=== PATIENT | male | born 1940 | race Hispanic/Latino ===

== ENCOUNTER 2018-10-12 07:22 | Inpatient (IN) | payer MEDICARE, BC ==
[2018-10-12 07:39] VITALS: BMI 22.6
[2018-10-12 07:53] LABS: BASO # 0.1 K/uL (0.0-0.2); BASO % 0.6 % (0.0-2.0); HEMOGLOBIN 7.6 g/dL (12.0-18.0); LYMPH # 0.6 K/uL (1.0-4.3); LYMPH % 3.1 % (20.0-40.0); MEAN CORPUSCULAR HEMOGLOBIN 25.1 pg (27.0-31.0); MEAN CORPUSCULAR HGB CONC 32.2 g/dL (33.0-37.0); MEAN PLATELET VOLUME 8.4 fL (7.2-11.7); MONO # 0.9 K/uL (0.0-0.8); MONO % 4.5 % (0.0-10.0); NEUT # 18.1 K/uL (1.8-7.0); NEUT % 91.8 % (50.0-75.0); PLATELET COUNT 568 K/uL (130-400); RBC 3.01 Mil/uL (4.40-5.90); RED CELL DISTRIBUTION WIDTH 17.2 % (11.5-14.5); WHITE BLOOD COUNT 19.7 K/uL (4.8-10.8)
[2018-10-12] MEDS ORDERED: Sodium Chloride 0.9% 1,000 ML IV ONE (07:56)
[2018-10-12 08:01] LABS: PROTHROMBIN TIME 11.3 SECONDS (9.7-12.2)
[2018-10-12] MEDS ORDERED: Sodium Chloride 0.9% 1,000 ML ONE (08:05)
[2018-10-12 08:17] LABS: VENOUS BLOOD GAS BASE EXCESS -0.7 mmol/L (0.0-2.0); VENOUS BLOOD GAS PCO2 40 mmHg (40-60); VENOUS BLOOD GAS PO2 33 mm/Hg (30-55); VENOUS BLOOD PH 7.39 (7.32-7.43)
--- NOTE | 2018-10-12 08:27 | C.PDOC ---
History Of Present Illness 78 year old male is brought to the ED by EMS for evaluation of altered mental status. As per EMS, patient was found altered while laying on quaker steps for an unknown amount of time. Additional information limited secondary to patient's clinical condition. Time Seen by Provider: 10/12/18 07:26 Chief Complaint (Nursing): Altered Mental Status History Per: EMS History/Exam Limitations: Clinical Condition Onset/Duration Of Symptoms: Unknown Onset Of Symptoms: Cannot Confirm Onset Current Symptoms Are (Timing): Still Present Usual Baseline: Non-verbal Exacerbating Factor(s): Unknown Additional History Per: Patient Past Medical History Reviewed: Historical Data, Nursing Documentation, Vital Signs Vital Signs: Last Vital Signs Temp 90.5 F L 10/12/18 07:28 Pulse 62 10/12/18 08:22 Resp 18 10/12/18 08:22 BP 124/43 L 10/12/18 08:22 Pulse Ox 100 10/12/18 08:22 - Medical History PMH: No Chronic Diseases Surgical History: No Surg Hx Family History: States: Unknown Family Hx - Social History Hx Alcohol Use: No (Unobtainable) Hx Substance Use: No (Unobtainable) - Immunization History Hx Tetanus Toxoid Vaccination: (Unobtainable) Hx Influenza Vaccination: (Unobtainable) Hx Pneumococcal Vaccination: (Unobtainable) Review Of Systems Review Of Systems: ROS cannot be obtained secondary to pt's inabilty to answer questions. Physical Exam - Physical Exam Appears: Toxic, No Acute Distress, Other (hypothermic, with rectal temperature of 90.5) Skin: Warm, Dry, Ecchymosis (to right periorbital region. appears old ) Head: Atraumatic, Normacephalic Eye(s): bilateral: PERRL, EOMI Oral Mucosa: Moist Neck: Supple Chest: Symmetrical, No Deformity, No Tenderness Cardiovascular: Rhythm Regular, No Murmur Respiratory: Normal Breath Sounds, No Rales, No Rhonchi, No Wheezing Gastrointestinal/Abdominal: Bowel Sounds (positive ), Soft, Guarding Extremity: Normal ROM Neurological/Psych: Other (non-verbal, withdraws to pain ) ED Course And Treatment - Laboratory Results Result Diagrams: 10/12/18 07:48 10/12/18 08:13 ECG: Interpreted By Me, Viewed By Me ECG Rhythm: Sinus Rhythm Interpretation Of ECG: Normal Sinus Rhythm at 61bpm. Normal intervals, normal axis. PVCs. Positive artifact. No gross ST or T wave abnormality. Rate From EC O2 Sat by Pulse Oximetry: 100 Critical Care Time - Critical Care Note Total Time (in mins): 45 Documented critical care: time excludes all time spent performing seperately billable procedures. Medical Decision Making Medical Decision Making: Assessment: altered mental status Plan: * bloodwork * urinalysis * CXR * CT A/P * CT Head * EKG * Maxipime IVPB * IV Fluids * reassess and disposition Progress: Bloodwork, urinalysis, CXR, CT A/P, CT Head, and EKG ordered and reviewed. Maxipime IVPB and IV Fluids. Patient will be admitted to tele under Dr. Mariano Perry's service for hypothermia and mental status change. Disposition Discussed With DrGabby: Karolina Esteban - Disposition Disposition: HOSPITALIZED Disposition Time: 11:18 Condition: FAIR Forms: [employer] ([place]ian) - Clinical Impression Clinical Impression: Change in mental status, Hypothermia - Scribe Statement The provider has reviewed the documentation as recorded by the Scribe (Charla Byrd) Provider Attestation: All medical record entries made by the Scribe were at my direction and personally dictated by me. I have reviewed the chart and agree that the record accurately reflects my personal performance of the history, physical exam, [facility] decision making, and the department course for this patient. I have also personally directed, reviewed, and agree with the discharge instructions and disposition.
[2018-10-12 08:36] LABS: ALB/GLOB RATIO 1.2 (1.0-2.1); ALBUMIN 3.1 g/dL (3.5-5.0); ALT/SGPT 23 U/L (21-72); AST/SGOT 51 U/L (17-59); BLOOD UREA NITROGEN 37 mg/dL (9-20); CALCIUM 8.1 mg/dl (8.6-10.4); GFR NON-AFRICAN AMERICAN > 60
[2018-10-12] MEDS ORDERED: Cefepime 1 GM in Sodium Chloride 0.9% 50 ML IVPB ONE (08:37)
[2018-10-12 08:46] LABS: B-TYPE NATRIURETIC PEPTIDE 1780 pg/mL (0-900)
[2018-10-12 09:15] LABS: LYMPHOCYTE 1 % (20-40); MONOCYTE 2 % (0-10); NEUTROPHIL 97 % (50-75); TOTAL CELLS COUNTED 100
[2018-10-12 09:16] LABS: SQUAMOUS EPITHIAL < 1 /hpf (0-5); URINE BILIRUBIN NEGATIVE (NEGATIVE); URINE BLOOD 2+ (NEGATIVE); URINE CLARITY Clear (Clear); URINE COLOR Yellow (YELLOW); URINE GLUCOSE (UA) NORMAL (Normal); URINE LEUKOCYTE ESTERASE NEG Leu/uL (Negative); URINE PROTEIN NEGATIVE (NEGATIVE); URINE UROBILINOGEN NORMAL mg/dL (0.2-1.0)
[2018-10-12 09:16] LABS: ANISOCYTOSIS SLIGHT; PLATELET ESTIMATE INCREASED (NORMAL)
[2018-10-12 09:17] LABS: HYPOCHROMIC SLIGHT; MICROCYTOSIS SLIGHT; OVALOCYTES SLIGHT; POLYCHROMIC SLIGHT
[2018-10-12 09:18] LABS: SCHISTOCYTES SLIGHT
--- NOTE | 2018-10-12 10:05 | RAD ---
Date of service: 10/12/2018 PROCEDURE: CHEST RADIOGRAPH, 1 VIEW HISTORY: SOB COMPARISON: None available. FINDINGS: LUNGS: Clear. PLEURA: No pneumothorax or pleural fluid seen. CARDIOVASCULAR: No aortic atherosclerotic calcification present. Normal. OSSEOUS STRUCTURES: No significant abnormalities. VISUALIZED UPPER ABDOMEN: Normal. OTHER FINDINGS: None. IMPRESSION: No active disease.
--- NOTE | 2018-10-12 10:37 | CT ---
Date of service: 10/12/2018 PROCEDURE: CT HEAD WITHOUT CONTRAST. HISTORY: ams COMPARISON: None available. TECHNIQUE: Axial computed tomography images were obtained through the head/brain without intravenous contrast. Radiation dose: Total exam DLP = 1375.14 mGy-cm. This CT exam was performed using one or more of the following dose reduction techniques: Automated exposure control, adjustment of the mA and/or kV according to patient size, and/or use of iterative reconstruction technique. FINDINGS: HEMORRHAGE: No intracranial hemorrhage. BRAIN: No mass effect or edema. Severe periventricular white matter hypodensity is statistically most likely secondary to chronic microvascular ischemic disease. Mild atrophy. VENTRICLES: Unremarkable. No hydrocephalus. CALVARIUM: Unremarkable. PARANASAL SINUSES: Severe bilateral sinus disease. MASTOID AIR CELLS: Unremarkable as visualized. No inflammatory changes. OTHER FINDINGS: None. IMPRESSION: Severe periventricular white matter hypodensity is statistically most likely secondary to chronic microvascular ischemic disease. Mild atrophy.
--- NOTE | 2018-10-12 10:56 | CT ---
Date of service: 10/12/2018 PROCEDURE: CT Abdomen and Pelvis with contrast HISTORY: ams COMPARISON: None. TECHNIQUE: Contrast dose: Radiation dose: Total exam DLP = 472.04 mGy-cm. This CT exam was performed using one or more of the following dose reduction techniques: Automated exposure control, adjustment of the mA and/or kV according to patient size, and/or use of iterative reconstruction technique. FINDINGS: LOWER THORAX: Mild bibasilar infiltrates, right greater than left LIVER: Right hepatic cyst measuring roughly 1.8 centimeters. GALLBLADDER AND BILE DUCTS: Unremarkable. PANCREAS: Unremarkable. No gross lesion or ductal dilatation. SPLEEN: Unremarkable. ADRENALS: Unremarkable. No mass. KIDNEYS AND URETERS: Unremarkable. No hydronephrosis. No solid mass. VASCULATURE: Unremarkable. No aortic aneurysm. No aortic atherosclerotic calcification or mural plaque present. BOWEL: Unremarkable. No obstruction. No gross mural thickening. APPENDIX: Normal appendix. PERITONEUM: Unremarkable. No free fluid. No free air. LYMPH NODES: Unremarkable. No enlarged lymph nodes. BLADDER: Unremarkable. REPRODUCTIVE: Prostate enlargement. BONES: No acute fracture. OTHER FINDINGS: None. IMPRESSION: Right hepatic cyst. Prostate enlargement. Mild bibasilar infiltrates.
[2018-10-12 12:46] LABS: VENOUS BLOOD GAS BASE EXCESS -2.5 mmol/L (0.0-2.0); VENOUS BLOOD GAS PCO2 39 mmHg (40-60); VENOUS BLOOD GAS PO2 19 mm/Hg (30-55); VENOUS BLOOD PH 7.37 (7.32-7.43)
--- NOTE | 2018-10-12 23:54 | CP.PCM.CON ---
Past Patient History - Past Medical History & Family History Past Medical History?: No - Past Social History Smoking Status: unobtained - MUSCULOSKELETAL/RHEUMATOLOGICAL Hx Falls: Yes - PSYCHIATRIC Hx Substance Use: (unobtainable) - ANESTHESIA Hx Anesthesia: (Unobtainable) Meds Allergies/Adverse Reactions: Allergies Allergy/AdvReac Type Severity Reaction Status Date / Time Unobtainable Allergy Verified 10/12/18 07:39 - Medications Medications: Current Medications Influenza Virus Vaccine (Fluzone Quad [id number]) 60 mcg IM .ONCE ONE Stop: 10/14/18 10:01 Pneumococcal Polyvalent Vaccine (Pneumovax 23 Vaccine) 0.5 ml IM .ONCE ONE Stop: 10/14/18 10:01 Results - Vital Signs Recent Vital Signs: Last Vital Signs Temp 98 F 10/12/18 17:26 Pulse 67 10/12/18 20:28 Resp 20 10/12/18 17:26 BP 128/60 10/12/18 17:26 Pulse Ox 94 L 10/12/18 17:26 - Labs Result Diagrams: 10/12/18 07:48 10/12/18 08:13 Labs: Laboratory Results - last 24 hr 10/12/18 10/12/18 10/12/18 07:29 07:48 07:48 WBC 19.7 H RBC 3.01 L Hgb 7.6 L Hct 23.5 L MCV 78.0 L MCH 25.1 L MCHC 32.2 L RDW 17.2 H Plt Count 568 H MPV 8.4 Neut % (Auto) 91.8 H Lymph % (Auto) 3.1 L Crawford % (Auto) 4.5 Eos % (Auto) 0.0 Baso % (Auto) 0.6 Neut # (Auto) 18.1 H Lymph # (Auto) 0.6 L Crawford # (Auto) 0.9 H Eos # (Auto) 0.0 Baso # (Auto) 0.1 Neutrophils % (Manual) 97 H Lymphocytes % (Manual) 1 L Monocytes % (Manual) 2 Platelet Estimate Increased H Polychromasia Slight Hypochromasia (manual) Slight Anisocytosis (manual) Slight Microcytosis (manual) Slight Ovalocytes Slight Schistocytes Slight PT 11.3 INR 1.0 APTT 26 pO2 VBG pH VBG pCO2 VBG HCO3 VBG Total CO2 VBG O2 Sat (Calc) VBG Base Excess VBG Potassium Glucose Lactate Sodium Potassium Chloride Carbon Dioxide Anion Gap BUN Creatinine Est GFR ( Amer) Est GFR (Non-Af Amer) POC Glucose (mg/dL) 86 Random Glucose Calcium Magnesium Total Bilirubin AST ALT Alkaline Phosphatase Ammonia Total Creatine Kinase Troponin I NT-Pro-B Natriuret Pep Total Protein Albumin Globulin Albumin/Globulin Ratio Venous Blood Potassium Urine Color Urine Clarity Urine pH Ur Specific [place] Urine Protein Urine Glucose (UA) Urine Ketones Urine Blood Urine Nitrate Urine Bilirubin Urine Urobilinogen Ur Leukocyte Esterase Urine WBC (Auto) Urine RBC (Auto) Ur Squamous Epith Cells 10/12/18 10/12/18 10/12/18 08:13 08:13 08:14 WBC RBC Hgb Hct MCV MCH MCHC RDW Plt Count MPV Neut % (Auto) Lymph % (Auto) Crawford % (Auto) Eos % (Auto) Baso % (Auto) Neut # (Auto) Lymph # (Auto) Crawford # (Auto) Eos # (Auto) Baso # (Auto) Neutrophils % (Manual) Lymphocytes % (Manual) Monocytes % (Manual) Platelet Estimate Polychromasia Hypochromasia (manual) Anisocytosis (manual) Microcytosis (manual) Ovalocytes Schistocytes PT INR APTT pO2 33 VBG pH 7.39 VBG pCO2 40 VBG HCO3 23.4 VBG Total CO2 25.4 VBG O2 Sat (Calc) 62.3 VBG Base Excess -0.7 L VBG Potassium 4.8 Glucose 89 Lactate 2.8 H Sodium 134 138.0 Potassium 4.4 Chloride 100 106.0 Carbon Dioxide 23 Anion Gap 16 BUN 37 H Creatinine 0.8 Est GFR ( Amer) > 60 Est GFR (Non-Af Amer) > 60 POC Glucose (mg/dL) Random Glucose 96 Calcium 8.1 L Magnesium 2.1 Total Bilirubin 0.5 AST 51 ALT 23 Alkaline Phosphatase 94 Ammonia 20 Total Creatine Kinase 1004 H Troponin I 0.0200 NT-Pro-B Natriuret Pep 1780 H Total Protein 5.7 L Albumin 3.1 L Globulin 2.5 Albumin/Globulin Ratio 1.2 Venous Blood Potassium 4.8 Urine Color Urine Clarity Urine pH Ur Specific [place] Urine Protein Urine Glucose (UA) Urine Ketones Urine Blood Urine Nitrate Urine Bilirubin Urine Urobilinogen Ur Leukocyte Esterase Urine WBC (Auto) Urine RBC (Auto) Ur Squamous Epith Cells 10/12/18 10/12/18 08:53 12:42 WBC RBC Hgb Hct MCV MCH MCHC RDW Plt Count MPV Neut % (Auto) Lymph % (Auto) Crawford % (Auto) Eos % (Auto) Baso % (Auto) Neut # (Auto) Lymph # (Auto) Crawford # (Auto) Eos # (Auto) Baso # (Auto) Neutrophils % (Manual) Lymphocytes % (Manual) Monocytes % (Manual) Platelet Estimate Polychromasia Hypochromasia (manual) Anisocytosis (manual) Microcytosis (manual) Ovalocytes Schistocytes PT INR APTT pO2 19 L VBG pH 7.37 VBG pCO2 39 L VBG HCO3 21.1 VBG Total CO2 23.7 VBG O2 Sat (Calc) 25.3 L VBG Base Excess -2.5 L VBG Potassium 3.7 Glucose 75 Lactate 1.2 Sodium 136.0 Potassium Chloride 106.0 Carbon Dioxide Anion Gap BUN Creatinine Est GFR ( Amer) Est GFR (Non-Af Amer) POC Glucose (mg/dL) Random Glucose Calcium Magnesium Total Bilirubin AST ALT Alkaline Phosphatase Ammonia Total Creatine Kinase Troponin I NT-Pro-B Natriuret Pep Total Protein Albumin Globulin Albumin/Globulin Ratio Venous Blood Potassium 3.7 Urine Color Yellow Urine Clarity Clear Urine pH 5.0 Ur Specific [place] 1.021 Urine Protein Negative Urine Glucose (UA) Normal Urine Ketones 1+ H Urine Blood 2+ H Urine Nitrate Negative Urine Bilirubin Negative Urine Urobilinogen Normal Ur Leukocyte Esterase Neg Urine WBC (Auto) 2 Urine RBC (Auto) 22 H Ur Squamous Epith Cells < 1
[2018-10-13] MEDS: Dextrose 5%/0.45% NS 1,000 ML IV SCH ×2 (08:01→18:05)
[2018-10-13] MEDS: Cefepime IV 1 gm in Dextrose 1 GM/50 ML BAG IVPB SCH ×2 (09:36→20:01)
[2018-10-13] MEDS: Thiamine 100 mg/ml Inj IM SCH (09:36)
[2018-10-13 11:41] LABS: BASO % 0.3 % (0.0-2.0); EOS % 0.1 % (0.0-4.0); HEMOGLOBIN 6.8 g/dL (12.0-18.0); LYMPH # 0.7 K/uL (1.0-4.3); LYMPH % 4.2 % (20.0-40.0); MEAN CELL VOLUME 78.4 fL (80.0-94.0); MEAN CORPUSCULAR HEMOGLOBIN 23.8 pg (27.0-31.0); MEAN CORPUSCULAR HGB CONC 30.4 g/dL (33.0-37.0); MEAN PLATELET VOLUME 8.2 fL (7.2-11.7); MONO # 0.9 K/uL (0.0-0.8); MONO % 5.5 % (0.0-10.0); NEUT # 14.7 K/uL (1.8-7.0); NEUT % 89.9 % (50.0-75.0); PLATELET COUNT 522 K/uL (130-400); RBC 2.85 Mil/uL (4.40-5.90); RED CELL DISTRIBUTION WIDTH 17.3 % (11.5-14.5); WHITE BLOOD COUNT 16.3 K/uL (4.8-10.8)
[2018-10-13 12:01] LABS: ANISOCYTOSIS MODERATE; LYMPHOCYTE 3 % (20-40); MONOCYTE 6 % (0-10); NEUTROPHIL 91 % (50-75); PLATELET ESTIMATE INCREASED (NORMAL); TOTAL CELLS COUNTED 100
[2018-10-13 12:02] LABS: HYPOCHROMIC MODERATE; LARGE PLATELETS PRESENT; MICROCYTOSIS SLIGHT; POLYCHROMIC SLIGHT
[2018-10-13 12:03] LABS: OVALOCYTES SLIGHT; POIKILOCYTOSIS SLIGHT
[2018-10-13 12:12] LABS: ALB/GLOB RATIO 1.1 (1.0-2.1); ALBUMIN 2.7 g/dL (3.5-5.0); CALCIUM 7.5 mg/dl (8.6-10.4)
[2018-10-14] MEDS: Dextrose 5%/0.45% NS 1,000 ML IV SCH ×4 (01:39→22:46)
--- NOTE | 2018-10-14 07:07 | CP.PCM.PN ---
Subjective - Date & Time of Evaluation Date of Evaluation: 10/14/18 Time of Evaluation: 07:07 - Subjective Subjective: Medicine Progress Note - Dr Esteban's Service Objective - Vital Signs/Intake and Output Vital Signs (last 24 hours): Temp Pulse Resp BP Pulse Ox 98 F 60 20 142/66 96 10/14/18 01:00 10/14/18 01:00 10/14/18 01:00 10/14/18 01:00 10/13/18 23:30 Intake and Output: 10/14/18 10/14/18 06:59 18:59 Intake Total 1775 Output Total 700 Balance 1075 - Medications Medications: Current Medications Dextrose/Sodium Chloride (Dextrose 5%/0.45% Ns 1000 Ml) 1,000 mls @ 100 mls/hr IV .Q10H [facility] Last Admin: 10/14/18 06:28 Dose: Not Given Cefepime HCl (Maxipime Iv 1 Gm Premix) 1 gm in 50 mls @ 100 mls/hr IVPB Q12H [facility]; Protocol Last Admin: 10/13/18 20:01 Dose: 100 mls/hr Influenza Virus Vaccine (Fluzone Quad [id number]) 60 mcg IM .ONCE ONE Stop: 10/14/18 10:01 Lorazepam (Ativan) 0.5 mg IVP Q4 PRN PRN Reason: Anxiety Last Admin: 10/13/18 08:01 Dose: 0.5 mg Pantoprazole Sodium (Protonix Inj) 40 mg IVP DAILY [facility] Last Admin: 10/13/18 14:34 Dose: 40 mg Pneumococcal Polyvalent Vaccine (Pneumovax 23 Vaccine) 0.5 ml IM .ONCE ONE Stop: 10/14/18 10:01 Thiamine HCl (Vitamin B1 Inj) 100 mg IM DAILY [facility] Last Admin: 10/13/18 09:36 Dose: 100 mg - Labs Labs: 10/13/18 11:32 10/13/18 11:32 PT 11.3 SECONDS (9.7-12.2) 10/12/18 07:48 INR 1.0 10/12/18 07:48 APTT 26 SECONDS (21-34) 10/12/18 07:48
[2018-10-14 08:35] LABS: BASO # 0.1 K/uL (0.0-0.2); BASO % 0.4 % (0.0-2.0); EOS % 0.2 % (0.0-4.0); LYMPH # 0.5 K/uL (1.0-4.3); LYMPH % 3.6 % (20.0-40.0); MEAN CELL VOLUME 79.7 fL (80.0-94.0); MEAN CORPUSCULAR HEMOGLOBIN 25.7 pg (27.0-31.0); MEAN CORPUSCULAR HGB CONC 32.2 g/dL (33.0-37.0); MEAN PLATELET VOLUME 8.1 fL (7.2-11.7); MONO # 0.8 K/uL (0.0-0.8); MONO % 6.3 % (0.0-10.0); NEUT # 12.1 K/uL (1.8-7.0); NEUT % 89.5 % (50.0-75.0); RBC 3.44 Mil/uL (4.40-5.90); WHITE BLOOD COUNT 13.5 K/uL (4.8-10.8)
[2018-10-14 08:40] LABS: HEMOGLOBIN 8.8 g/dL (12.0-18.0); PLATELET COUNT 409 K/uL (130-400)
[2018-10-14 08:45] LABS: PROTHROMBIN TIME 11.1 SECONDS (9.7-12.2)
[2018-10-14] MEDS ORDERED: Propofol 10 mg/ml Inj (20 ML) ONE (08:48)
[2018-10-14 09:04] LABS: ALBUMIN 2.6 g/dL (3.5-5.0); CALCIUM 7.5 mg/dl (8.6-10.4)
[2018-10-14] MEDS ORDERED: Influenza Vaccine 60 MCG/0.5 ML SYR (3 yr & up) IM ONE (10:00)
[2018-10-14] MEDS ORDERED: Pneumococcal 23-Valent Vaccine IM ONE (10:00)
[2018-10-14 10:21] LABS: BANDS 1 % (0-2); LYMPHOCYTE 4 % (20-40); MONOCYTE 3 % (0-10); NEUTROPHIL 92 % (50-75); TOTAL CELLS COUNTED 100
[2018-10-14] MEDS: Cefepime IV 1 gm in Dextrose 1 GM/50 ML BAG IVPB SCH ×2 (10:21→20:42)
[2018-10-14 10:22] LABS: ANISOCYTOSIS SLIGHT; HYPOCHROMIC SLIGHT; PLATELET ESTIMATE SLIGHTLY INCREASED (NORMAL); POIKILOCYTOSIS SLIGHT
[2018-10-14] MEDS: Thiamine 100 mg/ml Inj IM SCH (10:22)
--- NOTE | 2018-10-14 10:46 | HP ---
HISTORY OF PRESENT ILLNESS: A 78-year-old male has a chief complaint of weakness, fatigue, tiredness, and altered mental status. The patient came to the ER, advised admission. The patient is found to be anemic. Was seen in the ICU while flower plan[facility] floor. PHYSICAL EXAMINATION: GENERAL: The patient is confused, not oriented to time or place. VITAL SIGNS: Temperature 98, pulse 90. HEENT: Within normal limits. NECK: Supple. CHEST: Symmetrical. HEART: Regular. ABDOMEN: Soft. EXTREMITIES: No edema. ASSESSMENT AND PLAN: The patient suffers from altered mental status, delirium tremens, anemia. The patient is to get bedrest. Supportive care. Karolina Esteban MD
[2018-10-14 14:47] LABS: N MENINGITIS ACY/W135 NEGATIVE (NEGATIVE); N MENINGITIS B/ECOLI K1 NEGATIVE (NEGATIVE); STREP PNEUMONIAE NEGATIVE (NEGATIVE); STREPTOCOCCUS B NEGATIVE (NEGATIVE)
--- NOTE | 2018-10-14 15:38 | CP.PCM.CON ---
History of Present Illness - History of Present Illness History of Present Illness: 78 year old male is brought to the ED by EMS for evaluation of altered mental status. As per EMS, patient was found altered while laying on mormonism steps for an unknown amount of time. Additional information limited secondary to patient's clinical condition. \ ID consulted for leukocytosis/ r/o sepsis workup for GI bleed and occult malignancy in progress IV Maxepime ordered Review of Systems - Review of Systems Systems not reviewed;Unavailable: Altered Mental Status - Constitutional Constitutional: As Per HPI - EENT Ears: absent: As Per HPI, Decreased Hearing, Ear Discharge, Ear Pain, Tinnitus, Abnormal Hearing, Disequilibrium, Dizziness, Other Nose/Mouth/Throat: absent: As Per HPI, Epistaxis, Nasal Congestion, Nasal Discharge, Nasal Obstruction, Nasal Trauma, Nose Pain, Post Nasal Drip, Sinus Pain, Sinus Pressure, Bleeding Gums, Change in Voice, Dental Pain, Dry Mouth, Dysphagia, Halitosis, Hoarsness, Lip Swelling, Mouth Lesions, Mouth Pain, Odynophagia, Sore Throat, Throat Swelling, Tongue Swelling, Facial Pain, Neck Pain, Neck Mass, Other - Cardiovascular Cardiovascular: absent: As Per HPI, Acrocyanosis, Chest Pain, Chest Pain at Rest, Chest Pain with Activity, Claudication, Diaphoresis, Dyspnea, Dyspnea on Exertion, Edema, Irregular Heart Rhythm, Pain Radiating to Arm/Neck/Jaw, Leg Edema, Leg Ulcers, Lightheadedness, Orthopnea, Palpitations, Paroxysmal Nocturnal Dyspnea, Pedal Edema, Radiating Pain, Rapid Heart Rate, Slow Heart Rate, Syncope, Other - Respiratory Respiratory: absent: As Per HPI, Cough, Dyspnea, Hemoptysis, Dyspnea on Exertion, Wheezing, Snoring, Stridor, Pain on Inspiration, Chest Congestion, Excessive Mucous Production, Change in Mucous Color, Pain with Coughing, Other - Gastrointestinal Gastrointestinal: As Per HPI - Genitourinary Genitourinary: absent: As Per HPI, Change in Urinary Stream, Difficulty Urinating, Dysuria, Flank Pain, Hematuria, Pyuria, Nocturia, Urinary Incontinence, Urinary Frequency, Urinary Hesitance, Urinary Urgency, Voiding Freq/Small Amts, Freq UTI, Hx Renal/Bladder Calculi, Hx /Renal Surgery, Bladder Distension, Other - Musculoskeletal Musculoskeletal: As Per HPI - Integumentary Integumentary: absent: As Per HPI, Acne, Alopecia, Bleeding Lesions, Change in Hair, Change in Nails, Change in Pigmentation, Changing Lesions, Dry Skin, Erythema, Furuncle, Hirsutism, Lesions, New Lesions, Non-Healing Lesions, Photosensitivity, Pruritus, Rash, Skin Pain, Skin Ulcer, Sores, Striae, Swelling, Unusual Bruising, Wounds, Jaundice, Other - Neurological Neurological: As Per HPI - Psychiatric Psychiatric: absent: As Per HPI, Abnormal Sleep Pattern, Anhedonia, Anxiety, Auditory Hallucinations, Behavioral Changes, Change in Appetite, Change in Libido, Confusion, Depression, Difficulty Concentrating, Hallucinations, Homicidal Ideation, Hopelessness, Irritability, Memory Loss, Mood Swings, Panic Attacks, Paranoia, Suicidal Ideation, Visual Hallucinations, Tactile Hallucinat ions, Other - Endocrine Endocrine: absent: As Per HPI, Change in Body Appearance, Change in Libido, Cold Intolorance, Deepening of Voice, Excessive Sweating, Fatigue, Flushing, Heat Intolorance, Increase in Ring/Shoe/Hat Size, Palpitations, Polydipsia, Polyphag ia, Polyuria, Other - Hematologic/Lymphatic Hematologic: absent: As Per HPI, Easy Bleeding, Easy Bruising, Lymphadenopathy, Other Past Patient History - Past Medical History & Family History Past Medical History?: No - Past Social History Smoking Status: unobtained - MUSCULOSKELETAL/RHEUMATOLOGICAL Hx Falls: Yes - PSYCHIATRIC Hx Substance Use: (unobtainable) - ANESTHESIA Hx Anesthesia: (Unobtainable) Meds Allergies/Adverse Reactions: Allergies Allergy/AdvReac Type Severity Reaction Status Date / Time Unobtainable Allergy Verified 10/12/18 07:39 - Medications Medications: Current Medications Dextrose/Sodium Chloride (Dextrose 5%/0.45% Ns 1000 Ml) 1,000 mls @ 100 mls/hr IV .Q10H [facility] Last Admin: 10/14/18 13:32 Dose: 100 mls/hr Cefepime HCl (Maxipime Iv 1 Gm Premix) 1 gm in 50 mls @ 100 mls/hr IVPB Q12H [facility]; Protocol Last Admin: 10/14/18 10:21 Dose: 100 mls/hr Lorazepam (Ativan) 0.5 mg IVP Q4 PRN PRN Reason: Anxiety Last Admin: 10/13/18 08:01 Dose: 0.5 mg Pantoprazole Sodium (Protonix Inj) 40 mg IVP DAILY [facility] Last Admin: 10/14/18 10:22 Dose: 40 mg Thiamine HCl (Vitamin B1 Inj) 100 mg IM DAILY [facility] Last Admin: 10/14/18 10:22 Dose: 100 mg Physical Exam - Constitutional Appears: Non-toxic, Confused, Cachectic, Chronically Ill - Head Exam Head Exam: ATRAUMATIC, NORMAL INSPECTION, NORMOCEPHALIC - Eye Exam Eye Exam: EOMI, PERRL. absent: Scleral icterus Pupil Exam: NORMAL ACCOMODATION - ENT Exam ENT Exam: Mucous Membranes Dry, Normal External Ear Exam - Neck Exam Neck exam: Negative for: Lymphadenopathy, Thyromegaly - Respiratory Exam Respiratory Exam: Decreased Breath Sounds, Clear to Auscultation Bilateral - Cardiovascular Exam Cardiovascular Exam: REGULAR RHYTHM, +S1, +S2 - GI/Abdominal Exam GI & Abdominal Exam: Diminished Bowel Sounds, Distended, Soft. absent: Tenderness - Rectal Exam Rectal Exam: Deferred - Exam Exam: NORMAL INSPECTION - Extremities Exam Extremities exam: Positive for: pedal pulses present. Negative for: calf tenderness, pedal edema, tenderness - Back Exam Back exam: absent: CVA tenderness (L), CVA tenderness (R), paraspinal tenderness - Neurological Exam Neurological exam: Alert, Altered, CN II-XII Intact - Psychiatric Exam Psychiatric exam: Depressed - Skin Skin Exam: Dry, Intact Results - Vital Signs Recent Vital Signs: Last Vital Signs Temp 98 F 10/14/18 10:10 Pulse 55 L 10/14/18 10:10 Resp 20 10/14/18 10:10 BP 132/55 L 10/14/18 10:10 Pulse Ox 94 L 10/14/18 10:10 - Labs Result Diagrams: 10/14/18 08:24 10/14/18 08:24 Labs: Laboratory Results - last 24 hr 10/13/18 10/13/18 10/14/18 13:32 18:18 07:03 WBC RBC Hgb Hct MCV MCH MCHC RDW Plt Count MPV Neut % (Auto) Lymph % (Auto) [place] % (Auto) Eos % (Auto) Baso % (Auto) Neut # (Auto) Lymph # (Auto) [place] # (Auto) Eos # (Auto) Baso # (Auto) Neutrophils % (Manual) Band Neutrophils % Lymphocytes % (Manual) Monocytes % (Manual) Platelet Estimate Hypochromasia (manual) Poikilocytosis (manual Anisocytosis (manual) PT INR APTT Sodium Potassium Chloride Carbon Dioxide Anion Gap BUN Creatinine Est GFR ( Amer) Est GFR (Non-Af Amer) Random Glucose Calcium Total Bilirubin AST ALT Alkaline Phosphatase Ammonia Total Creatine Kinase Total Protein Albumin Globulin Albumin/Globulin Ratio Alpha Fetoprotein Carcinoembryonic Ag CA 19-9 Antigen Procalcitonin TSH 3rd Generation HIV 1&2 Antibody Screen Influenza Typ A,B (EIA) Negative for flu a/b H.influenzae Type B Ag Negative N.meningitidis ACY/W135 Negative N.meningi B/E.coli K1 Ag Negative Group B Strep Antigen Negative S. pneumoniae Antigen Negative Blood Type A POSITIVE Blood Type Confirm A POSITIVE Antibody Screen Negative 10/14/18 10/14/18 10/14/18 08:24 08:24 08:24 WBC RBC Hgb Hct MCV MCH MCHC RDW Plt Count MPV Neut % (Auto) Lymph % (Auto) [place] % (Auto) Eos % (Auto) Baso % (Auto) Neut # (Auto) Lymph # (Auto) [place] # (Auto) Eos # (Auto) Baso # (Auto) Neutrophils % (Manual) Band Neutrophils % Lymphocytes % (Manual) Monocytes % (Manual) Platelet Estimate Hypochromasia (manual) Poikilocytosis (manual Anisocytosis (manual) PT INR APTT Sodium Potassium Chloride Carbon Dioxide Anion Gap BUN Creatinine Est GFR ( Amer) Est GFR (Non-Af Amer) Random Glucose Calcium Total Bilirubin AST ALT Alkaline Phosphatase Ammonia < 9 L Total Creatine Kinase Total Protein Albumin Globulin Albumin/Globulin Ratio Alpha Fetoprotein Carcinoembryonic Ag CA 19-9 Antigen Procalcitonin 2.76 H TSH 3rd Generation 3.08 HIV 1&2 Antibody Screen Influenza Typ A,B (EIA) H.influenzae Type B Ag N.meningitidis ACY/W135 N.meningi B/E.coli K1 Ag Group B Strep Antigen S. pneumoniae Antigen Blood Type Blood Type Confirm Antibody Screen 10/14/18 10/14/18 10/14/18 08:24 08:24 08:24 WBC 13.5 H RBC 3.44 L Hgb 8.8 L D Hct 27.4 L MCV 79.7 L MCH 25.7 L MCHC 32.2 L RDW 18.0 H Plt Count 409 H D MPV 8.1 Neut % (Auto) 89.5 H Lymph % (Auto) 3.6 L [place] % (Auto) 6.3 Eos % (Auto) 0.2 Baso % (Auto) 0.4 Neut # (Auto) 12.1 H Lymph # (Auto) 0.5 L [place] # (Auto) 0.8 Eos # (Auto) 0.0 Baso # (Auto) 0.1 Neutrophils % (Manual) 92 H Band Neutrophils % 1 Lymphocytes % (Manual) 4 L Monocytes % (Manual) 3 Platelet Estimate Slightly increased H Hypochromasia (manual) Slight Poikilocytosis (manual Slight Anisocytosis (manual) Slight PT INR APTT Sodium 137 Potassium 4.0 Chloride 105 Carbon Dioxide 23 Anion Gap 13 BUN 51 H Creatinine 2.8 H Est GFR ( Amer) 27 Est GFR (Non-Af Amer) 22 Random Glucose 116 H D Calcium 7.5 L Total Bilirubin 0.6 AST 104 H D ALT 56 Alkaline Phosphatase 75 Ammonia Total Creatine Kinase 1458 H Total Protein 5.2 L Albumin 2.6 L Globulin 2.6 Albumin/Globulin Ratio 1.0 Alpha Fetoprotein Carcinoembryonic Ag 1.6 CA 19-9 Antigen 1.9 Procalcitonin TSH 3rd Generation HIV 1&2 Antibody Screen Negative Influenza Typ A,B (EIA) H.influenzae Type B Ag N.meningitidis ACY/W135 N.meningi B/E.coli K1 Ag Group B Strep Antigen S. pneumoniae Antigen Blood Type Blood Type Confirm Antibody Screen 10/14/18 10/14/18 08:24 08:24 WBC RBC Hgb Hct MCV MCH MCHC RDW Plt Count MPV Neut % (Auto) Lymph % (Auto) [place] % (Auto) Eos % (Auto) Baso % (Auto) Neut # (Auto) Lymph # (Auto) [place] # (Auto) Eos # (Auto) Baso # (Auto) Neutrophils % (Manual) Band Neutrophils % Lymphocytes % (Manual) Monocytes % (Manual) Platelet Estimate Hypochromasia (manual) Poikilocytosis (manual Anisocytosis (manual) PT 11.1 INR 1.0 APTT 26 Sodium Potassium Chloride Carbon Dioxide Anion Gap BUN Creatinine Est GFR ( Amer) Est GFR (Non-Af Amer) Random Glucose Calcium Total Bilirubin AST ALT Alkaline Phosphatase Ammonia Total Creatine Kinase Total Protein Albumin Globulin Albumin/Globulin Ratio Alpha Fetoprotein 3.4 Carcinoembryonic Ag CA 19-9 Antigen Procalcitonin TSH 3rd Generation HIV 1&2 Antibody Screen Influenza Typ A,B (EIA) H.influenzae Type B Ag N.meningitidis ACY/W135 N.meningi B/E.coli K1 Ag Group B Strep Antigen S. pneumoniae Antigen Blood Type Blood Type Confirm Antibody Screen Assessment & Plan (1) Change in mental status Status: Acute (2) Hypothermia Status: Acute - Assessment and Plan (Free Text) Assessment: septic work up pending- procalcitonin high source unclear will check cultures transfused multiple units PRBC IV antibiotics in progress GI eval pending ICU eval requested
--- NOTE | 2018-10-15 08:24 | CON ---
DATE: 10/13/2018 I was called for GI consultation by the admitting medical team. The patient is seen and fully examined on 10/13/2018 as requested by the medical staff. The entire chart is reviewed including but not limited to the most recent lab and radiology study results, current and the previous medication list, current and the previous medical events, allergy to medication list as well as all the available current and the previous medical records. Case was discussed with the admitting MD at length. HISTORY OF PRESENT ILLNESS: This is a 78-year-old male who was admitted to the hospital with change of mental status through the emergency room with recent report of dysphagia, dyspepsia with generalized weakness and malaise as well as change of bowel movement habit recently. The patient unable to give additional information regarding his GI tract symptoms but no reported chest pain, palpitation, or active GI bleeding as per as the staff in the floor. After being admitted to the hospital, the patient was found to have initially hemoglobin of 7.6 with hematocrit 23.5, white blood cells 19.7 with thrombocytosis of 568 with BUN of 37, normal creatinine indicative of dehydration. PAST MEDICAL HISTORY: Difficult to obtain at this point. CURRENT MEDICATIONS: Post admission medication lists were reviewed. FAMILY HISTORY: Unknown. ALLERGIES TO MEDICATIONS: UNCLEAR. The patient reported to have low hemoglobin and hematocrit again despite blood transfusion post admission. Official report of CAT scan of the head is seen. PHYSICAL EXAMINATION: GENERAL: A 78-year-old male, somewhat unable to give any information. VITAL SIGNS: Reported to have hypothermia at the time of the admission and so on with pulse of 68, respiratory rate 20 to 22, blood pressure 130/56. HEENT: Showed pale dry oral mucoid membrane. Nonicteric sclerae. LUNGS: Few scattered crepitation. Decreased air entry at bases. HEART: Positive S1 and S2. ABDOMEN: Soft with mild generalized tenderness. No mass or organomegaly. No rebound tenderness or guarding. EXTREMITIES: Without significant clubbing, cyanosis, or edema. NEUROLOGIC: No clear reported new neurological deficits, sensory or motor. No reported new focal deficits. IMPRESSION: 1. Severe anemia, to rule out gastrointestinal bleeding, upper versus lower. 2. Rule out occult gastrointestinal malignancy. 3. Leukocytosis with thrombocytosis of unclear etiology so far. The possibility of aspiration pneumonia should be ruled in or out. 4. Abnormal CAT scan of the head. SUGGESTIONS: 1. Agree with your plan. 2. Cardiac markers including CEA, CA 19-9. 3. Endoscopic evaluation of the upper and lower GI tract when the patient is more stable clinically. 4. Endoscopic evaluation of the GI tract after adequate preparation. 5. Sectional abdominal and pelvic CAT scan. 6. Proton pump inhibitors IV. 7. Further recommendation to follow post endoscopy. Thank you for letting me participate in your patient's case management. Flynn Avina MD
[2018-10-15] MEDS: Dextrose 5%/0.45% NS 1,000 ML IV SCH ×3 (09:06→21:10)
[2018-10-15] MEDS: Cefepime IV 1 gm in Dextrose 1 GM/50 ML BAG IVPB SCH ×2 (10:01→21:10)
[2018-10-15] MEDS: Thiamine 100 mg/ml Inj IM SCH (10:07)
--- NOTE | 2018-10-15 10:23 | CARD ---
APPROVED REPORT Date of service: 10/12/2018 EKG Measurement Heart [id number] <Conclusion> Sinus rhythm with premature ventricular complexes or fusion complexes Otherwise normal ECG
--- NOTE | 2018-10-15 12:02 | CP.PCM.HP ---
History of Present Illness - History of Present Illness History of Present Illness: 78 years old male was brought to the ED at [facility] on 10/12/2018 because he was found confused, hypothermic, lying on the steps of a hindu. In the ED WBC: 16.300, Hgb: 6,8 PT, PTT WNL BUN: 37 creatinine: 0.8 CK: 1004 TNI: 0.02 Pro-BNP: 1,780 ASR: 146 TP: 5.3 Albumin: 3.1 HIV A&B negative Drug screen: negative Feto protein, CEA, CA 19-9: WNL Pro-calcitonin: 2.76. CXR: No infiltrate CT scan of the head: No hemorrhage, ischemic change, mild atrophy CTscan of the abdomen and pelvis: Mild bibasilar lung infiltrates, small hepatic cyst, enlarged prostate. UA: 2+ blood. Urine culture, blood culture: No growth. Patient received PRC transfusion and today Hgb: 8.8. The last time the patient was seen in our office was 12/2016, He is known to have a hypertension and hypercholesterolemia, on Atenolol and Simvastatin. His Mother and sister had HPTN. According to his sister, the patient did not complain any loss of appetite, any rectal bleeding, any black stools, any vomiting blood, any recent loss of weight. Present on Admission - Present on Admission Any Indicators Present on Admission: No Review of Systems - Review of Systems Systems not reviewed;Unavailable: Altered Mental Status Past Patient History - Past Medical History & Family History Past Medical History?: No - Past Social History Smoking Status: Never Smoked Alcohol: None Drugs: Denies Home Situation {Lives}: With Family Domestic Violence: Negative - CARDIAC Hx Hypercholesterolemia: Yes Hx Hypertension: Yes - MUSCULOSKELETAL/RHEUMATOLOGICAL Hx Falls: Yes - PSYCHIATRIC Hx Substance Use: (unobtainable) - ANESTHESIA Hx Anesthesia: No (Unobtainable) Meds Allergies/Adverse Reactions: Allergies Allergy/AdvReac Type Severity Reaction Status Date / Time Unobtainable Allergy Verified 10/12/18 07:39 Physical Exam - Constitutional Appears: No Acute Distress, Chronically Ill - Head Exam Head Exam: NORMAL INSPECTION - Eye Exam Eye Exam: Normal appearance - ENT Exam ENT Exam: Normal Exam - Neck Exam Neck exam: Positive for: Normal Inspection - Respiratory Exam Respiratory Exam: Rhonchi Additional comments: Few rhonchi at both bases. - Cardiovascular Exam Cardiovascular Exam: REGULAR RHYTHM - GI/Abdominal Exam GI & Abdominal Exam: Normal Bowel Sounds, Soft - Exam Exam: NORMAL INSPECTION - Extremities Exam Extremities exam: Positive for: normal inspection - Back Exam Back exam: NORMAL INSPECTION - Neurological Exam Additional comments: Confused. - Psychiatric Exam Additional comments: Confused. - Skin Skin Exam: Dry, Intact, Normal Color, Warm Results - Vital Signs Recent Vital Signs: Last Vital Signs Temp 97.9 F 10/15/18 07:00 Pulse 59 L 10/15/18 07:04 Resp 20 10/15/18 07:00 BP 148/64 10/15/18 07:00 Pulse Ox 95 10/15/18 07:00 - Labs Result Diagrams: 10/14/18 08:24 10/14/18 08:24 Labs: Laboratory Results - last 24 hr 10/13/18 10/14/18 10/14/18 07:18 07:03 08:24 Procalcitonin 2.76 H Ur Opiates (GC/MS) Negative Ur Methadone, Qual Negative Urine Propoxyphene Negative Methaqualone Negative Ur Barbiturates, Qual Negative Ur Phencyclidine (PCP) Negative Ur Amphetamines Screen Negative U Benzodiazepines Qual Negative Urine Cocaine Negative U Marijuana (THC) Screen Negative Drugs of Abuse Note See note H.influenzae Type B Ag Negative N.meningitidis ACY/W135 Negative N.meningi B/E.coli K1 Ag Negative Group B Strep Antigen Negative S. pneumoniae Antigen Negative Assessment & Plan (1) Change in mental status Assessment and Plan: MRI of the head. Neuro and Psychiatric evaluation. R/o sepsis. ID evaluation. Now on Maxipine. Status: Acute (2) Severe anemia Assessment and Plan: R/O GI bleeding. GI evaluation. Status: Acute (3) Pneumonia Assessment and Plan: On Maxipine. Status: Acute (4) Hematuria Assessment and Plan: Urine culture: no growth To check PSA. For urological evaluation. Status: Acute Decision To Admit - Pt Status Changed To: Hospital Disposition Of: Inpatient - Admit Certification Admit to Inpatient:: After my assessment, the patient will require hospitalization for at least two midnights. This is because of the severity of symptoms shown, intensity of services needed, and/or the medical risk in this patient being treated as an outpatient. - InPatient: Physician Admission Certification:: After my assessments, the patient requires hospitalization for at least 2 midnights. - . Bed Request Type: Telemetry Admitting Physician: Sylvester Jacinto
--- NOTE | 2018-10-15 17:00 | CP.PCM.PN ---
Subjective - Date & Time of Evaluation Date of Evaluation: 10/15/18 Time of Evaluation: 08:00 - Subjective Subjective: events noted yousif in place MRI brain pending Objective - Vital Signs/Intake and Output Vital Signs (last 24 hours): Temp Pulse Resp BP Pulse Ox 98.3 F 72 20 138/70 95 10/15/18 15:00 10/15/18 15:00 10/15/18 15:00 10/15/18 15:00 10/15/18 15:00 Intake and Output: 10/15/18 10/15/18 06:59 18:59 Intake Total 700 750 Output Total 350 810 Balance 350 -60 - Medications Medications: Current Medications Dextrose/Sodium Chloride (Dextrose 5%/0.45% Ns 1000 Ml) 1,000 mls @ 100 mls/hr IV .Q10H [facility] Last Admin: 10/15/18 09:06 Dose: 100 mls/hr Cefepime HCl (Maxipime Iv 1 Gm Premix) 1 gm in 50 mls @ 100 mls/hr IVPB Q12H [facility]; Protocol Last Admin: 10/15/18 10:01 Dose: 100 mls/hr Lorazepam (Ativan) 0.5 mg IVP Q4 PRN PRN Reason: Anxiety Last Admin: 10/15/18 09:13 Dose: 0.5 mg Pantoprazole Sodium (Protonix Inj) 40 mg IVP DAILY [facility] Last Admin: 10/15/18 10:04 Dose: 40 mg Thiamine HCl (Vitamin B1 Inj) 100 mg IM DAILY [facility] Last Admin: 10/15/18 10:07 Dose: 100 mg - Labs Labs: 10/14/18 08:24 10/14/18 08:24 PT 11.1 SECONDS (9.7-12.2) 10/14/18 08:24 INR 1.0 10/14/18 08:24 APTT 26 SECONDS (21-34) 10/14/18 08:24 - Constitutional Appears: Non-toxic, Chronically Ill - Head Exam Head Exam: NORMOCEPHALIC - ENT Exam ENT Exam: Mucous Membranes Dry - Neck Exam Neck Exam: absent: Lymphadenopathy - Respiratory Exam Respiratory Exam: Decreased Breath Sounds - Cardiovascular Exam Cardiovascular Exam: REGULAR RHYTHM - GI/Abdominal Exam GI & Abdominal Exam: Distended, Soft - Rectal Exam Rectal Exam: Deferred - Exam Exam: NORMAL INSPECTION - Extremities Exam Extremities Exam: absent: Pedal Edema - Back Exam Back Exam: absent: CVA tenderness (L), CVA tenderness (R) - Neurological Exam Neurological Exam: Alert, Altered, Awake - Psychiatric Exam Psychiatric exam: Depressed Assessment and Plan (1) Change in mental status Status: Acute (2) Hypothermia Status: Acute - Assessment and Plan (Free Text) Assessment: cont empiric IV antibiotics GI follow up
--- NOTE | 2018-10-15 17:07 | MRI ---
Date of service: 10/15/2018 PROCEDURE: MRI BRAIN WITHOUT CONTRAST HISTORY: r/o mass COMPARISON: None available. TECHNIQUE: Multiplanar, multisequence MR images of the brain were obtained without intravenous contrast enhancement. FINDINGS: Limitations: Extensive motion artifacts across numerous sequences. HEMORRHAGE: None DWI: No definitive evidence of an acute or early subacute infarction. BRAIN PARENCHYMA: Examination of the region of the left anterior clinoid/lateral suprasellar cistern reveals an ill-defined signal abnormality corresponding to the CT finding which is partially calcified. No definite flow voids identified to suggest an aneurysm here. The exact margins of this finding are quite ill-defined limiting evaluation of the by measurement. It appears to be less than 2 cm greatest dimension. Diffuse cerebral atrophy chronic microangiopathy are reiterated with questionable small lobar infarction of the mid left temporal lobe laterally. Ex vacuo expansion of the left lateral ventricle is appreciate, particularly at the temporal horns. No mass effect. Midline brain anatomy is limited evaluation but appears grossly nonfocal. VENTRICLES: Unremarkable. No hydrocephalus. CRANIUM: Unremarkable. ORBITS: Grossly unremarkable. PARANASAL SINUSES/MASTOIDS: Extensive sinus disease appreciated diffusely including near complete opacification of bilateral maxillary and left sphenoid sinuses as well as complete opacification the right sphenoid sinus. There is essentially complete opacification of the bilateral ethmoid air cells and left frontal sinus with partial opacification of the right frontal sinus. VASCULAR SYSTEM: Skull base flow voids intact. OTHER FINDINGS: None. IMPRESSION: No definite acute or subacute brain infarction is grossly evident. No apparent mass effect. A lesion that may correspond to the CT finding at the left anterior clinoid/suprasellar cistern laterally is poorly defined on the current examination. Consider repeat MR imaging with and without contrast if the patient can be sedated. Examination is 2 artifacted in the location of concern. 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 Gross pansinusitis with right frontal sinus least affected.
--- NOTE | 2018-10-15 18:07 | PN ---
DATE: 10/15/2018 LOCATION: 568, bed B. SUBJECTIVE: This 78-year-old male seen and examined in rounds without significant clinical changes with persistent dysphagia. The entire chart is reviewed and the patient still has leukocytosis with low hemoglobin and hematocrit, with low albumin and low total protein, but normal cancer makers. Procalcitonin level was elevated to 176. MRI of the head report is still pending. PHYSICAL EXAMINATION: GENERAL: This 78-year-old male with EGD with biopsy yesterday, pathology report is still pending. VITAL SIGNS: Afebrile with pulse of 62, respiratory rate 20-22, and blood pressure 144/66. HEENT: Showed pale dry oral mucoid membranes, nonicteric sclerae. LUNGS: Few scattered crepitation, decreased air entry at bases. HEART: S1 and S2 with increased rate. ABDOMEN: Soft with mild generalized tenderness. No mass or organomegaly and no rebound tenderness or guarding. EXTREMITIES: Without significant clubbing, cyanosis, or edema. NEUROLOGIC: No reported new neurological deficits, sensory, or motor. IMPRESSION: 1. Dysphagia. 2. 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 3. Possible aspiration pneumonia. 4. Abnormal CAT scan of the head. SUGGESTION: 1. I agree with your plan. 2. Thoracic and chest CAT scan. 3. Thoracic surgical consultation as well as hematology and oncology consultation is required. Further recommendation to follow. Flynn Avina MD
--- NOTE | 2018-10-15 23:39 | CP.PCM.CON ---
History of Present Illness - History of Present Illness History of Present Illness: Cardiothoracic Surgery Consult Note for Dr. Mathews Consult: Esophageal Mass HPI: 78 year old male, with a past medical history of hypertension and hyperlipidemia, presented to the ED by ambulance after found with altered mental status in front of a hindu for unknown period of time. Upon arrival and further workup, patient found to have dysphagia which was further worked up with the gastroenterology team. EGD was done showing a gastric mass migrating up into the esophagus. Pathology came back positive for gastric malignancy. Patient is not cooperative or coherent during examination. Per H&P note, patient's family states patient did not complain of rectal bleeding, black stools, or other GI bleeds. All history obtained through previous medical records at this time. PMH: See above PSH: Unknown FH: Unknown SH: Unable to obtain ALL: Unknown Meds: See MAR Review of Systems - Review of Systems Systems not reviewed;Unavailable: Altered Mental Status Past Patient History - Past Medical History & Family History Past Medical History?: No - Past Social History Smoking Status: Never Smoked Alcohol: None Drugs: Denies Home Situation {Lives}: With Family Domestic Violence: Negative - CARDIAC Hx Hypercholesterolemia: Yes Hx Hypertension: Yes - MUSCULOSKELETAL/RHEUMATOLOGICAL Hx Falls: Yes - PSYCHIATRIC Hx Substance Use: (unobtainable) - ANESTHESIA Hx Anesthesia: No (Unobtainable) Meds Allergies/Adverse Reactions: Allergies Allergy/AdvReac Type Severity Reaction Status Date / Time Unobtainable Allergy Verified 10/12/18 07:39 - Medications Medications: Current Medications Dextrose/Sodium Chloride (Dextrose 5%/0.45% Ns 1000 Ml) 1,000 mls @ 100 mls/hr IV .Q10H [facility] Last Admin: 10/15/18 21:10 Dose: 100 mls/hr Cefepime HCl (Maxipime Iv 1 Gm Premix) 1 gm in 50 mls @ 100 mls/hr IVPB Q12H [facility]; Protocol Last Admin: 10/15/18 21:10 Dose: 100 mls/hr Lorazepam (Ativan) 0.5 mg IVP Q4 PRN PRN Reason: Anxiety Last Admin: 10/15/18 09:13 Dose: 0.5 mg Pantoprazole Sodium (Protonix Inj) 40 mg IVP DAILY [facility] Last Admin: 10/15/18 10:04 Dose: 40 mg Thiamine HCl (Vitamin B1 Inj) 100 mg IM DAILY [facility] Last Admin: 10/15/18 10:07 Dose: 100 mg Physical Exam - Constitutional Appears: Non-toxic, No Acute Distress - Head Exam Head Exam: ATRAUMATIC, NORMAL INSPECTION, NORMOCEPHALIC - ENT Exam ENT Exam: Mucous Membranes Dry - Respiratory Exam Respiratory Exam: NORMAL BREATHING PATTERN. absent: Respiratory Distress - Cardiovascular Exam Cardiovascular Exam: REGULAR RHYTHM. absent: Tachycardia - GI/Abdominal Exam GI & Abdominal Exam: Normal Bowel Sounds, Soft. absent: Tenderness - Neurological Exam Neurological exam: Altered Results - Vital Signs Recent Vital Signs: Last Vital Signs Temp 98.3 F 10/15/18 15:00 Pulse 70 10/15/18 17:04 Resp 20 10/15/18 15:00 BP 138/70 10/15/18 15:00 Pulse Ox 95 10/15/18 15:00 - Labs Result Diagrams: 10/14/18 08:24 10/14/18 08:24 Labs: Laboratory Results - last 24 hr 10/13/18 07:18 Ur Opiates (GC/MS) Negative Ur Methadone, Qual Negative Urine Propoxyphene Negative Methaqualone Negative Ur Barbiturates, Qual Negative Ur Phencyclidine (PCP) Negative Ur Amphetamines Screen Negative U Benzodiazepines Qual Negative Urine Cocaine Negative U Marijuana (THC) Screen Negative Drugs of Abuse Note See note Assessment & Plan - Assessment and Plan (Free Text) Assessment: 78M s/p EGD w/ gastric malignancy migrating into esophagus Plan: NPO Would need further biopsies and imaging to confirm type of gastric malignancy and staging Recommend CT chest and pelvis w/ contrast Recommend PET scan Monitor respiratory status Swallow evaluation F/u Heme/Onc recs F/u GI recs D/w Dr. Reid Garcia PGY1
--- NOTE | 2018-10-15 23:58 | CP.PCM.PN ---
Subjective - Date & Time of Evaluation Date of Evaluation: 10/15/18 Time of Evaluation: 19:00 - Subjective Subjective: Patient still confused. In no respiratory distress, in spite of a frequent cough. MRI disclosed sinusitis bilaterally. EGD revealed a gastric mass extending to the esophagus, supicious of malignancy. Will ask for Oncology evaluation and thoracic surgical evaluation. Keep NPO and start PPN. Discussed findings with patient's sister. Objective - Vital Signs/Intake and Output Vital Signs (last 24 hours): Temp Pulse Resp BP Pulse Ox 98.3 F 70 20 138/70 95 10/15/18 15:00 10/15/18 17:04 10/15/18 15:00 10/15/18 15:00 10/15/18 15:00 Intake and Output: 10/15/18 10/16/18 18:59 06:59 Intake Total 750 700 Output Total 810 380 Balance -60 320 - Medications Medications: Current Medications Dextrose/Sodium Chloride (Dextrose 5%/0.45% Ns 1000 Ml) 1,000 mls @ 100 mls/hr IV .Q10H [facility] Last Admin: 10/15/18 21:10 Dose: 100 mls/hr Cefepime HCl (Maxipime Iv 1 Gm Premix) 1 gm in 50 mls @ 100 mls/hr IVPB Q12H [facility]; Protocol Last Admin: 10/15/18 21:10 Dose: 100 mls/hr Lorazepam (Ativan) 0.5 mg IVP Q4 PRN PRN Reason: Anxiety Last Admin: 10/15/18 09:13 Dose: 0.5 mg Pantoprazole Sodium (Protonix Inj) 40 mg IVP DAILY [facility] Last Admin: 10/15/18 10:04 Dose: 40 mg Thiamine HCl (Vitamin B1 Inj) 100 mg IM DAILY [facility] Last Admin: 10/15/18 10:07 Dose: 100 mg - Labs Labs: 10/14/18 08:24 10/14/18 08:24 PT 11.1 SECONDS (9.7-12.2) 10/14/18 08:24 INR 1.0 10/14/18 08:24 APTT 26 SECONDS (21-34) 10/14/18 08:24 - Constitutional Appears: No Acute Distress, Chronically Ill - Head Exam Head Exam: NORMAL INSPECTION - Eye Exam Eye Exam: Normal appearance - ENT Exam ENT Exam: Normal Exam - Neck Exam Neck Exam: Normal Inspection - Respiratory Exam Respiratory Exam: Rhonchi Additional comments: Rhonchi bilaterally. - Cardiovascular Exam Cardiovascular Exam: REGULAR RHYTHM - GI/Abdominal Exam GI & Abdominal Exam: Soft, Normal Bowel Sounds - Rectal Exam Rectal Exam: Deferred - Extremities Exam Extremities Exam: Normal Inspection - Back Exam Back Exam: NORMAL INSPECTION - Neurological Exam Neurological Exam: Awake - Psychiatric Exam Psychiatric exam: Agitated Additional comments: Confused. - Skin Skin Exam: Dry, Normal Color Assessment and Plan (1) Change in mental status Status: Acute (2) Severe anemia Status: Acute (3) Pneumonia Assessment & Plan: On IV antibiotics. Status: Acute (4) Hematuria Status: Acute (5) Gastric mass Assessment & Plan: Gastric mass extending to the esophagus, suspicious of malignancy. Will ask for a cardio-thoracic surgical evaluation and an oncology evaluation. Status: Acute
[2018-10-16] MEDS: Dextrose 5%/0.45% NS 1,000 ML IV SCH (06:20)
--- NOTE | 2018-10-16 07:29 | CP.PCM.PN ---
Subjective - Date & Time of Evaluation Date of Evaluation: 10/16/18 Time of Evaluation: 06:30 - Subjective Subjective: Cardiothoracic surgery Pt seen and examined. Still seems altered with confused speech, but denies any pain. Objective - Vital Signs/Intake and Output Vital Signs (last 24 hours): Temp Pulse Resp BP Pulse Ox 98.3 F 83 20 144/66 94 L 10/16/18 00:00 10/16/18 00:00 10/16/18 00:00 10/16/18 00:00 10/16/18 00:00 Intake and Output: 10/16/18 10/16/18 06:59 18:59 Intake Total 700 Output Total 380 Balance 320 - Medications Medications: Current Medications Dextrose/Sodium Chloride (Dextrose 5%/0.45% Ns 1000 Ml) 1,000 mls @ 100 mls/hr IV .Q10H [facility] Last Admin: 10/15/18 21:10 Dose: 100 mls/hr Cefepime HCl (Maxipime Iv 1 Gm Premix) 1 gm in 50 mls @ 100 mls/hr IVPB Q12H [facility]; Protocol Last Admin: 10/15/18 21:10 Dose: 100 mls/hr Lorazepam (Ativan) 0.5 mg IVP Q4 PRN PRN Reason: Anxiety Last Admin: 10/15/18 09:13 Dose: 0.5 mg Pantoprazole Sodium (Protonix Inj) 40 mg IVP DAILY [facility] Last Admin: 10/15/18 10:04 Dose: 40 mg Thiamine HCl (Vitamin B1 Inj) 100 mg IM DAILY [facility] Last Admin: 10/15/18 10:07 Dose: 100 mg - Labs Labs: 10/14/18 08:24 10/14/18 08:24 PT 11.1 SECONDS (9.7-12.2) 10/14/18 08:24 INR 1.0 10/14/18 08:24 APTT 26 SECONDS (21-34) 10/14/18 08:24 - Constitutional Appears: Non-toxic, No Acute Distress - Head Exam Head Exam: ATRAUMATIC, NORMOCEPHALIC - Eye Exam Eye Exam: EOMI. absent: Scleral icterus - Respiratory Exam Respiratory Exam: NORMAL BREATHING PATTERN. absent: Accessory Muscle Use, Chest Wall Tenderness, Respiratory Distress - GI/Abdominal Exam GI & Abdominal Exam: Soft. absent: Distended, Firm, Guarding, Rigid, Tenderness - Neurological Exam Neurological Exam: Altered, Awake - Skin Skin Exam: Dry, Warm Assessment and Plan - Assessment and Plan (Free Text) Assessment: 78M w/ gastric malignancy migrating into esophagus Plan: CT chest/abd/pelvis w/ PO contrast (Cr 2.8) Recommend PET scan Monitor respiratory status Swallow evaluation Consider planning for Gastrostomy vs Jejunostomy for future feeding D/W Dr. Reid Sneed PGY4
[2018-10-16] MEDS: Cefepime IV 1 gm in Dextrose 1 GM/50 ML BAG IVPB SCH (10:00)
[2018-10-16] MEDS ORDERED: Etomidate 20 mg/10ml Inj IV ONE (10:42)
[2018-10-16] MEDS ORDERED: Propofol 10 mg/ml Inj (20 ML) ONE (10:42)
[2018-10-16] MEDS: Thiamine 100 mg/ml Inj IM SCH (12:01)
--- NOTE | 2018-10-16 12:50 | CP.PCM.CON ---
History of Present Illness - History of Present Illness History of Present Illness: 78 year old male with unknown medical history presenting with AMS, found to have a gastric mass suspicious for malignancy. The patient was apparently found at [facility] confused and brought to the hospital. He is s/p EGD x 2 and found to have a gastric mass migrating up the esophagus. His initial pathology report was positive for atypical cells. A repeat EGD was performed today for rebiopsy in an attempt to confirm malignancy. I am unable to obtain a history from the patient due to confusion. Past medical, surgical, family, social history cannot be obtained. Allergies: Unknown Review of systems cannot be obtained. Past Patient History - Past Medical History & Family History Past Medical History?: No - Past Social History Smoking Status: Never Smoked Alcohol: None Drugs: Denies Home Situation {Lives}: With Family Domestic Violence: Negative - CARDIAC Hx Hypercholesterolemia: Yes Hx Hypertension: Yes - MUSCULOSKELETAL/RHEUMATOLOGICAL Hx Falls: Yes - PSYCHIATRIC Hx Substance Use: (unobtainable) - ANESTHESIA Hx Anesthesia: No (Unobtainable) Meds Allergies/Adverse Reactions: Allergies Allergy/AdvReac Type Severity Reaction Status Date / Time Unobtainable Allergy Verified 10/12/18 07:39 - Medications Medications: Current Medications Multivitamins/Vitamin C 10 ml/Chromium/Copper/Manganese/Zinc 1 ml/ Insulin Human Regular 10 unit/ Amino Acids 1,011.1 mls @ 42 mls/hr IV .Q24H [facility] Stop: 10/17/18 17:59 Fat Emulsion Intravenous (Intralipid 20%) 500 mls @ 42 mls/hr IV QOD@1800 [facility] Stop: 10/22/18 18:01 Cefepime HCl 0.5 gm/ Sodium (Chloride) 50 mls @ 100 mls/hr IVPB Q12H [facility]; Protocol Lorazepam (Ativan) 0.5 mg IVP Q4 PRN PRN Reason: Anxiety Last Admin: 10/15/18 09:13 Dose: 0.5 mg Pantoprazole Sodium (Protonix Inj) 40 mg IVP DAILY [facility] Last Admin: 10/16/18 11:49 Dose: 40 mg Thiamine HCl (Vitamin B1 Inj) 100 mg IM DAILY [facility] Last Admin: 10/16/18 12:01 Dose: 100 mg Physical Exam - Head Exam Head Exam: ATRAUMATIC - Eye Exam Eye Exam: Normal appearance - ENT Exam ENT Exam: Mucous Membranes Dry - Respiratory Exam Respiratory Exam: NORMAL BREATHING PATTERN - Cardiovascular Exam Cardiovascular Exam: +S1, +S2 - GI/Abdominal Exam GI & Abdominal Exam: Normal Bowel Sounds - Extremities Exam Extremities exam: Positive for: normal inspection - Neurological Exam Neurological exam: Altered Results - Vital Signs Recent Vital Signs: Last Vital Signs Temp 97.9 F 10/16/18 11:45 Pulse 60 10/16/18 11:45 Resp 18 10/16/18 11:45 BP 151/76 H 10/16/18 11:45 Pulse Ox 93 L 10/16/18 11:45 - Labs Result Diagrams: 10/18/18 08:17 10/18/18 08:17 Labs: Laboratory Results - last 24 hr 10/16/18 07:07 Prostate Specific Ag 11.0 H Assessment & Plan (1) Anemia Assessment and Plan: retic count, b12, folate, ferritin to further characterize. Status: Acute (2) Gastric mass Assessment and Plan: likely malignancy awaiting pathology report non contrast ct reviewed will order contrast enhanced scan for staging further treatment recommendations based on pathology and staging Thank you for this interesting consult. Status: Acute
--- NOTE | 2018-10-16 14:33 | CT ---
Date of service: 10/16/2018 PROCEDURE: CT Chest, Abdomen and Pelvis without intravenous contrast HISTORY: esophageal mass COMPARISON: CT abdomen and pelvis from 10/12/2018. TECHNIQUE: Radiation dose: Total exam DLP = 813.62 mGy-cm. This CT exam was performed using one or more of the following dose reduction techniques: Automated exposure control, adjustment of the mA and/or kV according to patient size, and/or use of iterative reconstruction technique. FINDINGS: CT CHEST WITHOUT CONTRAST: LUNGS: There is patchy ground-glass attenuation in the right upper lobe. There is compressive atelectasis in the lower lobes, worse on the right. There is subsegmental atelectasis in the right middle lobe. MEDIASTINUM: Mild cardiomegaly. Normal caliber aorta and pulmonary arterial trunk. No pericardial effusion. There is asymmetric soft tissue and thickening in the anterior and left lateral distal esophageal wall. LYMPH NODES: Subcentimeter mediastinal lymph nodes. PLEURA: Large pleural effusions, worse on the right. No pneumothorax. BONES: Unremarkable. OTHER FINDINGS: None. CT ABDOMEN AND PELVIS: LIVER: Normal in size there is a stable 2 cm simple cyst in the subcapsular right hepatic lobe.. No gross lesion or ductal dilatation. GALLBLADDER AND BILE DUCTS: The gallbladder is not distended. There is dense layering sludge within the gallbladder. PANCREAS: Unremarkable. No gross lesion or ductal dilatation. SPLEEN: Unremarkable. ADRENALS: Unremarkable. No mass. KIDNEYS AND URETERS: Normal in size. No hydronephrosis. No nephrolithiasis. There is nonspecific perinephric fat stranding on the right side. VASCULATURE: There are aortic atherosclerotic calcifications present. No aortic aneurysm. BOWEL: The small bowel loops are normal in size. The colon is unremarkable. APPENDIX: Normal appendix. PERITONEUM: Small right perihepatic ascites. No free air. LYMPH NODES: No enlarged lymph nodes. BLADDER: Indwelling Gutierrez catheter in subsequent decompression of the urinary bladder. REPRODUCTIVE: Again seen is moderate enlargement of the prostate gland. BONES: No acute fracture. There is diffuse bone demineralization. OTHER FINDINGS: None. IMPRESSION: 1. Asymmetric thickening and soft tissue in the distal esophagus predominantly involving the anterior and left lateral wall concerning for neoplasm in this clinical setting. 2. This examination is limited in the absence of intravenous and oral contrast. Allowing for this, stable 2 cm simple cyst in the subcapsular right hepatic lobe. 3. Large bilateral pleural effusions, worse on the right with compressive atelectasis of the lungs. 4. Moderate enlargement of the prostate gland.
--- NOTE | 2018-10-16 14:35 | CP.PCM.PN ---
Subjective - Date & Time of Evaluation Date of Evaluation: 10/16/18 Time of Evaluation: 14:33 - Subjective Subjective: Reason for consultation: gastric ca invading esophagus. Requested by Dr. Jacinto I have reviewed progress notes, path reports. So far path shows atypical cells. Repeat bx today with pending results. Recom ct(c/a/p) and if indeed path shows cancer, then need PET. a/p: Gastric ca invading esophagus. Repeat endoscopy and bx today and results pending. Ct(c/a/p) and PET if + for cancer. will follow. Objective - Vital Signs/Intake and Output Vital Signs (last 24 hours): Temp Pulse Resp BP Pulse Ox 97.9 F 60 18 151/76 H 93 L 10/16/18 11:45 10/16/18 11:45 10/16/18 11:45 10/16/18 11:45 10/16/18 11:45 Intake and Output: 10/16/18 10/16/18 06:59 18:59 Intake Total 700 570 Output Total 380 250 Balance 320 320 - Medications Medications: Current Medications Multivitamins/Vitamin C 10 ml/Chromium/Copper/Manganese/Zinc 1 ml/ Insulin Human Regular 10 unit/ Amino Acids 1,011.1 mls @ 42 mls/hr IV .Q24H [facility] Stop: 10/17/18 17:59 Fat Emulsion Intravenous (Intralipid 20%) 500 mls @ 42 mls/hr IV QOD@1800 [facility] Stop: 10/22/18 18:01 Cefepime HCl 0.5 gm/ Sodium (Chloride) 50 mls @ 100 mls/hr IVPB Q12H [facility]; Protocol Lorazepam (Ativan) 0.5 mg IVP Q4 PRN PRN Reason: Anxiety Last Admin: 10/15/18 09:13 Dose: 0.5 mg Pantoprazole Sodium (Protonix Inj) 40 mg IVP DAILY [facility] Last Admin: 10/16/18 11:49 Dose: 40 mg Thiamine HCl (Vitamin B1 Inj) 100 mg IM DAILY [facility] Last Admin: 10/16/18 12:01 Dose: 100 mg - Labs Labs: 10/14/18 08:24 10/14/18 08:24 PT 11.1 SECONDS (9.7-12.2) 10/14/18 08:24 INR 1.0 10/14/18 08:24 APTT 26 SECONDS (21-34) 10/14/18 08:24
--- NOTE | 2018-10-16 17:09 | CP.PCM.PN ---
Subjective - Date & Time of Evaluation Date of Evaluation: 10/16/18 Time of Evaluation: 08:00 - Subjective Subjective: remains confused awake alert restless neuro and GI eval in progress cultures neg thus far Objective - Vital Signs/Intake and Output Vital Signs (last 24 hours): Temp Pulse Resp BP Pulse Ox 98.7 F 72 20 139/47 L 97 10/16/18 15:56 10/16/18 15:56 10/16/18 15:56 10/16/18 15:56 10/16/18 15:56 Intake and Output: 10/16/18 10/16/18 06:59 18:59 Intake Total 700 570 Output Total 380 250 Balance 320 320 - Medications Medications: Current Medications Multivitamins/Vitamin C 10 ml/Chromium/Copper/Manganese/Zinc 1 ml/ Insulin Human Regular 10 unit/ Amino Acids 1,011.1 mls @ 42 mls/hr IV .Q24H [facility] Stop: 10/17/18 17:59 Fat Emulsion Intravenous (Intralipid 20%) 500 mls @ 42 mls/hr IV QOD@1800 [facility] Stop: 10/22/18 18:01 Cefepime HCl 0.5 gm/ Sodium (Chloride) 50 mls @ 100 mls/hr IVPB Q12H [facility]; Protocol Lorazepam (Ativan) 0.5 mg IVP Q4 PRN PRN Reason: Anxiety Last Admin: 10/16/18 15:10 Dose: 0.5 mg Pantoprazole Sodium (Protonix Inj) 40 mg IVP DAILY [facility] Last Admin: 10/16/18 11:49 Dose: 40 mg Thiamine HCl (Vitamin B1 Inj) 100 mg IM DAILY [facility] Last Admin: 10/16/18 12:01 Dose: 100 mg - Labs Labs: 10/14/18 08:24 10/14/18 08:24 PT 11.1 SECONDS (9.7-12.2) 10/14/18 08:24 INR 1.0 10/14/18 08:24 APTT 26 SECONDS (21-34) 10/14/18 08:24 - Constitutional Appears: Non-toxic, Chronically Ill - Head Exam Head Exam: NORMOCEPHALIC - Eye Exam Eye Exam: absent: Scleral icterus - ENT Exam ENT Exam: Normal External Ear Exam - Neck Exam Neck Exam: absent: Lymphadenopathy - Respiratory Exam Respiratory Exam: Decreased Breath Sounds - Cardiovascular Exam Cardiovascular Exam: REGULAR RHYTHM - GI/Abdominal Exam GI & Abdominal Exam: Distended, Soft - Rectal Exam Rectal Exam: Deferred - Exam Exam: NORMAL INSPECTION - Extremities Exam Extremities Exam: absent: Pedal Edema - Back Exam Back Exam: absent: CVA tenderness (L), CVA tenderness (R) - Neurological Exam Neurological Exam: Alert, Altered, CN II-XII Intact. absent: Oriented x3 - Psychiatric Exam Psychiatric exam: Depressed - Skin Skin Exam: Dry Assessment and Plan (1) Change in mental status Status: Acute (2) Hypothermia Status: Acute - Assessment and Plan (Free Text) Assessment: IV antibiotics renewed cultures neg GI and neuro eval in progress
--- NOTE | 2018-10-16 17:13 | CP.PCM.PN ---
Subjective - Date & Time of Evaluation Date of Evaluation: 10/16/18 Time of Evaluation: 09:00 - Subjective Subjective: remains confused awake alert restless neuro and GI eval in progress cultures neg thus far Objective - Vital Signs/Intake and Output Vital Signs (last 24 hours): Temp Pulse Resp BP Pulse Ox 98.7 F 72 20 139/47 L 97 10/16/18 15:56 10/16/18 15:56 10/16/18 15:56 10/16/18 15:56 10/16/18 15:56 Intake and Output: 10/16/18 10/16/18 06:59 18:59 Intake Total 700 570 Output Total 380 250 Balance 320 320 - Medications Medications: Current Medications Multivitamins/Vitamin C 10 ml/Chromium/Copper/Manganese/Zinc 1 ml/ Insulin Human Regular 10 unit/ Amino Acids 1,011.1 mls @ 42 mls/hr IV .Q24H [facility] Stop: 10/17/18 17:59 Fat Emulsion Intravenous (Intralipid 20%) 500 mls @ 42 mls/hr IV QOD@1800 [facility] Stop: 10/22/18 18:01 Cefepime HCl 0.5 gm/ Sodium (Chloride) 50 mls @ 100 mls/hr IVPB Q12H [facility]; Protocol Lorazepam (Ativan) 0.5 mg IVP Q4 PRN PRN Reason: Anxiety Last Admin: 10/16/18 15:10 Dose: 0.5 mg Pantoprazole Sodium (Protonix Inj) 40 mg IVP DAILY [facility] Last Admin: 10/16/18 11:49 Dose: 40 mg Thiamine HCl (Vitamin B1 Inj) 100 mg IM DAILY [facility] Last Admin: 10/16/18 12:01 Dose: 100 mg - Labs Labs: 10/14/18 08:24 10/14/18 08:24 PT 11.1 SECONDS (9.7-12.2) 10/14/18 08:24 INR 1.0 10/14/18 08:24 APTT 26 SECONDS (21-34) 10/14/18 08:24 - Constitutional Appears: Non-toxic, Chronically Ill - Head Exam Head Exam: NORMOCEPHALIC - Eye Exam Eye Exam: absent: Scleral icterus - ENT Exam ENT Exam: Mucous Membranes Dry - Neck Exam Neck Exam: absent: Lymphadenopathy - Respiratory Exam Respiratory Exam: Decreased Breath Sounds - Cardiovascular Exam Cardiovascular Exam: REGULAR RHYTHM - GI/Abdominal Exam GI & Abdominal Exam: Distended, Soft - Rectal Exam Rectal Exam: Deferred - Exam Exam: NORMAL INSPECTION - Extremities Exam Extremities Exam: Full ROM - Back Exam Back Exam: absent: CVA tenderness (L), CVA tenderness (R) - Neurological Exam Neurological Exam: Altered Assessment and Plan (1) Change in mental status Status: Acute (2) Hypothermia Status: Acute - Assessment and Plan (Free Text) Assessment: MRI reveals pansinusitis as well as diffuse attrophy CT abd shows esophageal thickening as well as bilat effusions IV antibiotic renewed may benefit from thoracentesis await GI follow up re CT findings
[2018-10-16] MEDS: Fat Emulsion 20% IV 500 ML IV SCH (17:20)
[2018-10-16] MEDS ORDERED: **PPN #1 IV SCH (18:00)
--- NOTE | 2018-10-16 23:05 | CP.PCM.PN ---
Subjective - Date & Time of Evaluation Date of Evaluation: 10/16/18 Time of Evaluation: 19:40 - Subjective Subjective: Patient awake, confused, in no respiratory distress. Had repeated EGD this AM and repeated biopsies of the gastric mass. Repeat CT scan of the chest revealed large bilateral pleural effusion. Patient now receiving PPN. Objective - Vital Signs/Intake and Output Vital Signs (last 24 hours): Temp Pulse Resp BP Pulse Ox 98.7 F 72 20 139/47 L 97 10/16/18 15:56 10/16/18 15:56 10/16/18 15:56 10/16/18 15:56 10/16/18 15:56 Intake and Output: 10/16/18 10/17/18 18:59 06:59 Intake Total 570 Output Total 250 Balance 320 - Medications Medications: Current Medications Multivitamins/Vitamin C 10 ml/Chromium/Copper/Manganese/Zinc 1 ml/ Insulin Human Regular 10 unit/ Amino Acids 1,011.1 mls @ 42 mls/hr IV .Q24H REPLACED BY [facility] Stop: 10/17/18 17:59 Last Admin: 10/16/18 17:21 Dose: 42 mls/hr Fat Emulsion Intravenous (Intralipid 20%) 500 mls @ 42 mls/hr IV QOD@1800 REPLACED BY [facility] Stop: 10/22/18 18:01 Last Admin: 10/16/18 17:20 Dose: 42 mls/hr Cefepime HCl 0.5 gm/ Sodium (Chloride) 50 mls @ 100 mls/hr IVPB Q12H REPLACED BY [facility]; Protocol Last Admin: 10/16/18 21:42 Dose: 100 mls/hr Lorazepam (Ativan) 0.5 mg IVP Q4 PRN PRN Reason: Anxiety Last Admin: 10/16/18 15:10 Dose: 0.5 mg Pantoprazole Sodium (Protonix Inj) 40 mg IVP DAILY REPLACED BY [facility] Last Admin: 10/16/18 11:49 Dose: 40 mg Thiamine HCl (Vitamin B1 Inj) 100 mg IM DAILY REPLACED BY [facility] Last Admin: 10/16/18 12:01 Dose: 100 mg - Labs Labs: 10/14/18 08:24 10/14/18 08:24 PT 11.1 SECONDS (9.7-12.2) 10/14/18 08:24 INR 1.0 10/14/18 08:24 APTT 26 SECONDS (21-34) 10/14/18 08:24 - Constitutional Appears: No Acute Distress, Chronically Ill - Head Exam Head Exam: NORMOCEPHALIC - Eye Exam Eye Exam: Normal appearance - ENT Exam ENT Exam: Normal Exam - Neck Exam Neck Exam: Normal Inspection - Respiratory Exam Respiratory Exam: Rhonchi Additional comments: Decreased BS both bases. - Cardiovascular Exam Cardiovascular Exam: REGULAR RHYTHM - GI/Abdominal Exam GI & Abdominal Exam: Soft, Normal Bowel Sounds - Exam Exam: NORMAL INSPECTION - Extremities Exam Extremities Exam: Normal Inspection - Back Exam Back Exam: NORMAL INSPECTION - Neurological Exam Neurological Exam: Alert, Awake Additional comments: Confused. - Psychiatric Exam Additional comments: Confused. - Skin Skin Exam: Dry, Intact, Normal Color, Warm Assessment and Plan (1) Change in mental status Status: Acute (2) Severe anemia Assessment & Plan: FRom GI bleeding from a gastric mass. Status: Acute (3) Pneumonia Assessment & Plan: To continue IV antibiotics. 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 Status: Acute (4) Hematuria Status: Acute (5) Gastric mass Status: Acute (6) Bilateral pleural effusion Assessment & Plan: May need thoracentesis Status: Acute
--- NOTE | 2018-10-17 00:48 | CON ---
DATE: 10/16/2018 PSYCHIATRIC CONSULTATION CHIEF COMPLAINT AND REASON FOR CONSULTATION: The patient was referred by Dr. Jacinto for evaluation as the patient is exhibiting increasing confusion. HISTORY OF PRESENT ILLNESS: This is a case of 78-year-old white male, who was brought into the hospital as he was found confused, hypothermic, lying in the steps of the scientology. The patient had a drug screen done that was negative. The patient was referred for co-management as the patient has been exhibiting increasing confusion. The patient today is on one-to-one watch because he is very confused and disoriented. The patient had EGD done and it showed a gastric mass migrating into the esophagus. The patient when seen today is still very confused and he does not know where he is. He is only oriented to person. He was given Ativan 0.5 every 4 p.r.n., and currently on one-to-one watch. The patient has nothing pain or anything but continues to be significantly confused. The patient is a poor historian. Collateral information taken from the chart. PAST MEDICAL HISTORY: Denies any medical history. The patient has history of delirium as well as hypothermia, anemia, pneumonia, and gastric mass. DRUG/ALCOHOL HISTORY: The patient used to drink. ALLERGIES: THE PATIENT STATES THAT HE HAS NO ALLERGIES. PSYCHOSOCIAL HISTORY: The patient cannot give much, but he said that he is retired, and he lives with his family. LIST OF CURRENT MEDICATIONS: Ativan 0.5 mg every 4 p.r.n., cefepime. The patient is on pantoprazole, thiamine. IMAGING: The patient had CAT scan of the head as well as MRI but the results were unremarkable. LABORATORY DATA: On review of his labs, the patient's WBC is 13.5, H and H are 8.8 and 27.4. The patient's BUN is currently 51. The patient's creatinine seems to be getting elevated. His last creatinine was 1.7 which was on 10/13/2018, and now his current creatine is 2.8. The patient's GFR is now 22. PSA is elevated. TSH is 3.08. HIV is negative. REVIEW OF SYSTEMS: GENERAL: He is alert, but very confused. Oriented only to person, seen in his room with mittens. The patient is not complaining of pain or anything, but needs 24-hour monitoring. He is on one-to-one watch. SKIN: No diaphoresis. HEENT: No headache. No dizziness. NECK: Supple. RESPIRATORY: No dyspnea. CARDIOVASCULAR: No chest pain. GASTROINTESTINAL: No nausea or vomiting. EXTREMITIES: The patient moving extremities, but has hand mittens. NEUROLOGIC: Alert, significantly confused. GENITOURINARY: No dysuria. PHYSICAL EXAMINATION: VITAL SIGNS: Temperature is 97.9, pulse rate 60, blood pressure is 151/76, respirations 18, and oxygen saturations 93%. MENTAL STATUS EXAMINATION: Elderly male who looks stated age, oriented x1. Mood is dysphoric. Affect is restricted. Speech is slow. Thought process confused. Thought content, no overt psychosis. No suicidal or homicidal ideation. Attention and memory seem to be limited. Insight and judgment is limited. Impulse control is guarded at this time. IMPRESSION: Delirium, multifactorial; mostly metabolic. PLAN AND RECOMMENDATION: The patient was seen, meds reviewed. We will keep the one-to-one watch for now for safety. Continue the Ativan 0.5 mg IV every 4 p.r.n. In review of her labs, the patient's kidney status seems to be deteriorating. His BUN before seems to be getting higher. The patient's BUN is now 51, the creatinine is 2.8, and the GFR is now 22. This could have contributed due to his increasing confusion, but currently the patient is in the stage of delirium. We will keep the current psych meds for now and keep the one-to-one for monitoring. The patient also has a gastric mass noted. Naveed Cooper MD MTDJose
[2018-10-17 07:12] LABS: BASO # 0.1 K/uL (0.0-0.2); BASO % 0.8 % (0.0-2.0); EOS # 0.3 K/uL (0.0-0.7); HEMOGLOBIN 8.2 g/dL (12.0-18.0); LYMPH # 0.6 K/uL (1.0-4.3); LYMPH % 8.1 % (20.0-40.0); MEAN CELL VOLUME 79.9 fL (80.0-94.0); MEAN CORPUSCULAR HEMOGLOBIN 26.1 pg (27.0-31.0); MEAN CORPUSCULAR HGB CONC 32.7 g/dL (33.0-37.0); MEAN PLATELET VOLUME 8.3 fL (7.2-11.7); MONO # 0.6 K/uL (0.0-0.8); NEUT # 6.2 K/uL (1.8-7.0); NEUT % 79.1 % (50.0-75.0); PLATELET COUNT 319 K/uL (130-400); RBC 3.15 Mil/uL (4.40-5.90); RED CELL DISTRIBUTION WIDTH 18.3 % (11.5-14.5); WHITE BLOOD COUNT 7.8 K/uL (4.8-10.8)
[2018-10-17 07:41] LABS: ALB/GLOB RATIO 0.9 (1.0-2.1); ALBUMIN 2.3 g/dL (3.5-5.0); ALT/SGPT 41 U/L (21-72); AST/SGOT 39 U/L (17-59); BLOOD UREA NITROGEN 14 mg/dL (9-20); CALCIUM 7.2 mg/dl (8.6-10.4); GFR NON-AFRICAN AMERICAN > 60
--- NOTE | 2018-10-17 07:49 | PN ---
DATE: 10/17/2018 LOCATION: 568, bed B. SUBJECTIVE: This 78-year-old male, seen and examined early in rounds without significant clinical changes, still n.p.o., on peripheral hyperalimentation so far without reported active bleeding. The patient is aphasic most of the time, and all information obtained from the medical record, medical staff, and nursing staff. Today's lab result is still pending. However, the latest blood glucose level was 116, and the patient reported to have elevated PSA 11. The patient had repeat upper endoscopy with biopsy as requested by the pathology department staff, and repeat pathology report result is still pending. PHYSICAL EXAMINATION: GENERAL: A 78-year-old male. VITAL SIGNS: Afebrile with pulse of 66, respiratory rate 20-22, blood pressure of 150/72. HEENT: Showed dry, pale oral mucous membrane. Nonicteric sclerae. LUNGS: Few scattered crepitations. Decreased air entry at bases. HEART: Positive S1 and S2. ABDOMEN: Soft with slight generalized tenderness. No mass or organomegaly. No rebound tenderness or guarding. NEUROLOGIC: No reported new neurological deficit. LABORATORY DATA: Results of the CT scan of the chest, abdomen, and pelvis are seen. IMPRESSION: 1. 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 2. To rule out prostatic carcinoma. 3. Dysphagia secondary to above. 4. Bilateral pleural effusion with possible aspiration pneumonia. 5. Abnormal CAT scan of the head, chest, and abdomen. SUGGESTIONS: 1. Agree with your plan. 2. Thoracocentesis, to rule out possible malignant pleural effusion. 3. Oncology, hematology consult as well as thoracic surgeon consultation. Further recommendation to follow. Flynn Avina MD
[2018-10-17 09:11] LABS: BANDS 1 % (0-2); EOSINOPHIL 3 % (0-4); LYMPHOCYTE 4 % (20-40); MONOCYTE 6 % (0-10); NEUTROPHIL 86 % (50-75); TOTAL CELLS COUNTED 100
[2018-10-17 09:12] LABS: ANISOCYTOSIS SLIGHT; HYPOCHROMIC SLIGHT; PLATELET ESTIMATE NORMAL (NORMAL); POIKILOCYTOSIS SLIGHT
[2018-10-17 09:13] LABS: LARGE PLATELETS PRESENT; OVALOCYTES SLIGHT; POLYCHROMIC SLIGHT; SCHISTOCYTES SLIGHT; TOXIC GRANULATION PRESENT
[2018-10-17] MEDS: Thiamine 100 mg/ml Inj IM SCH (10:51)
[2018-10-17] MEDS ORDERED: **PPN #2 IV SCH (18:00)
--- NOTE | 2018-10-17 18:31 | CP.PCM.PN ---
Subjective - Date & Time of Evaluation Date of Evaluation: 10/17/18 Time of Evaluation: 18:28 - Subjective Subjective: Patient awake, confused, in no respiratory distress. afebrile. Gastric tumor path report pending. Patient still in NPO Hgb: 8.3 K+: 3.2 . Will replace KCl. To continue to monitor serum electrolytes and CBC. Objective - Vital Signs/Intake and Output Vital Signs (last 24 hours): Temp Pulse Resp BP Pulse Ox 97.8 F 65 20 152/65 H 97 10/17/18 15:56 10/17/18 15:56 10/17/18 15:56 10/17/18 15:56 10/17/18 15:56 Intake and Output: 10/17/18 10/17/18 06:59 18:59 Intake Total 1108 Output Total 1100 Balance 8 - Medications Medications: Current Medications Fat Emulsion Intravenous (Intralipid 20%) 500 mls @ 42 mls/hr IV QOD@1800 [facility] Stop: 10/22/18 18:01 Last Admin: 10/16/18 17:20 Dose: 42 mls/hr Cefepime HCl 0.5 gm/ Sodium (Chloride) 50 mls @ 100 mls/hr IVPB Q12H [facility]; Protocol Last Admin: 10/17/18 09:30 Dose: 100 mls/hr Multivitamins/Vitamin C 10 ml/Chromium/Copper/Manganese/Zinc 1 ml/ Insulin Human Regular 10 unit/ Amino Acids 1,011.1 mls @ 42 mls/hr IV .Q24H [facility] Stop: 10/18/18 17:59 Potassium Chloride (Potassium Chloride 20 Meq/100 Ml) 20 meq in 100 mls @ 50 mls/hr IVPB ONCE ONE Stop: 10/17/18 20:14 Lorazepam (Ativan) 0.5 mg IVP Q4 PRN PRN Reason: Anxiety Last Admin: 10/16/18 15:10 Dose: 0.5 mg Pantoprazole Sodium (Protonix Inj) 40 mg IVP DAILY [facility] Last Admin: 10/17/18 10:51 Dose: 40 mg Thiamine HCl (Vitamin B1 Inj) 100 mg IM DAILY [facility] Last Admin: 10/17/18 10:51 Dose: 100 mg - Labs Labs: 10/17/18 07:02 10/17/18 07:02 PT 11.1 SECONDS (9.7-12.2) 10/14/18 08:24 INR 1.0 10/14/18 08:24 APTT 26 SECONDS (21-34) 10/14/18 08:24 - Constitutional Appears: No Acute Distress, Cachectic, Chronically Ill - Head Exam Head Exam: NORMAL INSPECTION - Eye Exam Eye Exam: Normal appearance - ENT Exam ENT Exam: Normal Exam - Neck Exam Neck Exam: Normal Inspection - Respiratory Exam Additional comments: DEcreaed breathing sounds at both bases. - Cardiovascular Exam Cardiovascular Exam: REGULAR RHYTHM - GI/Abdominal Exam GI & Abdominal Exam: Soft, Normal Bowel Sounds - Rectal Exam Rectal Exam: Deferred - Extremities Exam Extremities Exam: Normal Inspection - Back Exam Back Exam: NORMAL INSPECTION - Neurological Exam Neurological Exam: Alert Additional comments: Confused. - Psychiatric Exam Psychiatric exam: Anxious Additional comments: Confused. - Skin Skin Exam: Dry, Intact Assessment and Plan (1) Change in mental status Status: Acute (2) Severe anemia Assessment & Plan: Due probably to GI bleeding from a gastric tumor. Status: Acute (3) Pneumonia Assessment & Plan: On Cefepime. Status: Acute (4) Hematuria Assessment & Plan: PSA: 11. To have a urological evaluation. Status: Acute (5) Gastric mass Assessment & Plan: Path report pending. Status: Acute (6) Bilateral pleural effusion Assessment & Plan: Needs thoracentesis for cytology, chemistry and culture. Status: Acute
[2018-10-18 08:29] LABS: BASO % 0.7 % (0.0-2.0); EOS # 0.2 K/uL (0.0-0.7); EOS % 3.4 % (0.0-4.0); HEMOGLOBIN 8.4 g/dL (12.0-18.0); LYMPH # 0.6 K/uL (1.0-4.3); LYMPH % 9.1 % (20.0-40.0); MEAN CELL VOLUME 80.1 fL (80.0-94.0); MEAN CORPUSCULAR HGB CONC 32.4 g/dL (33.0-37.0); MEAN PLATELET VOLUME 8.4 fL (7.2-11.7); MONO # 0.6 K/uL (0.0-0.8); MONO % 10.2 % (0.0-10.0); NEUT # 4.8 K/uL (1.8-7.0); NEUT % 76.6 % (50.0-75.0); PLATELET COUNT 351 K/uL (130-400); RBC 3.22 Mil/uL (4.40-5.90); RED CELL DISTRIBUTION WIDTH 18.6 % (11.5-14.5); WHITE BLOOD COUNT 6.3 K/uL (4.8-10.8)
--- NOTE | 2018-10-18 08:40 | PN ---
DATE: 10/18/2018 LOCATION: 576, bed B. SUBJECTIVE: This is a 78-year-old male, post repeat upper endoscopy with biopsy as requested by the pathology staff, seen and examined in rounds without any reported significant clinical changes or active bleeding, with episodes of being restless and agitated on and off. The patient is still n.p.o. No reported chest pain, palpitation, GI bleeding, significant shortness of breath, or chills or fever. Most recent lab results as per yesterday showed hemoglobin of 8.2, hematocrit 25.2 with low indices highly suggestive of hypochromic microcytic anemia with normal platelet count, potassium 3.3, calcium 7.2, albumin 2.3, total protein 4.8. PHYSICAL EXAMINATION: GENERAL: A 78-year-old male. VITAL SIGNS: Afebrile with pulse of 100, respiratory rate 20 to 22 with blood pressure 144/68. HEENT: Showed pale dry oral mucoid membrane. Nonicteric sclerae. LUNGS: Few scattered crepitation. Decreased air entry at bases. HEART: Positive S1 and S2. ABDOMEN: Soft with slight midepigastric tenderness and mild distention. No mass or organomegaly. No rebound tenderness or guarding. EXTREMITIES: Without significant edema, clubbing or cyanosis. NEUROLOGIC: No reported new neurological deficits, sensory or motor. No reported new focal deficits. IMPRESSION: 1. 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 2. Hypochromic microcytic anemia, secondary to above. 3. Dysphagia, secondary to above. 4. Elevated prostate-specific antigen, to rule out prostatic carcinoma. 5. Bilateral pleural effusion with aspiration pneumonia. 6. Abnormal CAT scan of the head and abdomen. SUGGESTIONS: 1. Continue current management. 2. Correct any underlying electrolyte imbalance. 3. Due to the patient's hypoalbuminemia, hypoproteinemia with malnutrition, central hyperalimentation to be considered. 4. The patient will need gastrostomy tube insertion by a surgical team with followup oncology-hematology workup. 5. Further recommendation to follow. Flynn Avina MD [facility] # [id number]
[2018-10-18 09:03] LABS: ALB/GLOB RATIO 0.9 (1.0-2.1); ALBUMIN 2.3 g/dL (3.5-5.0); ALT/SGPT 35 U/L (21-72); AST/SGOT 41 U/L (17-59); BLOOD UREA NITROGEN 14 mg/dL (9-20); CALCIUM 7.3 mg/dl (8.6-10.4); GFR NON-AFRICAN AMERICAN > 60
[2018-10-18 09:20] LABS: EOSINOPHIL 2 % (0-4); LYMPHOCYTE 10 % (20-40); MONOCYTE 12 % (0-10); NEUTROPHIL 76 % (50-75); PLATELET ESTIMATE NORMAL (NORMAL); TOTAL CELLS COUNTED 100
[2018-10-18 09:21] LABS: ANISOCYTOSIS MODERATE
[2018-10-18 09:24] LABS: HYPOCHROMIC MODERATE; LARGE PLATELETS PRESENT; POLYCHROMIC SLIGHT
[2018-10-18] MEDS: Thiamine 100 mg/ml Inj IM SCH (10:49)
[2018-10-18] MEDS ORDERED: PPN IV ONE (18:00)
[2018-10-18] MEDS: Fat Emulsion 20% IV 500 ML IV SCH (18:37)
--- NOTE | 2018-10-18 18:56 | PN ---
DATE: 10/18/2018 SUBJECTIVE: The patient is pleasantly confused, seen in the room on one-to-one watch. The patient is disrobing himself and also noted by the nurse to be trying to pull his mittens out. The patient is on mittens, because he is trying to pull his IV lines. The patient is currently receiving only Ativan 0.5 every 4 hours p.r.n. PHYSICAL EXAMINATION: VITAL SIGNS: Temperature is 98.5, pulse 54, blood pressure 141/73, respirations 20, oxygen saturation is 98. The patient is currently on PPN. He is n.p.o. except medications. LABORATORY DATA: Kidney functions are much improved, his BUN is now 8, creatinine is 0.7. His GFR is greater than 60. The patient continues to have confusion. The patient is followed by GI as the patient has a gastric mass. REVIEW OF SYSTEMS: GENERAL: The patient is alert, but confused in his room, disrobing himself. SKIN: No diaphoresis. HEENT: No headache. No dizziness. NECK: Supple. RESPIRATORY: No dyspnea. CARDIOVASCULAR: No chest pain. GASTROINTESTINAL: No nausea, no vomiting. EXTREMITIES: The patient has hand mittens, moving extremities. MUSCULOSKELETAL: Feels weak. NEUROLOGIC: Alert but confused, oriented x1. GENITOURINARY: No dysuria. MENTAL STATUS EXAMINATION: Skinny looking male who looks stated age, alert, but confused. Mood is dysphoric. Affect is restricted. Speech is spontaneous. Thought process confused. Thought content, no overt psychosis. No suicidal or homicidal ideation. Attention and memory seem to be limited. Insight and judgment is limited. Impulse control is guarded at this time. IMPRESSION: Delirium, multifactorial; mostly metabolic. PLAN AND RECOMMENDATION: The patient seen, medications reviewed. Continue present management. We will keep him one-to-one for safety and continue the Ativan. We will hold off any change of his medications for now. The patient needs 1 to 1 watch as he needs somebody to monitor him as he is trying to pull his mittens and trying to pull his IV lines. Continue treatment plan as outlined. Naveed Cooper MD [facility] # [id number] KENDAL
--- NOTE | 2018-10-18 22:55 | CP.PCM.PN ---
Subjective - Date & Time of Evaluation Date of Evaluation: 10/18/18 Time of Evaluation: 09:00 - Subjective Subjective: seen on rouinds' still confused 'has gastric mass and bilkat effusions Objective - Vital Signs/Intake and Output Vital Signs (last 24 hours): Temp Pulse Resp BP Pulse Ox 99 F 74 20 154/74 H 96 10/18/18 16:00 10/18/18 16:00 10/18/18 16:00 10/18/18 16:00 10/18/18 16:00 Intake and Output: 10/18/18 10/18/18 06:59 18:59 Intake Total 336 Output Total 1300 Balance -964 - Medications Medications: Current Medications Fat Emulsion Intravenous (Intralipid 20%) 500 mls @ 42 mls/hr IV QOD@1800 [facility] Stop: 10/22/18 18:01 Last Admin: 10/16/18 17:20 Dose: 42 mls/hr Cefepime HCl 0.5 gm/ Sodium (Chloride) 50 mls @ 100 mls/hr IVPB Q12H [facility]; Protocol Last Admin: 10/18/18 10:05 Dose: 100 mls/hr Multivitamins/Vitamin C 10 ml/Chromium/Copper/Manganese/Zinc 1 ml/ Insulin Human Regular 10 unit/ Amino Acids 1,011.1 mls @ 42 mls/hr IV .Q24H [facility] Stop: 10/18/18 17:59 Last Admin: 10/17/18 18:15 Dose: 42 mls/hr Multivitamins/Vitamin C 10 ml/Chromium/Copper/Manganese/Zinc 1 ml/ Insulin Human Regular 10 unit/ Amino Acids 1,011.1 mls @ 42 mls/hr IV .Q24H [facility] Stop: 10/19/18 17:59 Lorazepam (Ativan) 0.5 mg IVP Q4 PRN PRN Reason: Anxiety Last Admin: 10/18/18 01:03 Dose: 0.5 mg Pantoprazole Sodium (Protonix Inj) 40 mg IVP DAILY [facility] Last Admin: 10/18/18 10:49 Dose: 40 mg Thiamine HCl (Vitamin B1 Inj) 100 mg IM DAILY [facility] Last Admin: 10/18/18 10:49 Dose: 100 mg - Labs Labs: 10/18/18 08:17 10/18/18 08:17 PT 11.1 SECONDS (9.7-12.2) 10/14/18 08:24 INR 1.0 10/14/18 08:24 APTT 26 SECONDS (21-34) 10/14/18 08:24 - Constitutional Appears: Confused, Cachectic, Chronically Ill - Head Exam Head Exam: NORMOCEPHALIC - Eye Exam Eye Exam: absent: Scleral icterus Pupil Exam: NORMAL ACCOMODATION - ENT Exam ENT Exam: Mucous Membranes Dry, Normal External Ear Exam - Neck Exam Neck Exam: absent: Lymphadenopathy - Respiratory Exam Respiratory Exam: Decreased Breath Sounds, Prolonged Expiratory Phase - Cardiovascular Exam Cardiovascular Exam: REGULAR RHYTHM, +S1, +S2 - GI/Abdominal Exam GI & Abdominal Exam: Distended, Soft - Rectal Exam Rectal Exam: Deferred - Extremities Exam Extremities Exam: absent: Pedal Edema - Back Exam Back Exam: absent: CVA tenderness (L), CVA tenderness (R), paraspinal tenderness - Neurological Exam Neurological Exam: Alert, Altered, Awake - Psychiatric Exam Psychiatric exam: Depressed - Skin Skin Exam: Dry Assessment and Plan (1) Change in mental status Status: Acute (2) Hypothermia Status: Acute (3) Bilateral pleural effusion Status: Acute (4) Gastric mass Status: Acute (5) Pneumonia Status: Acute - Assessment and Plan (Free Text) Assessment: GI eval in progress need thoracentesis prognosis poor
--- NOTE | 2018-10-19 00:06 | CP.PCM.PN ---
Subjective - Date & Time of Evaluation Date of Evaluation: 10/17/18 Time of Evaluation: 17:00 - Subjective Subjective: Confused Objective - Vital Signs/Intake and Output Vital Signs (last 24 hours): Temp Pulse Resp BP Pulse Ox 98.1 F 64 20 156/72 H 96 10/18/18 23:37 10/18/18 23:37 10/18/18 23:37 10/18/18 23:37 10/18/18 23:37 - Medications Medications: Current Medications Fat Emulsion Intravenous (Intralipid 20%) 500 mls @ 42 mls/hr IV QOD@1800 [facility] Stop: 10/22/18 18:01 Last Admin: 10/18/18 18:37 Dose: 42 mls/hr Cefepime HCl 0.5 gm/ Sodium (Chloride) 50 mls @ 100 mls/hr IVPB Q12H [facility]; Protocol Last Admin: 10/18/18 21:58 Dose: 100 mls/hr Multivitamins/Vitamin C 10 ml/Chromium/Copper/Manganese/Zinc 1 ml/ Insulin Human Regular 10 unit/ Amino Acids 1,011.1 mls @ 42 mls/hr IV .Q24H [facility] Stop: 10/19/18 17:59 Last Admin: 10/18/18 18:38 Dose: 42 mls/hr Lorazepam (Ativan) 0.5 mg IVP Q4 PRN PRN Reason: Anxiety Last Admin: 10/18/18 01:03 Dose: 0.5 mg Pantoprazole Sodium (Protonix Inj) 40 mg IVP DAILY [facility] Last Admin: 10/18/18 10:49 Dose: 40 mg Thiamine HCl (Vitamin B1 Inj) 100 mg IM DAILY [facility] Last Admin: 10/18/18 10:49 Dose: 100 mg - Labs Labs: 10/18/18 08:17 10/18/18 08:17 PT 11.1 SECONDS (9.7-12.2) 10/14/18 08:24 INR 1.0 10/14/18 08:24 APTT 26 SECONDS (21-34) 10/14/18 08:24 - Head Exam Head Exam: ATRAUMATIC - Eye Exam Eye Exam: Normal appearance - ENT Exam ENT Exam: Mucous Membranes Dry - Respiratory Exam Respiratory Exam: NORMAL BREATHING PATTERN - Cardiovascular Exam Cardiovascular Exam: +S1, +S2 - GI/Abdominal Exam GI & Abdominal Exam: Normal Bowel Sounds Assessment and Plan (1) Anemia Assessment & Plan: f/u work up Status: Acute (2) Gastric mass Assessment & Plan: awaiting pathology contrast enhanced scan Status: Acute
[2018-10-19] MEDS: Thiamine 100 mg/ml Inj IM SCH (09:08)
[2018-10-19 09:20] LABS: FERRITIN 23.1 ng/mL
[2018-10-19 09:50] LABS: FOLATE 12.8 ng/mL
[2018-10-19] MEDS ORDERED: Iodixanol 320 MG/ML 100 ML BOTTLE IV ONE (10:16)
--- NOTE | 2018-10-19 13:36 | CT ---
Date of service: 10/19/2018 PROCEDURE: CT Chest, Abdomen and Pelvis with intravenous contrast HISTORY: Gastric cancer screening. COMPARISON: Comparison made with prior CT scan chest abdomen pelvis 10/16/2018.. TECHNIQUE: IV dose administered: Radiation dose: Total exam DLP = 637.32 mGy-cm. This CT exam was performed using one or more of the following dose reduction techniques: Automated exposure control, adjustment of the mA and/or kV according to patient size, and/or use of iterative reconstruction technique. FINDINGS: CT CHEST WITH CONTRAST: LUNGS: Large bilateral effusions, right greater than left again noted with bibasilar atelectasis.. Patchy interstitial and early ground-glass opacity seen in the right upper lobe and to a lesser degree left upper lobe. There also chronic appearing scarring changes in the anterior aspect left upper lobe extending to the pleural surface. MEDIASTINUM: Heart remains enlarged. No significant pericardial effusion.. The ascending thoracic aorta measures approximately 3.6 cm and descending thoracic aorta measures approximately 2.5 cm. Minimal partially calcified atherosclerotic plaque seen along the thoracic aorta. Pulmonary trunk measures approximately 2.6 cm. Trachea midline and patent. No large central endoluminal lesions. There is a small hiatal hernia. Previously noted wall asymmetric soft tissue and distal esophageal wall thickening less well seen on this study compared to prior exam however note is made of what appears to represent wall thickening of the gastric fundus near the EG junction. EGD is recommended to exclude gastric carcinoma if not already recently performed. LYMPH NODES: There are a few small nonspecific mediastinal lymph nodes. No significant hilar adenopathy is identified. PLEURA: Redemonstrated are large bilateral effusions. No evidence of pneumothorax. BONES: Multilevel degenerative spondylosis of the thoracic spine. No acute compression fractures nor retropulsed fragments. No suspicious lytic or blastic lesions. OTHER FINDINGS: None. CT ABDOMEN AND PELVIS: LIVER: The liver exhibits normal size measuring approximately 15 cm in CC dimension. Mild diffuse fatty hepatic infiltration. Again noted is an approximately 19 mm cyst superior aspect right lobe liver bordering the diaphragmatic surface. Additional tiny focus of low attenuation measuring approximately 3.7 mm right anterolateral aspect left lobe liver bordering the capsular surface too small to characterize. Another vague low-attenuation lesion posterior superior aspect right lobe liver bordering the diaphragmatic surface. There is a peripheral of though irregular enhancing lesion lateral segment left lobe liver which measures approximately 2.1 cm in greatest dimension. This may represent a hemangioma. Was not appreciated on the prior study due to the lack of circulating intravenous contrast material. Portal and splenic veins are opacified. GALLBLADDER AND BILE DUCTS: The gallbladder is physiologically distended. Questionable intraluminal gallbladder polyp or tiny calculus. Follow-up gallbladder ultrasound recommended. PANCREAS: Pancreas appears atrophic and fatty replaced no gross lesion or ductal dilatation. SPLEEN: Spleen exhibits normal size and attenuation pattern without masses collections or calcifications. ADRENALS: Questionable left adrenal mass versus possible adenopathy in the left retroperitoneum. Consider follow-up PET-CT scan if metastatic disease is suspected clinically KIDNEYS AND URETERS: Kidneys demonstrate symmetric nephrograms. No evidence of nephrolithiasis or hydronephrosis.. VASCULATURE: Mild aortic atherosclerotic calcification or mural plaque present. Unremarkable. No aortic aneurysm. BOWEL: As mentioned above, there is wall thickening of the suspicious for gastric carcinoma-scirrhous type . Clinical correlation recommended. Visualized loops of small bowel exhibit normal contour and caliber. No evidence of acute mechanical small bowel obstruction with oral contrast material extending into the colon. Few scattered colonic diverticula present however no radiographic evidence of acute diverticulitis. APPENDIX: Appendix is not seen with complete certainty however no obvious inflammatory changes right lower quadrant of the abdomen. PERITONEUM: There is a small amount of perihepatic ascites seen extending into the right para renal space region. LYMPH NODES: Note that the possibility of left-sided retroperitoneal adenopathy adjacent to the adrenal gland versus adrenal mass not excluded. Clinical correlation recommended. BLADDER: In situ unclamped Gutierrez catheter around which urinary bladder is collapsed. Wall thickening likely due to collapse however muscular a adjust collagen back no answer colonic wall urinary bladder wall lesion not excluded. REPRODUCTIVE: Prostate gland is enlarged measuring approximately 6.15 cm in transverse dimension. Few prostatic calcifications are present. Findings likely due to BPH however correlation with PSA recommended. BONES: Minor multilevel degenerative spondylosis of the lumbar spine. No acute compression fractures nor retropulsed fragments. No suspicious lytic or blastic lesions are identified.. OTHER FINDINGS: None. 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 Questionable left adrenal mass or possibly left-sided retroperitoneal adenopathy. Large bilateral effusions right greater than left with bibasilar atelectasis. Ground-glass and interstitial opacities right upper lobe and to a lesser degree left upper lobe. Cardiomegaly. Wall thickening of the urinary bladder in part due to incomplete distension related to an in situ unclamped Gutierrez catheter. Muscular hypertrophy may contribute however rule out cystitis or other intrinsic/invasive wall lesion. Enlarged prostate gland likely due to BPH however correlation with PSA recommended. There are several of low-attenuation lesions within the hepatic parenchyma largest of which is consistent with a hepatic cyst. There is another mass lesion in the left lobe liver which exhibits incomplete peripheral enhancement possibly representing an incidental hemangioma. Mild fatty hepatic infiltration. Cardiomegaly. See above discussion for additional details and findings.
--- NOTE | 2018-10-19 13:58 | PN ---
DATE: 10/19/2018 LOCATION: 568, bed B. SUBJECTIVE: A 78-year-old male seen and examined in rounds without significant clinical changes, appears to be somewhat agitated and restless on and off. The entire chart is reviewed and today's labs showed normal B12 and folate level, but retic count is 2.2. Official pathology report is still pending for the gastric mass. PHYSICAL EXAMINATION: GENERAL: A 78-year-old male. VITAL SIGNS: Afebrile with pulse of 72, respiratory rate 20 to 22, blood pressure of 150/66. HEENT: Showed pale dry oral mucous membrane. Nonicteric sclerae. LUNGS: Few scattered crepitation. Decreased air entry at bases. Heart: Positive S1 and S2. ABDOMEN: Soft with mild generalized tenderness. No mass or organomegaly. No rebound tenderness or guarding, but mild midepigastric and left lower quadrant tenderness. EXTREMITIES: Without significant edema, clubbing, or cyanosis. NEUROLOGIC: No reported new neurological deficits, sensory or motor. IMPRESSION: 1. 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 2. Pneumonia with bilateral pleural effusion. 3. Recent change of mental status. 4. Dysphagia secondary to above. 5. Hypochromic microcytic anemia secondary to above. 6. Elevated prostate-specific antigen, the possibility of prostatic carcinoma was raised. 7. Abnormal CAT scan of the abdomen and head. SUGGESTIONS: 1. Continue current management. 2. Follow up with Hematology/Oncology. 3. Peripheral hyperalimentation. Further recommendation to follow. Flynn Avina MD
--- NOTE | 2018-10-19 14:05 | CP.PCM.PN ---
Subjective - Date & Time of Evaluation Date of Evaluation: 10/19/18 Time of Evaluation: 13:50 - Subjective Subjective: pt s/e. 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 No path on esophageal mass at [address] -appears to favor scirrhous ca of stomach. Large bilateral pleural effusions. a/p: 1. PET. 2. Thoracentesis for cytology, cell ct, chemistry, and microbiological studies. 3. Deeper bx of the fundus to r/o Scirrhous ca of stomach. 4. Continue current supportive care. Objective - Vital Signs/Intake and Output Vital Signs (last 24 hours): Temp Pulse Resp BP Pulse Ox 98.1 F 70 18 156/68 H 96 10/19/18 07:00 10/19/18 07:00 10/19/18 07:00 10/19/18 07:00 10/19/18 07:00 Intake and Output: 10/19/18 10/19/18 06:59 18:59 Intake Total 672 Output Total 1750 Balance -1078 - Medications Medications: Current Medications Fat Emulsion Intravenous (Intralipid 20%) 500 mls @ 42 mls/hr IV QOD@1800 [facility] Stop: 10/22/18 18:01 Last Admin: 10/18/18 18:37 Dose: 42 mls/hr Cefepime HCl 0.5 gm/ Sodium (Chloride) 50 mls @ 100 mls/hr IVPB Q12H [facility]; Protocol Last Admin: 10/19/18 08:26 Dose: 100 mls/hr Multivitamins/Vitamin C 10 ml/Chromium/Copper/Manganese/Zinc 1 ml/ Insulin Human Regular 10 unit/ Amino Acids 1,011.1 mls @ 42 mls/hr IV .Q24H ONE Stop: 10/19/18 17:59 Last Admin: 10/18/18 18:38 Dose: 42 mls/hr Multivitamins/Vitamin C 10 ml/Chromium/Copper/Manganese/Zinc 1 ml/ Insulin Human Regular 10 unit/ Amino Acids 1,011.1 mls @ 42 mls/hr IV .Q24H ONE Stop: 10/20/18 17:59 Lorazepam (Ativan) 0.5 mg IVP Q4 PRN PRN Reason: Anxiety Last Admin: 01/06/19 01:03 Dose: 0.5 mg Pantoprazole Sodium (Protonix Inj) 40 mg IVP DAILY [facility] Last Admin: 10/19/18 09:08 Dose: 40 mg Thiamine HCl (Vitamin B1 Inj) 100 mg IM DAILY [facility] Last Admin: 10/19/18 09:08 Dose: 100 mg - Labs Labs: 10/18/18 08:17 10/18/18 08:17 PT 11.1 SECONDS (9.7-12.2) 10/14/18 08:24 INR 1.0 10/14/18 08:24 APTT 26 SECONDS (21-34) 10/14/18 08:24
[2018-10-19] MEDS ORDERED: PPN IV ONE (18:00)
--- NOTE | 2018-10-19 21:31 | PN ---
DATE: 10/19/2018 SUBJECTIVE: The patient is seen. The patient is on one-to-one watch. This patient is still significantly confused. He is not agitated as much as before and is on Ativan p.r.n. In view of his report, the patient has adenocarcinoma of the stomach and currently n.p.o. and not receiving PPN. The patient is still very grossly disoriented and does not really know that he is in the hospital. He is not complaining of pain when seen; however, today his behavior is better . PHYSICAL EXAMINATION: VITAL SIGNS: Temperature is 98.1, pulse is 70, blood pressure 156/68, respirations 18, oxygen saturation is 96%. According to the staff, the patient may need a PEG tube as the patient is n.p.o. Per report from GI, the patient has carcinoma of the stomach. The patient has been followed by Dr. Mckeon. REVIEW OF SYSTEMS: GENERAL: The patient is alert, but confused. He still has hand mittens in his room, one to one watch. He is more re-directable at this time. SKIN: No pruritus. HEENT: No headache. No dizziness. NECK: Supple. RESPIRATORY: No dyspnea. CARDIOVASCULAR: No chest pain. GASTROINTESTINAL: The patient is n.p.o. EXTREMITIES: He has hand mittens. He has tried to pull his line. He has been bed bound. NEUROLOGIC: Alert with periods of confusion. GENITOURINARY: No urinary problems. MENTAL STATUS EXAMINATION: Cachectic male who looks stated age, oriented x1 only to person, not oriented to place and time. Seen in hospital gown. He is very restless at times. Speech is slow. Affect is restricted. Mood is dysphoric. Thought process: Confused. Thought content: No overt psychosis. No suicidal or homicidal ideation. Attention and memory still impaired. Insight and judgment impaired. Impulse control is guarded at this time. IMPRESSION: Delirium, multifactorial, metabolic, as well as the patient has gastric carcinoma. PLAN AND RECOMMENDATIONS: The patient is seen, meds reviewed. Continue Ativan as needed in a one-to-one watch. The patient is significantly confused, and also has gastric carcinoma. According to the staff, the sister is making decisions for him but may benefit from palliative care considering the patient has carcinoma and also may have possible terminal stage delirium. Naveed Cooper MD [facility] # [id number] [place]
--- NOTE | 2018-10-20 01:52 | CP.PCM.PN ---
Subjective - Date & Time of Evaluation Date of Evaluation: 10/19/18 Time of Evaluation: 20:25 - Subjective Subjective: Patient confused, awake, in no respiratory distress, on PPPN. Objective - Vital Signs/Intake and Output Vital Signs (last 24 hours): Temp Pulse Resp BP Pulse Ox 97.3 F L 69 20 159/71 H 95 10/19/18 23:28 10/19/18 23:28 10/19/18 23:28 10/19/18 23:28 10/19/18 23:28 Intake and Output: 10/19/18 10/20/18 18:59 06:59 Intake Total 344 0 Output Total 800 300 Balance -456 -300 - Medications Medications: Current Medications Fat Emulsion Intravenous (Intralipid 20%) 500 mls @ 42 mls/hr IV QOD@1800 [facility] Stop: 10/22/18 18:01 Last Admin: 10/18/18 18:37 Dose: 42 mls/hr Cefepime HCl 0.5 gm/ Sodium (Chloride) 50 mls @ 100 mls/hr IVPB Q12H [facility]; Protocol Last Admin: 10/19/18 20:17 Dose: 100 mls/hr Multivitamins/Vitamin C 10 ml/Chromium/Copper/Manganese/Zinc 1 ml/ Insulin Human Regular 10 unit/ Amino Acids 1,011.1 mls @ 42 mls/hr IV .Q24H [facility] Stop: 10/20/18 17:59 Last Admin: 10/19/18 19:05 Dose: 42 mls/hr Lorazepam (Ativan) 0.5 mg IVP Q4 PRN PRN Reason: Anxiety Last Admin: 10/18/18 01:03 Dose: 0.5 mg Pantoprazole Sodium (Protonix Inj) 40 mg IVP DAILY [facility] Last Admin: 10/19/18 09:08 Dose: 40 mg Thiamine HCl (Vitamin B1 Inj) 100 mg IM DAILY [facility] Last Admin: 10/19/18 09:08 Dose: 100 mg - Labs Labs: 10/18/18 08:17 10/18/18 08:17 PT 11.1 SECONDS (9.7-12.2) 10/14/18 08:24 INR 1.0 10/14/18 08:24 APTT 26 SECONDS (21-34) 10/14/18 08:24 - Constitutional Appears: Well, No Acute Distress, Chronically Ill - Head Exam Head Exam: NORMAL INSPECTION - Eye Exam Eye Exam: Normal appearance - ENT Exam ENT Exam: Normal Exam - Neck Exam Neck Exam: Normal Inspection - Respiratory Exam Additional comments: Dcreased breathing sounds bilaterally. - Cardiovascular Exam Cardiovascular Exam: REGULAR RHYTHM - GI/Abdominal Exam GI & Abdominal Exam: Soft, Normal Bowel Sounds - Rectal Exam Rectal Exam: Deferred - Exam Exam: NORMAL INSPECTION - Extremities Exam Extremities Exam: Normal Inspection - Back Exam Back Exam: NORMAL INSPECTION - Neurological Exam Neurological Exam: Alert, Awake, Oriented x3 - Psychiatric Exam Psychiatric exam: Anxious - Skin Skin Exam: Dry, Intact, Normal Color, Warm Assessment and Plan (1) Change in mental status Status: Acute (2) Severe anemia Status: Acute (3) Pneumonia Assessment & Plan: With bilateral effusion. Needs thoracentesis. To continue IV antibiotics. Status: Acute (4) Hematuria Assessment & Plan: Urological consultation. Status: Acute (5) Gastric mass Status: Acute (6) Bilateral pleural effusion Status: Acute
[2018-10-20 09:31] LABS: FERRITIN 25.5 ng/mL
[2018-10-20] MEDS: Thiamine 100 mg/ml Inj IM SCH (09:40)
--- NOTE | 2018-10-20 13:26 | CP.PCM.PN ---
Subjective - Date & Time of Evaluation Date of Evaluation: 10/20/18 Time of Evaluation: 13:20 - Subjective Subjective: Clincal course unchanged. Awaiting PET. and thoracentesis. a/p: Ca of stomach + probable invasion of terminal esophagus. Continue current supportive care. Objective - Vital Signs/Intake and Output Vital Signs (last 24 hours): Temp Pulse Resp BP Pulse Ox 98.5 F 75 20 174/73 H 95 10/20/18 08:06 10/20/18 08:06 10/20/18 08:06 10/20/18 08:06 10/20/18 08:06 Intake and Output: 10/20/18 10/20/18 06:59 18:59 Intake Total 336 Output Total 1300 Balance -964 - Medications Medications: Current Medications Fat Emulsion Intravenous (Intralipid 20%) 500 mls @ 42 mls/hr IV QOD@1800 [facility] Stop: 10/22/18 18:01 Last Admin: 10/18/18 18:37 Dose: 42 mls/hr Cefepime HCl 0.5 gm/ Sodium (Chloride) 50 mls @ 100 mls/hr IVPB Q12H [facility]; Protocol Last Admin: 10/20/18 08:14 Dose: 100 mls/hr Multivitamins/Vitamin C 10 ml/Chromium/Copper/Manganese/Zinc 1 ml/ Insulin Human Regular 10 unit/ Amino Acids 1,011.1 mls @ 42 mls/hr IV .Q24H ONE Stop: 10/20/18 17:59 Last Admin: 10/19/18 19:05 Dose: 42 mls/hr Potassium Chloride (Potassium Chloride 20 Meq/100 Ml) 20 meq in 100 mls @ 50 mls/hr IVPB DAILY [facility] Last Admin: 10/20/18 09:45 Dose: 50 mls/hr Lorazepam (Ativan) 0.5 mg IVP Q4 PRN PRN Reason: Anxiety Last Admin: 10/20/18 11:49 Dose: 0.5 mg Pantoprazole Sodium (Protonix Inj) 40 mg IVP DAILY [facility] Last Admin: 10/20/18 09:40 Dose: 40 mg Thiamine HCl (Vitamin B1 Inj) 100 mg IM DAILY [facility] Last Admin: 10/20/18 09:40 Dose: 100 mg - Labs Labs: 10/18/18 08:17 10/18/18 08:17 PT 11.1 SECONDS (9.7-12.2) 10/14/18 08:24 INR 1.0 10/14/18 08:24 APTT 26 SECONDS (21-34) 10/14/18 08:24
[2018-10-20] MEDS: Fat Emulsion 20% IV 500 ML IV SCH (17:58)
[2018-10-20] MEDS ORDERED: PPN IV ONE ×2 (18:00→18:30)
[2018-10-20] MEDS ORDERED: DiphenhydrAMINE 50 mg/ml Inj IVP ONE (18:17)
[2018-10-21 08:52] LABS: ALB/GLOB RATIO 0.9 (1.0-2.1); ALBUMIN 2.5 g/dL (3.5-5.0); ALT/SGPT 29 U/L (21-72); AST/SGOT 32 U/L (17-59); BLOOD UREA NITROGEN 15 mg/dL (9-20); CALCIUM 7.6 mg/dl (8.6-10.4); GFR NON-AFRICAN AMERICAN > 60
[2018-10-21] MEDS: Thiamine 100 mg/ml Inj IM SCH (10:00)
--- NOTE | 2018-10-21 11:23 | CP.PCM.PN ---
Subjective - Date & Time of Evaluation Date of Evaluation: 10/20/18 Time of Evaluation: 20:00 - Subjective Subjective: Confused. Discussed case with the patients sister Suzanna. She informed me her brother would not want any surgical intervention for his cancer but she was agreeable to thoracentesis for pleural effusion. Objective - Vital Signs/Intake and Output Vital Signs (last 24 hours): Temp Pulse Resp BP Pulse Ox 97.9 F 72 20 146/52 L 95 10/21/18 07:17 10/21/18 07:17 10/21/18 07:17 10/21/18 07:17 10/21/18 07:17 Intake and Output: 10/21/18 10/21/18 06:59 18:59 Intake Total 982 Output Total 1200 Balance -218 - Medications Medications: Current Medications Fat Emulsion Intravenous (Intralipid 20%) 500 mls @ 42 mls/hr IV QOD@1800 [facility] Stop: 10/22/18 18:01 Last Admin: 10/20/18 17:58 Dose: 42 mls/hr Cefepime HCl 0.5 gm/ Sodium (Chloride) 50 mls @ 100 mls/hr IVPB Q12H [facility]; Protocol Last Admin: 10/21/18 08:19 Dose: 100 mls/hr Multivitamins/Vitamin C 10 ml/Chromium/Copper/Manganese/Zinc 1 ml/ Insulin Human Regular 10 unit/ Amino Acids 1,011.1 mls @ 83 mls/hr IV .[id number] [facility] Stop: 10/21/18 06:10 Multivitamins/Vitamin C 10 ml/Chromium/Copper/Manganese/Zinc 1 ml/ Insulin Human Regular 10 unit/ Amino Acids 1,011.1 mls @ 42 mls/hr IV .Q24H [facility] Stop: 10/21/18 18:29 Last Admin: 10/20/18 18:31 Dose: 42 mls/hr Potassium Chloride (Potassium Chloride 10 Meq/100 Ml) 10 meq in 100 mls @ 100 mls/hr IVPB DAILY [facility] Last Admin: 10/21/18 10:35 Dose: 100 mls/hr Lorazepam (Ativan) 0.5 mg IVP Q4 PRN PRN Reason: Anxiety Last Admin: 10/20/18 11:49 Dose: 0.5 mg Pantoprazole Sodium (Protonix Inj) 40 mg IVP DAILY [facility] Last Admin: 10/21/18 09:59 Dose: 40 mg Thiamine HCl (Vitamin B1 Inj) 100 mg IM DAILY [facility] Last Admin: 10/21/18 10:00 Dose: 100 mg - Labs Labs: 10/18/18 08:17 10/21/18 08:19 PT 11.1 SECONDS (9.7-12.2) 10/14/18 08:24 INR 1.0 10/14/18 08:24 APTT 26 SECONDS (21-34) 10/14/18 08:24 - Head Exam Head Exam: ATRAUMATIC - Eye Exam Eye Exam: Normal appearance - ENT Exam ENT Exam: Mucous Membranes Dry - Respiratory Exam Respiratory Exam: NORMAL BREATHING PATTERN - Cardiovascular Exam Cardiovascular Exam: +S1, +S2 - GI/Abdominal Exam GI & Abdominal Exam: Normal Bowel Sounds - Extremities Exam Extremities Exam: Normal Inspection - Neurological Exam Neurological Exam: Altered Assessment and Plan (1) Anemia Assessment & Plan: anemia of chronic disease Status: Acute (2) Gastric mass Assessment & Plan: thoracentesis with cytology pts sister does not want aggressive surgical intervention Status: Acute
--- NOTE | 2018-10-21 11:32 | CP.PCM.PN ---
Subjective - Date & Time of Evaluation Date of Evaluation: 10/21/18 Time of Evaluation: 11:00 - Subjective Subjective: Confused, pt to be seen by palliative care. Objective - Vital Signs/Intake and Output Vital Signs (last 24 hours): Temp Pulse Resp BP Pulse Ox 97.9 F 72 20 146/52 L 95 10/21/18 07:17 10/21/18 07:17 10/21/18 07:17 10/21/18 07:17 10/21/18 07:17 Intake and Output: 10/21/18 10/21/18 06:59 18:59 Intake Total 982 Output Total 1200 Balance -218 - Medications Medications: Current Medications Fat Emulsion Intravenous (Intralipid 20%) 500 mls @ 42 mls/hr IV QOD@1800 [facility] Stop: 10/22/18 18:01 Last Admin: 10/20/18 17:58 Dose: 42 mls/hr Cefepime HCl 0.5 gm/ Sodium (Chloride) 50 mls @ 100 mls/hr IVPB Q12H [facility]; Protocol Last Admin: 10/21/18 08:19 Dose: 100 mls/hr Multivitamins/Vitamin C 10 ml/Chromium/Copper/Manganese/Zinc 1 ml/ Insulin Human Regular 10 unit/ Amino Acids 1,011.1 mls @ 83 mls/hr IV .[id number] [facility] Stop: 10/21/18 06:10 Multivitamins/Vitamin C 10 ml/Chromium/Copper/Manganese/Zinc 1 ml/ Insulin Human Regular 10 unit/ Amino Acids 1,011.1 mls @ 42 mls/hr IV .Q24H [facility] Stop: 10/21/18 18:29 Last Admin: 10/20/18 18:31 Dose: 42 mls/hr Potassium Chloride (Potassium Chloride 10 Meq/100 Ml) 10 meq in 100 mls @ 100 mls/hr IVPB DAILY [facility] Last Admin: 10/21/18 10:35 Dose: 100 mls/hr Lorazepam (Ativan) 0.5 mg IVP Q4 PRN PRN Reason: Anxiety Last Admin: 10/20/18 11:49 Dose: 0.5 mg Pantoprazole Sodium (Protonix Inj) 40 mg IVP DAILY [facility] Last Admin: 10/21/18 09:59 Dose: 40 mg Thiamine HCl (Vitamin B1 Inj) 100 mg IM DAILY [facility] Last Admin: 10/21/18 10:00 Dose: 100 mg - Labs Labs: 10/18/18 08:17 10/21/18 08:19 PT 11.1 SECONDS (9.7-12.2) 10/14/18 08:24 INR 1.0 10/14/18 08:24 APTT 26 SECONDS (21-34) 10/14/18 08:24 - Head Exam Head Exam: ATRAUMATIC - Eye Exam Eye Exam: Normal appearance - ENT Exam ENT Exam: Mucous Membranes Dry - Respiratory Exam Respiratory Exam: NORMAL BREATHING PATTERN - Cardiovascular Exam Cardiovascular Exam: +S1, +S2 - GI/Abdominal Exam GI & Abdominal Exam: Normal Bowel Sounds Assessment and Plan (1) Anemia Assessment & Plan: chronic disease from malignancy Status: Acute (2) Gastric mass Assessment & Plan: pts sister Suzanna does not want surgical intervention, she was okay for thoracentesis but will hold off on ordering IR thoracenetesis until palliative care discusses further with family Status: Acute
--- NOTE | 2018-10-21 13:53 | CP.PCM.PCO ---
Physician Communication Note - Physician Communication Note Physician Communication Note: family meeting tomorrow at 10 am
--- NOTE | 2018-10-21 14:26 | CP.PCM.PN ---
Subjective - Date & Time of Evaluation Date of Evaluation: 10/21/18 Time of Evaluation: 14:23 - Subjective Subjective: Remains confused. Family wishes no surgical intervention. Palliative care is to see the pt. a/p: Gastric ca. with probable eg junction invasion. Palliative care. Objective - Vital Signs/Intake and Output Vital Signs (last 24 hours): Temp Pulse Resp BP Pulse Ox 97.9 F 72 20 146/52 L 95 10/21/18 07:17 10/21/18 07:17 10/21/18 07:17 10/21/18 07:17 10/21/18 07:17 Intake and Output: 10/21/18 10/21/18 06:59 18:59 Intake Total 982 Output Total 1200 Balance -218 - Medications Medications: Current Medications Cefepime HCl 0.5 gm/ Sodium (Chloride) 50 mls @ 100 mls/hr IVPB Q12H [facility]; Protocol Last Admin: 10/21/18 08:19 Dose: 100 mls/hr Potassium Chloride (Potassium Chloride 10 Meq/100 Ml) 10 meq in 100 mls @ 100 mls/hr IVPB DAILY [facility] Last Admin: 10/21/18 10:35 Dose: 100 mls/hr Fat Emulsion Intravenous (Intralipid 20%) 500 mls @ 42 mls/hr IV QOD@1800 [facility] Stop: 10/28/18 18:01 Multivitamins/Vitamin C 10 ml/Chromium/Copper/Manganese/Zinc 1 ml/ Insulin Human Regular 10 unit/ Amino Acids 1,011.1 mls @ 42 mls/hr IV .Q24H [facility] Stop: 10/22/18 17:59 Lorazepam (Ativan) 0.5 mg IVP Q4 PRN PRN Reason: Anxiety Last Admin: 10/20/18 11:49 Dose: 0.5 mg Pantoprazole Sodium (Protonix Inj) 40 mg IVP DAILY [facility] Last Admin: 10/21/18 09:59 Dose: 40 mg Thiamine HCl (Vitamin B1 Inj) 100 mg IM DAILY [facility] Last Admin: 10/21/18 10:00 Dose: 100 mg - Labs Labs: 10/18/18 08:17 10/21/18 08:19 PT 11.1 SECONDS (9.7-12.2) 10/14/18 08:24 INR 1.0 10/14/18 08:24 APTT 26 SECONDS (21-34) 10/14/18 08:24
--- NOTE | 2018-10-21 14:30 | PN ---
DATE: 10/21/2018 LOCATION: 568, bed B. SUBJECTIVE: This 78-year-old male seen and examined in rounds without significant clinical changes or reported active bleeding, but still confused with poor oral intake. No reported chest pain, palpitation or significant shortness of breath. The entire chart is reviewed and the most recent lab results showed retic count of 1.9 with low creatinine, calcium 7.9, total protein of 5.2 with albumin 2.5. The patient is still having low hemoglobin and hematocrit. Most recently done chest abdomen and pelvic CT scan is seen. Official report is reviewed with possible gastric mass with mets with large pleural effusion. Repeat gastric mass biopsy results still pending, but primary report indicative of well to moderately differentiated adeno CA of the stomach. PHYSICAL EXAMINATION: GENERAL: A 78-year-old male, afebrile with pulse of 70, respiratory 20-22, blood pressure of 140/56. HEENT: Showed pale, dry oral mucoid membrane. Nonicteric sclerae. LUNGS: Few scattered crepitation. Decreased air entry at bases. HEART: Positive S1 and S2. ABDOMEN: Soft with mild distention with mild generalized tenderness. No mass or organomegaly. No rebound tenderness or guarding. EXTREMITIES: Without significant clubbing, cyanosis or edema. NEUROLOGIC: No reported new neurological deficits, sensory or motor. IMPRESSION: 1. 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 2. Aspiration pneumonia, dysphagia, pleural effusion. 3. Anemia secondary to above. 4. Malnutrition with hypoalbuminemia, hypoproteinemia. SUGGESTIONS: 1. Agree with your plan. 2. The patient apparently for possible palliative treatment. 3. Further recommendation to follow. Flynn Avina MD
--- NOTE | 2018-10-21 17:08 | PN ---
DATE: 10/21/2018 SUBJECTIVE: The patient is alert, not agitated, was given Ativan last night, but still very confused and disoriented. He wanted to remove his mittens. PHYSICAL EXAMINATION: VITAL SIGNS: Temperature 97.9, pulse 70, blood pressure 146/52, respirations 20, oxygen saturation is 95%. The patient was seen by Dr. Macias earlier. The patient has a history of gastric carcinoma. The patient was referred to be seen by Palliative Care. At this time, the patient is not agitated at this time, but still very confused. GI as per plan from Dr. Macias, the patient's sister is amenable for thoracentesis, but more geared for palliative care. PHYSICAL EXAMINATION: GENERAL: The patient is alert, but confused, oriented only to person, with hand mittens in his room one-to-one watch. Not in acute respiratory distress. VITAL SIGNS: Temperature 97.9, pulse 70, blood pressure is 146/52, respirations 20, oxygen saturation is 95%. SKIN: No diaphoresis. HEENT: No headache. No dizziness. NECK: Supple. RESPIRATORY: No dyspnea. CARDIOVASCULAR: No chest pain. GASTROINTESTINAL: The patient is on PPN. The patient is n.p.o., has problem with swallowing except meds. EXTREMITIES: On hand mitten. The patient has been bed bound. NEUROLOGIC: Alert and significantly confused, but not agitated or disoriented. MENTAL STATUS EXAM: Cachectic looking male who looks his stated age. Mood is dysphoric. Affect is restricted. Speech is slow. Thought process is confused. Thought content, no overt psychosis. No suicidal or homicidal ideation. Attention and memory seemed to be fair. Insight and judgment fair. Impulse control is guarded. IMPRESSION: Delirium, history of gastric cancer as well as history of hypothermia, anemia, and also pleural effusion. PLAN/RECOMMENDATION: The patient is seen, meds reviewed. Continue Ativan p.r.n. disorder. We will keep the PPN as well as we will give one-to-one for safety, I do suggest the patient for palliative care. The patient has cancer and also very confused at this time. Naveed Cooper MD MTDD
[2018-10-21] MEDS ORDERED: PPN #5 IV ONE (18:00)
[2018-10-21] MEDS ORDERED: Fat Emulsion 20% IV 500 ML IV SCH (18:00)
[2018-10-21] MEDS ORDERED: PPN IV ONE (18:00)
--- NOTE | 2018-10-21 23:36 | CP.PCM.PN ---
Subjective - Date & Time of Evaluation Date of Evaluation: 10/19/18 Time of Evaluation: 19:00 - Subjective Subjective: Confused Objective - Vital Signs/Intake and Output Vital Signs (last 24 hours): Temp Pulse Resp BP Pulse Ox 98.2 F 65 18 135/78 97 10/21/18 15:00 10/21/18 15:00 10/21/18 15:00 10/21/18 15:00 10/21/18 15:00 Intake and Output: 10/21/18 10/22/18 18:59 06:59 Intake Total 270 385 Output Total 300 30 Balance -30 355 - Medications Medications: Current Medications Cefepime HCl 0.5 gm/ Sodium (Chloride) 50 mls @ 100 mls/hr IVPB Q12H [facility]; Protocol Last Admin: 10/21/18 21:17 Dose: 100 mls/hr Potassium Chloride (Potassium Chloride 10 Meq/100 Ml) 10 meq in 100 mls @ 100 mls/hr IVPB DAILY [facility] Last Admin: 10/21/18 10:35 Dose: 100 mls/hr Multivitamins/Vitamin C 10 ml/Chromium/Copper/Manganese/Zinc 1 ml/ Insulin Human Regular 10 unit/ Amino Acids 1,011.1 mls @ 42 mls/hr IV .Q24H [facility] Stop: 10/22/18 17:59 Last Admin: 10/21/18 17:26 Dose: 42 mls/hr Fat Emulsion Intravenous (Intralipid 20%) 500 mls @ 42 mls/hr IV QOD@1800 [facility] Stop: 10/28/18 18:01 Lorazepam (Ativan) 0.5 mg IVP Q4 PRN PRN Reason: Anxiety Last Admin: 10/21/18 17:31 Dose: 0.5 mg Pantoprazole Sodium (Protonix Inj) 40 mg IVP DAILY [facility] Last Admin: 10/21/18 09:59 Dose: 40 mg Thiamine HCl (Vitamin B1 Inj) 100 mg IM DAILY [facility] Last Admin: 10/21/18 10:00 Dose: 100 mg - Labs Labs: 10/18/18 08:17 10/21/18 08:19 PT 11.1 SECONDS (9.7-12.2) 10/14/18 08:24 INR 1.0 10/14/18 08:24 APTT 26 SECONDS (21-34) 10/14/18 08:24 - Head Exam Head Exam: ATRAUMATIC - Eye Exam Eye Exam: Normal appearance - ENT Exam ENT Exam: Mucous Membranes Dry - Respiratory Exam Respiratory Exam: NORMAL BREATHING PATTERN - Cardiovascular Exam Cardiovascular Exam: +S1, +S2 - GI/Abdominal Exam GI & Abdominal Exam: Normal Bowel Sounds Assessment and Plan (1) Anemia Assessment & Plan: likely iron deficiency from GI tumor bleed transfusion support PRN will start IV iron Status: Acute (2) Gastric mass Assessment & Plan: will discuss with the patients NOK about goals of care Status: Acute
--- NOTE | 2018-10-22 00:51 | CP.PCM.PN ---
Subjective - Date & Time of Evaluation Date of Evaluation: 10/21/18 Time of Evaluation: 20:30 - Subjective Subjective: Patient confused, in no respiratory distress. Patient's sister requested no invasive procedure. Still on PPN. Palliative care evaluaion. Objective - Vital Signs/Intake and Output Vital Signs (last 24 hours): Temp Pulse Resp BP Pulse Ox 98.2 F 65 18 135/78 97 10/21/18 15:00 10/21/18 15:00 10/21/18 15:00 10/21/18 15:00 10/21/18 15:00 Intake and Output: 10/21/18 10/22/18 18:59 06:59 Intake Total 270 385 Output Total 300 30 Balance -30 355 - Medications Medications: Current Medications Ferric Sodium Gluconate Complex (Ferrlecit) 125 mg IVPB DAILY [facility] Stop: 10/30/18 10:01 Cefepime HCl 0.5 gm/ Sodium (Chloride) 50 mls @ 100 mls/hr IVPB Q12H [facility]; Protocol Last Admin: 10/21/18 21:17 Dose: 100 mls/hr Potassium Chloride (Potassium Chloride 10 Meq/100 Ml) 10 meq in 100 mls @ 100 mls/hr IVPB DAILY [facility] Last Admin: 10/21/18 10:35 Dose: 100 mls/hr Multivitamins/Vitamin C 10 ml/Chromium/Copper/Manganese/Zinc 1 ml/ Insulin Human Regular 10 unit/ Amino Acids 1,011.1 mls @ 42 mls/hr IV .Q24H [facility] Stop: 10/22/18 17:59 Last Admin: 10/21/18 17:26 Dose: 42 mls/hr Fat Emulsion Intravenous (Intralipid 20%) 500 mls @ 42 mls/hr IV QOD@1800 [facility] Stop: 10/28/18 18:01 Lorazepam (Ativan) 0.5 mg IVP Q4 PRN PRN Reason: Anxiety Last Admin: 10/21/18 17:31 Dose: 0.5 mg Pantoprazole Sodium (Protonix Inj) 40 mg IVP DAILY [facility] Last Admin: 10/21/18 09:59 Dose: 40 mg Thiamine HCl (Vitamin B1 Inj) 100 mg IM DAILY [facility] Last Admin: 10/21/18 10:00 Dose: 100 mg - Labs Labs: 10/18/18 08:17 10/21/18 08:19 PT 11.1 SECONDS (9.7-12.2) 10/14/18 08:24 INR 1.0 10/14/18 08:24 APTT 26 SECONDS (21-34) 10/14/18 08:24 - Constitutional Appears: No Acute Distress, Chronically Ill - Head Exam Head Exam: NORMAL INSPECTION - Eye Exam Eye Exam: Normal appearance - ENT Exam ENT Exam: Normal Exam - Neck Exam Neck Exam: Normal Inspection - Respiratory Exam Additional comments: Decrease BS in both lung bases. - Cardiovascular Exam Cardiovascular Exam: REGULAR RHYTHM - GI/Abdominal Exam GI & Abdominal Exam: Soft, Normal Bowel Sounds - Extremities Exam Extremities Exam: Normal Inspection - Back Exam Back Exam: NORMAL INSPECTION - Neurological Exam Neurological Exam: Alert, Awake - Psychiatric Exam Psychiatric exam: Agitated Additional comments: Confused. - Skin Skin Exam: Dry, Intact, Warm Assessment and Plan (1) Change in mental status Status: Acute (2) Severe anemia Status: Acute (3) Pneumonia Assessment & Plan: To continue Cefepime. Status: Acute (4) Hematuria Status: Acute (5) Gastric mass Status: Acute (6) Bilateral pleural effusion Status: Acute
[2018-10-22] MEDS: Ferric Sodium Gluconat Complex 125 MG in Sodium Chloride 0.9% 100 ML IVPB SCH (09:53)
[2018-10-22] MEDS: Thiamine 100 mg/ml Inj IM SCH (09:57)
[2018-10-22] MEDS ORDERED: Ferric Sodium Gluconat Complex 62.5 mg/5 ml Vial IVPB SCH (10:00)
--- NOTE | 2018-10-22 10:31 | CP.PCM.CON ---
History of Present Illness - History of Present Illness History of Present Illness: Palliative consult requested by Doctor Maximilian for goals of care discussion Patient is a 78 yo male admitted after find [place] the [place] steps by Police. Duration unknown. In ED CT head showed chronic microvascular changes. CT abdomen was significant for hepatic cysts, enlarged prostate and gastroesophageal mass. S/P EGD with Bx. Patient is diagnosed with adeno carcinoma. Patient also diagnosed with aspiration pneumonia and dysphagia.PPN on board, status NPO. Hb 8.4, Ret. count 1.9. Patient is receiving Fe supplement IV. Family meeting held this morning for goals of care discussion. PMH: There is no medical Sx documented Soc. Hx: lives alone in the same building where his sister is, single, no children Fam. Hx: Unknown Review of Systems - Review of Systems All systems: reviewed and no additional remarkable complaints except Review of Systems: ROS unobtainable from patient due to confusion. ROS obtained from nursing. Per nursing patient remains confused, on safety watch and PPN. Past Patient History - Past Medical History & Family History Past Medical History?: No - Past Social History Smoking Status: Never Smoked Alcohol: None Drugs: Denies Home Situation {Lives}: With Family Domestic Violence: Negative - CARDIAC Hx Hypercholesterolemia: Yes Hx Hypertension: Yes - MUSCULOSKELETAL/RHEUMATOLOGICAL Hx Falls: Yes - PSYCHIATRIC Hx Substance Use: (unobtainable) - ANESTHESIA Hx Anesthesia: No (Unobtainable) Meds Allergies/Adverse Reactions: Allergies Allergy/AdvReac Type Severity Reaction Status Date / Time Unobtainable Allergy Verified 10/12/18 07:39 - Medications Medications: Current Medications Cefepime HCl 0.5 gm/ Sodium (Chloride) 50 mls @ 100 mls/hr IVPB Q12H [facility]; Protocol Last Admin: 10/22/18 08:41 Dose: 100 mls/hr Potassium Chloride (Potassium Chloride 10 Meq/100 Ml) 10 meq in 100 mls @ 100 mls/hr IVPB DAILY [facility] Last Admin: 10/22/18 09:33 Dose: 100 mls/hr Multivitamins/Vitamin C 10 ml/Chromium/Copper/Manganese/Zinc 1 ml/ Insulin Human Regular 10 unit/ Amino Acids 1,011.1 mls @ 42 mls/hr IV .Q24H [facility] Stop: 10/22/18 17:59 Last Admin: 10/21/18 17:26 Dose: 42 mls/hr Fat Emulsion Intravenous (Intralipid 20%) 500 mls @ 42 mls/hr IV QOD@1800 [facility] Stop: 10/28/18 18:01 Ferric Sodium Gluconate Complex 125 mg/ Sodium Chloride 110 mls @ 110 mls/hr IVPB DAILY [facility] Stop: 10/30/18 10:01 Last Admin: 10/22/18 09:53 Dose: 110 mls/hr Lorazepam (Ativan) 0.5 mg IVP Q4 PRN PRN Reason: Anxiety Last Admin: 10/21/18 17:31 Dose: 0.5 mg Pantoprazole Sodium (Protonix Inj) 40 mg IVP DAILY [facility] Last Admin: 10/22/18 09:38 Dose: 40 mg Thiamine HCl (Vitamin B1 Inj) 100 mg IM DAILY [facility] Last Admin: 10/22/18 09:57 Dose: 100 mg Physical Exam - Constitutional Appears: Chronically Ill - Head Exam Head Exam: ATRAUMATIC, NORMAL INSPECTION, NORMOCEPHALIC - Eye Exam Eye Exam: EOMI, Normal appearance, PERRL Pupil Exam: NORMAL ACCOMODATION, PERRL - ENT Exam ENT Exam: Mucous Membranes Dry - Neck Exam Neck exam: Positive for: Normal Inspection - Respiratory Exam Respiratory Exam: Decreased Breath Sounds, NORMAL BREATHING PATTERN - Cardiovascular Exam Cardiovascular Exam: Tachycardia - GI/Abdominal Exam GI & Abdominal Exam: Normal Bowel Sounds, Soft - Rectal Exam Rectal Exam: Deferred - Exam Exam: NORMAL INSPECTION Additional comments: Gutierrez cath - Extremities Exam Extremities exam: Positive for: normal inspection - Back Exam Back exam: NORMAL INSPECTION - Neurological Exam Neurological exam: Alert, Altered - Psychiatric Exam Psychiatric exam: Flat Affect - Skin Skin Exam: Dry, Intact, Pallor Results - Vital Signs Recent Vital Signs: Last Vital Signs Temp 97.8 F 10/22/18 07:00 Pulse 62 10/22/18 07:00 Resp 20 10/22/18 07:00 BP 157/75 H 10/22/18 07:00 Pulse Ox 95 10/22/18 07:00 - Labs Result Diagrams: 10/18/18 08:17 10/21/18 08:19 Labs: Laboratory Results - last 24 hr 10/21/18 16:36 POC Glucose (mg/dL) 83 Assessment & Plan - Assessment and Plan (Free Text) Assessment: Palliative consult Full Code, there is no Advance Directive on chart, PPS 20% I reviewed all medical records, diagnostic studies and examined patient in the bed. Patient is alert, altered, speech is slow and patient mostly repeats questions he was asked. Patient does not have decision makig ability nor is able to p articipate in goals of care discussion. Skin is pale, there is a healing bruise to left becca orbital area. Breathing is regular, no cough, O2Sat 95 % RA. Abdomen flat and soft, diminished bowel sounds , no pain elicited upon palpation. NPO, PPN on board.Gutierrez cath at bed side, urine yellow. BP 146/52, HR 72, afebrile Hb 8.4, Ret. count 1.9. Reffitin IV on board. 10 am Family meeting attended by patient's sister and held at bedside. I reviewed patient's clinical presentation and elicited sister's understanding and expectations of care. The sister stated being aware of cancer diagnosis . Her expectations were for patient to go to [facility] than return home. her goals clarita many issues and I try to elaborate on them. First I discussed gastro esophagial mass that most likely prevents patient for swallowing , what could warranty surgery. Doctor Maximilian and Doctor Law stated in their notes that sister was against surgery. I suggested that the way of providing nutrition via PPN is only temporally solution and we needed to discuss the half-way solution to this issue. I asked that if PEG was considered as an option would she want us to proceed with it. She said yes, but was hoping it would be only short term solution. Second, Code status was discussed. Sister stated not being ready to think or talk about it as she felt it was not immediate situations and she had enough time to think about it. Third, I suggested that if somehow patient gets stable for discharge, he will not be safe to be discharged home due to his unstable mental and clinical status . Sister was very specific she wanted him home where she thinks she could arrange 24/7 care. I tried very hard to explain to her that situation had changed and patient is not in same condition he was before coming to hospital and he was in need for complex care. Impression * Newly diagnosed adenocarcinoma * Dysphagia 2nd to gastro esophagial mass * Confusion, AMS and inability to advocate for him self * patient's wishes for end of life care are not known * Patient sister advocates for patient * I feel that patient's sister either has no capacity to understand patient's condition or is in severe denial. In her perspective, she simple expect patient to return home in the same shape and condition he was before. Suggestion * Continue PPN and consider Central line insertion as patient is receiving multiple IV Tx * Continue safety monitoring * GI consult for possibility of PEG discussion * If patient's sister continues to advocate against surgical interventions, than Comfort care discussion should fallow * patient should be made DNR/DNI * [facility] planing I strongly feel that fallow up meeting is needed, in presence of PMD and patient's sister for the sister to be presented once again with severity of her brother's condition. If sister remains against surgical interventions , than DNR/DNI status and Hospice care should be declared. Advance Care planing 60 min Palliative care will remain on board.
[2018-10-22 12:54] LABS: BLOOD UREA NITROGEN 18 mg/dL (9-20); CALCIUM 7.7 mg/dl (8.6-10.4); GFR NON-AFRICAN AMERICAN > 60
[2018-10-22] MEDS: Fat Emulsion 20% IV 500 ML IV SCH (17:36)
[2018-10-22] MEDS ORDERED: PPN IV ONE (18:00)
--- NOTE | 2018-10-22 21:48 | CP.PCM.PN ---
Subjective - Date & Time of Evaluation Date of Evaluation: 10/22/18 Time of Evaluation: 18:00 - Subjective Subjective: Appears comfortable Objective - Vital Signs/Intake and Output Vital Signs (last 24 hours): Temp Pulse Resp BP Pulse Ox 98.2 F 66 20 160/78 H 95 10/22/18 15:00 10/22/18 21:28 10/22/18 15:00 10/22/18 21:28 10/22/18 15:00 - Medications Medications: Current Medications Cefepime HCl 0.5 gm/ Sodium (Chloride) 50 mls @ 100 mls/hr IVPB Q12H [facility]; Protocol Last Admin: 10/22/18 20:46 Dose: 100 mls/hr Potassium Chloride (Potassium Chloride 10 Meq/100 Ml) 10 meq in 100 mls @ 100 mls/hr IVPB DAILY [facility] Last Admin: 10/22/18 09:33 Dose: 100 mls/hr Fat Emulsion Intravenous (Intralipid 20%) 500 mls @ 42 mls/hr IV QOD@1800 [facility] Stop: 10/28/18 18:01 Last Admin: 10/22/18 17:36 Dose: 42 mls/hr Ferric Sodium Gluconate Complex 125 mg/ Sodium Chloride 110 mls @ 110 mls/hr IVPB DAILY [facility] Stop: 10/30/18 10:01 Last Admin: 10/22/18 09:53 Dose: 110 mls/hr Multivitamins/Vitamin C 10 ml/Chromium/Copper/Manganese/Zinc 1 ml/ Insulin Human Regular 10 unit/ Amino Acids 1,011.1 mls @ 42 mls/hr IV .Q24H [facility] Stop: 10/23/18 17:59 Last Admin: 10/22/18 17:34 Dose: 42 mls/hr Lorazepam (Ativan) 0.5 mg IVP Q4 PRN PRN Reason: Anxiety Last Admin: 10/22/18 20:46 Dose: 0.5 mg Pantoprazole Sodium (Protonix Inj) 40 mg IVP DAILY [facility] Last Admin: 10/22/18 09:38 Dose: 40 mg Thiamine HCl (Vitamin B1 Inj) 100 mg IM DAILY [facility] Last Admin: 10/22/18 09:57 Dose: 100 mg - Labs Labs: 10/18/18 08:17 10/22/18 12:23 PT 11.1 SECONDS (9.7-12.2) 10/14/18 08:24 INR 1.0 10/14/18 08:24 APTT 26 SECONDS (21-34) 10/14/18 08:24 - Head Exam Head Exam: ATRAUMATIC - Eye Exam Eye Exam: Normal appearance - ENT Exam ENT Exam: Mucous Membranes Dry - Respiratory Exam Respiratory Exam: NORMAL BREATHING PATTERN - Cardiovascular Exam Cardiovascular Exam: +S1, +S2 - GI/Abdominal Exam GI & Abdominal Exam: Normal Bowel Sounds Assessment and Plan (1) Anemia Assessment & Plan: chronic disease Status: Acute (2) Gastric mass Assessment & Plan: gastric adenocarcinoma sister reports brother would not want surgical intervention she is agreeable to thoracentesis should he require one in the future - ?malignant effusion seen by palliative care sister wants to take brother home Status: Acute
--- NOTE | 2018-10-22 22:17 | PN ---
DATE: 10/22/2018 LOCATION: 568, bed B. SUBJECTIVE: This is a 78-year-old male seen early in rounds without significant medical changes, appears to be semi-confused and somewhat lethargic with barriers of dysphagia, still n.p.o. and as per the request of the family, no further aggressive workup. The entire chart is reviewed including but not limited to the most recent lab and radiology study results, current and the previous medication list, current and previous medical events. The final biopsy report from the gastroesophageal mass lesion felt well to moderate differentiate adenocarcinoma of the stomach. Most recent lab results show blood glucose level of 91 with low creatinine. Rest of lab results still pending. PHYSICAL EXAMINATION: GENERAL: A 78-year-old male. VITAL SIGNS: Afebrile with pulse of 82, respiratory rate of 22, blood pressure 154/70. HEENT: Showed pale dry oral mucoid membranes. Nonicteric sclerae. LUNGS: Few scattered crepitations. Decreased air entry at bases. HEART: Positive S1 and S2. ABDOMEN: Soft. There is mild generalized tenderness. No mass or organomegaly. No rebound tenderness or guarding. EXTREMITIES: Without edema, clubbing, or cyanosis. IMPRESSION: 1. Gastroesophageal carcinoma. 2. Dysphagia secondary to above. 3. Delirium with periods of confusion. 4. Pneumonia with bilateral pleural effusion. 5. Hypochromic microcytic anemia secondary to above. 6. Possible prostatic carcinoma with elevated prostate-specific antigen. 7. Malnutrition with hypoalbuminemia, hypoproteinemia. SUGGESTIONS: 1. Continue conservative treatment. 2. No further aggressive gastrointestinal workup. 3. Further recommendation to follow. Flynn Avina MD
--- NOTE | 2018-10-22 22:58 | CP.PCM.PN ---
Subjective - Date & Time of Evaluation Date of Evaluation: 10/22/18 Time of Evaluation: 13:00 - Subjective Subjective: Patient awake, confused, in no respiratory distress. Afebrile, Sister still wants the patient full code. On Cefepime IV. Objective - Vital Signs/Intake and Output Vital Signs (last 24 hours): Temp Pulse Resp BP Pulse Ox 98.2 F 66 20 160/78 H 95 10/22/18 15:00 10/22/18 21:28 10/22/18 15:00 10/22/18 21:28 10/22/18 15:00 Intake and Output: 10/22/18 10/23/18 18:59 06:59 Intake Total 604 Output Total 370 Balance 234 - Medications Medications: Current Medications Cefepime HCl 0.5 gm/ Sodium (Chloride) 50 mls @ 100 mls/hr IVPB Q12H [facility]; Protocol Last Admin: 10/22/18 20:46 Dose: 100 mls/hr Potassium Chloride (Potassium Chloride 10 Meq/100 Ml) 10 meq in 100 mls @ 100 mls/hr IVPB DAILY [facility] Last Admin: 10/22/18 09:33 Dose: 100 mls/hr Fat Emulsion Intravenous (Intralipid 20%) 500 mls @ 42 mls/hr IV QOD@1800 [facility] Stop: 10/28/18 18:01 Last Admin: 10/22/18 17:36 Dose: 42 mls/hr Ferric Sodium Gluconate Complex 125 mg/ Sodium Chloride 110 mls @ 110 mls/hr IVPB DAILY [facility] Stop: 10/30/18 10:01 Last Admin: 10/22/18 09:53 Dose: 110 mls/hr Multivitamins/Vitamin C 10 ml/Chromium/Copper/Manganese/Zinc 1 ml/ Insulin Human Regular 10 unit/ Amino Acids 1,011.1 mls @ 42 mls/hr IV .Q24H [facility] Stop: 10/23/18 17:59 Last Admin: 10/22/18 17:34 Dose: 42 mls/hr Lorazepam (Ativan) 0.5 mg IVP Q4 PRN PRN Reason: Anxiety Last Admin: 10/22/18 20:46 Dose: 0.5 mg Pantoprazole Sodium (Protonix Inj) 40 mg IVP DAILY [facility] Last Admin: 10/22/18 09:38 Dose: 40 mg Thiamine HCl (Vitamin B1 Inj) 100 mg IM DAILY [facility] Last Admin: 10/22/18 09:57 Dose: 100 mg - Labs Labs: 10/18/18 08:17 10/22/18 12:23 PT 11.1 SECONDS (9.7-12.2) 10/14/18 08:24 INR 1.0 10/14/18 08:24 APTT 26 SECONDS (21-34) 10/14/18 08:24 - Constitutional Appears: No Acute Distress, Chronically Ill - Head Exam Head Exam: NORMOCEPHALIC - Eye Exam Eye Exam: Normal appearance - ENT Exam ENT Exam: Normal Exam - Neck Exam Neck Exam: Normal Inspection - Respiratory Exam Additional comments: Decreased breathing sounds at both bases. - Cardiovascular Exam Cardiovascular Exam: REGULAR RHYTHM - GI/Abdominal Exam GI & Abdominal Exam: Soft, Normal Bowel Sounds - Rectal Exam Rectal Exam: Deferred - Extremities Exam Extremities Exam: Normal Inspection - Back Exam Back Exam: NORMAL INSPECTION - Neurological Exam Neurological Exam: Alert, Awake Additional comments: Confused. - Psychiatric Exam Psychiatric exam: Agitated - Skin Skin Exam: Dry, Intact, Warm Assessment and Plan (1) Change in mental status Status: Acute (2) Severe anemia Status: Acute (3) Pneumonia Status: Acute (4) Hematuria Status: Acute (5) Gastric mass Assessment & Plan: Adenocarcinoma of the stomach ex Patient's sister expanding to the esophagus. Patient's sister does not want any invasive procedure. Status: Acute (6) Bilateral pleural effusion Status: Acute
--- NOTE | 2018-10-23 07:03 | PN ---
DATE: 10/22/2018 SUBJECTIVE: The patient is seen with sister. The patient's sister wants to take the patient home. He is still confused and not able to follow directions and needs one-to-one watch, but he is not agitated. The patient is just taking Ativan p.r.n. The patient is still on TPN and the sister wants the patient to have PEG tube feedings when he is more medically stable, so she can take him home. The patient's sister does not want aggressive treatment for his cancer. However, discussed with the nursing staff, the social services director wants to discontinue the patient's one-to-one monitoring and wants the patient be placed on Ava[facility]. The patient is still confused to follow direction and needs somebody to watch him as the patient is a fall risk and cannot follow redirection. I would like to keep the patient one-to-one for now for better monitoring. PHYSICAL EXAMINATION: GENERAL: The patient is alert, but still confused when admitted in his room. The patient still needs closer monitoring. VITAL SIGNS: Temperature is 97.8, pulse rate 62, blood pressure is 157/75, respirations 20, and oxygen saturation 95%. SKIN: No diaphoresis. HEENT: No headache. No dizziness. NECK: Supple. RESPIRATORY: No dyspnea. CARDIOVASCULAR: No chest pain. GASTROINTESTINAL: The patient is n.p.o. and the patient has TPN. NEUROLOGIC: Alert, but with confusion. MUSCULOSKELETAL: Feels weak. GENITOURINARY: No dysuria. EXTREMITIES: The patient moves extremities but has hand mittens. MENTAL STATUS EXAMINATION: An elderly male, who looks stated age, still confused, but not agitated, oriented only to person, seen with family. Speech is slow. Affect is restricted. Mood is dysphoric. Thought process confused. Thought content, no overt paranoia or hallucinations. No suicidal or homicidal ideation. Attention and memory seem to be limited. The patient cannot follow simple instructions or directions and no psychosis. Insight and judgment is limited. Impulse control is guarded at this time. IMPRESSION: Delirium, metabolic, multifactorial as well as history of gastric cancer. PLAN AND RECOMMENDATIONS: The patient is seen, meds reviewed. Continue Ativan 0.5 mg every 4 hours p.r.n. IVP. Continue with the TPN. I did suggest that the patient should be on one-to-one monitoring as the patient is not able to follow simple redirection, he is very confused and even disoriented where he is. The patient is for possible palliative care. The patient also may need PEG tube feeding for feeding and his sister wants to take the patient home once he is medically stable. Naveed Cooper MD MTDD
[2018-10-23] MEDS: Ferric Sodium Gluconat Complex 125 MG in Sodium Chloride 0.9% 100 ML IVPB SCH (10:45)
[2018-10-23] MEDS: Thiamine 100 mg/ml Inj IM SCH (10:45)
[2018-10-23] MEDS ORDERED: PPN #8 IV ONE (18:00)
--- NOTE | 2018-10-23 18:42 | PN ---
DATE: 10/23/2018 SUBJECTIVE: The patient is back to one-to-one once as the patient almost fell, had a near missed fall about a little after 30 minutes after his one-to-one was discontinued. The patient needs one-to-one as the patient is very confused and cannot follow direction. The patient may have terminal stage delirium, has a history of gastric cancer with mets and needs somebody watching him. He is currently on Ativan p.r.n. today. He still has hand mittens. On one-to-one watch, no behavioral problems noted. He is calm but very confused. He is not sure if he is in the hospital. PHYSICAL EXAMINATION VITAL SIGNS: Temperature 97.8, pulse rate 60, blood pressure 158/81, respirations 20, oxygen saturation 96%. GENERAL: The patient is currently n.p.o. except meds and currently on PPN. He is alert, verbal, calm but confused, oriented x1. SKIN: No diaphoresis. HEENT: No headache. No dizziness. NECK: Supple. RESPIRATORY: No dyspnea. CARDIOVASCULAR: No chest pain. GASTROINTESTINAL: Currently n.p.o. The patient is on TPN. EXTREMITIES: He has hand mittens due to his behavior. MUSCULOSKELETAL: Feels weak. NEUROLOGIC: Alert but significantly confused, oriented x1. MENTAL STATUS EXAMINATION: An elderly male who looks stated age, oriented x1, only to person, not to place or time. Speech is slow. Affect is restricted. Mood is dysphoric. Thought process confused generally. Thought content; no overt paranoia, no hallucination, no suicidal or homicidal ideation. Attention and memory seem to be impaired. Insight and judgment impaired. Impulse control is guarded at this time. IMPRESSION: History of delirium, multifactorial, as well as history of gastric cancer with metastasis. PLAN AND RECOMMENDATIONS: The patient is seen. Meds reviewed. Continue present management. Continue TPN. The patient may need PEG tube feeding. His sister wants to take him home once medically cleared. The patient will benefit from palliative care. Naveed Cooper MD KENDAL
--- NOTE | 2018-10-23 19:43 | PN ---
DATE: 10/23/2018 LOCATION: 568, bed B. SUBJECTIVE: This 78-year-old male seen early in rounds today, appeared to be somewhat agitated and restless, for which he was given Ativan before, without reported actual chest pain, palpitation or evidence of active GI bleeding. The patient is seen by the oncology/hematology retirement sales consultant, and palliative care was suggested. The entire chart is reviewed, and today's lab result is still pending. PHYSICAL EXAMINATION GENERAL: A 78-year-old male. VITAL SIGNS: Afebrile with a pulse of 88, respiratory rate 20-22, blood pressure 160/74. HEENT: Shows pale, dry oral mucoid membrane. Nonicteric sclerae. LUNGS: Few scattered crepitation. Decreased air entry at bases. HEART: Positive S1 and S2. ABDOMEN: Soft with mild generalized tenderness. No mass or organomegaly. No rebound tenderness or guarding. RECTAL: The patient refused. EXTREMITIES: Without significant clubbing, cyanosis or edema. NEUROLOGIC: No reported new neurological deficit, sensory or motor. IMPRESSION: 1. Gastroesophageal carcinoma, adenocarcinoma of the stomach. 2. Dysphagia and malnutrition secondary to above. 3. Change of mental status with confusion. 4. Pneumonia with bilateral pleural effusion. 5. Elevated prostate-specific antigen with possible prostatic carcinoma. 6. Hypochromic microcytic anemia. SUGGESTIONS: 1. Continue supportive treatment. 2. The patient will need peripheral hyperalimentation. 3. Guaiac all the stools daily x3. 4. Further recommendation to follow. Flynn Avina MD
--- NOTE | 2018-10-23 20:01 | CP.PCM.PN ---
Subjective - Date & Time of Evaluation Date of Evaluation: 10/23/18 Time of Evaluation: 08:00 - Subjective Subjective: weak but ariousable confused gastric malignancy with effusions no fever Objective - Vital Signs/Intake and Output Vital Signs (last 24 hours): Temp Pulse Resp BP Pulse Ox 97.1 F L 90 20 175/78 H 93 L 10/23/18 15:15 10/23/18 15:15 10/23/18 15:15 10/23/18 15:15 10/23/18 15:15 Intake and Output: 10/23/18 10/24/18 18:59 06:59 Intake Total 360 Output Total 720 Balance -360 - Medications Medications: Current Medications Cefepime HCl 0.5 gm/ Sodium (Chloride) 50 mls @ 100 mls/hr IVPB Q12H [facility]; Protocol Last Admin: 10/23/18 08:15 Dose: 100 mls/hr Potassium Chloride (Potassium Chloride 10 Meq/100 Ml) 10 meq in 100 mls @ 100 mls/hr IVPB DAILY [facility] Last Admin: 10/23/18 09:09 Dose: 100 mls/hr Fat Emulsion Intravenous (Intralipid 20%) 500 mls @ 42 mls/hr IV QOD@1800 [facility] Stop: 10/28/18 18:01 Last Admin: 10/22/18 17:36 Dose: 42 mls/hr Ferric Sodium Gluconate Complex 125 mg/ Sodium Chloride 110 mls @ 110 mls/hr IVPB DAILY [facility] Stop: 10/30/18 10:01 Last Admin: 10/23/18 10:45 Dose: 110 mls/hr Multivitamins/Vitamin C 10 ml/Chromium/Copper/Manganese/Zinc 1 ml/ Insulin Human Regular 10 unit/ Amino Acids 1,011.1 mls @ 42 mls/hr IV .Q24H ONE Stop: 10/24/18 17:59 Last Admin: 10/23/18 17:39 Dose: 42 mls/hr Lorazepam (Ativan) 0.5 mg IVP Q4 PRN PRN Reason: Anxiety Last Admin: 10/23/18 06:06 Dose: 0.5 mg Pantoprazole Sodium (Protonix Inj) 40 mg IVP DAILY [facility] Last Admin: 10/23/18 09:10 Dose: 40 mg Thiamine HCl (Vitamin B1 Inj) 100 mg IM DAILY [facility] Last Admin: 10/23/18 10:45 Dose: 100 mg - Labs Labs: 10/18/18 08:17 10/22/18 12:23 PT 11.1 SECONDS (9.7-12.2) 10/14/18 08:24 INR 1.0 10/14/18 08:24 APTT 26 SECONDS (21-34) 10/14/18 08:24 - Constitutional Appears: Non-toxic, Chronically Ill - Head Exam Head Exam: NORMOCEPHALIC - Eye Exam Eye Exam: absent: Scleral icterus - ENT Exam ENT Exam: Mucous Membranes Dry - Neck Exam Neck Exam: absent: Lymphadenopathy - Respiratory Exam Respiratory Exam: Decreased Breath Sounds - Cardiovascular Exam Cardiovascular Exam: REGULAR RHYTHM - GI/Abdominal Exam GI & Abdominal Exam: Distended - Rectal Exam Rectal Exam: Deferred - Exam Exam: NORMAL INSPECTION - Extremities Exam Extremities Exam: absent: Pedal Edema - Back Exam Back Exam: absent: CVA tenderness (L), CVA tenderness (R) - Neurological Exam Neurological Exam: Alert, Awake Assessment and Plan (1) Change in mental status Status: Acute (2) Hypothermia Status: Acute (3) Bilateral pleural effusion Status: Acute (4) Gastric mass Status: Acute (5) Pneumonia Status: Acute - Assessment and Plan (Free Text) Assessment: cont rx as planned poor prognosis
--- NOTE | 2018-10-23 21:25 | CP.PCM.PN ---
Subjective - Date & Time of Evaluation Date of Evaluation: 10/23/18 Time of Evaluation: 19:00 - Subjective Subjective: Appears comfortable Objective - Vital Signs/Intake and Output Vital Signs (last 24 hours): Temp Pulse Resp BP Pulse Ox 97.1 F L 90 20 175/78 H 93 L 10/23/18 15:15 10/23/18 15:15 10/23/18 15:15 10/23/18 15:15 10/23/18 15:15 Intake and Output: 10/23/18 10/24/18 18:59 06:59 Intake Total 360 Output Total 720 Balance -360 - Medications Medications: Current Medications Cefepime HCl 0.5 gm/ Sodium (Chloride) 50 mls @ 100 mls/hr IVPB Q12H [facility]; Protocol Last Admin: 10/23/18 20:00 Dose: 100 mls/hr Potassium Chloride (Potassium Chloride 10 Meq/100 Ml) 10 meq in 100 mls @ 100 mls/hr IVPB DAILY [facility] Last Admin: 10/23/18 09:09 Dose: 100 mls/hr Fat Emulsion Intravenous (Intralipid 20%) 500 mls @ 42 mls/hr IV QOD@1800 [facility] Stop: 10/28/18 18:01 Last Admin: 10/22/18 17:36 Dose: 42 mls/hr Ferric Sodium Gluconate Complex 125 mg/ Sodium Chloride 110 mls @ 110 mls/hr IVPB DAILY [facility] Stop: 10/30/18 10:01 Last Admin: 10/23/18 10:45 Dose: 110 mls/hr Multivitamins/Vitamin C 10 ml/Chromium/Copper/Manganese/Zinc 1 ml/ Insulin Human Regular 10 unit/ Amino Acids 1,011.1 mls @ 42 mls/hr IV .Q24H ONE Stop: 10/24/18 17:59 Last Admin: 10/23/18 17:39 Dose: 42 mls/hr Lorazepam (Ativan) 0.5 mg IVP Q4 PRN PRN Reason: Anxiety Last Admin: 10/23/18 06:06 Dose: 0.5 mg Pantoprazole Sodium (Protonix Inj) 40 mg IVP DAILY [facility] Last Admin: 10/23/18 09:10 Dose: 40 mg Thiamine HCl (Vitamin B1 Inj) 100 mg IM DAILY [facility] Last Admin: 10/23/18 10:45 Dose: 100 mg - Labs Labs: 10/18/18 08:17 10/22/18 12:23 PT 11.1 SECONDS (9.7-12.2) 10/14/18 08:24 INR 1.0 10/14/18 08:24 APTT 26 SECONDS (21-34) 10/14/18 08:24 - Head Exam Head Exam: ATRAUMATIC - Eye Exam Eye Exam: Normal appearance - ENT Exam ENT Exam: Mucous Membranes Dry - Respiratory Exam Respiratory Exam: NORMAL BREATHING PATTERN - Cardiovascular Exam Cardiovascular Exam: +S1, +S2 - GI/Abdominal Exam GI & Abdominal Exam: Normal Bowel Sounds Assessment and Plan (1) Anemia Assessment & Plan: iron deficiency from chronic GI blood loss from tumor on iron Status: Acute (2) Gastric mass Assessment & Plan: sister requesting no aggressive surgical intervention will check if she is agreeable to feeding tube thoracentesis if becomes symptomatic Status: Acute
--- NOTE | 2018-10-23 23:52 | CP.PCM.PN ---
Subjective - Date & Time of Evaluation Date of Evaluation: 10/23/18 Time of Evaluation: 21:00 - Subjective Subjective: Patient confused, in no respiratory distress. Afebrile , in NPO and receiving PPN, Needs a gastrostomy tube for feeding if the patient's sister agrees. Objective - Vital Signs/Intake and Output Vital Signs (last 24 hours): Temp Pulse Resp BP Pulse Ox 97.1 F L 90 20 175/78 H 93 L 10/23/18 15:15 10/23/18 15:15 10/23/18 15:15 10/23/18 15:15 10/23/18 15:15 Intake and Output: 10/23/18 10/24/18 18:59 06:59 Intake Total 360 386 Output Total 720 150 Balance -360 236 - Medications Medications: Current Medications Cefepime HCl 0.5 gm/ Sodium (Chloride) 50 mls @ 100 mls/hr IVPB Q12H [facility]; Protocol Last Admin: 10/23/18 20:00 Dose: 100 mls/hr Potassium Chloride (Potassium Chloride 10 Meq/100 Ml) 10 meq in 100 mls @ 100 mls/hr IVPB DAILY [facility] Last Admin: 10/23/18 09:09 Dose: 100 mls/hr Fat Emulsion Intravenous (Intralipid 20%) 500 mls @ 42 mls/hr IV QOD@1800 [facility] Stop: 10/28/18 18:01 Last Admin: 10/22/18 17:36 Dose: 42 mls/hr Ferric Sodium Gluconate Complex 125 mg/ Sodium Chloride 110 mls @ 110 mls/hr IVPB DAILY [facility] Stop: 10/30/18 10:01 Last Admin: 10/23/18 10:45 Dose: 110 mls/hr Multivitamins/Vitamin C 10 ml/Chromium/Copper/Manganese/Zinc 1 ml/ Insulin Human Regular 10 unit/ Amino Acids 1,011.1 mls @ 42 mls/hr IV .Q24H ONE Stop: 10/24/18 17:59 Last Admin: 10/23/18 17:39 Dose: 42 mls/hr Lorazepam (Ativan) 0.5 mg IVP Q4 PRN PRN Reason: Anxiety Last Admin: 10/23/18 06:06 Dose: 0.5 mg Pantoprazole Sodium (Protonix Inj) 40 mg IVP DAILY [facility] Last Admin: 10/23/18 09:10 Dose: 40 mg Thiamine HCl (Vitamin B1 Inj) 100 mg IM DAILY [facility] Last Admin: 10/23/18 10:45 Dose: 100 mg - Labs Labs: 10/18/18 08:17 10/22/18 12:23 PT 11.1 SECONDS (9.7-12.2) 10/14/18 08:24 INR 1.0 10/14/18 08:24 APTT 26 SECONDS (21-34) 10/14/18 08:24 - Constitutional Appears: No Acute Distress, Chronically Ill - Head Exam Head Exam: NORMOCEPHALIC - Eye Exam Eye Exam: Normal appearance - ENT Exam ENT Exam: Normal Exam - Respiratory Exam Additional comments: Decreased breathing sounds at both bases. - Cardiovascular Exam Cardiovascular Exam: REGULAR RHYTHM - GI/Abdominal Exam GI & Abdominal Exam: Soft, Normal Bowel Sounds - Rectal Exam Rectal Exam: Deferred - Exam Exam: NORMAL INSPECTION - Extremities Exam Extremities Exam: Normal Inspection - Back Exam Back Exam: NORMAL INSPECTION - Neurological Exam Neurological Exam: Alert, Awake Additional comments: Confused. - Psychiatric Exam Additional comments: confused. - Skin Skin Exam: Dry, Intact, Warm Assessment and Plan (1) Change in mental status Status: Acute (2) Severe anemia Status: Acute (3) Pneumonia Status: Acute (4) Hematuria Status: Acute (5) Gastric mass Status: Acute (6) Bilateral pleural effusion Status: Acute
[2018-10-24] MEDS: Ferric Sodium Gluconat Complex 125 MG in Sodium Chloride 0.9% 100 ML IVPB SCH (09:58)
[2018-10-24] MEDS: Thiamine 100 mg/ml Inj IM SCH (11:40)
--- NOTE | 2018-10-24 12:53 | PN ---
DATE: 10/24/2018 LOCATION: 559, bed B. SUBJECTIVE: This 78-year-old male was seen and examined in rounds without significant clinical changes or reported active bleeding with status post upper endoscopy. The patient still has dysphagia, n.p.o, on hyperalimentation, period of agitation and restlessness were reported. The entire chart is reviewed including but not limited to the most recent lab and radiology study result, current and the previous medications list, and today's lab result showed blood glucose level of 93 as the rest is still pending. PHYSICAL EXAMINATION: GENERAL: A 78-year-old male. VITAL SIGNS: Afebrile with pulse of 58, respiratory rate 20 to 22, blood pressure 162/76. HEENT: Showed pale, dry, oral mucous membrane. Nonicteric sclerae. LUNGS: Few scattered crepitation. Decreased air entry at bases. HEART: Positive S1 and S2. ABDOMEN: Soft with mild generalized tenderness. No mass or organomegaly. No rebound tenderness or guarding. EXTREMITIES: Without significant clubbing, cyanosis, or edema. IMPRESSION: 1. Gastroesophageal adenocarcinoma. 2. Dysphagia secondary to above. 3. Change of mental status. 4. Hypoalbuminemia. 5. Hypoproteinemia with malnutrition. The patient is a candidate for a gastrostomy tube insertion to be done surgically. 6. Hyperchromic microcytic anemia secondary to above. 7. Bilateral pleural effusion with pneumonia by recent history. 8. Elevated PSA, prostatic carcinoma. SUGGESTION: 1. Continue current management. 2. Gastrostomy tube to be done surgically. 3. Further recommendation to follow. Flynn Avina MD
[2018-10-24] MEDS ORDERED: PPN #9 IV ONE (18:00)
[2018-10-24] MEDS: Fat Emulsion 20% IV 500 ML IV SCH (18:05)
--- NOTE | 2018-10-24 20:51 | PN ---
DATE: 10/24/2018 SUBJECTIVE: The patient is calm, but still confused, oriented x1, one-to-one watch. The patient is at risk for fall. He is on PPN. I repeat PPN and taking Ativan p.r.n. which he has been getting off and on. The patient's sister wants to take him home once he is medically stable. The patient also since is on PPN, but unable to eat due to problem with swallowing. Eventually, he needs a PEG tube placement. PHYSICAL EXAMINATION: VITAL SIGNS: Temperature is 97.8, pulse 56, blood pressure 159/73, respirations 20, and oxygen saturation 96%. REVIEW OF SYSTEMS: GENERAL: Alert, but confused. Lying in bed, still with hand mittens. The patient is in close monitoring. SKIN: No diaphoresis. HEENT: No headache. No dizziness. NECK: Supple. RESPIRATORY: No dyspnea. CARDIOVASCULAR: No chest pain. GASTROINTESTINAL: Problem with swallowing. The patient is n.p.o. except meds. No abdominal pain. No nausea or vomiting. EXTREMITIES: He has hand mittens, moving extremities, but the patient has been bed bound. MUSCULOSKELETAL: Feels weak. NEUROLOGIC: Alert with periods of confusion, oriented x1 only to person. MENTAL STATUS EXAMINATION: Cachectic looking male who is about 6 feet and weighs 116 pounds. Mood is dysphoric. Affect is restricted. Speech is slow. Thought process confused. Thought content; no overt psychosis. No suicidal or homicidal ideation. Attention and memory seem to be limited. Insight and judgment limited. Impulse control is guarded at this time. IMPRESSION: History of delirium, multifactorial as well as history of gastric carcinoma with metastasis. PLAN AND RECOMMENDATIONS: The patient is seen. Meds reviewed. Continue Ativan p.r.n. The patient needs a PEG tube feeding. The patient's sister once the patient is more stable then will take him home once cleared from the hospital. The patient will benefit from palliative care. Naveed Cooper MD
--- NOTE | 2018-10-24 22:41 | CP.PCM.PN ---
Subjective - Date & Time of Evaluation Date of Evaluation: 10/24/18 Time of Evaluation: 17:00 - Subjective Subjective: No complaints, comfortable Objective - Vital Signs/Intake and Output Vital Signs (last 24 hours): Temp Pulse Resp BP Pulse Ox 97.8 F 64 16 144/62 95 10/24/18 20:59 10/24/18 20:59 10/24/18 20:59 10/24/18 20:59 10/24/18 15:00 Intake and Output: 10/24/18 10/25/18 18:59 06:59 Intake Total 50 Balance 50 - Medications Medications: Current Medications Cefepime HCl 0.5 gm/ Sodium (Chloride) 50 mls @ 100 mls/hr IVPB Q12H [facility]; Protocol Last Admin: 10/24/18 20:44 Dose: 100 mls/hr Fat Emulsion Intravenous (Intralipid 20%) 500 mls @ 42 mls/hr IV QOD@1800 [facility] Stop: 10/28/18 18:01 Last Admin: 10/24/18 18:05 Dose: 42 mls/hr Ferric Sodium Gluconate Complex 125 mg/ Sodium Chloride 110 mls @ 110 mls/hr IVPB DAILY [facility] Stop: 10/30/18 10:01 Last Admin: 10/24/18 09:58 Dose: 110 mls/hr Multivitamins/Vitamin C 10 ml/Chromium/Copper/Manganese/Zinc 1 ml/ Insulin Human Regular 10 unit/ Amino Acids 1,011.1 mls @ 42 mls/hr IV .Q24H ONE Stop: 10/25/18 17:59 Last Admin: 10/24/18 18:01 Dose: 42 mls/hr Lorazepam (Ativan) 0.5 mg IVP Q4 PRN PRN Reason: Anxiety Last Admin: 10/24/18 05:07 Dose: 0.5 mg Pantoprazole Sodium (Protonix Inj) 40 mg IVP DAILY [facility] Last Admin: 10/24/18 09:45 Dose: 40 mg Thiamine HCl (Vitamin B1 Inj) 100 mg IM DAILY [facility] Last Admin: 10/24/18 11:40 Dose: 100 mg - Labs Labs: 10/18/18 08:17 10/22/18 12:23 PT 11.1 SECONDS (9.7-12.2) 10/14/18 08:24 INR 1.0 10/14/18 08:24 APTT 26 SECONDS (21-34) 10/14/18 08:24 - Head Exam Head Exam: ATRAUMATIC - Eye Exam Eye Exam: Normal appearance - ENT Exam ENT Exam: Mucous Membranes Dry - Respiratory Exam Respiratory Exam: NORMAL BREATHING PATTERN - Cardiovascular Exam Cardiovascular Exam: +S1, +S2 - GI/Abdominal Exam GI & Abdominal Exam: Normal Bowel Sounds Assessment and Plan (1) Anemia Assessment & Plan: iron deficiency on iron Status: Acute (2) Gastric mass Assessment & Plan: sister does not wish aggressive surgical intervention feeding tube if sister agreeable Status: Acute
--- NOTE | 2018-10-25 00:05 | CP.PCM.PN ---
Subjective - Date & Time of Evaluation Date of Evaluation: 10/24/18 Time of Evaluation: 17:45 - Subjective Subjective: Patient is still confused, awake, in no respiratory distress. On Cefepime, and PPN. Objective - Vital Signs/Intake and Output Vital Signs (last 24 hours): Temp Pulse Resp BP Pulse Ox 97.8 F 64 16 144/62 95 10/24/18 20:59 10/24/18 20:59 10/24/18 20:59 10/24/18 20:59 10/24/18 15:00 Intake and Output: 10/24/18 10/25/18 18:59 06:59 Intake Total 570 Balance 570 - Medications Medications: Current Medications Cefepime HCl 0.5 gm/ Sodium (Chloride) 50 mls @ 100 mls/hr IVPB Q12H [facility]; Protocol Last Admin: 10/24/18 20:44 Dose: 100 mls/hr Fat Emulsion Intravenous (Intralipid 20%) 500 mls @ 42 mls/hr IV QOD@1800 [facility] Stop: 10/28/18 18:01 Last Admin: 10/24/18 18:05 Dose: 42 mls/hr Ferric Sodium Gluconate Complex 125 mg/ Sodium Chloride 110 mls @ 110 mls/hr IVPB DAILY [facility] Stop: 10/30/18 10:01 Last Admin: 10/24/18 09:58 Dose: 110 mls/hr Multivitamins/Vitamin C 10 ml/Chromium/Copper/Manganese/Zinc 1 ml/ Insulin Human Regular 10 unit/ Amino Acids 1,011.1 mls @ 42 mls/hr IV .Q24H ONE Stop: 10/25/18 17:59 Last Admin: 10/24/18 18:01 Dose: 42 mls/hr Lorazepam (Ativan) 0.5 mg IVP Q4 PRN PRN Reason: Anxiety Last Admin: 10/24/18 05:07 Dose: 0.5 mg Pantoprazole Sodium (Protonix Inj) 40 mg IVP DAILY [facility] Last Admin: 10/24/18 09:45 Dose: 40 mg Thiamine HCl (Vitamin B1 Inj) 100 mg IM DAILY [facility] Last Admin: 10/24/18 11:40 Dose: 100 mg - Labs Labs: 10/18/18 08:17 10/22/18 12:23 PT 11.1 SECONDS (9.7-12.2) 10/14/18 08:24 INR 1.0 10/14/18 08:24 APTT 26 SECONDS (21-34) 10/14/18 08:24 - Constitutional Appears: No Acute Distress, Chronically Ill - Head Exam Head Exam: NORMAL INSPECTION - Eye Exam Eye Exam: Normal appearance - ENT Exam ENT Exam: Normal Exam - Neck Exam Neck Exam: Normal Inspection - Respiratory Exam Additional comments: Decreased breathing sounds bilaterally. - Cardiovascular Exam Cardiovascular Exam: REGULAR RHYTHM - GI/Abdominal Exam GI & Abdominal Exam: Soft, Normal Bowel Sounds - Rectal Exam Rectal Exam: Deferred - Exam Exam: NORMAL INSPECTION - Extremities Exam Extremities Exam: Normal Inspection - Back Exam Back Exam: NORMAL INSPECTION - Neurological Exam Neurological Exam: Alert, Awake - Psychiatric Exam Additional comments: Confused. - Skin Skin Exam: Dry, Intact, Warm Assessment and Plan (1) Change in mental status Status: Acute (2) Severe anemia Status: Acute (3) Pneumonia Status: Acute (4) Hematuria Status: Acute (5) Gastric mass Status: Acute (6) Bilateral pleural effusion Status: Acute
[2018-10-25 08:26] LABS: BASO # 0.1 K/uL (0.0-0.2); BASO % 0.8 % (0.0-2.0); EOS # 0.2 K/uL (0.0-0.7); EOS % 2.8 % (0.0-4.0); HEMOGLOBIN 9.4 g/dL (12.0-18.0); LYMPH % 12.7 % (20.0-40.0); MEAN CELL VOLUME 80.1 fL (80.0-94.0); MEAN CORPUSCULAR HEMOGLOBIN 26.1 pg (27.0-31.0); MEAN CORPUSCULAR HGB CONC 32.6 g/dL (33.0-37.0); MEAN PLATELET VOLUME 8.8 fL (7.2-11.7); MONO # 0.7 K/uL (0.0-0.8); MONO % 8.7 % (0.0-10.0); NEUT # 5.6 K/uL (1.8-7.0); RBC 3.6 Mil/uL (4.40-5.90); RED CELL DISTRIBUTION WIDTH 18.7 % (11.5-14.5); WHITE BLOOD COUNT 7.5 K/uL (4.8-10.8)
[2018-10-25 08:38] LABS: BLOOD UREA NITROGEN 17 mg/dL (9-20); GFR NON-AFRICAN AMERICAN > 60
[2018-10-25] MEDS: Ferric Sodium Gluconat Complex 125 MG in Sodium Chloride 0.9% 100 ML IVPB SCH (10:04)
[2018-10-25] MEDS: Thiamine 100 mg/ml Inj IM SCH (10:05)
--- NOTE | 2018-10-25 11:19 | PN ---
DATE: 10/25/2018 LOCATION: 559, bed B. SUBJECTIVE: This is a 78-year-old male seen and examined early in rounds today without significant clinical changes or reported active bleeding with persistent dyspepsia, is still confused, but semi-awake. No reported active bleeding. No reported chest pain, palpitation, or significant shortness of breath. The entire chart is reviewed and the most recent blood glucose level yesterday was 92. PHYSICAL EXAMINATION: GENERAL: A 78-year-old male. VITAL SIGNS: Afebrile who had respiratory rate of 16 to 18, blood pressure 148/60. HEENT: Pale, dry mucous membrane. Nonicteric sclerae. LUNGS: Few scattered crepitations. Decreased air entry at bases. HEART: Positive S1 and S2. ABDOMEN: Soft. Bowel sounds are present. No mass or organomegaly. No rebound tenderness or guarding. EXTREMITIES: Without significant clubbing, cyanosis, or edema. NEUROLOGIC: No reported new neurological deficits, sensory or motor. The patient is seen by Dr. Macias recently. IMPRESSION: 1. Dysphagia. 2. Gastroesophageal adenocarcinoma. 3. Malnutrition. 4. Hypoalbuminemia. 5. Change of mental status. 6. Hypochromic macrocytic anemia secondary to above. 7. Bilateral pleural effusion with pneumonia, per recent activity. 8. Increased prostate-specific antigen with possible carcinoma of the prostate. SUGGESTIONS: 1. Continue current management. 2. The patient for possible palliative treatment. Further recommendation to follow and no need for further aggressive GI disorder. Flynn Avina MD
--- NOTE | 2018-10-25 15:27 | CP.PCM.PN ---
Subjective - Date & Time of Evaluation Date of Evaluation: 10/25/18 Time of Evaluation: 07:00 - Subjective Subjective: still confused afebrile rx in progress Objective - Vital Signs/Intake and Output Vital Signs (last 24 hours): Temp Pulse Resp BP Pulse Ox 97.8 F 76 20 175/69 H 95 10/25/18 10:45 10/25/18 10:45 10/25/18 10:45 10/25/18 10:45 10/25/18 10:45 Intake and Output: 10/25/18 10/25/18 06:59 18:59 Intake Total 570 336 Output Total 950 Balance -380 336 - Medications Medications: Current Medications Cefepime HCl 0.5 gm/ Sodium (Chloride) 50 mls @ 100 mls/hr IVPB Q12H [facility]; Protocol Last Admin: 10/25/18 10:02 Dose: 100 mls/hr Fat Emulsion Intravenous (Intralipid 20%) 500 mls @ 42 mls/hr IV QOD@1800 [facility] Stop: 10/28/18 18:01 Last Admin: 10/24/18 18:05 Dose: 42 mls/hr Ferric Sodium Gluconate Complex 125 mg/ Sodium Chloride 110 mls @ 110 mls/hr IVPB DAILY [facility] Stop: 10/30/18 10:01 Last Admin: 10/25/18 10:04 Dose: 110 mls/hr Multivitamins/Vitamin C 10 ml/Chromium/Copper/Manganese/Zinc 1 ml/ Insulin Human Regular 10 unit/ Amino Acids 1,011.1 mls @ 42 mls/hr IV .Q24H [facility] Stop: 10/25/18 17:59 Last Admin: 10/24/18 18:01 Dose: 42 mls/hr Multivitamins/Vitamin C 10 ml/Chromium/Copper/Manganese/Zinc 1 ml/ Insulin Human Regular 10 unit/ Amino Acids 1,011.1 mls @ 42 mls/hr IV .Q24H [facility] Stop: 10/26/18 17:59 Lorazepam (Ativan) 0.5 mg IVP Q4 PRN PRN Reason: Anxiety Last Admin: 10/24/18 05:07 Dose: 0.5 mg Pantoprazole Sodium (Protonix Inj) 40 mg IVP DAILY [facility] Last Admin: 10/25/18 10:05 Dose: 40 mg Thiamine HCl (Vitamin B1 Inj) 100 mg IM DAILY [facility] Last Admin: 10/25/18 10:05 Dose: 100 mg - Labs Labs: 10/25/18 08:19 10/25/18 08:19 PT 11.1 SECONDS (9.7-12.2) 10/14/18 08:24 INR 1.0 10/14/18 08:24 APTT 26 SECONDS (21-34) 10/14/18 08:24 - Constitutional Appears: Non-toxic, Cachectic, Chronically Ill - Head Exam Head Exam: NORMOCEPHALIC - Eye Exam Eye Exam: absent: Scleral icterus - ENT Exam ENT Exam: Mucous Membranes Dry - Neck Exam Neck Exam: absent: Lymphadenopathy - Respiratory Exam Respiratory Exam: Decreased Breath Sounds - Cardiovascular Exam Cardiovascular Exam: REGULAR RHYTHM - GI/Abdominal Exam GI & Abdominal Exam: Distended, Soft - Rectal Exam Rectal Exam: Deferred - Exam Exam: NORMAL INSPECTION Assessment and Plan (1) Change in mental status Status: Acute (2) Hypothermia Status: Acute (3) Bilateral pleural effusion Status: Acute (4) Gastric mass Status: Acute (5) Pneumonia Status: Acute - Assessment and Plan (Free Text) Assessment: cont rx pneumonia follow up CXR poor prognosis
[2018-10-25] MEDS ORDERED: PPN #10 IV ONE (18:00)
--- NOTE | 2018-10-25 20:51 | PN ---
DATE: 10/25/2018 SUBJECTIVE: The patient is seen. The patient is calm but still confused, needs one-to-one. He is trying to climb out of bed. The patient is still on PPN and not taking in any oral food. The patient is n.p.o. except meds. 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 Still oriented x1. VITAL SIGNS: Temperature is 97.8, pulse 76, blood pressure 175/69, respirations 20, oxygen saturation 95%. REVIEW OF SYSTEMS: GENERAL: Alert but confused. Not agitated. Still needs one-to-one watch. The patient is now in a 4 bedded room. SKIN: No diaphoresis. HEENT: No headache. No dizziness. NECK: Supple. RESPIRATORY: No dyspnea. CARDIOVASCULAR: No chest pain. GASTROINTESTINAL: The patient is n.p.o. except meds. No nausea or vomiting. No abdominal pain. EXTREMITIES: He has hand mittens. The patient is trying to pull his line. MUSCULOSKELETAL: Feels weak. NEUROLOGIC: Alert with periods of confusion. GENITOURINARY: No urinary problems. MENTAL STATUS EXAMINATION: Elderly male who looks stated age, tall but cachectic. Oriented x1, only to person. Mood is dysphoric. Affect is restricted. Speech is slow. Thought process confused. Thought content; no overt psychosis, no suicidal or homicidal ideation. Attention and memory seem to be limited. Insight and judgment limited. Impulse control is guarded at this time. IMPRESSION: Delirium, probably terminal stage; history of metastatic gastric carcinoma. PLAN AND RECOMMENDATIONS: The patient is seen. Meds reviewed. Continue present management. Continue Ativan p.r.n. as ordered. The patient is for palliative care. The patient will benefit from PEG tube placement for nutritional supplement. The patient is only on PPN at this time. Naveed Cooper MD MTDD
--- NOTE | 2018-10-25 23:58 | CP.PCM.PN ---
Subjective - Date & Time of Evaluation Date of Evaluation: 10/25/18 Time of Evaluation: 17:15 - Subjective Subjective: Patient remains confused, but in no acute respiratory distress. Afebrile, In NPO and PPN. Patient's sister undecided about a feeding gastrostomy tube and thoracentesis. Objective - Vital Signs/Intake and Output Vital Signs (last 24 hours): Temp Pulse Resp BP Pulse Ox 97.5 F L 65 20 155/64 H 97 10/25/18 23:10 10/25/18 23:10 10/25/18 23:10 10/25/18 23:10 10/25/18 23:10 Intake and Output: 10/25/18 10/26/18 18:59 06:59 Intake Total 336 336 Output Total 900 Balance 336 -564 - Medications Medications: Current Medications Cefepime HCl 0.5 gm/ Sodium (Chloride) 50 mls @ 100 mls/hr IVPB Q12H [facility]; Protocol Last Admin: 10/25/18 20:05 Dose: 100 mls/hr Fat Emulsion Intravenous (Intralipid 20%) 500 mls @ 42 mls/hr IV QOD@1800 [facility] Stop: 10/28/18 18:01 Last Admin: 10/24/18 18:05 Dose: 42 mls/hr Ferric Sodium Gluconate Complex 125 mg/ Sodium Chloride 110 mls @ 110 mls/hr IVPB DAILY [facility] Stop: 10/30/18 10:01 Last Admin: 10/25/18 10:04 Dose: 110 mls/hr Multivitamins/Vitamin C 10 ml/Chromium/Copper/Manganese/Zinc 1 ml/ Insulin Human Regular 10 unit/ Amino Acids 1,011.1 mls @ 42 mls/hr IV .Q24H [facility] Stop: 10/26/18 17:59 Last Admin: 10/25/18 17:43 Dose: 42 mls/hr Lorazepam (Ativan) 0.5 mg IVP Q4 PRN PRN Reason: Anxiety Last Admin: 10/25/18 17:37 Dose: 0.5 mg Pantoprazole Sodium (Protonix Inj) 40 mg IVP DAILY [facility] Last Admin: 10/25/18 10:05 Dose: 40 mg Thiamine HCl (Vitamin B1 Inj) 100 mg IM DAILY [facility] Last Admin: 10/25/18 10:05 Dose: 100 mg - Labs Labs: 10/25/18 08:19 10/25/18 08:19 PT 11.1 SECONDS (9.7-12.2) 10/14/18 08:24 INR 1.0 10/14/18 08:24 APTT 26 SECONDS (21-34) 10/14/18 08:24 - Constitutional Appears: No Acute Distress, Chronically Ill - Head Exam Head Exam: NORMOCEPHALIC - Eye Exam Eye Exam: Normal appearance - ENT Exam ENT Exam: Normal Exam - Neck Exam Neck Exam: Normal Inspection - Respiratory Exam Additional comments: Decreased breathing sounds in both lung bases. - Cardiovascular Exam Cardiovascular Exam: REGULAR RHYTHM - GI/Abdominal Exam GI & Abdominal Exam: Soft, Normal Bowel Sounds - Rectal Exam Rectal Exam: Deferred - Exam Exam: NORMAL INSPECTION - Extremities Exam Extremities Exam: Normal Inspection - Back Exam Back Exam: NORMAL INSPECTION - Neurological Exam Neurological Exam: Alert, Awake Additional comments: Confused. - Psychiatric Exam Additional comments: Confused. - Skin Skin Exam: Dry, Intact, Normal Color, Warm Assessment and Plan (1) Change in mental status Status: Acute (2) Severe anemia Assessment & Plan: From bleeding from a gastic mass. 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 Status: Acute (6) Bilateral pleural effusion Status: Acute
[2018-10-26] MEDS ORDERED: Ferric Sodium Gluconat Complex 62.5 mg/5 ml Vial ONE (09:58)
[2018-10-26] MEDS: Ferric Sodium Gluconat Complex 125 MG in Sodium Chloride 0.9% 100 ML IVPB SCH (09:59)
[2018-10-26] MEDS: Thiamine 100 mg/ml Inj IM SCH (10:00)
[2018-10-26] MEDS ORDERED: PPN #11 IV ONE ×2 (18:00)
--- NOTE | 2018-10-26 18:21 | PN ---
DATE: 10/26/2018 LOCATION: 559, bed B. SUBJECTIVE: This is a 78-year-old male seen and examined in rounds without significant clinical changes or reported active bleeding. The entire chart is reviewed including but not limited to the most recent lab and radiology study result, current and the previous medications list. Today's lab result showed blood glucose level of 99. The patient is still having low hemoglobin and hematocrit, with low sodium, ____ and creatinine as well as low calcium. Complaining of persistent dysphagia but no reported active GI bleeding. PHYSICAL EXAMINATION: GENERAL: A 78-year-old male, poorly cooperative verbally. VITAL SIGNS: Afebrile, pulse of 72, respiratory rate 20 to 22, blood pressure of 142/66. HEENT: Show pale, dry oral mucoid membrane. Nonicteric sclerae. LUNGS: Few scattered crepitations. Decreased air entry at bases. HEART: Positive S1 and S2. ABDOMEN: Soft with slight generalized mild tenderness. No mass or organomegaly. No rebound tenderness or guarding. EXTREMITIES: No significant clubbing, cyanosis, or edema. NEUROLOGIC: No reported new neurological deficits, sensory or motor. IMPRESSION: 1. Gastroesophageal cancer, adenocarcinoma. 2. Dysphagia secondary to above. 3. Hypoalbuminemia. 4. Hypoproteinemia with malnutrition. 5. Change of mental status of unclear etiology. 6. Anemia secondary to above. 7. Bilateral pleural effusion with pneumonia as per recent radiology study report. SUGGESTION: 1. Agree with your plan. 2. Surgically inserted gastrotomy tube. 3. Further recommendation to follow. Flynn Avina MD
[2018-10-26] MEDS: Fat Emulsion 20% IV 500 ML IV SCH (18:40)
--- NOTE | 2018-10-26 18:45 | PN ---
DATE: 10/26/2018 SUBJECTIVE: The patient is seen. The patient is doing much better, but still significantly confused. Oriented only to person, but not reactive to place and time. He still has hand mittens and one-to-one watch. As per Dr. Jacinto, the patient's sister, Stephani, is still reluctant of the patient go for diagnostic procedure as well as for PEG tube placement. The patient is currently n.p.o. The patient has a history of gastric carcinoma with possible mets to esophagus and currently n.p.o. except meds. The patient will need PEG tube if discharged to home and will need 24-hour care as the patient has possibly terminal state delirium and needs 24-hour monitoring. He is only on Ativan p.r.n. and PPN and some vitamins. PHYSICAL EXAMINATION: VITAL SIGNS: Temperature is 98.5, pulse 70, blood pressure 147/69, respirations 20, and oxygen saturation 97%. REVIEW OF SYSTEMS: GENERAL: The patient is alert, but globally confused. Reacting only to person. The patient speaks in a soft voice. SKIN: No diaphoresis. HEENT: No headache. No dizziness. NECK: Supple. RESPIRATORY: No dyspnea. CARDIOVASCULAR: No chest pain. GASTROINTESTINAL: The patient is n.p.o. except meds. No abdominal pain. EXTREMITIES: He has hand mittens. MUSCULOSKELETAL: Generalized weakness. NEUROLOGIC: The patient has been bed bound and has been spending most of his time in bed. Generalized debility. Alert with significant periods of confusion. His confusion is still persistent, although he is not agitated anymore. The patient is also on Ativan p.r.n. MENTAL STATUS EXAMINATION: Tall, lanky male who is cachectic, oriented x1, only to person. Speech is slow. Affect restricted. Mood is dysphoric. Thought process confused. Thought content; no overt psychosis, no suicidal ideation. Attention and memory seem to be limited. Insight and judgment limited. Impulse control is guarded at this time. 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 PLAN AND RECOMMENDATIONS: The patient is seen. Meds reviewed. Continue one-to-one for safety. The patient needs 24-hour monitoring as well as the patient may eventually need PEG tube placement. If the patient will be discharged to home, he will need 24-hour care as well as PEG tube placement. The patient's sister at this time reluctant for the patient to have PEG tube feeding and also some diagnostic tests like thoracentesis. Continue treatment plan. I do recommend the patient for palliative care. Naveed Cooper MD MTDD
--- NOTE | 2018-10-27 00:13 | CP.PCM.PN ---
Subjective - Date & Time of Evaluation Date of Evaluation: 10/26/18 Time of Evaluation: 18:30 - Subjective Subjective: Patient confused, agitated, in no respiratory distress, afebrile. Discussed the patient's medical conditions with his sister today. She agrees the patient to have a gastrostomy and a thoracentesis, but does not agree with Hospice care. Objective - Vital Signs/Intake and Output Vital Signs (last 24 hours): Temp Pulse Resp BP Pulse Ox 98.2 F 66 20 145/65 95 10/26/18 15:00 10/26/18 15:00 10/26/18 15:00 10/26/18 15:00 10/26/18 15:00 Intake and Output: 10/26/18 10/27/18 18:59 06:59 Intake Total 772 Output Total 350 Balance 422 - Medications Medications: Current Medications Fat Emulsion Intravenous (Intralipid 20%) 500 mls @ 42 mls/hr IV QOD@1800 [facility] Stop: 10/28/18 18:01 Last Admin: 10/26/18 18:40 Dose: 42 mls/hr Ferric Sodium Gluconate Complex 125 mg/ Sodium Chloride 110 mls @ 110 mls/hr IVPB DAILY [facility] Stop: 10/30/18 10:01 Last Admin: 10/26/18 09:59 Dose: 110 mls/hr Multivitamins/Vitamin C 10 ml/Chromium/Copper/Manganese/Zinc 1 ml/ Insulin Human Regular 10 unit/ Parenteral Electrolytes 20 ml/ Amino Acids 1,031.1 mls @ 42 mls/hr IV .Q24H [facility] Stop: 10/27/18 17:59 Last Admin: 10/26/18 18:41 Dose: 42 mls/hr Lorazepam (Ativan) 1 mg IVP Q4 PRN PRN Reason: Agitation Pantoprazole Sodium (Protonix Inj) 40 mg IVP DAILY [facility] Last Admin: 10/26/18 09:59 Dose: 40 mg Thiamine HCl (Vitamin B1 Inj) 100 mg IM DAILY [facility] Last Admin: 10/26/18 10:00 Dose: 100 mg - Labs Labs: 10/25/18 08:19 10/25/18 08:19 PT 11.1 SECONDS (9.7-12.2) 10/14/18 08:24 INR 1.0 10/14/18 08:24 APTT 26 SECONDS (21-34) 10/14/18 08:24 - Constitutional Appears: No Acute Distress, Chronically Ill - Head Exam Head Exam: NORMOCEPHALIC - Eye Exam Eye Exam: Normal appearance - ENT Exam ENT Exam: Normal Exam - Neck Exam Neck Exam: Normal Inspection - Respiratory Exam Additional comments: Decreased breathing sounds in both bases. - Cardiovascular Exam Cardiovascular Exam: REGULAR RHYTHM - GI/Abdominal Exam GI & Abdominal Exam: Soft, Normal Bowel Sounds - Rectal Exam Rectal Exam: Deferred - Neurological Exam Neurological Exam: Alert, Awake Additional comments: Confused. - Psychiatric Exam Additional comments: Confused. - Skin Skin Exam: Dry, Intact Assessment and Plan (1) Change in mental status Status: Acute (2) Severe anemia Status: Acute (3) Pneumonia Status: Acute (4) Hematuria Status: Acute (5) Gastric mass Assessment & Plan: For a gastrostomy . Status: Acute (6) Bilateral pleural effusion Assessment & Plan: May need thoracentesis. Status: Acute
[2018-10-27] MEDS ORDERED: Ferric Sodium Gluconat Complex 62.5 mg/5 ml Vial ONE (09:40)
[2018-10-27] MEDS: Ferric Sodium Gluconat Complex 125 MG in Sodium Chloride 0.9% 100 ML IVPB SCH (10:58)
[2018-10-27] MEDS: Thiamine 100 mg/ml Inj IM SCH (10:59)
[2018-10-27] MEDS ORDERED: PPN #12 IV ONE (18:00)
--- NOTE | 2018-10-27 23:28 | PN ---
DATE: 10/27/2018 SUBJECTIVE: The patient seen in a four-bedded room. Still confused and trying to bite his mittens. The patient's sister is now amenable for PEG tube placement and thoracentesis but refusing referral for hospice care; however, if the patient will be discharged to home., the patient will need 24-hour care. The sister needs to find private home care services to take care of him. once he will be discharged home. PHYSICAL EXAMINATION: VITAL SIGNS: Temperature is 98, pulse 96, blood pressure 180/70, respirations 20, oxygen saturation is 96% on nasal cannula. GENERAL: The patient is still confused and disoriented and needs one-to-one watch. REVIEW OF SYSTEMS: GENERAL: The patient is alert, verbal, seen today seen biting his mittens. He said he wants to go home, still very confused, oriented x1. SKIN: No diaphoresis. HEENT: No headache. No dizziness. NECK: Supple. RESPIRATORY: No dyspnea. CARDIOVASCULAR: No chest pain. GASTROINTESTINAL: The patient is n.p.o. without receiving PPN. EXTREMITIES: He has hand mittens. The patient trying to bite his mittens and also tried to pull his lines. The patient has been bedbound. MUSCULOSKELETAL: Feels weak. NEURO: Alert, globally confused. MENTAL STATUS: Elderly male, cachectic-looking, alert but confused. Speech is slow. Affect restricted. Mood dysphoric. Thought process confused. Thought content, no overt psychosis, no suicidal or homicidal ideation. Attention and memory seem to be impaired. Insight and judgment impaired. Impulse control is guarded at this time. IMPRESSION: Terminal stage delirium secondary to metastatic adenocarcinoma with metastasis to the esophagus as well as mood disorder secondary to medical problems. PLAN AND RECOMMENDATIONS: The patient is seen. Meds reviewed. Continue Ativan p.r.n. as ordered. Continue PPN. The patient is for possible PEG and also for possible thoracentesis. Naveed Cooper MD [facility]
--- NOTE | 2018-10-28 02:22 | CP.PCM.PN ---
Subjective - Date & Time of Evaluation Date of Evaluation: 10/27/18 Time of Evaluation: 19:30 - Subjective Subjective: Patient confused, in no respiratory distress, afebrile, on PPN. Objective - Vital Signs/Intake and Output Vital Signs (last 24 hours): Temp Pulse Resp BP Pulse Ox 98.4 F 88 20 151/81 H 94 L 10/28/18 00:00 10/28/18 00:00 10/28/18 00:00 10/28/18 00:00 10/28/18 00:00 Intake and Output: 10/27/18 10/28/18 18:59 06:59 Intake Total 436 Output Total 450 250 Balance -14 -250 - Medications Medications: Current Medications Fat Emulsion Intravenous (Intralipid 20%) 500 mls @ 42 mls/hr IV QOD@1800 [facility] Stop: 10/28/18 18:01 Last Admin: 10/26/18 18:40 Dose: 42 mls/hr Ferric Sodium Gluconate Complex 125 mg/ Sodium Chloride 110 mls @ 110 mls/hr IVPB DAILY [facility] Stop: 10/30/18 10:01 Last Admin: 10/27/18 10:58 Dose: 110 mls/hr Multivitamins/Vitamin C 10 ml/Chromium/Copper/Manganese/Zinc 1 ml/ Insulin Human Regular 10 unit/ Parenteral Electrolytes 20 ml/ Amino Acids 1,031.1 mls @ 42 mls/hr IV .Q24H [facility] Stop: 10/28/18 17:59 Last Admin: 10/27/18 18:03 Dose: 42 mls/hr Lorazepam (Ativan) 1 mg IVP Q4 PRN PRN Reason: Agitation Pantoprazole Sodium (Protonix Inj) 40 mg IVP DAILY [facility] Last Admin: 10/27/18 10:59 Dose: 40 mg Thiamine HCl (Vitamin B1 Inj) 100 mg IM DAILY [facility] Last Admin: 10/27/18 10:59 Dose: 100 mg - Labs Labs: 10/25/18 08:19 10/25/18 08:19 PT 11.1 SECONDS (9.7-12.2) 10/14/18 08:24 INR 1.0 10/14/18 08:24 APTT 26 SECONDS (21-34) 10/14/18 08:24 - Constitutional Appears: No Acute Distress, Chronically Ill - Head Exam Head Exam: NORMOCEPHALIC - Eye Exam Eye Exam: Normal appearance - ENT Exam ENT Exam: Normal Exam - Neck Exam Neck Exam: Normal Inspection - Respiratory Exam Additional comments: Decreased breathing sounds bibasilarly. - Cardiovascular Exam Cardiovascular Exam: REGULAR RHYTHM - GI/Abdominal Exam GI & Abdominal Exam: Soft, Normal Bowel Sounds - Rectal Exam Rectal Exam: Deferred - Extremities Exam Extremities Exam: Normal Inspection - Back Exam Back Exam: NORMAL INSPECTION - Neurological Exam Neurological Exam: Alert, Awake - Psychiatric Exam Additional comments: Confused. - Skin Skin Exam: Dry, Intact, Warm Assessment and Plan (1) Change in mental status Status: Acute (2) Severe anemia Status: Acute (3) Pneumonia Status: Acute (4) Hematuria Status: Acute (5) Gastric mass Assessment & Plan: For gastrostomy Status: Acute (6) Bilateral pleural effusion Status: Acute
[2018-10-28] MEDS ORDERED: Ferric Sodium Gluconat Complex 62.5 mg/5 ml Vial ONE (10:50)
[2018-10-28] MEDS: Ferric Sodium Gluconat Complex 125 MG in Sodium Chloride 0.9% 100 ML IVPB SCH (11:07)
[2018-10-28] MEDS: Thiamine 100 mg/ml Inj IM SCH (11:28)
--- NOTE | 2018-10-28 13:30 | CP.PCM.PN ---
Subjective - Date & Time of Evaluation Date of Evaluation: 10/28/18 Time of Evaluation: 10:00 - Subjective Subjective: CT Surgery Pt known to Dr. Mathews's service. Pt seen and examined. In need of feeding tube due to his gastroesophageal mass, sister has agreed. Pt currently confused. No complaints. Objective - Vital Signs/Intake and Output Vital Signs (last 24 hours): Temp Pulse Resp BP Pulse Ox 98.3 F 66 18 134/64 97 10/28/18 07:00 10/28/18 07:00 10/28/18 07:00 10/28/18 07:00 10/28/18 07:00 Intake and Output: 10/28/18 10/28/18 06:59 18:59 Intake Total 336 Output Total 250 200 Balance -250 136 - Medications Medications: Current Medications Fat Emulsion Intravenous (Intralipid 20%) 500 mls @ 42 mls/hr IV QOD@1800 [facility] Stop: 10/28/18 18:01 Last Admin: 10/26/18 18:40 Dose: 42 mls/hr Ferric Sodium Gluconate Complex 125 mg/ Sodium Chloride 110 mls @ 110 mls/hr IVPB DAILY [facility] Stop: 10/30/18 10:01 Last Admin: 10/28/18 11:07 Dose: 110 mls/hr Multivitamins/Vitamin C 10 ml/Chromium/Copper/Manganese/Zinc 1 ml/ Insulin Human Regular 10 unit/ Parenteral Electrolytes 20 ml/ Amino Acids 1,031.1 mls @ 42 mls/hr IV .Q24H [facility] Stop: 10/28/18 17:59 Last Admin: 10/27/18 18:03 Dose: 42 mls/hr Lorazepam (Ativan) 1 mg IVP Q4 PRN PRN Reason: Agitation Pantoprazole Sodium (Protonix Inj) 40 mg IVP DAILY [facility] Last Admin: 10/28/18 10:52 Dose: 40 mg - Labs Labs: 10/25/18 08:19 10/25/18 08:19 PT 11.1 SECONDS (9.7-12.2) 10/14/18 08:24 INR 1.0 10/14/18 08:24 APTT 26 SECONDS (21-34) 10/14/18 08:24 - Constitutional Appears: Non-toxic, No Acute Distress - Head Exam Head Exam: ATRAUMATIC, NORMOCEPHALIC - Respiratory Exam Respiratory Exam: NORMAL BREATHING PATTERN. absent: Respiratory Distress - GI/Abdominal Exam GI & Abdominal Exam: Soft. absent: Distended, Tenderness - Neurological Exam Neurological Exam: Altered - Skin Skin Exam: Dry, Warm Assessment and Plan - Assessment and Plan (Free Text) Assessment: 78M with gastroesophageal adenocarcinoma. Plan: Will plan for open jejunostomy feeding tube placement and possible pleurex catheter placement Thursday 11/02 F/U CT chest Medical Clearance D/W Dr. Reid Sneed PGY4
--- NOTE | 2018-10-28 13:53 | CT ---
Date of service: 10/28/2018 PROCEDURE: CT Chest without contrast HISTORY: F/U COMPARISON: Contrast chest CT 10/19/2017. TECHNIQUE: Contiguous axial images were obtained through the chest without intravenous contrast enhancement. Sagittal and coronal reconstructions were performed. Radiation dose: Total exam DLP = 310.35 mGy-cm. This CT exam was performed using one or more of the following dose reduction techniques: Automated exposure control, adjustment of the mA and/or kV according to patient size, and/or use of iterative reconstruction technique. FINDINGS: LUNGS: Prominent bilateral pleural effusions are markedly reduced with minimal residual bilaterally, slightly greater the right than left. No pneumothorax bilaterally. Limited bilateral basilar subsegmental atelectasis appreciate the bilateral lungs definitively increased in aeration. Central airways remain clear with trace fibrotic changes at the right apex noted. Prior perihilar opacity has resolved trace emphysema is seen at the bilateral lower lung zones. MEDIASTINUM: Mediastinal anatomy appears stable including thoracic aortic calcified atherosclerosis with normal aortic caliber in the chest. Coronary calcifications are again identified with cardiac size appearing normal. No significant lymphadenopathy again seen in the mediastinum grossly. No gross hilar adenopathy in the interval. Thoracic inlet remains unremarkable. Note is made of a small hiatal hernia in questionable thickening of the distal esophageal if not more proximally. BONES: No fracture. No destructive lesion. UPPER ABDOMEN: A small cyst is stable at the dome liver measuring only 5 Hounsfield units. Prominent gastric folds though the stomach is collapsed and limited evaluation. OTHER FINDINGS: None. IMPRESSION: Marked improvement in bilateral pleural effusions with trace residual noted bilaterally. No definite infiltrate although trace dependent subsegmental atelectasis seen bilaterally. No prominent mediastinal lymphadenopathy appreciated. Stable esophageal pattern of questionable thickening distal in this patient with a history of gastric cancer a prominent gastric folds reiterated in the visualized upper abdomen segment of this exam. The stomach is collapsed and poorly evaluated.
[2018-10-28] MEDS ORDERED: PPN #13 IV ONE ×3 (14:00→18:00)
[2018-10-28 14:15] LABS: BASO # 0.1 K/uL (0.0-0.2); BASO % 0.7 % (0.0-2.0); EOS # 0.2 K/uL (0.0-0.7); EOS % 2.4 % (0.0-4.0); HEMOGLOBIN 9.1 g/dL (12.0-18.0); LYMPH # 0.8 K/uL (1.0-4.3); LYMPH % 9.9 % (20.0-40.0); MEAN CELL VOLUME 80.7 fL (80.0-94.0); MEAN CORPUSCULAR HGB CONC 32.2 g/dL (33.0-37.0); MEAN PLATELET VOLUME 9.2 fL (7.2-11.7); MONO # 0.7 K/uL (0.0-0.8); MONO % 8.2 % (0.0-10.0); NEUT # 6.4 K/uL (1.8-7.0); NEUT % 78.8 % (50.0-75.0); PLATELET COUNT 319 K/uL (130-400); RBC 3.48 Mil/uL (4.40-5.90); RED CELL DISTRIBUTION WIDTH 19.8 % (11.5-14.5); WHITE BLOOD COUNT 8.1 K/uL (4.8-10.8)
[2018-10-28 14:35] LABS: INR 1.2; PROTHROMBIN TIME 12.8 SECONDS (9.7-12.2)
[2018-10-28 14:44] LABS: ALB/GLOB RATIO 1.1 (1.0-2.1); ALBUMIN 2.8 g/dL (3.5-5.0); ALT/SGPT 19 U/L (21-72); AST/SGOT 29 U/L (17-59); BLOOD UREA NITROGEN 23 mg/dL (9-20); CALCIUM 7.9 mg/dl (8.6-10.4); GFR NON-AFRICAN AMERICAN > 60
[2018-10-28 15:04] LABS: EOSINOPHIL 1 % (0-4); LYMPHOCYTE 9 % (20-40); MONOCYTE 6 % (0-10); NEUTROPHIL 84 % (50-75); TOTAL CELLS COUNTED 100
[2018-10-28 15:05] LABS: ANISOCYTOSIS MODERATE; HYPOCHROMIC SLIGHT; OVALOCYTES MODERATE; PLATELET ESTIMATE NORMAL (NORMAL); POIKILOCYTOSIS SLIGHT
[2018-10-28 15:06] LABS: LARGE PLATELETS PRESENT; SCHISTOCYTES SLIGHT
[2018-10-28 15:07] LABS: GIANT PLATELETS PRESENT
--- NOTE | 2018-10-28 16:13 | CP.PCM.PN ---
Subjective - Date & Time of Evaluation Date of Evaluation: 10/28/18 Time of Evaluation: 08:00 - Subjective Subjective: no change afebrile CT chest noted Objective - Vital Signs/Intake and Output Vital Signs (last 24 hours): Temp Pulse Resp BP Pulse Ox 98.3 F 66 18 134/64 97 10/28/18 07:00 10/28/18 07:00 10/28/18 07:00 10/28/18 07:00 10/28/18 07:00 Intake and Output: 10/28/18 10/28/18 06:59 18:59 Intake Total 336 Output Total 250 200 Balance -250 136 - Medications Medications: Current Medications Ferric Sodium Gluconate Complex 125 mg/ Sodium Chloride 110 mls @ 110 mls/hr IVPB DAILY [facility] Stop: 10/30/18 10:01 Last Admin: 10/28/18 11:07 Dose: 110 mls/hr Multivitamins/Vitamin C 10 ml/Chromium/Copper/Manganese/Zinc 1 ml/ Insulin Human Regular 10 unit/ Parenteral Electrolytes 20 ml/ Amino Acids 1,031.1 mls @ 42 mls/hr IV .Q24H ONE Stop: 10/28/18 17:59 Last Admin: 10/27/18 18:03 Dose: 42 mls/hr Fat Emulsion Intravenous (Intralipid 20%) 500 mls @ 42 mls/hr IV QOD@1800 [facility] Stop: 11/03/18 18:01 Multivitamins/Vitamin C 10 ml/Chromium/Copper/Manganese/Zinc 1 ml/ Insulin Human Regular 10 unit/ Amino Acids 1,011.1 mls @ 42 mls/hr IV .Q24H ONE Stop: 10/29/18 17:59 Lorazepam (Ativan) 1 mg IVP Q4 PRN PRN Reason: Agitation Pantoprazole Sodium (Protonix Inj) 40 mg IVP DAILY [facility] Last Admin: 10/28/18 10:52 Dose: 40 mg - Labs Labs: 10/28/18 14:05 10/28/18 14:05 PT 12.8 SECONDS (9.7-12.2) H 10/28/18 14:05 INR 1.2 10/28/18 14:05 APTT 37 SECONDS (21-34) H 10/28/18 14:05 - Constitutional Appears: Non-toxic, Chronically Ill - Head Exam Head Exam: NORMOCEPHALIC - Eye Exam Eye Exam: absent: Scleral icterus - ENT Exam ENT Exam: Mucous Membranes Dry - Neck Exam Neck Exam: absent: Lymphadenopathy - Respiratory Exam Respiratory Exam: Decreased Breath Sounds - Cardiovascular Exam Cardiovascular Exam: REGULAR RHYTHM - GI/Abdominal Exam GI & Abdominal Exam: Distended, Soft - Rectal Exam Rectal Exam: Deferred - Exam Exam: NORMAL INSPECTION - Extremities Exam Extremities Exam: absent: Pedal Edema - Back Exam Back Exam: absent: CVA tenderness (L), CVA tenderness (R) - Neurological Exam Neurological Exam: Altered, CN II-XII Intact Assessment and Plan (1) Change in mental status Status: Acute (2) Hypothermia Status: Acute (3) Bilateral pleural effusion Status: Acute (4) Gastric mass Status: Acute (5) Pneumonia Status: Acute - Assessment and Plan (Free Text) Assessment: CA with mets pneumonia resolved OK to d/c IV antibiotics
--- NOTE | 2018-10-28 17:34 | PN ---
DATE: 10/28/2018 SUBJECTIVE: The patient remains pleasantly confused, but still noted to be biting his mittens and trying to remove it. He then tried to pull his line. He is still restless and needs 24-hour monitoring. The patient is in a four-bedded room, but 1:1 watch. I spoke with the nurse practitioner, the sister Stephani has agreed for thoracentesis and possible jejunostomy placement. 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 The patient is still very confused and his sister gave the consent for the procedure. Sister also has plans to take the patient home; however, the patient if be discharged to home. The patient will need 24-hour monitoring round the clock with the sister has to make arrangements by herself. According to the staff, the patient's sister does not want the patient to go to the penitentiary for subacute or possible care home. She wants to take care of him at home. PHYSICAL EXAMINATION: VITAL SIGNS: Temperature 98.3, heart rate 66, blood pressure 134/64, respirations 20, and oxygen saturation is 97%. REVIEW OF SYSTEMS: GENERAL: The patient is alert, verbal, but confused, oriented x1, not agitated when seen, but needs 1:1 monitoring. The patient still has hand mittens, trying to bite them, trying to pull his lines. SKIN: No diaphoresis. HEENT: No headache. No dizziness. NECK: Supple. RESPIRATORY: No dyspnea. CARDIOVASCULAR: No chest pain, the patient is currently on TPN, still n.p.o. except meds. EXTREMITIES: Has mittens. MUSCULOSKELETAL: Feels weak. NEUROLOGIC: Alert, still significantly confused, oriented only to person, not to time and place. The patient does not know where he is. GENITOURINARY: No urinary problems. MENTAL STATUS EXAMINATION: A tall lanky male, was cachectic, oriented x1 only to person. Speech is slow. Affect is restricted. Mood is dysphoric. Thought process is grossly confused. Thought content, no psychosis. No suicidal or homicidal ideation. No behavioral problems. Attention and memory seem to be impaired. Insight and judgment are impaired. Impulse control is guarded at this time. 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 PLAN AND RECOMMENDATIONS: The patient is seen, meds reviewed. Continue Ativan p.r.n. as ordered. We will keep the patient on 1:1 watchful monitoring. We will keep the patient in a four-bedded room. The patient is for possible jejunostomy and also for possible thoracentesis. The patient will be discharged to home and we will readjust the meds and give the medicine to his jejunostomy to control his behavior as the patient may need some medications to keep his behavior in control at home. He is only taking Ativan p.r.n. here, but the patient is on 24-hour monitoring. Naveed Cooper MD MTDD
[2018-10-28] MEDS: Fat Emulsion 20% IV 500 ML IV SCH (18:00)
--- NOTE | 2018-10-28 18:27 | PN ---
DATE: 10/28/2018 LOCATION: Room 559, Bed B. SUBJECTIVE: This 78-year-old male seen and examined in rounds without significant clinical changes, had a reported chest CAT scan. Official report is still pending for today. The patient is still having dysphagia with very poor to near zero oral intake but no reported chest pain, palpitation or evidence of active GI bleeding. LABORATORY DATA: Most recent lab results showed blood glucose level of 96. H and H is still pending for today. PHYSICAL EXAMINATION: GENERAL: A 78-year-old male. VITAL SIGNS: Afebrile with pulse of 70, respiratory rate 18 to 20, blood pressure of 138/66. HEENT: Showed pale dry oral mucoid membrane. Nonicteric sclerae. LUNGS: Few scattered crepitation. Decreased air entry at bases. HEART: Positive S1 and S2. ABDOMEN: Soft with mild generalized tenderness. No mass or organomegaly. No rebound tenderness or guarding. EXTREMITIES: Without significant clubbing, cyanosis or edema. NEUROLOGIC: No reported new neurological deficits, sensory or motor. PSYCHIATRIC: The patient reported to be somewhat disoriented with periods of confusion. IMPRESSION: 1. Gastroesophageal carcinoma with dysphagia. 2. Malnutrition with hypoalbuminemia. 3. Anemia secondary to above. 4. Malnutrition secondary to above. 5. Change of mental status. 6. Bilateral pleural effusion with pneumonia, most likely secondary to aspiration pneumonia. SUGGESTIONS: 1. Continue current management. 2. Again the patient will need gastrostomy tube insertion. Further recommendations to follow. Flynn Avina MD
--- NOTE | 2018-10-28 19:11 | CP.PCM.PN ---
Subjective - Date & Time of Evaluation Date of Evaluation: 10/28/18 Time of Evaluation: 19:08 - Subjective Subjective: Patient still confused. Afebrile and in no respiratory distress. On PPN. Ct scan of the chest: near complete resolution of bilateral pleural effusion. Scheduled for a gastrostomy feeding tube on Friday11/02/2018. Objective - Vital Signs/Intake and Output Vital Signs (last 24 hours): Temp Pulse Resp BP Pulse Ox 98.3 F 66 18 134/64 97 10/28/18 07:00 10/28/18 07:00 10/28/18 07:00 10/28/18 07:00 10/28/18 07:00 Intake and Output: 10/28/18 10/29/18 18:59 06:59 Intake Total 782 Output Total 650 Balance 132 - Medications Medications: Current Medications Ferric Sodium Gluconate Complex 125 mg/ Sodium Chloride 110 mls @ 110 mls/hr IVPB DAILY [facility] Stop: 10/30/18 10:01 Last Admin: 10/28/18 11:07 Dose: 110 mls/hr Fat Emulsion Intravenous (Intralipid 20%) 500 mls @ 42 mls/hr IV QOD@1800 [facility] Stop: 11/03/18 18:01 Multivitamins/Vitamin C 10 ml/Chromium/Copper/Manganese/Zinc 1 ml/ Insulin Human Regular 10 unit/ Amino Acids 1,011.1 mls @ 42 mls/hr IV .Q24H ONE Stop: 10/29/18 17:59 Lorazepam (Ativan) 1 mg IVP Q4 PRN PRN Reason: Agitation Pantoprazole Sodium (Protonix Inj) 40 mg IVP DAILY [facility] Last Admin: 10/28/18 10:52 Dose: 40 mg - Labs Labs: 10/28/18 14:05 10/28/18 14:05 PT 12.8 SECONDS (9.7-12.2) H 10/28/18 14:05 INR 1.2 10/28/18 14:05 APTT 37 SECONDS (21-34) H 10/28/18 14:05 - Constitutional Appears: No Acute Distress, Chronically Ill - Head Exam Head Exam: NORMOCEPHALIC - Eye Exam Eye Exam: Normal appearance - ENT Exam ENT Exam: Normal Exam - Neck Exam Neck Exam: Normal Inspection - Respiratory Exam Additional comments: Decreased breathing sounds at both bases. - Cardiovascular Exam Cardiovascular Exam: REGULAR RHYTHM - GI/Abdominal Exam GI & Abdominal Exam: Soft, Normal Bowel Sounds - Rectal Exam Rectal Exam: Deferred - Extremities Exam Extremities Exam: Normal Capillary Refill, Normal Inspection - Back Exam Back Exam: NORMAL INSPECTION - Neurological Exam Neurological Exam: Alert, Awake Additional comments: Confused. - Skin Skin Exam: Dry, Intact, Normal Color, Warm Assessment and Plan (1) Change in mental status Status: Acute (2) Severe anemia Status: Resolved (3) Pneumonia Status: Acute (4) Hematuria Status: Acute (5) Gastric mass Status: Acute (6) Bilateral pleural effusion Status: Resolved
[2018-10-29] MEDS: Ferric Sodium Gluconat Complex 125 MG in Sodium Chloride 0.9% 100 ML IVPB SCH (10:35)
[2018-10-29 11:18] LABS: BASO % 0.4 % (0.0-2.0); EOS % 0.2 % (0.0-4.0); HEMOGLOBIN 9.5 g/dL (12.0-18.0); LYMPH # 0.2 K/uL (1.0-4.3); LYMPH % 1.7 % (20.0-40.0); MEAN CELL VOLUME 81.7 fL (80.0-94.0); MEAN CORPUSCULAR HEMOGLOBIN 26.3 pg (27.0-31.0); MEAN CORPUSCULAR HGB CONC 32.3 g/dL (33.0-37.0); MEAN PLATELET VOLUME 9.2 fL (7.2-11.7); MONO # 0.4 K/uL (0.0-0.8); MONO % 3.6 % (0.0-10.0); NEUT # 11.6 K/uL (1.8-7.0); NEUT % 94.1 % (50.0-75.0); PLATELET COUNT 345 K/uL (130-400)
[2018-10-29 11:19] LABS: WHITE BLOOD COUNT 12.3 K/uL (4.8-10.8)
[2018-10-29 11:31] LABS: INR 1.1; PROTHROMBIN TIME 12.1 SECONDS (9.7-12.2)
[2018-10-29 11:49] LABS: ANISOCYTOSIS SLIGHT; BANDS 13 % (0-2); BASOPHIL 1 % (0-2); LYMPHOCYTE 2 % (20-40); MONOCYTE 2 % (0-10); NEUTROPHIL 82 % (50-75); PLATELET ESTIMATE NORMAL (NORMAL); TOTAL CELLS COUNTED 100
[2018-10-29 11:50] LABS: BURR CELLS SLIGHT; HYPOCHROMIC SLIGHT; LARGE PLATELETS PRESENT; OVALOCYTES SLIGHT; POIKILOCYTOSIS SLIGHT; TEARDROP CELLS SLIGHT
--- NOTE | 2018-10-29 11:53 | PN ---
DATE: 10/29/2018 SUBJECTIVE: The patient is seen, was severely confused and is still trying to bite his mittens. The patient still needs 24-hour care. Spoke with manager of case management, her sister still wants the patient to have jejunostomy as well as thoracentesis. The patient needs GI consult. The patient also will need some medication when discharged to home, as the patient is still very agitated. PHYSICAL EXAMINATION: VITAL SIGNS: Temperature 97.9, pulse 82, blood pressure 150/84, respirations 20, oxygen saturation 100%. REVIEW OF SYSTEMS: GENERAL: The patient is drowsy but arousable, sitting in his room still with hand mittens in the four-bedded room. SKIN: No diaphoresis. HEENT: No headache or dizziness. NECK: Supple. RESPIRATORY: No dyspnea. CARDIOVASCULAR: No chest pain. GASTROINTESTINAL: The patient is n.p.o., with his meds of PPN. EXTREMITIES: The patient is bedbound. MUSCULOSKELETAL: Feels weak. NEUROLOGIC: Alert with significant periods of confusion, oriented only to person. MENTAL STATUS EXAMINATION: Cachectic-looking male of his age with history of adenocarcinoma of the stomach with mets to esophagus. Speech is slow. Affect is restricted. Mood is dysphoric. Thought process, confused. Thought content, no overt psychosis, no suicidal ideation. Attention and memory seem to be impaired. Insight and judgement impaired. Impulse control is guarded at this time. IMPRESSION: Terminal stage delirium secondary to metastatic adenocarcinoma with metastasis to the esophagus. Mood disorder. PLAN AND RECOMMENDATION: The patient was seen, meds reviewed. Continue present management. The patient is for GI consult for jejunostomy and also Pulmonary for thoracentesis. I did suggest the patient may benefit from a trial of Ativan gel, but it is meant for malaria at this time. The patient will have jejunostomy and psych meds are not naturally well absorbed in the jejunum, at least needs to pass the stomach. So, we will try to see if the patient can have Ativan gel to control his agitation while in the hospital, if Ativan gel can be provided. Continue present management. The patient's sister does not want hospice care at this point and wants to take the patient home. Naveed Cooper, MD [facility] # [id number] MTDD
--- NOTE | 2018-10-29 12:52 | RAD ---
Date of service: 10/29/2018 HISTORY: pna COMPARISON: 10/12/2018 FINDINGS: LUNGS: No active pulmonary disease. PLEURA: No significant pleural effusion identified, no pneumothorax apparent. CARDIOVASCULAR: No aortic atherosclerotic calcification present. Normal cardiac size. No pulmonary vascular congestion. OSSEOUS STRUCTURES: No significant abnormalities. VISUALIZED UPPER ABDOMEN: Normal. OTHER FINDINGS: None. IMPRESSION: No active disease.
--- NOTE | 2018-10-29 13:50 | CP.PCM.PN ---
Subjective - Date & Time of Evaluation Date of Evaluation: 10/29/18 Time of Evaluation: 13:45 - Subjective Subjective: Nursing reports black stool, hematemesis. CBC, INR, PTT, type and cross ordered stat. Patient is pale and lethargic. Vitals stable although BP less than baseline Objective - Vital Signs/Intake and Output Vital Signs (last 24 hours): Temp Pulse Resp BP Pulse Ox 99.2 F 72 20 108/55 L 99 10/29/18 08:00 10/29/18 08:00 10/29/18 08:00 10/29/18 08:00 10/29/18 08:00 Intake and Output: 10/29/18 10/29/18 06:59 18:59 Intake Total 1008 Output Total 350 250 Balance 658 -250 - Medications Medications: Current Medications Ferric Sodium Gluconate Complex 125 mg/ Sodium Chloride 110 mls @ 110 mls/hr IVPB DAILY [facility] Stop: 10/30/18 10:01 Last Admin: 10/29/18 10:35 Dose: 110 mls/hr Fat Emulsion Intravenous (Intralipid 20%) 500 mls @ 42 mls/hr IV QOD@1800 [facility] Stop: 11/03/18 18:01 Last Admin: 10/28/18 18:00 Dose: 42 mls/hr Multivitamins/Vitamin C 10 ml/Chromium/Copper/Manganese/Zinc 1 ml/ Insulin Human Regular 10 unit/ Amino Acids 1,011.1 mls @ 42 mls/hr IV .Q24H ONE Stop: 10/29/18 17:59 Last Admin: 10/28/18 18:00 Dose: 42 mls/hr Multivitamins/Vitamin C 10 ml/Chromium/Copper/Manganese/Zinc 1 ml/ Insulin Human Regular 10 unit/ Amino Acids 1,011.1 mls @ 42 mls/hr IV .Q24H ONE Stop: 10/30/18 17:59 Cefepime HCl (Maxipime Iv 1 Gm Premix) 1 gm in 50 mls @ 100 mls/hr IVPB Q12H [facility]; Protocol Metronidazole (Flagyl) 500 mg in 100 mls @ 100 mls/hr IVPB Q8H [facility]; Protocol Lorazepam (Ativan) 1 mg IVP Q4 PRN PRN Reason: Agitation Pantoprazole Sodium (Protonix Inj) 40 mg IVP DAILY [facility] Last Admin: 10/29/18 10:08 Dose: 40 mg Vancomycin HCl (Vancocin (Oral Or Rectal Use)) 250 mg PO QID [facility]; Protocol - Labs Labs: 10/29/18 11:05 10/28/18 14:05 PT 12.1 SECONDS (9.7-12.2) 10/29/18 11:05 INR 1.1 10/29/18 11:05 APTT 30 SECONDS (21-34) D 10/29/18 11:05 - Constitutional Appears: Non-toxic, No Acute Distress, Confused, Cachectic, Chronically Ill - Head Exam Head Exam: ATRAUMATIC, NORMAL INSPECTION - ENT Exam ENT Exam: Mucous Membranes Dry - Respiratory Exam Respiratory Exam: Clear to Ausculation Bilateral, NORMAL BREATHING PATTERN - Cardiovascular Exam Cardiovascular Exam: REGULAR RHYTHM, +S1, +S2 - GI/Abdominal Exam GI & Abdominal Exam: Soft, Normal Bowel Sounds. absent: Tenderness - Rectal Exam Rectal Exam: Deferred - Neurological Exam Neurological Exam: Altered. absent: Oriented x3 - Psychiatric Exam Psychiatric exam: Flat Affect - Skin Skin Exam: Pallor Assessment and Plan - Assessment and Plan (Free Text) Assessment: #Melena #Gastroesophageal adenocarcinoma #Pneumonia #Malnourished PLAN: -s/p EGD 10/16/18, mass in gastric cardia near esophagus. -CBC revealed stable Hb. No coagulopathy. -Avoid NSAID, anticoagulation -IV PPI BID -Continue to monitor vitals closely. Check Hb tomorrow. -Blood transfusion of 2u if he becomes unstable
[2018-10-29] MEDS ORDERED: VANCOMYCIN 125 MG/5 ML PO SCH (14:00)
[2018-10-29] MEDS: metroNIDAZOLE IV 500 mg/100 ml 500 MG/100 ML BAG IVPB SCH ×2 (14:48→22:56)
[2018-10-29] MEDS: Cefepime IV 1 gm in Dextrose 1 GM/50 ML BAG IVPB SCH (16:00)
[2018-10-29] MEDS ORDERED: Sodium Chloride 0.9% 1,000 ML IV ONE ×2 (16:20)
--- NOTE | 2018-10-29 16:24 | PCM.RRT ---
<Tammy Haro - Last Filed: 10/29/18 17:51> AUTO FLEET MAINTENANCE MANAGER Nurses Assessment - Situation Date: 10/29/18 Time AUTO FLEET MAINTENANCE MANAGER was called: 16:00 AUTO FLEET MAINTENANCE MANAGER Responder Arrival Time:: 16:02 AUTO FLEET MAINTENANCE MANAGER Location:: Med/Surg Room Number: 559B AUTO FLEET MAINTENANCE MANAGER Reason for Call: Hypotension (89/49), Change in Mental Status (Unresponsive, but responsive to hard sternal rub), Looks Sicker (pallor) New IV Insertion Tolerance: Good - Respiratory AUTO FLEET MAINTENANCE MANAGER Delivery Method: Non Rebreather @% Received Nebulizer Treatments: No Was the Patient Ventilated with Bag/Mask 100% O2?: No Secretions Suctioned?: No Was the Patient Intubated?: No Was the Patient Placed on a Ventilator?: No - Medication Medications Administered During AUTO FLEET MAINTENANCE MANAGER: 1L NS boluses x2. tredelenburg position - Diagnostic Test Ordered EKG: No Chest X-Ray: No CT Scan: No Other Diagnostic Test Ordered: CBC, CMP, Mg, Ph, ABG shock pnl, THUY, procalcitonin, blood cx, hep panel - Stat Labs Ordered AUTO FLEET MAINTENANCE MANAGER Stat Labs Ordered: CBC, TROPONIN, LACTIC ACID, ABG CPR started during AUTO FLEET MAINTENANCE MANAGER?: No - Vital Signs Vital Signs: 89/49, T97.7, HR 101, fingerstick glucose 128 After first bolus of NS, vitals: 100/47, P95, 100% on 15L oxygen nonrebreather - [place] Coma Scale Coma Scale Eye Opening: No response Coma Scale Motor: Flexion in response pain Coma Scale Verbal: No response Coma Scale Total: 5 - Sepsis Screen Part 1 Sepsis Screen Part 1: Hypotensive - Sepsis Screen Part 2 Sepsis Screen Part 2: Bands over 10% - Recommendations 5) AUTO FLEET MAINTENANCE MANAGER Level of Care Recommendations: Remain in current setting Notifications: Attending Physician (Medicine team left VM Dr. Jacinto), Consultations (Dr. Bella ICU attending notified about case, will f/u with him regarding STAT labs results) - Neurological Status (Select all that apply): Weakness (only responsive to sternal rub) - Respiratory Oxygen Delivery Method: Non Rebreather @% - Constitutional Appears: Other (pale, moaning) - Head Head Exam: ATRAUMATIC, NORMAL INSPECTION, NORMOCEPHALIC - Cardiovascular Exam Cardiovascular Exam: REGULAR RHYTHM - GI/Abdominal Exam GI & Abdominal Exam: Soft, Normal Bowel Sounds - Neurological Exam Neurological Exam: absent: Alert, Awake, Oriented x3 - Extremities Exam Extremities Exam: Normal Capillary Refill (strong peripheral pulses, no peripheral edema), Normal Inspection. absent: Pedal Edema, Tenderness Plan - Assessment of Findings&Treatment Plan 78 y/o male with PMHx of esophageal mass, cancer w/ mets had AUTO FLEET MAINTENANCE MANAGER called at 1600 at 10/29 due to being unresponsive and hypotensive. -f/u STAT labs: CBC, CMP, Mg, Ph, ABG shock panel, THUY, procalcitonin, hep panel, blood culture -melena stool x 2 today per RN and patient w/ pallor. Possible GI bleed. GI notified. Consent for 2U PRBC - patient's sister -recheck especially CBC <Cammie Landa V - Last Filed: 10/29/18 19:15> AUTO FLEET MAINTENANCE MANAGER Nurses Assessment - Vital Signs Vital Signs: Rapid Response Vital Sign Blood Pressure 87/64 Pulse Rate 94 Respiratory Rate 16 Temperature 99.2 F Oxygen Saturation 95 - Vital Signs at end of AUTO FLEET MAINTENANCE MANAGER Vital Signs at end of AUTO FLEET MAINTENANCE MANAGER: Rapid Response End Vital Sign Blood Pressure 96/68 Pulse Rate 96 Respiratory Rate 18 Temperature 99.3 F O2 Sat by Pulse Oximetry 98 Attending/Attestation - Attestation I have personally seen and examined this patient.: Yes I have fully participated in the care of the patient.: Yes I have reviewed all pertinent clinical information, including history, physical exam and plan: Yes Notes (Text): Brief hospitalist note AUTO FLEET MAINTENANCE MANAGER called for hypotension Patient is confused, responsive to sternal rub, will move upper and lower extremities. Patient per review EMR, hx of gastric ca invading the esophagus. He is clinically pale. Put patient [place], start IV fluid bolus, nursing obtained obtained additional peripheral access, and repeat blood work given concern for possible bleeding. per nursing, patient has had 2 dark color bowel movements today. Infectious has changed medications today. Chest xray this morning is clear per review of EMR patient had be recovering from pneumonia/pleural effusion. Resident Ricardo discussed events with PMD: Dr Jacinto, recommended for ICU eval. ABG ph is normal, lactic normal. Witnessed with patient's sister via telephone conversation with intenvist, sister has chosen DNR/DNI and is now amenable to Hospice as option if he continues to deteoriate. Blood transfusion consent obtained by resident. Ativan held per review EMR medications. <Regla Layne - Last Filed: 10/31/18 20:05> AUTO FLEET MAINTENANCE MANAGER Nurses Assessment - Vital Signs Vital Signs: Rapid Response Vital Sign Blood Pressure 87/64 Pulse Rate 94 Respiratory Rate 16 Temperature 99.2 F Oxygen Saturation 95 - Vital Signs at end of AUTO FLEET MAINTENANCE MANAGER Vital Signs at end of AUTO FLEET MAINTENANCE MANAGER: Rapid Response End Vital Sign Blood Pressure 96/68 Pulse Rate 96 Respiratory Rate 18 Temperature 99.3 F O2 Sat by Pulse Oximetry 98 Attending/Attestation - Attestation I have personally seen and examined this patient.: Yes I have fully participated in the care of the patient.: Yes I have reviewed all pertinent clinical information, including history, physical exam and plan: Yes
[2018-10-29 16:40] LABS: ABG ALLEN TEST PO; ARTERIAL BLOOD GAS O2 SAT 100.4 % (95-98); ARTERIAL BLOOD GAS PCO2 27 mm/Hg (35-45); ARTERIAL BLOOD GAS PH 7.45 (7.35-7.45); ARTERIAL BLOOD GAS PO2 206 mm/Hg (80-100); ARTERIAL BLOOD GAS TCO2 19.6 mmol/L (22-28)
[2018-10-29 17:12] LABS: BASO % 0.2 % (0.0-2.0); EOS % 0.1 % (0.0-4.0); HEMOGLOBIN 9.6 g/dL (12.0-18.0); LYMPH # 0.2 K/uL (1.0-4.3); LYMPH % 1.9 % (20.0-40.0); MEAN CELL VOLUME 81.6 fL (80.0-94.0); MEAN CORPUSCULAR HEMOGLOBIN 25.9 pg (27.0-31.0); MEAN CORPUSCULAR HGB CONC 31.7 g/dL (33.0-37.0); MEAN PLATELET VOLUME 9.6 fL (7.2-11.7); MONO # 0.3 K/uL (0.0-0.8); MONO % 3.7 % (0.0-10.0); NEUT # 8.2 K/uL (1.8-7.0); NEUT % 94.1 % (50.0-75.0); PLATELET COUNT 303 K/uL (130-400); RED CELL DISTRIBUTION WIDTH 20.2 % (11.5-14.5); WHITE BLOOD COUNT 8.7 K/uL (4.8-10.8)
--- NOTE | 2018-10-29 17:29 | CP.PCM.CON ---
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 possibly now bleeding. Past Patient History - Past Medical History & Family History Past Medical History?: No - Past Social History Smoking Status: Never Smoked Alcohol: None Drugs: Denies Home Situation {Lives}: With Family Domestic Violence: Negative - CARDIAC Hx Hypercholesterolemia: Yes Hx Hypertension: Yes - MUSCULOSKELETAL/RHEUMATOLOGICAL Hx Falls: Yes - PSYCHIATRIC Hx Substance Use: (unobtainable) - ANESTHESIA Hx Anesthesia: No (Unobtainable) Meds Allergies/Adverse Reactions: Allergies Allergy/AdvReac Type Severity Reaction Status Date / Time Unobtainable Allergy Verified 10/12/18 07:39 - Medications Medications: Current Medications Ferric Sodium Gluconate Complex 125 mg/ Sodium Chloride 110 mls @ 110 mls/hr IVPB DAILY [facility] Stop: 10/30/18 10:01 Last Admin: 10/29/18 10:35 Dose: 110 mls/hr Fat Emulsion Intravenous (Intralipid 20%) 500 mls @ 42 mls/hr IV QOD@1800 [facility] Stop: 11/03/18 18:01 Last Admin: 10/28/18 18:00 Dose: 42 mls/hr Multivitamins/Vitamin C 10 ml/Chromium/Copper/Manganese/Zinc 1 ml/ Insulin Human Regular 10 unit/ Amino Acids 1,011.1 mls @ 42 mls/hr IV .Q24H ONE Stop: 10/29/18 17:59 Last Admin: 10/28/18 18:00 Dose: 42 mls/hr Multivitamins/Vitamin C 10 ml/Chromium/Copper/Manganese/Zinc 1 ml/ Insulin Human Regular 10 unit/ Amino Acids 1,011.1 mls @ 42 mls/hr IV .Q24H ONE Stop: 10/30/18 17:59 Cefepime HCl (Maxipime Iv 1 Gm Premix) 1 gm in 50 mls @ 100 mls/hr IVPB Q12H [facility]; Protocol Metronidazole (Flagyl) 500 mg in 100 mls @ 100 mls/hr IVPB Q8H [facility]; Protocol Last Admin: 10/29/18 14:48 Dose: 100 mls/hr Lorazepam (Ativan) 1 mg IVP Q4 PRN PRN Reason: Agitation Pantoprazole Sodium (Protonix Inj) 40 mg IVP BID [facility] Results - Vital Signs Recent Vital Signs: Last Vital Signs Temp 99.2 F 10/29/18 08:00 Pulse 72 10/29/18 08:00 Resp 20 10/29/18 08:00 BP 108/55 L 10/29/18 08:00 Pulse Ox 99 10/29/18 08:00 - Labs Result Diagrams: 10/29/18 11:05 10/28/18 14:05 Labs: Laboratory Results - last 24 hr 10/28/18 10/29/18 10/29/18 17:37 06:43 11:05 WBC 12.3 H D RBC 3.60 L Hgb 9.5 L Hct 29.4 L MCV 81.7 MCH 26.3 L MCHC 32.3 L RDW 20.0 H Plt Count 345 MPV 9.2 Neut % (Auto) 94.1 H Lymph % (Auto) 1.7 L Rhea % (Auto) 3.6 Eos % (Auto) 0.2 Baso % (Auto) 0.4 Neut # (Auto) 11.6 H Lymph # (Auto) 0.2 L Rhea # (Auto) 0.4 Eos # (Auto) 0.0 Baso # (Auto) 0.0 Neutrophils % (Manual) 82 H Band Neutrophils % 13 H* Lymphocytes % (Manual) 2 L Monocytes % (Manual) 2 Basophils % (Manual) 1 Platelet Estimate Normal Large Platelets Present Hypochromasia (manual) Slight Poikilocytosis (manual Slight Anisocytosis (manual) Slight Tear Drop Cells Slight Ovalocytes Slight [place] Cells Slight PT INR APTT Puncture Site pCO2 pO2 HCO3 ABG pH ABG Total CO2 ABG O2 Saturation ABG Base Excess Shashi Test ABG Potassium A-a O2 Difference Respiratory Index Sodium Chloride Glucose Lactate FiO2 POC Glucose (mg/dL) 98 134 H Lactic Acid Arterial Blood Potassium Blood Type Antibody Screen 10/29/18 10/29/18 10/29/18 11:05 11:05 11:22 WBC RBC Hgb Hct MCV MCH MCHC RDW Plt Count MPV Neut % (Auto) Lymph % (Auto) Rhea % (Auto) Eos % (Auto) Baso % (Auto) Neut # (Auto) Lymph # (Auto) Rhea # (Auto) Eos # (Auto) Baso # (Auto) Neutrophils % (Manual) Band Neutrophils % Lymphocytes % (Manual) Monocytes % (Manual) Basophils % (Manual) Platelet Estimate Large Platelets Hypochromasia (manual) Poikilocytosis (manual Anisocytosis (manual) Tear Drop Cells Ovalocytes Emerson Cells PT 12.1 INR 1.1 APTT 30 D Puncture Site pCO2 pO2 HCO3 ABG pH ABG Total CO2 ABG O2 Saturation ABG Base Excess Shashi Test ABG Potassium A-a O2 Difference Respiratory Index Sodium Chloride Glucose Lactate FiO2 POC Glucose (mg/dL) 142 H Lactic Acid Arterial Blood Potassium Blood Type A POSITIVE Antibody Screen Negative 10/29/18 10/29/18 10/29/18 13:58 16:05 16:37 WBC RBC Hgb Hct MCV MCH MCHC RDW Plt Count MPV Neut % (Auto) Lymph % (Auto) Rhea % (Auto) Eos % (Auto) Baso % (Auto) Neut # (Auto) Lymph # (Auto) Rhea # (Auto) Eos # (Auto) Baso # (Auto) Neutrophils % (Manual) Band Neutrophils % Lymphocytes % (Manual) Monocytes % (Manual) Basophils % (Manual) Platelet Estimate Large Platelets Hypochromasia (manual) Poikilocytosis (manual Anisocytosis (manual) Tear Drop Cells Ovalocytes Emerson Cells PT INR APTT Puncture Site Artery pCO2 27 L pO2 206 H HCO3 22.0 ABG pH 7.45 ABG Total CO2 19.6 L ABG O2 Saturation 100.4 H ABG Base Excess -3.8 L Shashi Test Po ABG Potassium 3.0 L A-a O2 Difference 473.0 Respiratory Index 2.3 Sodium 138.0 Chloride 109.0 H Glucose 100 Lactate 0.8 FiO2 100.0 POC Glucose (mg/dL) 128 H Lactic Acid 1.2 Arterial Blood Potassium 3.0 L Blood Type Antibody Screen Assessment & Plan - Assessment and Plan (Free Text) Assessment: patient is in a clinical state with little hope of recovery, discussed with sister, Suzanna Haynes. Advised that patient should be made comfortable if he becomes critically unstable and should be made DNR/DNI. She agreed even though this upset her. This conversation was witnessed by Dr. Landa. Calling for hospice evaluation. The sister is avoidant but can be made to understand the patient's grave situation.
[2018-10-29 17:35] LABS: ALB/GLOB RATIO 1.1 (1.0-2.1); ALT/SGPT 11 U/L (21-72); AST/SGOT 28 U/L (17-59); BLOOD UREA NITROGEN 37 mg/dL (9-20); GFR NON-AFRICAN AMERICAN 59
[2018-10-29 17:50] LABS: CK-MB 0.45 ng/mL (0.0-3.38)
[2018-10-29 17:51] LABS: BANDS 40 % (0-2); LYMPHOCYTE 2 % (20-40); MONOCYTE 5 % (0-10); TOTAL CELLS COUNTED 100
[2018-10-29 17:53] LABS: ANISOCYTOSIS MODERATE; HYPOCHROMIC SLIGHT; PLATELET ESTIMATE NORMAL (NORMAL)
[2018-10-29 17:54] LABS: NEUTROPHIL 53 % (50-75)
[2018-10-29 17:55] LABS: LARGE PLATELETS PRESENT; OVALOCYTES SLIGHT
[2018-10-29 17:57] LABS: HEPATITIS B SURFACE AG Negative (NEGATIVE)
[2018-10-29] MEDS ORDERED: PPN #14 IV ONE (18:00)
[2018-10-29 18:03] LABS: HEPATITIS A IGM NEGATIVE (NEGATIVE); HEPATITIS B CORE AB NEGATIVE (NEGATIVE)
[2018-10-29 18:14] LABS: HEPATITIS C ANTIBODY NEGATIVE (NEGATIVE)
--- NOTE | 2018-10-29 18:40 | CP.PCM.PN ---
Subjective - Date & Time of Evaluation Date of Evaluation: 10/29/18 Time of Evaluation: 18:36 - Subjective Subjective: Rapid response was called earlier today, because the patient was hypotensive, and poorly responsive, and looked pale. Patient was given IV NS with normalization of BP . HB.6 . Patient is afebrile and in no respiratory distress. Will increase PPN to 83 ml/hr. Patient was put on IV Flagyl by DR Ag. Will order portable chest XR, cbc, cmp in AM. Objective - Vital Signs/Intake and Output Vital Signs (last 24 hours): Temp Pulse Resp BP Pulse Ox 99.2 F 94 H 20 108/55 L 99 10/29/18 08:00 10/29/18 16:00 10/29/18 08:00 10/29/18 08:00 10/29/18 08:00 Intake and Output: 10/29/18 10/29/18 06:59 18:59 Intake Total 1008 Output Total 350 250 Balance 658 -250 - Medications Medications: Current Medications Ferric Sodium Gluconate Complex 125 mg/ Sodium Chloride 110 mls @ 110 mls/hr IVPB DAILY [facility] Stop: 10/30/18 10:01 Last Admin: 10/29/18 10:35 Dose: 110 mls/hr Fat Emulsion Intravenous (Intralipid 20%) 500 mls @ 42 mls/hr IV QOD@1800 [facility] Stop: 11/03/18 18:01 Last Admin: 10/28/18 18:00 Dose: 42 mls/hr Multivitamins/Vitamin C 10 ml/Chromium/Copper/Manganese/Zinc 1 ml/ Insulin Human Regular 10 unit/ Amino Acids 1,011.1 mls @ 42 mls/hr IV .Q24H ONE Stop: 10/30/18 17:59 Cefepime HCl (Maxipime Iv 1 Gm Premix) 1 gm in 50 mls @ 100 mls/hr IVPB Q12H [facility]; Protocol Last Admin: 10/29/18 16:00 Dose: Not Given Metronidazole (Flagyl) 500 mg in 100 mls @ 100 mls/hr IVPB Q8H [facility]; Protocol Last Admin: 10/29/18 14:48 Dose: 100 mls/hr Lorazepam (Ativan) 1 mg IVP Q4 PRN PRN Reason: Agitation Pantoprazole Sodium (Protonix Inj) 40 mg IVP BID [facility] - Labs Labs: 10/29/18 16:00 10/29/18 16:00 PT 12.1 SECONDS (9.7-12.2) 10/29/18 11:05 INR 1.1 10/29/18 11:05 APTT 30 SECONDS (21-34) D 10/29/18 11:05 - Constitutional Appears: Confused, Cachectic, Chronically Ill - Head Exam Head Exam: NORMAL INSPECTION - Eye Exam Eye Exam: Normal appearance Additional comments: Pale conjunctivae - ENT Exam ENT Exam: Normal Exam - Neck Exam Neck Exam: Normal Inspection - Respiratory Exam Respiratory Exam: Rhonchi Additional comments: Few rhonchi bilaterally. - Cardiovascular Exam Cardiovascular Exam: REGULAR RHYTHM - GI/Abdominal Exam GI & Abdominal Exam: Soft, Normal Bowel Sounds - Extremities Exam Extremities Exam: Normal Inspection - Back Exam Back Exam: NORMAL INSPECTION - Neurological Exam Additional comments: Lethargic. - Skin Skin Exam: Dry, Intact, Pallor, Warm Assessment and Plan (1) Change in mental status Status: Acute (2) Severe anemia Status: Resolved (3) Pneumonia Status: Acute (4) Hematuria Status: Acute (5) Gastric mass Status: Acute (6) Bilateral pleural effusion Status: Resolved
--- NOTE | 2018-10-29 19:22 | CP.PCM.PN ---
Subjective - Date & Time of Evaluation Date of Evaluation: 10/29/18 Time of Evaluation: 08:00 - Subjective Subjective: s/p rapid response lactic acid neg + bandemia- bleeding vs metastasis vs infection septic work up sent iv and po rx ordered Objective - Vital Signs/Intake and Output Vital Signs (last 24 hours): Temp Pulse Resp BP Pulse Ox 99.2 F 94 H 20 108/55 L 99 10/29/18 08:00 10/29/18 16:00 10/29/18 08:00 10/29/18 08:00 10/29/18 08:00 Intake and Output: 10/29/18 10/30/18 18:59 06:59 Output Total 250 Balance -250 - Medications Medications: Current Medications Ferric Sodium Gluconate Complex 125 mg/ Sodium Chloride 110 mls @ 110 mls/hr IVPB DAILY [facility] Stop: 10/30/18 10:01 Last Admin: 10/29/18 10:35 Dose: 110 mls/hr Fat Emulsion Intravenous (Intralipid 20%) 500 mls @ 42 mls/hr IV QOD@1800 [facility] Stop: 11/03/18 18:01 Last Admin: 10/28/18 18:00 Dose: 42 mls/hr Multivitamins/Vitamin C 10 ml/Chromium/Copper/Manganese/Zinc 1 ml/ Insulin Human Regular 10 unit/ Amino Acids 1,011.1 mls @ 42 mls/hr IV .Q24H ONE Stop: 10/30/18 17:59 Last Admin: 10/29/18 18:53 Dose: 42 mls/hr Cefepime HCl (Maxipime Iv 1 Gm Premix) 1 gm in 50 mls @ 100 mls/hr IVPB Q12H [facility]; Protocol Last Admin: 10/29/18 16:00 Dose: Not Given Metronidazole (Flagyl) 500 mg in 100 mls @ 100 mls/hr IVPB Q8H [facility]; Protocol Last Admin: 10/29/18 14:48 Dose: 100 mls/hr Lorazepam (Ativan) 1 mg IVP Q4 PRN PRN Reason: Agitation Pantoprazole Sodium (Protonix Inj) 40 mg IVP BID [facility] Last Admin: 10/29/18 18:56 Dose: 40 mg - Labs Labs: 10/29/18 16:00 10/29/18 16:00 PT 12.1 SECONDS (9.7-12.2) 10/29/18 11:05 INR 1.1 10/29/18 11:05 APTT 30 SECONDS (21-34) D 10/29/18 11:05 - Constitutional Appears: Confused, Cachectic, Chronically Ill - Head Exam Head Exam: NORMOCEPHALIC - Eye Exam Eye Exam: absent: Scleral icterus - ENT Exam ENT Exam: Mucous Membranes Dry - Neck Exam Neck Exam: absent: Lymphadenopathy - Respiratory Exam Respiratory Exam: Decreased Breath Sounds, Clear to Ausculation Bilateral - Cardiovascular Exam Cardiovascular Exam: REGULAR RHYTHM, +S1, +S2 - GI/Abdominal Exam GI & Abdominal Exam: Distended, Soft. absent: Tenderness - Rectal Exam Rectal Exam: Deferred - Exam Exam: NORMAL INSPECTION - Extremities Exam Extremities Exam: Pedal Edema - Back Exam Back Exam: absent: CVA tenderness (L), CVA tenderness (R) - Neurological Exam Neurological Exam: Altered - Psychiatric Exam Psychiatric exam: Depressed - Skin Skin Exam: Dry Assessment and Plan (1) Change in mental status Status: Acute (2) Hypothermia Status: Acute (3) Bilateral pleural effusion Status: Resolved (4) Gastric mass Status: Acute (5) Pneumonia Status: Acute - Assessment and Plan (Free Text) Assessment: s/p rapid response lactic acid neg + bandemia- bleeding vs metastasis vs infection septic work up sent iv and po rx ordered DNR in effect poor prognosis
[2018-10-30] MEDS: Cefepime IV 1 gm in Dextrose 1 GM/50 ML BAG IVPB SCH ×2 (03:30→14:44)
[2018-10-30] MEDS: metroNIDAZOLE IV 500 mg/100 ml 500 MG/100 ML BAG IVPB SCH ×3 (05:15→22:10)
[2018-10-30 08:10] LABS: BASO % 0.1 % (0.0-2.0); EOS # 0.1 K/uL (0.0-0.7); EOS % 0.9 % (0.0-4.0); HEMOGLOBIN 7.9 g/dL (12.0-18.0); LYMPH # 0.3 K/uL (1.0-4.3); LYMPH % 2.2 % (20.0-40.0); MEAN CELL VOLUME 82.3 fL (80.0-94.0); MEAN CORPUSCULAR HEMOGLOBIN 26.5 pg (27.0-31.0); MEAN CORPUSCULAR HGB CONC 32.1 g/dL (33.0-37.0); MEAN PLATELET VOLUME 10.2 fL (7.2-11.7); MONO # 0.5 K/uL (0.0-0.8); MONO % 4.3 % (0.0-10.0); NEUT % 92.5 % (50.0-75.0); PLATELET COUNT 230 K/uL (130-400); RBC 2.99 Mil/uL (4.40-5.90); RED CELL DISTRIBUTION WIDTH 20.7 % (11.5-14.5); WHITE BLOOD COUNT 11.9 K/uL (4.8-10.8)
[2018-10-30 08:21] LABS: ALBUMIN 2.6 g/dL (3.5-5.0); ALT/SGPT 18 U/L (21-72); AST/SGOT 26 U/L (17-59); BLOOD UREA NITROGEN 46 mg/dL (9-20); CALCIUM 7.6 mg/dl (8.6-10.4); GFR NON-AFRICAN AMERICAN 59
[2018-10-30 09:45] LABS: ABG ALLEN TEST POS; ARTERIAL BLOOD GAS O2 SAT 100.3 % (95-98); ARTERIAL BLOOD GAS PCO2 21 mm/Hg (35-45); ARTERIAL BLOOD GAS PH 7.51 (7.35-7.45); ARTERIAL BLOOD GAS TCO2 17.4 mmol/L (22-28)
[2018-10-30] MEDS ORDERED: Ferric Sodium Gluconat Complex 62.5 mg/5 ml Vial ONE (10:14)
[2018-10-30] MEDS: Ferric Sodium Gluconat Complex 125 MG in Sodium Chloride 0.9% 100 ML IVPB SCH (10:21)
--- NOTE | 2018-10-30 10:23 | RAD ---
Date of service: 10/30/2018 HISTORY: Follow up pneumonia, s/p hypotension. COMPARISON: Portable chest 10/29/2018. FINDINGS: LUNGS: Limited patchy atelectasis or infiltrate is seen at the mid left lung extending inferiorly in the interval. Remaining lung fernandez appear clear. Skin folds are seen at the right hemithorax laterally. PLEURA: No significant pleural effusion identified, no pneumothorax apparent. CARDIOVASCULAR: Calcific atherosclerotic changes are seen related to the thoracic aorta. Normal cardiac size. No pulmonary vascular congestion. OSSEOUS STRUCTURES: No significant abnormalities. VISUALIZED UPPER ABDOMEN: Normal. OTHER FINDINGS: None. IMPRESSION: Limited patchy atelectasis or infiltrate at the mid inferior left lung zone with remaining lung fernandez clear. No pulmonary vascular congestion.
[2018-10-30 11:49] LABS: ANISOCYTOSIS MODERATE; BANDS 43 % (0-2); LYMPHOCYTE 4 % (20-40); MONOCYTE 4 % (0-10); PLATELET ESTIMATE NORMAL (NORMAL); TOTAL CELLS COUNTED 100
[2018-10-30 11:50] LABS: LARGE PLATELETS PRESENT; NEUTROPHIL 49 % (50-75); OVALOCYTES SLIGHT; TOXIC GRANULATION PRESENT
--- NOTE | 2018-10-30 13:51 | PN ---
DATE: 10/30/2018 SUBJECTIVE: The patient is seen. The patient had rapid response done yesterday as the patient was becoming hypotensive and very pale. The patient is declining medically. He is still very confused, but not agitated, still in the four-bedded room. According to the case finishing machine adjuster, the patient's [id number] has agreed for the patient to be for hospice and wants to take him home. The patient is DNR/DNI. 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 Today, he seems comfortable, not in distress. Family is more geared towards hospice and palliative care. PHYSICAL EXAMINATION: VITAL SIGNS: 98.4, 83, 100/61, respirations 18, oxygen saturation 95%. REVIEW OF SYSTEMS: GENERAL: The patient is alert, but confused, oriented x1, looks very pale. SKIN: No diaphoresis. HEENT: No headache or dizziness. NECK: Supple. RESPIRATORY: No dyspnea. CARDIOVASCULAR: No chest pain. GASTROINTESTINAL: The patient is n.p.o., no abdominal pain, PPN. EXTREMITIES: Has mittens. MUSCULOSKELETAL: Feels weak. NEUROLOGIC: Globally confused, but not agitated. GENITOURINARY: No urinary problems. MENTAL STATUS EXAMINATION: Elderly male, looks cachectic, oriented x1. Mood is dysphoric. Affect is restricted. Speech is slow. Thought process, confused. Thought content, no overt psychosis, no suicidal ideation. Attention and memory seem to be impaired. Insight and judgement impaired. Impulse control is guarded at this time. IMPRESSION: 1. 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 2. Mood disorder. PLAN AND RECOMMENDATION: The patient was seen, meds reviewed. Continue one-to-one for monitoring. Continue present Ativan as needed. The patient is for palliative care. The patient's sister wants to take the patient home. So, the patient may benefit eventually for home hospice, but the patient just needs to get some help at home as the patient is 24-hour monitoring due to his profound confusion. Naveed Cooper MD
--- NOTE | 2018-10-30 14:10 | CP.PCM.PN ---
Subjective - Date & Time of Evaluation Date of Evaluation: 10/30/18 Time of Evaluation: 14:08 - Subjective Subjective: Pt s/e. Confused. Dysphagia from esophagpgastric ca. For feeding jejunostomy on Friday. Consented by sister. I will meet with sister on Friday. Objective - Vital Signs/Intake and Output Vital Signs (last 24 hours): Temp Pulse Resp BP Pulse Ox 98.4 F 83 18 100/61 95 10/30/18 07:46 10/30/18 09:03 10/30/18 07:46 10/30/18 09:03 10/30/18 07:46 Intake and Output: 10/30/18 10/30/18 06:59 18:59 Intake Total 2000 664 Output Total 250 Balance 1750 664 - Medications Medications: Current Medications Fat Emulsion Intravenous (Intralipid 20%) 500 mls @ 42 mls/hr IV QOD@1800 [facility] Stop: 11/03/18 18:01 Last Admin: 10/28/18 18:00 Dose: 42 mls/hr Multivitamins/Vitamin C 10 ml/Chromium/Copper/Manganese/Zinc 1 ml/ Insulin Human Regular 10 unit/ Amino Acids 1,011.1 mls @ 42 mls/hr IV .Q24H ONE Stop: 10/30/18 17:59 Last Admin: 10/29/18 18:53 Dose: 42 mls/hr Cefepime HCl (Maxipime Iv 1 Gm Premix) 1 gm in 50 mls @ 100 mls/hr IVPB Q12H [facility]; Protocol Last Admin: 10/30/18 03:30 Dose: 100 mls/hr Metronidazole (Flagyl) 500 mg in 100 mls @ 100 mls/hr IVPB Q8H [facility]; Protocol Last Admin: 10/30/18 05:15 Dose: 100 mls/hr Multivitamins/Vitamin C 10 ml/Chromium/Copper/Manganese/Zinc 1 ml/ Insulin Human Regular 10 unit/ Amino Acids 1,011.1 mls @ 82 mls/hr IV .[id number] ONE Stop: 10/31/18 06:19 Insulin Human Regular 10 unit/ (Amino Acids) 1,000.1 mls @ 82 mls/hr IV .[id number] ONE Stop: 10/31/18 18:11 Lorazepam (Ativan) 1 mg IVP Q4 PRN PRN Reason: Agitation Pantoprazole Sodium (Protonix Inj) 40 mg IVP BID [facility] Last Admin: 10/30/18 10:21 Dose: 40 mg - Labs Labs: 10/30/18 07:54 10/30/18 07:54 PT 12.1 SECONDS (9.7-12.2) 10/29/18 11:05 INR 1.1 10/29/18 11:05 APTT 30 SECONDS (21-34) D 10/29/18 11:05
--- NOTE | 2018-10-30 16:59 | CP.PCM.PN ---
Subjective - Date & Time of Evaluation Date of Evaluation: 10/30/18 Time of Evaluation: 08:00 - Subjective Subjective: looks better after transfusion afebrile confused Objective - Vital Signs/Intake and Output Vital Signs (last 24 hours): Temp Pulse Resp BP Pulse Ox 98.1 F 83 20 102/54 L 95 10/30/18 16:22 10/30/18 16:22 10/30/18 16:22 10/30/18 16:22 10/30/18 07:46 Intake and Output: 10/30/18 10/30/18 06:59 18:59 Intake Total 1999 66 Output Total 250 300 Balance 1750 364 - Medications Medications: Current Medications Fat Emulsion Intravenous (Intralipid 20%) 500 mls @ 42 mls/hr IV QOD@1800 [facility] Stop: 11/03/18 18:01 Last Admin: 10/28/18 18:00 Dose: 42 mls/hr Multivitamins/Vitamin C 10 ml/Chromium/Copper/Manganese/Zinc 1 ml/ Insulin Human Regular 10 unit/ Amino Acids 1,011.1 mls @ 42 mls/hr IV .Q24H ONE Stop: 10/30/18 17:59 Last Admin: 10/29/18 18:53 Dose: 42 mls/hr Cefepime HCl (Maxipime Iv 1 Gm Premix) 1 gm in 50 mls @ 100 mls/hr IVPB Q12H [facility]; Protocol Last Admin: 10/30/18 14:44 Dose: 100 mls/hr Metronidazole (Flagyl) 500 mg in 100 mls @ 100 mls/hr IVPB Q8H [facility]; Protocol Last Admin: 10/30/18 14:22 Dose: Not Given Multivitamins/Vitamin C 10 ml/Chromium/Copper/Manganese/Zinc 1 ml/ Insulin Human Regular 10 unit/ Amino Acids 1,011.1 mls @ 82 mls/hr IV .[id number] ONE Stop: 10/31/18 06:19 Insulin Human Regular 10 unit/ (Amino Acids) 1,000.1 mls @ 82 mls/hr IV .[id number] ONE Stop: 10/31/18 18:11 Lorazepam (Ativan) 1 mg IVP Q4 PRN PRN Reason: Agitation Pantoprazole Sodium (Protonix Inj) 40 mg IVP BID [facility] Last Admin: 10/30/18 10:21 Dose: 40 mg - Labs Labs: 10/30/18 07:54 10/30/18 07:54 PT 12.1 SECONDS (9.7-12.2) 10/29/18 11:05 INR 1.1 10/29/18 11:05 APTT 30 SECONDS (21-34) D 10/29/18 11:05 - Constitutional Appears: Confused, Cachectic, Chronically Ill - Head Exam Head Exam: NORMOCEPHALIC - Eye Exam Eye Exam: absent: Scleral icterus - ENT Exam ENT Exam: Mucous Membranes Dry - Neck Exam Neck Exam: absent: Lymphadenopathy - Respiratory Exam Respiratory Exam: Decreased Breath Sounds - Cardiovascular Exam Cardiovascular Exam: REGULAR RHYTHM - GI/Abdominal Exam GI & Abdominal Exam: Distended, Soft - Rectal Exam Rectal Exam: Deferred - Exam Exam: NORMAL INSPECTION - Extremities Exam Extremities Exam: absent: Pedal Edema - Back Exam Back Exam: absent: CVA tenderness (L), CVA tenderness (R) - Neurological Exam Neurological Exam: Altered Assessment and Plan (1) Change in mental status Status: Acute (2) Hypothermia Status: Acute (3) Bilateral pleural effusion Status: Resolved (4) Gastric mass Status: Acute (5) Pneumonia Status: Acute - Assessment and Plan (Free Text) Assessment: cont iv rx await repeat cultures poor prognosis DNR/DNI
--- NOTE | 2018-10-30 17:31 | PN ---
DATE: 10/30/2018 LOCATION: 559, bed B. SUBJECTIVE: This is a 78-year-old male in a state of DNR and DNI due to gastroesophageal cancer with malnutrition and dysphagia, seen in rounds without significant clinical changes. On hyperalimentation. The entire chart is reviewed including but not limited to the most recent lab results which showed white blood cells today of 11.9, drop of hemoglobin 7.9, hematocrit 24.6 as the patient reported to have some melena as per yesterday with low indices highly suggestive of hypochromic microcytic anemia. The patient ABGs abnormal as reported with increased BUN to 46, creatinine 1.2. Blood glucose level 127, calcium 7.6 with albumin 2.9, total protein 5.2. The patient reported to have negative hepatitis profile. PHYSICAL EXAMINATION: GENERAL: A 78-year-old male. VITAL SIGNS: Afebrile with pulse of 80, respiratory rate 20-22, blood pressure of 108/64. HEENT: Showed mildly pale dry oral mucoid membrane. Nonicteric sclerae. LUNGS: Few scattered crepitation. Decreased air entry at bases. HEART: Positive S1 and S2. ABDOMEN: Soft with mild distention with slight generalized tenderness. No mass or organomegaly. No rebound tenderness or guarding. EXTREMITIES: Without significant clubbing, cyanosis or edema. NEUROLOGIC: No reported new neurological deficits, sensory or motor. IMPRESSION: 1. Gastroesophageal cancer. 2. Anemia with melena, most likely secondary to above. Malnutrition with hypoalbuminemia, hypoproteinemia. 3. Bilateral pleural effusion with pneumonia as per recent radiology study. SUGGESTIONS: 1. Agree with your plan. 2. Blood transfusion to keep hemoglobin around 10 g percent with conservative treatment. 3. Peripheral versus hyperalimentation. 4. Surgical consultation and reevaluation. Flynn Avina MD
[2018-10-30] MEDS ORDERED: PPN #15 IV ONE (18:00)
[2018-10-30] MEDS: Fat Emulsion 20% IV 500 ML IV SCH (18:12)
--- NOTE | 2018-10-30 22:28 | CP.PCM.PN ---
Subjective - Date & Time of Evaluation Date of Evaluation: 10/30/18 Time of Evaluation: 13:30 - Subjective Subjective: Patient remains confused, but afebrile and in no respiratory distress. Hgb: 7.8. Will transfuse one unit of PRC. Objective - Vital Signs/Intake and Output Vital Signs (last 24 hours): Temp Pulse Resp BP Pulse Ox 97.7 F 81 20 95/50 L 94 L 10/30/18 17:42 10/30/18 17:42 10/30/18 17:42 10/30/18 17:42 10/30/18 15:00 Intake and Output: 10/30/18 10/31/18 18:59 06:59 Intake Total 989 Output Total 300 Balance 689 - Medications Medications: Current Medications Fat Emulsion Intravenous (Intralipid 20%) 500 mls @ 42 mls/hr IV QOD@1800 [facility] Stop: 11/03/18 18:01 Last Admin: 10/30/18 18:12 Dose: 42 mls/hr Cefepime HCl (Maxipime Iv 1 Gm Premix) 1 gm in 50 mls @ 100 mls/hr IVPB Q12H [facility]; Protocol Last Admin: 10/30/18 14:44 Dose: 100 mls/hr Metronidazole (Flagyl) 500 mg in 100 mls @ 100 mls/hr IVPB Q8H [facility]; Protocol Last Admin: 10/30/18 22:10 Dose: 100 mls/hr Multivitamins/Vitamin C 10 ml/Chromium/Copper/Manganese/Zinc 1 ml/ Insulin Human Regular 10 unit/ Amino Acids 1,011.1 mls @ 82 mls/hr IV .[id number] ONE Stop: 10/31/18 06:19 Last Admin: 10/30/18 18:10 Dose: 82 mls/hr Insulin Human Regular 10 unit/ (Amino Acids) 1,000.1 mls @ 82 mls/hr IV .Q1 2H12M ONE Stop: 10/31/18 18:11 Lorazepam (Ativan) 1 mg IVP Q4 PRN PRN Reason: Agitation Lorazepam (Ativan) 1 mg IVP Q4H PRN PRN Reason: Agitation Last Admin: 10/30/18 22:10 Dose: 1 mg Pantoprazole Sodium (Protonix Inj) 40 mg IVP BID [facility] Last Admin: 10/30/18 18:09 Dose: 40 mg - Labs Labs: 10/30/18 07:54 10/30/18 07:54 PT 12.1 SECONDS (9.7-12.2) 10/29/18 11:05 INR 1.1 10/29/18 11:05 APTT 30 SECONDS (21-34) D 10/29/18 11:05 - Constitutional Appears: No Acute Distress, Cachectic, Chronically Ill - Head Exam Head Exam: NORMAL INSPECTION - Eye Exam Eye Exam: Normal appearance - ENT Exam ENT Exam: Normal Exam - Neck Exam Neck Exam: Normal Inspection - Respiratory Exam Respiratory Exam: Rhonchi, NORMAL BREATHING PATTERN - Cardiovascular Exam Cardiovascular Exam: REGULAR RHYTHM - GI/Abdominal Exam GI & Abdominal Exam: Soft, Normal Bowel Sounds - Rectal Exam Rectal Exam: Deferred - Extremities Exam Extremities Exam: Normal Inspection - Back Exam Back Exam: NORMAL INSPECTION - Neurological Exam Neurological Exam: Alert, Awake, Oriented x3 - Psychiatric Exam Psychiatric exam: Anxious - Skin Skin Exam: Dry, Intact, Warm Assessment and Plan (1) Change in mental status Status: Acute (2) Severe anemia Assessment & Plan: Transfuse one unit of PRC today. Status: Resolved (3) Pneumonia Status: Acute (4) Hematuria Status: Acute (5) Gastric mass Assessment & Plan: For a feeding jejunostosmy on Friday. Status: Acute (6) Bilateral pleural effusion Status: Resolved
[2018-10-31] MEDS: Cefepime IV 1 gm in Dextrose 1 GM/50 ML BAG IVPB SCH (02:33)
[2018-10-31] MEDS: metroNIDAZOLE IV 500 mg/100 ml 500 MG/100 ML BAG IVPB SCH (05:18)
[2018-10-31] MEDS ORDERED: PPN #16 IV ONE (06:00)
[2018-10-31 07:56] LABS: BASO % 0.4 % (0.0-2.0); EOS # 0.4 K/uL (0.0-0.7); EOS % 4.6 % (0.0-4.0); HEMOGLOBIN 8.6 g/dL (12.0-18.0); LYMPH # 0.4 K/uL (1.0-4.3); LYMPH % 4.9 % (20.0-40.0); MEAN CELL VOLUME 83.4 fL (80.0-94.0); MEAN CORPUSCULAR HEMOGLOBIN 27.8 pg (27.0-31.0); MEAN CORPUSCULAR HGB CONC 33.4 g/dL (33.0-37.0); MEAN PLATELET VOLUME 10.1 fL (7.2-11.7); MONO # 0.6 K/uL (0.0-0.8); MONO % 6.7 % (0.0-10.0); NEUT # 6.9 K/uL (1.8-7.0); NEUT % 83.4 % (50.0-75.0); PLATELET COUNT 202 K/uL (130-400); RED CELL DISTRIBUTION WIDTH 21.2 % (11.5-14.5); WHITE BLOOD COUNT 8.3 K/uL (4.8-10.8)
--- NOTE | 2018-10-31 08:37 | PN ---
DATE: 10/31/2018 LOCATION: 559, bed B. SUBJECTIVE: This 78-year-old male seen and examined in rounds without significant clinical changes, but reported recent history of melena with subsequent drop of hemoglobin and hematocrit for which blood transfusion was given. The entire chart is reviewed. The most recent lab and radiology study results seen and today's lab results showed blood glucose level of 118, rest of lab results still pending. PHYSICAL EXAMINATION: GENERAL: A 78-year-old male in a state of DNR and DNI. VITAL SIGNS: Afebrile with pulse of 74, respiratory rate 20 to 22, blood pressure of 104/58. HEENT: Showed pale dry oral mucoid membrane. Nonicteric sclerae. LUNGS: Few scattered crepitation. Decreased air entry at bases. HEART: Positive S1 and S2. ABDOMEN: Soft with mild generalized tenderness. No mass or organomegaly. No rebound tenderness or guarding. EXTREMITIES: With lower extremities mild edematous changes. No clubbing or cyanosis. NEUROLOGIC: No reported new neurological deficits, sensory or motor. IMPRESSION: 1. Gastroesophageal carcinoma. 2. Anemia with melena secondary to above most likely. 3. Bilateral pleural effusion, aspiration pneumonia, by recent radiology study reports. 4. Malnutrition with hypoalbuminemia associated with recent episodes of dysphagia. SUGGESTIONS: 1. Continue current management. 2. Again, the patient will need gastrostomy tube insertion done surgically. 3. Further recommendation to follow. Flynn Avina MD
[2018-10-31 08:38] LABS: ALBUMIN 2.6 g/dL (3.5-5.0); ALT/SGPT 19 U/L (21-72); AST/SGOT 26 U/L (17-59); BLOOD UREA NITROGEN 42 mg/dL (9-20); GFR NON-AFRICAN AMERICAN > 60
[2018-10-31 11:22] LABS: BANDS 23 % (0-2); EOSINOPHIL 4 % (0-4); LYMPHOCYTE 8 % (20-40); MONOCYTE 10 % (0-10); NEUTROPHIL 55 % (50-75); PLATELET ESTIMATE NORMAL (NORMAL); TOTAL CELLS COUNTED 100
[2018-10-31 11:23] LABS: ANISOCYTOSIS MODERATE; BURR CELLS SLIGHT; MICROCYTOSIS SLIGHT; OVALOCYTES SLIGHT; POIKILOCYTOSIS SLIGHT; POLYCHROMIC SLIGHT; SCHISTOCYTES SLIGHT; TEARDROP CELLS SLIGHT
[2018-10-31 11:24] LABS: ACANTHOCYTES SLIGHT; LARGE PLATELETS PRESENT
[2018-10-31] MEDS ORDERED: PPN IV ONE (18:00)
--- NOTE | 2018-10-31 23:19 | PN ---
DATE: 10/31/2018 SUBJECTIVE: The patient is still very confused but calm. No behavioral problems, in the 4-bedded observation room and with hand mittens and is in one-to-one monitoring. Family especially her sister wants now palliative hospice care. No recurrence of melena. PHYSICAL EXAMINATION: VITAL SIGNS: Temperature 99.8, pulse 79, blood pressure 122/70, respirations 20, oxygen saturation 94%. REVIEW OF SYSTEMS: GENERAL: The patient is alert, but very confused, oriented x1, with hand mittens, seen in his room resting. SKIN: No diaphoresis. HEENT: No headache. No dizziness. NECK: Supple. RESPIRATORY: No dyspnea. CARDIOVASCULAR: No chest pain. GASTROINTESTINAL: No melena. No abdominal pain. EXTREMITIES: Has hand mittens. The patient has been bed bound. MUSCULOSKELETAL: Feels weak. NEUROLOGIC: Alert, grossly confused, oriented x1. MENTAL STATUS EXAMINATION: Tall, cachectic male who looks stated age, oriented x1. Speech is slow. Affect is restricted. Mood is dysphoric. Thought process, confused. Thought content, no overt psychosis. No suicidal or homicidal ideation. Attention and memory seem to be impaired. Insight and judgement impaired. Impulse control is guarded at this time. IMPRESSION: 1. 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 2. Mood disorder. PLAN AND RECOMMENDATION: The patient was seen. Meds reviewed. Continue present management. The patient will benefit from palliative and hospice care. The patient is now DNR/DNI. The patient will be discharged to home. He will need a jejunostomy and will need 24-hour care if discharged to home. The sister needs to find somebody to watch her brother if discharged to home. The patient at this time needs 24-hour monitoring if discharged to home. Naveed Cooper MD MTDJose
--- NOTE | 2018-11-01 00:04 | CP.PCM.PN ---
Subjective - Date & Time of Evaluation Date of Evaluation: 10/31/18 Time of Evaluation: 16:00 - Subjective Subjective: Patient still confused, afebrile, in no respiratory distress. Objective - Vital Signs/Intake and Output Vital Signs (last 24 hours): Temp Pulse Resp BP Pulse Ox 99.8 F H 79 20 122/72 94 L 10/31/18 15:00 10/31/18 15:00 10/31/18 15:00 10/31/18 15:00 10/31/18 15:00 Intake and Output: 10/31/18 11/01/18 18:59 06:59 Intake Total 336 656 Balance 336 656 - Medications Medications: Current Medications Fat Emulsion Intravenous (Intralipid 20%) 500 mls @ 42 mls/hr IV QOD@1800 [facility] Stop: 11/03/18 18:01 Last Admin: 10/30/18 18:12 Dose: 42 mls/hr Multivitamins/Vitamin C 10 ml/Chromium/Copper/Manganese/Zinc 1 ml/ Insulin Human Regular 10 unit/ Amino Acids 1,011.1 mls @ 82 mls/hr IV .[id number] ONE Stop: 11/01/18 06:19 Last Admin: 10/31/18 18:30 Dose: 82 mls/hr Insulin Human Regular 10 unit/ (Amino Acids) 1,000.1 mls @ 82 mls/hr IV .[id number] [facility] Stop: 11/01/18 17:59 Lorazepam (Ativan) 1 mg IVP Q4 PRN PRN Reason: Agitation Lorazepam (Ativan) 1 mg IVP Q4H PRN PRN Reason: Agitation Last Admin: 10/30/18 22:10 Dose: 1 mg Pantoprazole Sodium (Protonix Inj) 40 mg IVP BID [facility] Last Admin: 10/31/18 17:50 Dose: 40 mg - Labs Labs: 10/31/18 07:30 10/31/18 07:30 PT 12.1 SECONDS (9.7-12.2) 10/29/18 11:05 INR 1.1 10/29/18 11:05 APTT 30 SECONDS (21-34) D 10/29/18 11:05 - Constitutional Appears: No Acute Distress, Cachectic, Chronically Ill - Head Exam Head Exam: NORMAL INSPECTION - Eye Exam Eye Exam: Normal appearance - ENT Exam ENT Exam: Normal Exam - Respiratory Exam Respiratory Exam: Rhonchi - Cardiovascular Exam Cardiovascular Exam: REGULAR RHYTHM - GI/Abdominal Exam GI & Abdominal Exam: Soft, Normal Bowel Sounds - Rectal Exam Rectal Exam: Deferred - Exam Exam: NORMAL INSPECTION - Extremities Exam Extremities Exam: Normal Inspection - Back Exam Back Exam: NORMAL INSPECTION - Neurological Exam Neurological Exam: Alert, Awake, Oriented x3 - Psychiatric Exam Psychiatric exam: Anxious - Skin Skin Exam: Dry, Intact Assessment and Plan (1) Change in mental status Status: Acute (2) Severe anemia Status: Resolved (3) Pneumonia Status: Acute (4) Hematuria Status: Acute (5) Gastric mass Status: Acute (6) Bilateral pleural effusion Status: Resolved
[2018-11-01] MEDS ORDERED: PPN IV SCH (06:00)
[2018-11-01 08:22] LABS: BASO % 0.4 % (0.0-2.0); EOS # 0.3 K/uL (0.0-0.7); EOS % 4.3 % (0.0-4.0); HEMOGLOBIN 8.6 g/dL (12.0-18.0); LYMPH # 0.6 K/uL (1.0-4.3); LYMPH % 8.3 % (20.0-40.0); MEAN CELL VOLUME 83.8 fL (80.0-94.0); MEAN CORPUSCULAR HEMOGLOBIN 27.2 pg (27.0-31.0); MEAN CORPUSCULAR HGB CONC 32.4 g/dL (33.0-37.0); MEAN PLATELET VOLUME 10.5 fL (7.2-11.7); MONO # 0.6 K/uL (0.0-0.8); MONO % 8.1 % (0.0-10.0); NEUT # 5.5 K/uL (1.8-7.0); NEUT % 78.9 % (50.0-75.0); PLATELET COUNT 207 K/uL (130-400); RBC 3.16 Mil/uL (4.40-5.90); RED CELL DISTRIBUTION WIDTH 21.2 % (11.5-14.5)
--- NOTE | 2018-11-01 09:12 | CP.PCM.PN ---
Subjective - Date & Time of Evaluation Date of Evaluation: 11/01/18 Time of Evaluation: 07:10 - Subjective Subjective: Surgery Progress note. Dr. Mathews Pt seen and examined at bedside this morning. No new complaints reports as per staff. Objective - Vital Signs/Intake and Output Vital Signs (last 24 hours): Temp Pulse Resp BP Pulse Ox 97.9 F 67 20 147/66 97 11/01/18 07:55 11/01/18 07:55 11/01/18 07:55 11/01/18 07:55 11/01/18 07:55 Intake and Output: 11/01/18 11/01/18 06:59 18:59 Intake Total 656 Output Total 450 Balance 206 - Medications Medications: Current Medications Fat Emulsion Intravenous (Intralipid 20%) 500 mls @ 42 mls/hr IV QOD@1800 [facility] Stop: 11/03/18 18:01 Last Admin: 10/30/18 18:12 Dose: 42 mls/hr Insulin Human Regular 10 unit/ (Amino Acids) 1,000.1 mls @ 82 mls/hr IV .[id number] [facility] Stop: 11/01/18 17:59 Last Admin: 11/01/18 06:17 Dose: 82 mls/hr Lorazepam (Ativan) 1 mg IVP Q4 PRN PRN Reason: Agitation Lorazepam (Ativan) 1 mg IVP Q4H PRN PRN Reason: Agitation Last Admin: 10/30/18 22:10 Dose: 1 mg Pantoprazole Sodium (Protonix Inj) 40 mg IVP BID [facility] Last Admin: 10/31/18 17:50 Dose: 40 mg - Labs Labs: 11/01/18 07:56 10/31/18 07:30 PT 12.1 SECONDS (9.7-12.2) 10/29/18 11:05 INR 1.1 10/29/18 11:05 APTT 30 SECONDS (21-34) D 10/29/18 11:05 - Constitutional Appears: Non-toxic, No Acute Distress, Chronically Ill - Head Exam Head Exam: ATRAUMATIC, NORMAL INSPECTION, NORMOCEPHALIC - Eye Exam Eye Exam: EOMI, Normal appearance. absent: Scleral icterus - ENT Exam ENT Exam: Mucous Membranes Moist - Respiratory Exam Respiratory Exam: NORMAL BREATHING PATTERN. absent: Accessory Muscle Use, Respiratory Distress - GI/Abdominal Exam GI & Abdominal Exam: Soft. absent: Distended, Guarding, Tenderness, Rebound - Extremities Exam Extremities Exam: Normal Inspection. absent: Calf Tenderness - Neurological Exam Neurological Exam: Awake - Skin Skin Exam: Dry, Intact, Normal Color, Warm Assessment and Plan - Assessment and Plan (Free Text) Assessment: 78yo M with esophageal mass. Plan: - Will plan for OR tomorrow, 11/02 for feeding jejunostomy - Medical maximization as per Primary team Further recs as per Dr. Reid Bertrand PGY2 surgery
[2018-11-01 11:22] LABS: BANDS 5 % (0-2); BASOPHIL 1 % (0-2); EOSINOPHIL 2 % (0-4); LYMPHOCYTE 6 % (20-40); MONOCYTE 9 % (0-10); NEUTROPHIL 77 % (50-75); TOTAL CELLS COUNTED 100
[2018-11-01 11:23] LABS: ANISOCYTOSIS MODERATE; PLATELET ESTIMATE NORMAL (NORMAL); POIKILOCYTOSIS SLIGHT
[2018-11-01 11:24] LABS: BURR CELLS SLIGHT; HYPOCHROMIC SLIGHT; LARGE PLATELETS PRESENT; OVALOCYTES SLIGHT; POLYCHROMIC SLIGHT
[2018-11-01 11:25] LABS: SCHISTOCYTES SLIGHT; TOXIC GRANULATION PRESENT
--- NOTE | 2018-11-01 14:17 | PN ---
DATE: 11/01/2018 LOCATION: 559, bed B. SUBJECTIVE: This is a 78-year-old male in a state of DNR/DNI, seen and examined early in rounds without any significant clinical changes. The patient still has period of dysphagia and is to be scheduled for potential gastrostomy tube insertion to be done surgically. The entire chart is reviewed including but not limited to the most recent lab and radiology study results, current and the previous medication list, current and previous medical events. Was reported before that the patient had episode of melena, most likely secondary to his gastroesophageal adeno CA. Today's lab showed hemoglobin of 8.6, hematocrit 26.5 with normal platelet count. Blood glucose level 119. PHYSICAL EXAMINATION: GENERAL: A 78-year-old male, afebrile with no communicating verbally well with pulse of 66, respiratory rate 20-22, blood pressure of 130/62. HEENT: Showed pale dry oral mucous membrane. Nonicteric sclerae. LUNGS: Few scattered crepitation. Decreased air entry at bases. HEART: Positive S1 and S2. ABDOMEN: Soft with mild generalized tenderness. No mass or organomegaly. No rebound tenderness or guarding. EXTREMITIES: Without significant edema, clubbing or cyanosis. NEUROLOGIC: No reported new neurological deficits, sensory or motor. No reported new focal deficits. IMPRESSION: 1. Gastroesophageal cancer. 2. Dysphagia secondary to above with malnutrition and hypoalbuminemia, hypoproteinemia. 3. Melena, most likely secondary to above. 4. Anemia secondary to above. 5. Reported bilateral pleural effusion, aspiration pneumonia by radiology study results. SUGGESTIONS: Continue current management. Again, surgical consultation for potential gastrostomy tube insertion. Flynn Avina MD
--- NOTE | 2018-11-01 16:41 | CP.PCM.PN ---
Subjective - Date & Time of Evaluation Date of Evaluation: 11/01/18 Time of Evaluation: 07:00 - Subjective Subjective: afeb iv rx renewed confused as before Objective - Vital Signs/Intake and Output Vital Signs (last 24 hours): Temp Pulse Resp BP Pulse Ox 97.9 F 67 20 147/66 97 11/01/18 07:55 11/01/18 16:00 11/01/18 07:55 11/01/18 07:55 11/01/18 07:55 Intake and Output: 11/01/18 11/01/18 06:59 18:59 Intake Total 656 Output Total 450 Balance 206 - Medications Medications: Current Medications Fat Emulsion Intravenous (Intralipid 20%) 500 mls @ 42 mls/hr IV QOD@1800 [facility] Stop: 11/03/18 18:01 Last Admin: 10/30/18 18:12 Dose: 42 mls/hr Insulin Human Regular 10 unit/ (Amino Acids) 1,000.1 mls @ 82 mls/hr IV .[id number] [facility] Stop: 11/01/18 17:59 Last Admin: 11/01/18 06:17 Dose: 82 mls/hr Insulin Human Regular 10 unit/Multivitamins/Vitamin C 10 ml / Chromium/Copper /Manganese/Zinc 1 ml/ Amino Acids 1,011.1 mls @ 82 mls/hr IV .[id number] [facility] Stop: 11/02/18 06:19 Insulin Human Regular 10 unit/ (Amino Acids) 1,000.1 mls @ 82 mls/hr IV .[id number] [facility] Stop: 11/02/18 18:00 Lorazepam (Ativan) 1 mg IVP Q4 PRN PRN Reason: Agitation Lorazepam (Ativan) 1 mg IVP Q4H PRN PRN Reason: Agitation Last Admin: 11/01/18 11:21 Dose: 1 mg Pantoprazole Sodium (Protonix Inj) 40 mg IVP BID [facility] Last Admin: 11/01/18 10:13 Dose: 40 mg - Labs Labs: 11/01/18 07:56 10/31/18 07:30 PT 12.1 SECONDS (9.7-12.2) 10/29/18 11:05 INR 1.1 10/29/18 11:05 APTT 30 SECONDS (21-34) D 10/29/18 11:05 - Constitutional Appears: Non-toxic, Cachectic - Head Exam Head Exam: NORMOCEPHALIC - Eye Exam Eye Exam: absent: Scleral icterus - ENT Exam ENT Exam: Mucous Membranes Dry - Neck Exam Neck Exam: absent: Lymphadenopathy - Respiratory Exam Respiratory Exam: Decreased Breath Sounds - Cardiovascular Exam Cardiovascular Exam: REGULAR RHYTHM - GI/Abdominal Exam GI & Abdominal Exam: Distended - Rectal Exam Rectal Exam: Deferred - Exam Exam: NORMAL INSPECTION - Extremities Exam Extremities Exam: absent: Pedal Edema - Back Exam Back Exam: absent: CVA tenderness (L), CVA tenderness (R) Assessment and Plan (1) Change in mental status Status: Acute (2) Hypothermia Status: Acute (3) Bilateral pleural effusion Status: Resolved (4) Gastric mass Status: Acute (5) Pneumonia Status: Acute - Assessment and Plan (Free Text) Assessment: cont iv rx for 7 days
[2018-11-01] MEDS: Fat Emulsion 20% IV 500 ML IV SCH (17:27)
[2018-11-01] MEDS ORDERED: PPN IV ONE (18:00)
[2018-11-02] MEDS ORDERED: PPN IV SCH ×2 (06:00→18:00)
[2018-11-02 07:25] LABS: BASO % 0.5 % (0.0-2.0); EOS # 0.5 K/uL (0.0-0.7); EOS % 5.3 % (0.0-4.0); HEMOGLOBIN 9.7 g/dL (12.0-18.0); LYMPH # 0.6 K/uL (1.0-4.3); LYMPH % 6.6 % (20.0-40.0); MEAN CORPUSCULAR HEMOGLOBIN 27.3 pg (27.0-31.0); MEAN CORPUSCULAR HGB CONC 32.5 g/dL (33.0-37.0); MEAN PLATELET VOLUME 10.6 fL (7.2-11.7); MONO # 0.8 K/uL (0.0-0.8); MONO % 9.1 % (0.0-10.0); NEUT # 6.8 K/uL (1.8-7.0); NEUT % 78.5 % (50.0-75.0); PLATELET COUNT 238 K/uL (130-400); RBC 3.55 Mil/uL (4.40-5.90); RED CELL DISTRIBUTION WIDTH 21.5 % (11.5-14.5); WHITE BLOOD COUNT 8.7 K/uL (4.8-10.8)
[2018-11-02 07:40] LABS: ALBUMIN 2.7 g/dL (3.5-5.0); ALT/SGPT 21 U/L (21-72); AST/SGOT 26 U/L (17-59); BLOOD UREA NITROGEN 24 mg/dL (9-20); CALCIUM 7.8 mg/dl (8.6-10.4); GFR NON-AFRICAN AMERICAN > 60
[2018-11-02 09:43] LABS: ANISOCYTOSIS MODERATE; BANDS 4 % (0-2); EOSINOPHIL 6 % (0-4); HYPOCHROMIC SLIGHT; LARGE PLATELETS PRESENT; LYMPHOCYTE 7 % (20-40); MONOCYTE 9 % (0-10); NEUTROPHIL 74 % (50-75); OVALOCYTES SLIGHT; PLATELET ESTIMATE NORMAL (NORMAL); TOTAL CELLS COUNTED 100
[2018-11-02] MEDS ORDERED: Propofol 10 mg/ml Inj (20 ML) ONE ×2 (10:56→13:19)
[2018-11-02] MEDS ORDERED: ceFAZolin 1 gm in NS 1 GM/100 ML BAG IVPB ONE (11:13)
[2018-11-02] MEDS ORDERED: Tobramycin/Dexamethasone OPHT OINT ONE (11:14)
--- NOTE | 2018-11-02 11:14 | CP.PCM.PN ---
Subjective - Date & Time of Evaluation Date of Evaluation: 11/02/18 Time of Evaluation: 11:13 - Subjective Subjective: pt s/e. For feeding jejunostomy this am. Labs-wnl Objective - Vital Signs/Intake and Output Vital Signs (last 24 hours): Temp Pulse Resp BP Pulse Ox 98.2 F 72 20 143/71 97 11/02/18 10:25 11/02/18 10:25 11/02/18 10:25 11/02/18 10:25 11/02/18 10:25 Intake and Output: 11/02/18 11/02/18 06:59 18:59 Intake Total 336 Output Total 500 Balance -164 - Medications Medications: Current Medications Fat Emulsion Intravenous (Intralipid 20%) 500 mls @ 42 mls/hr IV QOD@1800 [facility] Stop: 11/03/18 18:01 Last Admin: 11/01/18 17:27 Dose: 42 mls/hr Insulin Human Regular 10 unit/ (Amino Acids) 1,000.1 mls @ 82 mls/hr IV .[id number] [facility] Stop: 11/02/18 18:00 Last Admin: 11/02/18 06:37 Dose: 82 mls/hr Lorazepam (Ativan) 1 mg IVP Q4 PRN PRN Reason: Agitation Lorazepam (Ativan) 1 mg IVP Q4H PRN PRN Reason: Agitation Last Admin: 11/01/18 11:21 Dose: 1 mg Pantoprazole Sodium (Protonix Inj) 40 mg IVP BID [facility] Last Admin: 11/02/18 09:19 Dose: 40 mg - Labs Labs: 11/02/18 06:59 11/02/18 06:59 PT 12.1 SECONDS (9.7-12.2) 10/29/18 11:05 INR 1.1 10/29/18 11:05 APTT 30 SECONDS (21-34) D 10/29/18 11:05
[2018-11-02] MEDS ORDERED: Succinylcholine Chloride 20 mg/ml Syr (5 ml) IV ONE (11:36)
[2018-11-02] MEDS ORDERED: HYDROmorphone 0.5 mg/0.5 ml ISec IVP PRN ×2 (13:58→14:01)
--- NOTE | 2018-11-02 14:04 | PCM.SURG1 ---
Surgeon's Initial Post Op Note - Surgeon's Notes Surgeon: Dr. Mathews Enrichment Teacher: Dr. Bowles PGY-3 Type of Anesthesia: General Endo Pre-Operative Diagnosis: Gastric Cancer; PO intolerance Operative Findings: See operative report Post-Operative Diagnosis: Same Operation Performed: Open jejunostomy with omental patch Specimen/Specimens Removed: none Estimated Blood Loss: EBL {In ML}: 10 Blood Products Given: N/A Drains Used: Ostomy Device Date of Surgery/Procedure: 11/02/18 Time of Surgery/Procedure: 14:04
--- NOTE | 2018-11-03 00:14 | CP.PCM.PN ---
Subjective - Date & Time of Evaluation Date of Evaluation: 11/02/18 Time of Evaluation: 19:30 - Subjective Subjective: Patient had a feeding jejusnostomy tube inserted today. Slightly lethargic from thebgeneral anesthesia. Still on PPN. Objective - Vital Signs/Intake and Output Vital Signs (last 24 hours): Temp Pulse Resp BP Pulse Ox 98 F 68 20 125/63 95 11/02/18 15:57 11/02/18 22:10 11/02/18 15:57 11/02/18 15:57 11/02/18 15:57 Intake and Output: 11/02/18 11/03/18 18:59 06:59 Intake Total 1400 Output Total 50 Balance 1350 - Medications Medications: Current Medications Hydromorphone HCl (Dilaudid) 0.25 mg IVP Q4H PRN PRN Reason: Pain, moderate (4-7) Fat Emulsion Intravenous (Intralipid 20%) 500 mls @ 42 mls/hr IV QOD@1800 [facility] Stop: 11/03/18 18:01 Last Admin: 11/01/18 17:27 Dose: 42 mls/hr Chromium/Copper/Manganese/Zinc 1 ml/ Multivitamins/Vitamin C 10 ml/ Insulin Human Regular 10 unit/ Amino Acids 1,011.1 mls @ 82 mls/hr IV .[id number] [facility] Stop: 11/03/18 06:00 Last Admin: 11/02/18 17:48 Dose: 82 mls/hr Insulin Human Regular 10 unit/ (Amino Acids) 1,000.1 mls @ 82 mls/hr IV .[id number] [facility] Stop: 11/03/18 18:00 Lorazepam (Ativan) 1 mg IVP Q4 PRN PRN Reason: Agitation Lorazepam (Ativan) 1 mg IVP Q4H PRN PRN Reason: Agitation Last Admin: 11/01/18 11:21 Dose: 1 mg Pantoprazole Sodium (Protonix Inj) 40 mg IVP BID [facility] Last Admin: 11/02/18 17:47 Dose: 40 mg - Labs Labs: 11/02/18 06:59 11/02/18 06:59 PT 12.1 SECONDS (9.7-12.2) 10/29/18 11:05 INR 1.1 10/29/18 11:05 APTT 30 SECONDS (21-34) D 10/29/18 11:05 - Constitutional Appears: No Acute Distress, Cachectic, Chronically Ill - Head Exam Head Exam: NORMAL INSPECTION - Eye Exam Eye Exam: Normal appearance - ENT Exam ENT Exam: Normal Exam - Neck Exam Neck Exam: Normal Inspection - Respiratory Exam Respiratory Exam: Rhonchi - Cardiovascular Exam Cardiovascular Exam: REGULAR RHYTHM - GI/Abdominal Exam GI & Abdominal Exam: Soft, Diminished Bowel Sounds - Rectal Exam Rectal Exam: Deferred - Extremities Exam Extremities Exam: Normal Inspection - Back Exam Back Exam: NORMAL INSPECTION - Neurological Exam Neurological Exam: Altered - Psychiatric Exam Additional comments: Confused. - Skin Skin Exam: Dry, Normal Color, Warm Assessment and Plan (1) Change in mental status Status: Acute (2) Severe anemia Status: Resolved (3) Pneumonia Status: Acute (4) Hematuria Status: Acute (5) Gastric mass Assessment & Plan: S/p jejunostomy feeding tube. Status: Acute (6) Bilateral pleural effusion Status: Resolved
[2018-11-03] MEDS ORDERED: PPN IV SCH (06:00)
[2018-11-03 06:59] LABS: HEMOGLOBIN 9.3 g/dL (12.0-18.0); MEAN CELL VOLUME 84.5 fL (80.0-94.0); MEAN CORPUSCULAR HEMOGLOBIN 27.6 pg (27.0-31.0); MEAN CORPUSCULAR HGB CONC 32.6 g/dL (33.0-37.0); MEAN PLATELET VOLUME 9.8 fL (7.2-11.7); RBC 3.38 Mil/uL (4.40-5.90); RED CELL DISTRIBUTION WIDTH 21.4 % (11.5-14.5); WHITE BLOOD COUNT 9.1 K/uL (4.8-10.8)
[2018-11-03 07:31] LABS: BLOOD UREA NITROGEN 28 mg/dL (9-20); CALCIUM 7.5 mg/dl (8.6-10.4); GFR NON-AFRICAN AMERICAN > 60
[2018-11-03] MEDS ORDERED: PPN IV ONE ×2 (09:15→18:00)
--- NOTE | 2018-11-03 09:50 | CP.PCM.PN ---
Subjective - Date & Time of Evaluation Date of Evaluation: 11/03/18 Time of Evaluation: 07:00 - Subjective Subjective: Surgery: Dr. Mathews Pt seen and examined. No acute events overnight. Continues to be at his baseline dementia. s/p feeding jejunostomy placement; POD#1. No fevers recorded overnight. Objective - Vital Signs/Intake and Output Vital Signs (last 24 hours): Temp Pulse Resp BP Pulse Ox 99.4 F 75 18 149/79 92 L 11/03/18 08:00 11/03/18 08:17 11/03/18 08:00 11/03/18 08:00 11/03/18 08:00 Intake and Output: 11/03/18 11/03/18 06:59 18:59 Output Total 650 Balance -650 - Medications Medications: Current Medications Hydromorphone HCl (Dilaudid) 0.25 mg IVP Q4H PRN PRN Reason: Pain, moderate (4-7) Fat Emulsion Intravenous (Intralipid 20%) 500 mls @ 42 mls/hr IV QOD@1800 [facility] Stop: 11/03/18 18:01 Last Admin: 11/01/18 17:27 Dose: 42 mls/hr Insulin Human Regular 10 unit/ (Amino Acids) 1,000.1 mls @ 82 mls/hr IV .[id number] [facility] Stop: 11/03/18 18:00 Last Admin: 11/03/18 06:49 Dose: 82 mls/hr Chromium/Copper/Manganese/Zinc 1 ml/ Multivitamins/Vitamin C 10 ml/ Insulin Human Regular 10 unit/ Amino Acids 1,011.1 mls @ 82 mls/hr IV .[id number] [facility] Stop: 11/04/18 06:19 Insulin Human Regular 10 unit/ (Amino Acids) 1,000.1 mls @ 82 mls/hr IV .[id number] [facility] Stop: 11/04/18 18:31 Lorazepam (Ativan) 1 mg IVP Q4 PRN PRN Reason: Agitation Lorazepam (Ativan) 1 mg IVP Q4H PRN PRN Reason: Agitation Last Admin: 11/01/18 11:21 Dose: 1 mg Pantoprazole Sodium (Protonix Inj) 40 mg IVP BID [facility] Last Admin: 11/02/18 17:47 Dose: 40 mg - Labs Labs: 11/03/18 06:36 11/03/18 06:36 PT 12.1 SECONDS (9.7-12.2) 10/29/18 11:05 INR 1.1 10/29/18 11:05 APTT 30 SECONDS (21-34) D 10/29/18 11:05 - Constitutional Appears: Well, No Acute Distress - Head Exam Head Exam: ATRAUMATIC, NORMOCEPHALIC - ENT Exam ENT Exam: Mucous Membranes Moist - Respiratory Exam Respiratory Exam: NORMAL BREATHING PATTERN - Cardiovascular Exam Cardiovascular Exam: RRR - GI/Abdominal Exam GI & Abdominal Exam: Soft, Tenderness (around incision site; dressing C/D/I. ). absent: Distended - Neurological Exam Neurological Exam: Alert, Awake Assessment and Plan - Assessment and Plan (Free Text) Assessment: 78M s/p feeding jejunostomy; POD#1 Plan: - will obtain tube study tomorrow prior to starting feeds via jejunostomy - cont feeding tube to gravity in the meantime - d/w Dr. Reid Bowles
--- NOTE | 2018-11-03 14:48 | CP.PCM.PN ---
Subjective - Date & Time of Evaluation Date of Evaluation: 11/03/18 Time of Evaluation: 14:46 - Subjective Subjective: POD#! Pt s/e. Confused. Jejunostomy site: dry without any drainage. a/p: Satisfactory POD #1. Gastrograffin study tomorrow. Objective - Vital Signs/Intake and Output Vital Signs (last 24 hours): Temp Pulse Resp BP Pulse Ox 99.4 F 81 18 149/79 92 L 11/03/18 08:00 11/03/18 12:00 11/03/18 08:00 11/03/18 08:00 11/03/18 08:00 Intake and Output: 11/03/18 11/03/18 06:59 18:59 Intake Total 656 Output Total 975 Balance -319 - Medications Medications: Current Medications Hydromorphone HCl (Dilaudid) 0.25 mg IVP Q4H PRN PRN Reason: Pain, moderate (4-7) Fat Emulsion Intravenous (Intralipid 20%) 500 mls @ 42 mls/hr IV QOD@1800 [facility] Stop: 11/03/18 18:01 Last Admin: 11/01/18 17:27 Dose: 42 mls/hr Insulin Human Regular 10 unit/ (Amino Acids) 1,000.1 mls @ 82 mls/hr IV .[id number] [facility] Stop: 11/03/18 18:00 Last Admin: 11/03/18 06:49 Dose: 82 mls/hr Chromium/Copper/Manganese/Zinc 1 ml/ Multivitamins/Vitamin C 10 ml/ Insulin Human Regular 10 unit/ Amino Acids 1,011.1 mls @ 82 mls/hr IV .[id number] [facility] Stop: 11/04/18 06:19 Insulin Human Regular 10 unit/ (Amino Acids) 1,000.1 mls @ 82 mls/hr IV .[id number] [facility] Stop: 11/04/18 18:31 Lorazepam (Ativan) 1 mg IVP Q4 PRN PRN Reason: Agitation Lorazepam (Ativan) 1 mg IVP Q4H PRN PRN Reason: Agitation Last Admin: 11/03/18 13:57 Dose: 1 mg Pantoprazole Sodium (Protonix Inj) 40 mg IVP BID [facility] Last Admin: 11/03/18 10:27 Dose: 40 mg - Labs Labs: 11/03/18 06:36 11/03/18 06:36 PT 12.1 SECONDS (9.7-12.2) 10/29/18 11:05 INR 1.1 10/29/18 11:05 APTT 30 SECONDS (21-34) D 10/29/18 11:05
--- NOTE | 2018-11-03 16:43 | CP.PCM.PN ---
Subjective - Date & Time of Evaluation Date of Evaluation: 11/03/18 Time of Evaluation: 16:41 - Subjective Subjective: Patient alert, confused, in no acute distress. s/p Feeding jejunostomy POD#1 Objective - Vital Signs/Intake and Output Vital Signs (last 24 hours): Temp Pulse Resp BP Pulse Ox 99 F 76 20 135/66 95 11/03/18 16:26 11/03/18 16:26 11/03/18 16:26 11/03/18 16:26 11/03/18 16:26 Intake and Output: 11/03/18 11/03/18 06:59 18:59 Intake Total 656 Output Total 975 Balance -319 - Medications Medications: Current Medications Hydromorphone HCl (Dilaudid) 0.25 mg IVP Q4H PRN PRN Reason: Pain, moderate (4-7) Fat Emulsion Intravenous (Intralipid 20%) 500 mls @ 42 mls/hr IV QOD@1800 [facility] Stop: 11/03/18 18:01 Last Admin: 11/01/18 17:27 Dose: 42 mls/hr Insulin Human Regular 10 unit/ (Amino Acids) 1,000.1 mls @ 82 mls/hr IV .[id number] [facility] Stop: 11/03/18 18:00 Last Admin: 11/03/18 06:49 Dose: 82 mls/hr Chromium/Copper/Manganese/Zinc 1 ml/ Multivitamins/Vitamin C 10 ml/ Insulin Human Regular 10 unit/ Amino Acids 1,011.1 mls @ 82 mls/hr IV .[id number] [facility] Stop: 11/04/18 06:19 Insulin Human Regular 10 unit/ (Amino Acids) 1,000.1 mls @ 82 mls/hr IV .[id number] [facility] Stop: 11/04/18 18:31 Lorazepam (Ativan) 1 mg IVP Q4 PRN PRN Reason: Agitation Lorazepam (Ativan) 1 mg IVP Q4H PRN PRN Reason: Agitation Last Admin: 11/03/18 13:57 Dose: 1 mg Pantoprazole Sodium (Protonix Inj) 40 mg IVP BID [facility] Last Admin: 11/03/18 10:27 Dose: 40 mg - Labs Labs: 11/03/18 06:36 11/03/18 06:36 PT 12.1 SECONDS (9.7-12.2) 10/29/18 11:05 INR 1.1 10/29/18 11:05 APTT 30 SECONDS (21-34) D 10/29/18 11:05 - Constitutional Appears: No Acute Distress, Cachectic, Chronically Ill - Head Exam Head Exam: NORMAL INSPECTION - Eye Exam Eye Exam: Normal appearance - ENT Exam ENT Exam: Normal Exam - Neck Exam Neck Exam: Normal Inspection - Respiratory Exam Respiratory Exam: Rhonchi - Cardiovascular Exam Cardiovascular Exam: REGULAR RHYTHM - GI/Abdominal Exam GI & Abdominal Exam: Soft, Normal Bowel Sounds - Rectal Exam Rectal Exam: Deferred - Extremities Exam Extremities Exam: Normal Inspection - Back Exam Back Exam: NORMAL INSPECTION - Neurological Exam Neurological Exam: Alert, Awake Additional comments: Confused. - Psychiatric Exam Additional comments: Confused. - Skin Skin Exam: Normal Color Assessment and Plan (1) Change in mental status Status: Acute (2) Severe anemia Status: Resolved (3) Pneumonia Status: Acute (4) Hematuria Status: Acute (5) Gastric mass Assessment & Plan: S/p jejunostomy feeding tube placement. Still on PPN. Status: Acute (6) Bilateral pleural effusion Status: Resolved
[2018-11-03] MEDS: Fat Emulsion 20% IV 500 ML IV SCH (17:48)
--- NOTE | 2018-11-03 23:10 | CP.PCM.PN ---
Subjective - Date & Time of Evaluation Date of Evaluation: 11/03/18 Time of Evaluation: 15:00 - Subjective Subjective: S/p feeding tube placement, confused. Objective - Vital Signs/Intake and Output Vital Signs (last 24 hours): Temp Pulse Resp BP Pulse Ox 99 F 76 20 135/66 95 11/03/18 16:26 11/03/18 16:26 11/03/18 16:26 11/03/18 16:26 11/03/18 16:26 Intake and Output: 11/03/18 11/04/18 18:59 06:59 Intake Total 656 992 Output Total 975 Balance -319 992 - Medications Medications: Current Medications Hydromorphone HCl (Dilaudid) 0.25 mg IVP Q4H PRN PRN Reason: Pain, moderate (4-7) Chromium/Copper/Manganese/Zinc 1 ml/ Multivitamins/Vitamin C 10 ml/ Insulin Human Regular 10 unit/ Amino Acids 1,011.1 mls @ 82 mls/hr IV .[id number] ONE Stop: 11/04/18 06:19 Last Admin: 11/03/18 17:47 Dose: 82 mls/hr Insulin Human Regular 10 unit/ (Amino Acids) 1,000.1 mls @ 82 mls/hr IV .[id number] ONE Stop: 11/04/18 18:31 Lorazepam (Ativan) 1 mg IVP Q4 PRN PRN Reason: Agitation Lorazepam (Ativan) 1 mg IVP Q4H PRN PRN Reason: Agitation Last Admin: 11/03/18 13:57 Dose: 1 mg Pantoprazole Sodium (Protonix Inj) 40 mg IVP BID KESHAWN Last Admin: 11/03/18 18:04 Dose: 40 mg - Labs Labs: 11/03/18 06:36 11/03/18 06:36 PT 12.1 SECONDS (9.7-12.2) 10/29/18 11:05 INR 1.1 10/29/18 11:05 APTT 30 SECONDS (21-34) D 10/29/18 11:05 - Head Exam Head Exam: ATRAUMATIC - Eye Exam Eye Exam: Normal appearance - ENT Exam ENT Exam: Mucous Membranes Dry - Respiratory Exam Respiratory Exam: NORMAL BREATHING PATTERN - Cardiovascular Exam Cardiovascular Exam: +S1, +S2 - GI/Abdominal Exam GI & Abdominal Exam: Normal Bowel Sounds Assessment and Plan (1) Anemia Assessment & Plan: iron deficiency - 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
[2018-11-04] MEDS ORDERED: PPN IV ONE ×2 (06:20→18:00)
[2018-11-04] MEDS ORDERED: Iohexol 240 200 ML ONE ×2 (09:20)
--- NOTE | 2018-11-04 10:46 | CP.PCM.PN ---
Subjective - Date & Time of Evaluation Date of Evaluation: 11/04/18 Time of Evaluation: 10:30 - Subjective Subjective: Surgery Progress note. Dr. Mathews Pt seen and examined at bedside this morning. Denies any Abd pain. J tube dressing clean, dry and intact. No new complaints noted. No output noted into gravity drain bag Objective - Vital Signs/Intake and Output Vital Signs (last 24 hours): Temp Pulse Resp BP Pulse Ox 97.7 F 72 20 146/73 95 11/04/18 08:00 11/04/18 08:01 11/04/18 08:00 11/04/18 08:00 11/04/18 08:00 Intake and Output: 11/04/18 11/04/18 06:59 18:59 Intake Total 1984 Output Total 450 Balance 1534 - Medications Medications: Current Medications Hydromorphone HCl (Dilaudid) 0.25 mg IVP Q4H PRN PRN Reason: Pain, moderate (4-7) Insulin Human Regular 10 unit/ (Amino Acids) 1,000.1 mls @ 82 mls/hr IV .[id number] ONE Stop: 11/04/18 18:31 Last Admin: 11/04/18 06:10 Dose: 82 mls/hr Chromium/Copper/Manganese/Zinc 1 ml/ Multivitamins/Vitamin C 10 ml/ Insulin Human Regular 10 unit/ Amino Acids 1,011.1 mls @ 82 mls/hr IV .[id number] ONE Stop: 11/05/18 06:19 Insulin Human Regular 10 unit/ (Amino Acids) 1,000.1 mls @ 82 mls/hr IV .[id number] ONE Stop: 11/05/18 18:11 Fat Emulsion Intravenous (Intralipid 20%) 500 mls @ 42 mls/hr IV QOD@1800 ONE Stop: 11/06/18 05:54 Lorazepam (Ativan) 1 mg IVP Q4 PRN PRN Reason: Agitation Lorazepam (Ativan) 1 mg IVP Q4H PRN PRN Reason: Agitation Last Admin: 11/03/18 13:57 Dose: 1 mg Pantoprazole Sodium (Protonix Inj) 40 mg IVP BID KESHAWN Last Admin: 11/04/18 09:10 Dose: 40 mg - Labs Labs: 11/03/18 06:36 11/03/18 06:36 PT 12.1 SECONDS (9.7-12.2) 10/29/18 11:05 INR 1.1 10/29/18 11:05 APTT 30 SECONDS (21-34) D 10/29/18 11:05 - Constitutional Appears: Non-toxic, Older Than Stated Age, Cachectic - Head Exam Head Exam: ATRAUMATIC, NORMAL INSPECTION, NORMOCEPHALIC - Eye Exam Eye Exam: EOMI, Normal appearance. absent: Scleral icterus - ENT Exam ENT Exam: Mucous Membranes Moist - Respiratory Exam Respiratory Exam: NORMAL BREATHING PATTERN. absent: Accessory Muscle Use, Resp iratory Distress - Cardiovascular Exam Cardiovascular Exam: RRR. absent: JVD - GI/Abdominal Exam GI & Abdominal Exam: Soft. absent: Distended, Firm, Guarding, Rigid, Rebound Additional comments: Jejunostomy in place. Connected to gravity drain with no output noted. Dressing clean, dry and intact - Extremities Exam Extremities Exam: Normal Inspection. absent: Calf Tenderness - Back Exam Back Exam: NORMAL INSPECTION - Neurological Exam Neurological Exam: Awake - Psychiatric Exam Psychiatric exam: Normal Affect, Normal Mood - Skin Skin Exam: Dry, Intact, Normal Color, Warm Assessment and Plan - Assessment and Plan (Free Text) Assessment: 78yo M s/p Feeding Jejunostomy placement. POD 2 Plan: - f/u tube study after adjusting abdominal wall securing device - If Tube study is normal with no leak and evidence of Jejunostomy in place, may start feeds at a low rate and advance to goal slowly Further recs as per Dr. Reid Bertrand PGY2 surgery
--- NOTE | 2018-11-04 12:29 | CARD ---
APPROVED REPORT Date of service: 11/03/2018 EXAM: Two-dimensional and M-mode echocardiogram with Doppler and color Doppler. 2D DIMENSIONS IVSd0.9 (0.7-1.1cm)Aortic Root (2D)3.2 (2.0-3.7cm) LVDd4.9 (3.9-5.9cm)PWd0.6 (0.7-1.1cm) LA Imgouj35 (18-58mL)LVDs2.9 (2.5-4.0cm) FS (%) 40.9 %LVEF (%)71.5 (>50%) LVEF (Schwartz's)66.30 %IVC0.00 cm M-Mode DIMENSIONS Left Atrium (MM)3.10 (2.5-4.0cm)IVSd0.28 (0.7-1.1cm) Aortic Root2.90 (2.2-3.7cm)LVDd6.18 (4.0-5.6cm) Aortic Cusp Exc.1.97 (1.5-2.0cm)PWd0.51 (0.7-1.1cm) FS (%) 47 %LVDs3.27 (2.0-3.8cm) LVEF (%)70 (>50%) Mitral Valve MV E Gokmotdm28.4cm/sMV A Vmgwklqu83.2cm/sE/A ratio1.0 TDI Lateral E' Peak V8.48cm/sMedial E' Peak V8.93cm/sE/Lateral E'8.4 E/Medial E'8.0 Tricuspid Valve TR Peak Jusupsjx191gi/sTR Peak Gr.64puLkJETK97qzUz LEFT VENTRICLE The left ventricle is normal size. There is normal left ventricular wall thickness. The left ventricular function is normal. The left ventricular ejection fraction is within the normal range. No regional wall motion abnormalities noted. Indeterminate No left ventricle thrombus noted on this study. There is no ventricular septal defect visualized. There is no left ventricular aneurysm. There is no mass noted in the left ventricle. RIGHT VENTRICLE The right ventricle is normal size. There is normal right ventricular wall thickness. The right ventricular systolic function is normal. ATRIA The left atrium size is normal. The right atrium size is normal. The interatrial septum is intact with no evidence for an atrial septal defect. AORTIC VALVE The aortic valve is normal in structure and function. No aortic regurgitation is present. There is no aortic valvular stenosis. There is no aortic valvular vegetation. MITRAL VALVE The mitral valve is normal in structure and function. There is no evidence of mitral valve prolapse. There is no mitral valve stenosis. Mitral regurgitation is mild. TRICUSPID VALVE The tricuspid valve is normal in structure and function. There is mild tricuspid regurgitation. Right ventricular systolic pressure is estimated at 40-50 mmHg. There is moderate pulmonary hypertension. There is no tricuspid valve prolapse or vegetation. There is no tricuspid valve stenosis. PULMONIC VALVE The pulmonary valve is normal in structure and function. There is no pulmonic valvular regurgitation. There is no pulmonic valvular stenosis. GREAT VESSELS The aortic root is normal in size. The ascending aorta is normal in size. The pulmonary artery is normal. The IVC is normal in size and collapses >50% with inspiration. PERICARDIAL EFFUSION The pericardium appears normal. There is no pleural effusion. There is moderate left pleural effusion. The pleural effusion appears thickened fibrinous <Conclusion> The left ventricular function is normal. The left ventricular ejection fraction is within the normal range. No regional wall motion abnormalities noted. Mitral regurgitation is mild. There is mild tricuspid regurgitation. Right ventricular systolic pressure is estimated at 40-50 mmHg. There is moderate pulmonary hypertension. There is no pleural effusion. There is moderate left pleural effusion. The pleural effusion appears thickened fibrinous
--- NOTE | 2018-11-04 14:27 | RAD ---
Date of service: 11/04/2018 PROCEDURE: Small bowel series HISTORY: evaluate jejunostomy tube COMPARISON: Not available TECHNIQUE: Limited small bowel series was performed utilizing water soluble contrast material administered through a percutaneous jejunostomy tube FINDINGS: A tile decorator radiograph of the abdomen demonstrates an unremarkable bowel gas pattern. There is no hepatic or splenic enlargement. No masses or abnormal calcifications are identified. Left parasagittal nathen are identified in the abdominal wall. Contrast material injected through the jejunostomy tube demonstrates multiple loops of jejunum of normal caliber, without evidence of filling defect. There is no extravasation of contrast material into the peritoneal cavity. No additional abnormality is demonstrated. IMPRESSION: Position of a jejunostomy tube is demonstrated within jejunal loop, without extravasation of contrast material into the peritoneal cavity
--- NOTE | 2018-11-04 19:31 | PN ---
DATE: 11/04/2018 LOCATION: 559, bed B. SUBJECTIVE: This 78-year-old male seen and examined in rounds without significant clinical changes in a status of DNR and DNI, still n.p.o. No reported chest pain, palpitation or evidence of GI bleeding. The entire chart is reviewed and the most recent lab results showed a blood glucose level of 109. PHYSICAL EXAMINATION: GENERAL: A 78-year-old male. VITAL SIGNS: Afebrile with pulse of 82, respiratory rate 22-24, blood pressure 160/82. HEENT: Showed pale dry oral mucous membrane. Nonicteric sclerae. LUNGS: Few scattered crepitation. Decreased air entry at bases. HEART: Positive S1 and S2. ABDOMEN: Soft with mild generalized distention. No mass or organomegaly. No rebound, tenderness or guarding. The patient still has J-tube dressing clean and dry. EXTREMITIES: With lower extremities mild edematous changes. No clubbing or cyanosis. NEUROLOGIC: No reported new neurological deficits, sensory or motor. IMPRESSION: 1. Gastroesophageal adenocarcinoma. 2. Status post feeding jejunostomy tube placement. 3. Anemia, most likely secondary to above. 4. Reported recent history of melena, most likely secondary to gastroesophageal cancer. 5. Bilateral pleural effusion most likely associated with aspiration pneumonia by radiology study results. SUGGESTIONS: 1. Agree with your plan. 2. Continue current management. 3. Blood transfusion as needed, keep hemoglobin around 10 g percent. Flynn Avina MD
[2018-11-05] MEDS ORDERED: PPN IV ONE ×2 (06:00→18:00)
--- NOTE | 2018-11-05 08:15 | CP.PCM.PN ---
Subjective - Date & Time of Evaluation Date of Evaluation: 11/05/18 Time of Evaluation: 08:30 - Subjective Subjective: Surgery Progress note. Dr. Mathews Pt seen and examined at bedside. No acute events noted. Tube feed initiation was discussed with the nursing staff. Objective - Vital Signs/Intake and Output Vital Signs (last 24 hours): Temp Pulse Resp BP Pulse Ox 97.9 F 74 20 158/70 H 100 11/04/18 23:47 11/04/18 23:47 11/04/18 23:47 11/04/18 23:47 11/04/18 23:47 Intake and Output: 11/05/18 11/05/18 06:59 18:59 Intake Total 1312 Output Total 1425 Balance -113 - Medications Medications: Current Medications Hydromorphone HCl (Dilaudid) 0.25 mg IVP Q4H PRN PRN Reason: Pain, moderate (4-7) Insulin Human Regular 10 unit/ (Amino Acids) 1,000.1 mls @ 82 mls/hr IV .Q12H 12M ONE Stop: 11/05/18 18:11 Last Admin: 11/05/18 06:31 Dose: 82 mls/hr Fat Emulsion Intravenous (Intralipid 20%) 500 mls @ 42 mls/hr IV QOD@1800 ONE Stop: 11/06/18 05:54 Lorazepam (Ativan) 1 mg IVP Q4 PRN PRN Reason: Agitation Lorazepam (Ativan) 1 mg IVP Q4H PRN PRN Reason: Agitation Last Admin: 11/03/18 13:57 Dose: 1 mg Pantoprazole Sodium (Protonix Inj) 40 mg IVP BID KESHAWN Last Admin: 11/04/18 17:53 Dose: 40 mg - Labs Labs: 11/03/18 06:36 11/03/18 06:36 PT 12.1 SECONDS (9.7-12.2) 10/29/18 11:05 INR 1.1 10/29/18 11:05 APTT 30 SECONDS (21-34) D 10/29/18 11:05 - Constitutional Appears: Non-toxic - Head Exam Head Exam: ATRAUMATIC, NORMAL INSPECTION, NORMOCEPHALIC - Eye Exam Eye Exam: EOMI - GI/Abdominal Exam GI & Abdominal Exam: Soft. absent: Distended, Guarding, Tenderness, Rebound Assessment and Plan - Assessment and Plan (Free Text) Assessment: 78yo M s/p Feeding Jejunostomy placement. POD 3 - Tube study within normal limits Plan: - Initiate J-Tube feeds at a low rate and advance to goal slowly - Recommend Saddle Stitcher eval and recs for TF goal - Surgical Staple removal on 11/16/18 - No further surgical intervention planned at this time Further recs as per Dr. Reid Bertrand PGY2 surgery
[2018-11-05] MEDS ORDERED: Fat Emulsion 20% IV 500 ML IV ONE (18:00)
--- NOTE | 2018-11-05 22:39 | CP.PCM.PN ---
Subjective - Date & Time of Evaluation Date of Evaluation: 11/05/18 Time of Evaluation: 17:00 - Subjective Subjective: Appears comfortable Objective - Vital Signs/Intake and Output Vital Signs (last 24 hours): Temp Pulse Resp BP Pulse Ox 98.4 F 91 H 18 127/68 97 11/05/18 16:43 11/05/18 16:43 11/05/18 16:43 11/05/18 16:43 11/05/18 16:43 - Medications Medications: Current Medications Hydromorphone HCl (Dilaudid) 0.25 mg IVP Q4H PRN PRN Reason: Pain, moderate (4-7) Fat Emulsion Intravenous (Intralipid 20%) 500 mls @ 42 mls/hr IV QOD@1800 ONE Stop: 11/06/18 05:54 Last Admin: 11/05/18 17:45 Dose: 42 mls/hr Multivitamins/Vitamin C 10 ml/Chromium/Copper/Manganese/Zinc 1 ml/ Insulin Human Regular 10 unit/ Amino Acids 1,011.1 mls @ 82 mls/hr IV .[id number] ONE Stop: 11/06/18 06:19 Last Admin: 11/05/18 17:45 Dose: 82 mls/hr Insulin Human Regular 10 unit/ (Amino Acids) 1,000.1 mls @ 82 mls/hr IV .[id number] ONE Stop: 11/06/18 18:26 Lorazepam (Ativan) 1 mg IVP Q4 PRN PRN Reason: Agitation Lorazepam (Ativan) 1 mg IVP Q4H PRN PRN Reason: Agitation Last Admin: 11/03/18 13:57 Dose: 1 mg Pantoprazole Sodium (Protonix Inj) 40 mg IVP BID KESHAWN Last Admin: 11/05/18 17:46 Dose: 40 mg - Labs Labs: 11/03/18 06:36 11/03/18 06:36 PT 12.1 SECONDS (9.7-12.2) 10/29/18 11:05 INR 1.1 10/29/18 11:05 APTT 30 SECONDS (21-34) D 10/29/18 11:05 - Head Exam Head Exam: ATRAUMATIC - Eye Exam Eye Exam: Normal appearance - ENT Exam ENT Exam: Mucous Membranes Dry - Respiratory Exam Respiratory Exam: NORMAL BREATHING PATTERN - Cardiovascular Exam Cardiovascular Exam: +S1, +S2 - GI/Abdominal Exam GI & Abdominal Exam: Normal Bowel Sounds Assessment and Plan (1) Anemia Assessment & Plan: iron deficiency - 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
--- NOTE | 2018-11-05 23:15 | CP.PCM.PN ---
Subjective - Date & Time of Evaluation Date of Evaluation: 10/29/18 Time of Evaluation: 17:00 - Subjective Subjective: Patient started on Glucerna via jejunostomy tube at 10ml/hour. Remains confused, but in no respiratory distress, Objective - Vital Signs/Intake and Output Vital Signs (last 24 hours): Temp Pulse Resp BP Pulse Ox 98.4 F 91 H 18 127/68 97 11/05/18 16:43 11/05/18 16:43 11/05/18 16:43 11/05/18 16:43 11/05/18 16:43 Intake and Output: 11/05/18 11/06/18 18:59 06:59 Intake Total 620 Output Total 620 Balance 0 - Medications Medications: Current Medications Hydromorphone HCl (Dilaudid) 0.25 mg IVP Q4H PRN PRN Reason: Pain, moderate (4-7) Fat Emulsion Intravenous (Intralipid 20%) 500 mls @ 42 mls/hr IV QOD@1800 ONE Stop: 11/06/18 05:54 Last Admin: 11/05/18 17:45 Dose: 42 mls/hr Multivitamins/Vitamin C 10 ml/Chromium/Copper/Manganese/Zinc 1 ml/ Insulin Human Regular 10 unit/ Amino Acids 1,011.1 mls @ 82 mls/hr IV .[id number] ONE Stop: 11/06/18 06:19 Last Admin: 11/05/18 17:45 Dose: 82 mls/hr Insulin Human Regular 10 unit/ (Amino Acids) 1,000.1 mls @ 82 mls/hr IV .[id number] ONE Stop: 11/06/18 18:26 Lorazepam (Ativan) 1 mg IVP Q4 PRN PRN Reason: Agitation Lorazepam (Ativan) 1 mg IVP Q4H PRN PRN Reason: Agitation Last Admin: 11/03/18 13:57 Dose: 1 mg Pantoprazole Sodium (Protonix Inj) 40 mg IVP BID KESHAWN Last Admin: 11/05/18 17:46 Dose: 40 mg - Labs Labs: 11/03/18 06:36 11/03/18 06:36 PT 12.1 SECONDS (9.7-12.2) 10/29/18 11:05 INR 1.1 10/29/18 11:05 APTT 30 SECONDS (21-34) D 10/29/18 11:05 - Constitutional Appears: No Acute Distress, Cachectic, Chronically Ill - Head Exam Head Exam: NORMAL INSPECTION - Eye Exam Eye Exam: Normal appearance - ENT Exam ENT Exam: Normal Exam - Neck Exam Neck Exam: Normal Inspection - Respiratory Exam Respiratory Exam: Rhonchi - Cardiovascular Exam Cardiovascular Exam: REGULAR RHYTHM - GI/Abdominal Exam GI & Abdominal Exam: Soft, Normal Bowel Sounds - Rectal Exam Rectal Exam: Deferred - Extremities Exam Extremities Exam: Normal Inspection - Back Exam Back Exam: NORMAL INSPECTION - Neurological Exam Neurological Exam: Alert, Awake - Psychiatric Exam Additional comments: Confused. - Skin Skin Exam: Dry, Intact, Normal Color, Warm Assessment and Plan (1) Change in mental status Status: Acute (2) Severe anemia Status: Resolved (3) Pneumonia Status: Acute (4) Hematuria Status: Acute (5) Gastric mass Assessment & Plan: To start tube feeding with Glucerna. Status: Acute (6) Bilateral pleural effusion Status: Resolved
[2018-11-06] MEDS ORDERED: PPN IV ONE (06:15)
--- NOTE | 2018-11-06 09:58 | CP.PCM.CON ---
History of Present Illness - History of Present Illness History of Present Illness: Urology consultation full note t/f Past Patient History - Past Medical History & Family History Past Medical History?: No - Past Social History Smoking Status: Never Smoked Alcohol: None Drugs: Denies Home Situation {Lives}: With Family Domestic Violence: Negative - CARDIAC Hx Hypercholesterolemia: Yes Hx Hypertension: Yes - MUSCULOSKELETAL/RHEUMATOLOGICAL Hx Falls: Yes - PSYCHIATRIC Hx Substance Use: (unobtainable) - ANESTHESIA Hx Anesthesia: No (Unobtainable) Meds Allergies/Adverse Reactions: Allergies Allergy/AdvReac Type Severity Reaction Status Date / Time Unobtainable Allergy Verified 10/12/18 07:39 - Medications Medications: Current Medications Hydromorphone HCl (Dilaudid) 0.25 mg IVP Q4H PRN PRN Reason: Pain, moderate (4-7) Insulin Human Regular 10 unit/ (Amino Acids) 1,000.1 mls @ 82 mls/hr IV .[id number] ONE Stop: 11/06/18 18:26 Last Admin: 11/06/18 06:23 Dose: 82 mls/hr Lorazepam (Ativan) 1 mg IVP Q4 PRN PRN Reason: Agitation Lorazepam (Ativan) 1 mg IVP Q4H PRN PRN Reason: Agitation Last Admin: 11/03/18 13:57 Dose: 1 mg Pantoprazole Sodium (Protonix Inj) 40 mg IVP BID KESHAWN Last Admin: 11/05/18 17:46 Dose: 40 mg Results - Vital Signs Recent Vital Signs: Last Vital Signs Temp 97.9 F 11/06/18 07:56 Pulse 73 11/06/18 07:56 Resp 18 11/06/18 07:56 BP 152/72 H 11/06/18 07:56 Pulse Ox 99 11/06/18 07:56 - Labs Result Diagrams: 11/10/18 08:28 11/10/18 08:28 Labs: Laboratory Results - last 24 hr 11/05/18 11/05/18 11/05/18 11:22 17:36 21:06 POC Glucose (mg/dL) 132 H 118 H 109 11/06/18 06:18 POC Glucose (mg/dL) 121 H Assessment & Plan - Assessment and Plan (Free Text) Assessment: IMP: Gastric carcinoma Altered mental status Feeding jejunostomy Indwelling yousif IDDM Elevated PSA Hx of Hematuria Anemia Consult report dictated YS - Date & Time Date: 11/06/18 Time: 09:20
[2018-11-06] MEDS ORDERED: PPN IV SCH (18:00)
--- NOTE | 2018-11-06 20:14 | PN ---
DATE: 11/06/2018 LOCATION: 559, bed B. SUBJECTIVE: This is a 78-year-old male, seen and examined in rounds without significant clinical changes or reported active bleeding. Case discussed with the oncology/hematology e business consultant on the case, Dr. Francisco Macias. The patient is still tolerating feeding process through the jejunostomy tube. The entire chart is reviewed and the most recent lab results showed blood glucose level of 115. PHYSICAL EXAMINATION: GENERAL: A 78-year-old male, appears to be somewhat confused, in a state of DNR and DNI. VITAL SIGNS: Afebrile with pulse of 76, respiratory rate 18-20 with blood pressure of 144/70. HEENT: Showed pale dry mucous membrane. Nonicteric sclerae. LUNGS: Few scattered crepitation. Decreased air entry at bases. HEART: Positive S1 and S2. ABDOMEN: Soft with mild generalized distention. Jejunostomy tube is in place without any evidence of anterior abdominal wall cellulitis. EXTREMITIES: Without significant clubbing, cyanosis or edema. NEUROLOGICAL: No reported new neurological deficits, sensory or motor. IMPRESSION: 1. Gastroesophageal adenocarcinoma. 2. Anemia secondary to above with reported recent history of gastrointestinal blood loss and melena. 3. Bilateral pleural effusion with pneumonia. SUGGESTIONS: 1. Continue current management. 2. Subsequent increase of the rate of feeding as tolerated. Flynn Avina MD
--- NOTE | 2018-11-06 23:19 | CP.PCM.PN ---
Subjective - Date & Time of Evaluation Date of Evaluation: 11/06/18 Time of Evaluation: 19:30 - Subjective Subjective: Patient remained confused, in no respiratory distress, afebrile. On jejunostomy tube feeding with Glucerna at 50 ml/hr. PPD has been discontinued. Objective - Vital Signs/Intake and Output Vital Signs (last 24 hours): Temp Pulse Resp BP Pulse Ox 97.9 F 73 18 152/72 H 99 11/06/18 07:56 11/06/18 07:56 11/06/18 07:56 11/06/18 07:56 11/06/18 07:56 - Medications Medications: Current Medications Lorazepam (Ativan) 1 mg IVP Q4 PRN PRN Reason: Agitation Lorazepam (Ativan) 1 mg IVP Q4H PRN PRN Reason: Agitation Last Admin: 11/03/18 13:57 Dose: 1 mg Pantoprazole Sodium (Protonix Inj) 40 mg IVP BID KESHAWN Last Admin: 11/06/18 17:13 Dose: 40 mg - Labs Labs: 11/03/18 06:36 11/03/18 06:36 PT 12.1 SECONDS (9.7-12.2) 10/29/18 11:05 INR 1.1 10/29/18 11:05 APTT 30 SECONDS (21-34) D 10/29/18 11:05 - Constitutional Appears: No Acute Distress, Cachectic, Chronically Ill - Head Exam Head Exam: NORMOCEPHALIC - Eye Exam Eye Exam: Normal appearance - ENT Exam ENT Exam: Normal Exam - Neck Exam Neck Exam: Normal Inspection - Respiratory Exam Respiratory Exam: Rhonchi - Cardiovascular Exam Cardiovascular Exam: REGULAR RHYTHM - GI/Abdominal Exam GI & Abdominal Exam: Soft - Rectal Exam Rectal Exam: Deferred - Extremities Exam Extremities Exam: Normal Inspection - Back Exam Back Exam: NORMAL INSPECTION - Neurological Exam Neurological Exam: Alert, Awake - Psychiatric Exam Additional comments: Confused. - Skin Skin Exam: Dry, Intact, Normal Color, Warm Assessment and Plan (1) Change in mental status Status: Acute (2) Severe anemia Status: Resolved (3) Pneumonia Status: Resolved (4) Hematuria Status: Acute (5) Gastric mass Assessment & Plan: Adenocarcinoma of the stomach, invading the esophagus. Patient is on NPO, on jejunostomy tube feeding with Glucerna. Status: Acute (6) Bilateral pleural effusion Status: Resolved
[2018-11-07] MEDS ORDERED: PPN IV SCH (06:00)
--- NOTE | 2018-11-07 16:27 | PN ---
DATE: 11/07/2018 LOCATION: 559, bed B. SUBJECTIVE: This 78-year-old male in a state of DNR and DNI, seen and examined in rounds without significant clinical changes or reported active bleeding, tolerating jejunostomy tube feeding without residual bleeding or resistant. The entire chart is reviewed including but not limited to the most recent lab and radiology study results, current and the previous medication list, current and the previous medical events. Case discussed with the staff at length and the patient is still confused. Today's blood glucose level is 109. PHYSICAL EXAMINATION: GENERAL: A 78-year-old male. VITAL SIGNS: Afebrile with pulse of 68, respiratory rate 20-22, blood pressure 138/70. HEENT: Showed pale dry oral mucous membrane. Nonicteric sclerae. LUNGS: Few scattered crepitation. Decreased air entry at bases. HEART: Positive S1 and S2. ABDOMEN: Soft. Bowel sounds are present. Jejunostomy tube is in place. No mass or organomegaly. No rebound tenderness or guarding. EXTREMITIES: Evidence of lower extremity mild edematous changes with muscle wasting syndrome. No clubbing or cyanosis. No reported new neurological deficits, sensory or motor. IMPRESSION: 1. Gastroesophageal adenocarcinoma. 2. Recent history of gastrointestinal bleeding secondary to above, subsided. 3. Anemia secondary to above. 4. Recent history of dysphagia due to above. 5. Hypoalbuminemia, malnutrition with hypoproteinemia. 6. Status post jejunostomy tube insertion. 7. Bilateral pleural effusion with pneumonia. SUGGESTIONS: 1. Continue current management. 2. increase the rate of jejunostomy tube feeding as tolerated. Flynn Avina MD
--- NOTE | 2018-11-07 20:08 | CP.PCM.PN ---
Subjective - Date & Time of Evaluation Date of Evaluation: 11/07/18 Time of Evaluation: 18:00 - Subjective Subjective: Confused, tolerated tube feeds Objective - Vital Signs/Intake and Output Vital Signs (last 24 hours): Temp Pulse Resp BP Pulse Ox 98.4 F 70 20 144/74 95 11/07/18 16:10 11/07/18 16:10 11/07/18 16:10 11/07/18 16:10 11/07/18 16:10 - Medications Medications: Current Medications Lorazepam (Ativan) 1 mg IVP Q4 PRN PRN Reason: Agitation Lorazepam (Ativan) 1 mg IVP Q4H PRN PRN Reason: Agitation Last Admin: 11/03/18 13:57 Dose: 1 mg Pantoprazole Sodium (Protonix Inj) 40 mg IVP BID [facility] Last Admin: 11/07/18 18:03 Dose: 40 mg - Labs Labs: 11/03/18 06:36 11/03/18 06:36 PT 12.1 SECONDS (9.7-12.2) 10/29/18 11:05 INR 1.1 10/29/18 11:05 APTT 30 SECONDS (21-34) D 10/29/18 11:05 - Head Exam Head Exam: ATRAUMATIC - Eye Exam Eye Exam: Normal appearance - ENT Exam ENT Exam: Mucous Membranes Dry - Respiratory Exam Respiratory Exam: NORMAL BREATHING PATTERN - Cardiovascular Exam Cardiovascular Exam: +S1, +S2 - GI/Abdominal Exam GI & Abdominal Exam: Normal Bowel Sounds Assessment and Plan (1) Anemia Assessment & Plan: iron deficiency anemia s/p IV iron anemia of chronic disease from malignancy Status: Acute (2) Gastric mass Assessment & Plan: deferred treatment s/p feeding tube Status: Acute
--- NOTE | 2018-11-07 23:26 | CP.PCM.PN ---
Subjective - Date & Time of Evaluation Date of Evaluation: 11/07/18 Time of Evaluation: 19:30 - Subjective Subjective: Patient confused, in no respiratory distress, afebrile, on jejunostomy tube feeding. Objective - Vital Signs/Intake and Output Vital Signs (last 24 hours): Temp Pulse Resp BP Pulse Ox 98.4 F 70 20 144/74 95 11/07/18 16:10 11/07/18 16:10 11/07/18 16:10 11/07/18 16:10 11/07/18 16:10 - Medications Medications: Current Medications Lorazepam (Ativan) 1 mg IVP Q4 PRN PRN Reason: Agitation Lorazepam (Ativan) 1 mg IVP Q4H PRN PRN Reason: Agitation Last Admin: 11/03/18 13:57 Dose: 1 mg Pantoprazole Sodium (Protonix Inj) 40 mg IVP BID [facility] Last Admin: 11/07/18 18:03 Dose: 40 mg - Labs Labs: 11/03/18 06:36 11/03/18 06:36 PT 12.1 SECONDS (9.7-12.2) 10/29/18 11:05 INR 1.1 10/29/18 11:05 APTT 30 SECONDS (21-34) D 10/29/18 11:05 - Constitutional Appears: No Acute Distress, Cachectic, Chronically Ill - Head Exam Head Exam: NORMAL INSPECTION - Eye Exam Eye Exam: Normal appearance - ENT Exam ENT Exam: Normal Exam - Neck Exam Neck Exam: Normal Inspection - Respiratory Exam Respiratory Exam: Rhonchi - Cardiovascular Exam Cardiovascular Exam: REGULAR RHYTHM - GI/Abdominal Exam GI & Abdominal Exam: Soft, Normal Bowel Sounds - Rectal Exam Rectal Exam: Deferred - Extremities Exam Extremities Exam: Normal Inspection - Back Exam Back Exam: NORMAL INSPECTION - Neurological Exam Neurological Exam: Alert, Awake Additional comments: Confused. - Skin Skin Exam: Dry, Intact, Normal Color, Warm Assessment and Plan (1) Change in mental status Status: Acute (2) Severe anemia Status: Resolved (3) Pneumonia Status: Resolved (4) Hematuria Status: Acute (5) Gastric mass Assessment & Plan: On Jejusnostomy feeding tube. Status: Acute (6) Bilateral pleural effusion Status: Resolved
[2018-11-08 08:51] LABS: BASO # 0.1 K/uL (0.0-0.2); BASO % 0.5 % (0.0-2.0); EOS # 0.3 K/uL (0.0-0.7); EOS % 1.9 % (0.0-4.0); HEMOGLOBIN 10.3 g/dL (12.0-18.0); LYMPH # 0.9 K/uL (1.0-4.3); MEAN CELL VOLUME 85.1 fL (80.0-94.0); MEAN CORPUSCULAR HEMOGLOBIN 26.8 pg (27.0-31.0); MEAN CORPUSCULAR HGB CONC 31.5 g/dL (33.0-37.0); MEAN PLATELET VOLUME 9.5 fL (7.2-11.7); MONO # 0.8 K/uL (0.0-0.8); MONO % 5.4 % (0.0-10.0); NEUT # 12.2 K/uL (1.8-7.0); NEUT % 86.2 % (50.0-75.0); RBC 3.83 Mil/uL (4.40-5.90); RED CELL DISTRIBUTION WIDTH 21.9 % (11.5-14.5)
[2018-11-08 08:56] LABS: PLATELET COUNT 434 K/uL (130-400); WHITE BLOOD COUNT 14.2 K/uL (4.8-10.8)
[2018-11-08 09:13] LABS: ALBUMIN 2.8 g/dL (3.5-5.0); ALT/SGPT 23 U/L (21-72); AST/SGOT 32 U/L (17-59); BLOOD UREA NITROGEN 27 mg/dL (9-20); CALCIUM 7.6 mg/dl (8.6-10.4); GFR NON-AFRICAN AMERICAN > 60
[2018-11-08 10:54] LABS: ANISOCYTOSIS MODERATE; BANDS 1 % (0-2); EOSINOPHIL 2 % (0-4); HYPOCHROMIC SLIGHT; LYMPHOCYTE 3 % (20-40); MONOCYTE 4 % (0-10); NEUTROPHIL 90 % (50-75); OVALOCYTES SLIGHT; PLATELET ESTIMATE SLIGHTLY INCREASED (NORMAL); POIKILOCYTOSIS SLIGHT; TOTAL CELLS COUNTED 100
--- NOTE | 2018-11-08 11:31 | PN ---
DATE: 11/08/2018 LOCATION: 559, bed B. SUBJECTIVE: This 78-year-old male is seen and examined in rounds without significant clinical changes in a state of DNR and DNI, tolerating jejunostomy tube feeding well. No reported actual chest pain, palpitation or significant shortness of breath. The entire chart is reviewed, discussed with the staff at length. Today's lab showed blood glucose level of 116. Rest of lab results still pending. PHYSICAL EXAMINATION: GENERAL: This is a 78-year-old male, afebrile with pulse of 68, respiratory 20-22, blood pressure of 136/70. HEENT: Showed pale dry oral mucous membrane. Nonicteric sclerae. LUNGS: Few scattered crepitation. Decreased air entry at bases. HEART: Positive S1 and S2. ABDOMEN: Soft, slight distention. Jejunostomy tube is in place. No residual bleeding or resistant from the feeding tube. Well formed stoma seen. EXTREMITIES: Without significant clubbing, cyanosis, but slight lower extremity edematous changes. NEUROLOGIC: No reported new neurological deficits, sensory or motor. The patient is not communicating well with any verbal stimuli. IMPRESSION: 1. Dysphagia. 2. Gastroesophageal adenocarcinoma, seen by the beauty consultant. 3. Known history of gastrointestinal bleeding with recent history of melena, subsided, most likely secondary to above. 4. Anemia most likely secondary to above. 5. Malnutrition with hypoalbuminemia, hypoproteinemia with status post jejunostomy tube insertion. 6. Bilateral pleural effusion with pneumonia by recent history. SUGGESTIONS: 1. Continue current management. 2. Increase the rate of feeding and frequency as tolerated. 3. Follow up CBC with possible blood transfusion as needed. 4. No further aggressive GI workup to be considered at this point. Flynn Avina MD
--- NOTE | 2018-11-08 23:02 | CP.PCM.PN ---
Subjective - Date & Time of Evaluation Date of Evaluation: 11/08/18 Time of Evaluation: 17:30 - Subjective Subjective: Patient still confused, in no respiratory distress. On jejunostomy feeding. Discuused patient's condition with his sister today. She would like the patient to be placed in a NH. Objective - Vital Signs/Intake and Output Vital Signs (last 24 hours): Temp Pulse Resp BP Pulse Ox 97.8 F 80 18 136/69 98 11/08/18 15:00 11/08/18 15:00 11/08/18 15:00 11/08/18 15:00 11/08/18 15:00 Intake and Output: 11/08/18 11/09/18 18:59 06:59 Intake Total 520 150 Output Total 300 Balance 220 150 - Medications Medications: Current Medications Lorazepam (Ativan) 1 mg IVP Q4 PRN PRN Reason: Agitation Lorazepam (Ativan) 1 mg IVP Q4H PRN PRN Reason: Agitation Last Admin: 11/03/18 13:57 Dose: 1 mg Pantoprazole Sodium (Protonix Inj) 40 mg IVP BID [facility] Last Admin: 11/08/18 18:16 Dose: 40 mg - Labs Labs: 11/08/18 08:38 11/08/18 08:38 PT 12.1 SECONDS (9.7-12.2) 10/29/18 11:05 INR 1.1 10/29/18 11:05 APTT 30 SECONDS (21-34) D 10/29/18 11:05 - Constitutional Appears: Cachectic, Chronically Ill - Head Exam Head Exam: NORMAL INSPECTION - Eye Exam Eye Exam: Normal appearance - ENT Exam ENT Exam: Normal Exam - Neck Exam Neck Exam: Normal Inspection - Respiratory Exam Respiratory Exam: Rhonchi - Cardiovascular Exam Cardiovascular Exam: REGULAR RHYTHM - GI/Abdominal Exam GI & Abdominal Exam: Soft, Normal Bowel Sounds - Rectal Exam Rectal Exam: Deferred - Exam Exam: NORMAL INSPECTION - Extremities Exam Extremities Exam: Normal Inspection - Back Exam Back Exam: NORMAL INSPECTION - Neurological Exam Neurological Exam: Alert, Awake Additional comments: Confused. - Psychiatric Exam Additional comments: Confused. - Skin Skin Exam: Dry, Intact, Normal Color Assessment and Plan (1) Change in mental status Status: Acute (2) Severe anemia Status: Resolved (3) Pneumonia Status: Resolved (4) Hematuria Status: Acute (5) Gastric mass Status: Acute (6) Bilateral pleural effusion Status: Resolved
--- NOTE | 2018-11-09 08:46 | OP ---
PROCEDURE DATE: 11/02/2018 PREOPERATIVE DIAGNOSES: 1. Esophagogastric junction tumor. 2. Dysphagia. POSTOPERATIVE DIAGNOSES: 1. Esophagogastric junction tumor. 2. Dysphagia. OPERATIONS PERFORMED: 1. Exploratory laparotomy. 2. Placement of Witzel jejunostomy feeding tube. SURGEON: Endy Mathews MD PHYSICAL THERAPY RESIDENT: Jelena Tabor DO ANESTHESIOLOGIST: 1. Jorgito Carter MD 2. Tanvir Britton APN ANESTHESIA: Endotracheal general anesthesia. OPERATIVE FINDINGS: Careful exploration revealed no palpable enlarged lymph nodes or peritoneal seeding. The mass was proximal gastric mass, which was a firm, but mobile and not fixed. Rest of the stomach appears to be soft. DESCRIPTION OF PROCEDURE: The patient was taken to the operating room where under satisfactory endotracheal anesthesia, the patient was placed in a supine position. The operative field was prepared and draped in a sterile fashion. Abdomen was entered through left transrectal muscle splitting incision between linear transverse 2 and 3. After incising anterior rectus sheath, posterior rectus sheath was opened, and then peritoneum was entered. Careful exploration at this time revealed above described findings. Jejunum was brought out after transverse colon and omentum were packed away cephalad . Approximately 15 cm away from ligament of Treitz, antimesenteric area was identified, and circumferential 3-0 silk pursestring suture was placed. Next, a #14-Luxembourgish neoprene Gutierrez catheter was plugged into the abdominal cavity through a stab wound approximately 10 cm away from the skin incision and enterotomy made in the center of the previously placed pursestring suture, through which the Gutierrez catheter was inserted and advanced distally. Gutierrez catheter at this time was then inflated to 5 cm with normal saline. The pursestring suture was next closed securely. Next, approximately 7 cm long tunnel was created along the antimesenteric border with 3-0 Prolene sutures using Witzel technique by which the catheter was buried The proximal end of the tunnel was sutured to the abdominal wall with interrupted 3.0 silk which were placed in a five point star fashion. The omentum was next brought up to this area and secured with by tying previously placed star stitches. Finally, the abdomen was closed in layers, posterior rectus sheath with a continuous #1 PDS, anterior rectus sheath with a continuous #1 PDS, and subcutaneous tissue with continuous 2-0 Vicryl and skin with skin nathen. Tube was secured to the skin with approximately 3 cm long rubber tube, which was used as a waist of the tube to prevent migration of the tube. Patency of the tube was tested by instilling normal sailing thorough the tube by gravity; confirmed satisfactory function. Sterile dressing was applied and taped in the usual manner. The patient tolerated the procedure well and was transferred to the recovery room, extubated in awake with good vital signs. Estimated blood loss was minimum. Sponge, needle, and instrument counts were correct. Endy Mathews MD [facility]
--- NOTE | 2018-11-09 18:11 | PN ---
DATE: 11/09/2018 SUBJECTIVE: The patient is seen in the observation room. According to the one-to-one, the patient has been agitated lately. The patient's sister is now amenable for hospice care, but wants home hospice. The patient now has a jejunostomy tube in place where he is getting his feeding. The patient's prognosis is poor. The patient's sister wants to take him home. PHYSICAL EXAMINATION: GENERAL: He is alert, but still very confused and oriented x1. Tolerates one-to-one. VITAL SIGNS: 97.8, 67, 133/65, 18, and 90. SKIN: No diaphoresis. HEENT: No headache or dizziness. NECK: Supple. RESPIRATORY: No dyspnea. CARDIOVASCULAR: No chest pain. GASTROINTESTINAL: Tolerating feeding through the jejunostomy tube. No abdominal pain. No nausea or vomiting. EXTREMITIES: Still has hand mittens. The patient is still trying to pull his lines. MUSCULOSKELETAL: Feels weak. NEUROLOGIC: Alert, but still globally confused. MENTAL STATUS EXAMINATION: An elderly male, looks cachectic. 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 Speech is slow. Affect is restricted. Mood is dysphoric. Thought process, confused. Thought content, no overt psychosis, no suicidal or homicidal ideation. Attention and memory seem to be impaired. Insight and judgement impaired. Impulse control is guarded at this time. 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 PLAN AND RECOMMENDATION: The patient was seen, meds reviewed. The patient is for possible home hospice. According to the protective services case worker, the family is contacting some agencies for home hospice. Psych bahc, we will put him on standing Ativan 1 mg daily via the G-tube to control his behavior as the patient will be going home. The patient needs somebody to watch him as if the patient's hands are free, he will pull his tube. This may cause him to come back to the hospital. The patient is with tube feeding through the jejunostomy tube, but the patient will need some sedation to control his behavior. Naveed Cooper MD [facility] # [id number] MTDJose
--- NOTE | 2018-11-09 20:59 | CP.PCM.PN ---
Subjective - Date & Time of Evaluation Date of Evaluation: 11/09/18 Time of Evaluation: 19:00 - Subjective Subjective: No complaints, appears comfortable Objective - Vital Signs/Intake and Output Vital Signs (last 24 hours): Temp Pulse Resp BP Pulse Ox 98 F 84 20 143/73 97 11/09/18 17:25 11/09/18 17:25 11/09/18 17:25 11/09/18 17:25 11/09/18 17:25 Intake and Output: 11/09/18 11/10/18 18:59 06:59 Intake Total 410 Output Total 300 Balance 110 - Medications Medications: Current Medications Lorazepam (Ativan) 1 mg IVP Q4 PRN PRN Reason: Agitation Lorazepam (Ativan) 1 mg JT DAILY [facility] Pantoprazole Sodium (Protonix Inj) 40 mg IVP BID [facility] Last Admin: 11/09/18 18:58 Dose: 40 mg - Labs Labs: 11/08/18 08:38 11/08/18 08:38 PT 12.1 SECONDS (9.7-12.2) 10/29/18 11:05 INR 1.1 10/29/18 11:05 APTT 30 SECONDS (21-34) D 10/29/18 11:05 - Head Exam Head Exam: ATRAUMATIC - Eye Exam Eye Exam: Normal appearance - ENT Exam ENT Exam: Mucous Membranes Dry - Respiratory Exam Respiratory Exam: NORMAL BREATHING PATTERN - Cardiovascular Exam Cardiovascular Exam: +S1, +S2 - GI/Abdominal Exam GI & Abdominal Exam: Normal Bowel Sounds Assessment and Plan (1) Anemia Assessment & Plan: iron deficiency s/p IV iron element of chronic disease from malignancy Status: Acute (2) Gastric mass Assessment & Plan: s/p feeding tube deferred treatment Status: Acute
--- NOTE | 2018-11-09 21:50 | CP.PCM.PN ---
Subjective - Date & Time of Evaluation Date of Evaluation: 11/09/18 Time of Evaluation: 17:00 - Subjective Subjective: Patient alert, in no respiratory distress, confused. Objective - Vital Signs/Intake and Output Vital Signs (last 24 hours): Temp Pulse Resp BP Pulse Ox 98 F 84 20 143/73 97 11/09/18 17:25 11/09/18 17:25 11/09/18 17:25 11/09/18 17:25 11/09/18 17:25 Intake and Output: 11/09/18 11/10/18 18:59 06:59 Intake Total 410 Output Total 300 Balance 110 - Medications Medications: Current Medications Lorazepam (Ativan) 1 mg IVP Q4 PRN PRN Reason: Agitation Lorazepam (Ativan) 1 mg JT DAILY [facility] Pantoprazole Sodium (Protonix Inj) 40 mg IVP BID [facility] Last Admin: 11/09/18 18:58 Dose: 40 mg - Labs Labs: 11/08/18 08:38 11/08/18 08:38 PT 12.1 SECONDS (9.7-12.2) 10/29/18 11:05 INR 1.1 10/29/18 11:05 APTT 30 SECONDS (21-34) D 10/29/18 11:05 - Constitutional Appears: No Acute Distress, Cachectic, Chronically Ill - Head Exam Head Exam: NORMAL INSPECTION, NORMOCEPHALIC - Eye Exam Eye Exam: Normal appearance - ENT Exam ENT Exam: Normal Exam - Neck Exam Neck Exam: Normal Inspection - Respiratory Exam Respiratory Exam: Rhonchi - Cardiovascular Exam Cardiovascular Exam: REGULAR RHYTHM - GI/Abdominal Exam GI & Abdominal Exam: Soft, Normal Bowel Sounds - Rectal Exam Rectal Exam: Deferred - Extremities Exam Extremities Exam: Normal Inspection - Back Exam Back Exam: NORMAL INSPECTION - Neurological Exam Neurological Exam: Alert, Awake Additional comments: Confused - Psychiatric Exam Psychiatric exam: Flat Affect - Skin Skin Exam: Dry, Intact, Normal Color Assessment and Plan (1) Change in mental status Status: Acute (2) Severe anemia Status: Resolved (3) Pneumonia Status: Resolved (4) Hematuria Status: Acute (5) Gastric mass Status: Acute (6) Bilateral pleural effusion Status: Resolved
--- NOTE | 2018-11-10 00:14 | PN ---
DATE: 11/09/2018 LOCATION: 559, bed B. SUBJECTIVE: This is a 78-year-old male, in a status of DNR and DNI, seen and examined in rounds, without significant reported clinical changes, tolerating jejunostomy tube feeding well, without residual bleeding or resistant. The patient, however, is still somewhat mildly agitated and semi-confused. The entire chart is reviewed including the most recent lab and radiology study results with blood glucose level today of 108. PHYSICAL EXAMINATION: GENERAL: A 78-year-old male, seen with the staff in rounds. VITAL SIGNS: Afebrile, heart rate of 80, respiratory rate 18-20, blood pressure 136/70. HEENT: Showed pale dry oral mucous membrane. Nonicteric sclerae. LUNGS: Few scattered crepitation. Decreased air entry at bases. HEART: Positive S1 and S2. ABDOMEN: Soft with mild generalized tenderness. No mass or organomegaly. No rebound tenderness or guarding. EXTREMITIES: Without significant clubbing, cyanosis or edema. NEUROLOGIC: No reported new neurological deficits, sensory or motor. IMPRESSION: 1. Dysphagia. 2. Gastroesophageal adenocarcinoma. 3. Hypoalbuminemia, hypoproteinemia with malnutrition. 4. Status post jejunostomy tube insertion. 5. Recent history of gastrointestinal blood loss with anemia secondary to above. 6. Bilateral pleural effusion with pneumonia by recent history. SUGGESTIONS: 1. Continue current management. 2. Blood transfusion as needed, keep hemoglobin around 10 g percent. 3. No need for aggressive further GI workup in the meantime. 4. The [facility] when [facility] available. Flynn Avina MD
[2018-11-10 08:39] LABS: BASO % 0.3 % (0.0-2.0); EOS # 0.4 K/uL (0.0-0.7); EOS % 2.6 % (0.0-4.0); HEMOGLOBIN 9.8 g/dL (12.0-18.0); LYMPH # 0.9 K/uL (1.0-4.3); MEAN CORPUSCULAR HEMOGLOBIN 27.4 pg (27.0-31.0); MEAN CORPUSCULAR HGB CONC 31.9 g/dL (33.0-37.0); MEAN PLATELET VOLUME 9.4 fL (7.2-11.7); MONO # 0.6 K/uL (0.0-0.8); MONO % 4.3 % (0.0-10.0); NEUT # 12.4 K/uL (1.8-7.0); NEUT % 86.8 % (50.0-75.0); PLATELET COUNT 425 K/uL (130-400); RBC 3.56 Mil/uL (4.40-5.90); WHITE BLOOD COUNT 14.3 K/uL (4.8-10.8)
[2018-11-10 09:27] LABS: ANISOCYTOSIS SLIGHT; EOSINOPHIL 1 % (0-4); LYMPHOCYTE 6 % (20-40); MONOCYTE 4 % (0-10); NEUTROPHIL 89 % (50-75); PLATELET ESTIMATE NORMAL (NORMAL); POIKILOCYTOSIS SLIGHT; TOTAL CELLS COUNTED 100
[2018-11-10 09:28] LABS: BURR CELLS SLIGHT; HYPOCHROMIC SLIGHT; MICROCYTOSIS SLIGHT; TEARDROP CELLS SLIGHT
[2018-11-10 09:40] LABS: ALBUMIN 2.9 g/dL (3.5-5.0); ALT/SGPT 28 U/L (21-72); AST/SGOT 48 U/L (17-59); BLOOD UREA NITROGEN 37 mg/dL (9-20); CALCIUM 8.1 mg/dl (8.6-10.4); GFR NON-AFRICAN AMERICAN > 60
[2018-11-10 09:45] LABS: ALB/GLOB RATIO 1.1 (1.0-2.1)
--- NOTE | 2018-11-10 23:32 | CP.PCM.PN ---
Subjective - Date & Time of Evaluation Date of Evaluation: 11/10/18 Time of Evaluation: 18:00 - Subjective Subjective: Patient alert, in no respiratory distress, confused, on jejunostomy tube feeding. Objective - Vital Signs/Intake and Output Vital Signs (last 24 hours): Temp Pulse Resp BP Pulse Ox 97.8 F 72 20 155/92 H 98 11/10/18 16:23 11/10/18 16:23 11/10/18 16:23 11/10/18 16:23 11/10/18 16:23 - Medications Medications: Current Medications Lorazepam (Ativan) 1 mg IVP Q4 PRN PRN Reason: Agitation Lorazepam (Ativan) 1 mg JT DAILY [facility] Last Admin: 11/10/18 10:11 Dose: 1 mg Pantoprazole Sodium (Protonix Inj) 40 mg IVP BID [facility] Last Admin: 11/10/18 17:12 Dose: 40 mg - Labs Labs: 11/10/18 08:28 11/10/18 08:28 PT 12.1 SECONDS (9.7-12.2) 10/29/18 11:05 INR 1.1 10/29/18 11:05 APTT 30 SECONDS (21-34) D 10/29/18 11:05 - Constitutional Appears: Cachectic, Chronically Ill - Head Exam Head Exam: NORMAL INSPECTION - Eye Exam Eye Exam: Normal appearance - ENT Exam ENT Exam: Normal Exam - Neck Exam Neck Exam: Normal Inspection - Respiratory Exam Respiratory Exam: Rhonchi - Cardiovascular Exam Cardiovascular Exam: REGULAR RHYTHM - GI/Abdominal Exam GI & Abdominal Exam: Soft, Normal Bowel Sounds - Rectal Exam Rectal Exam: Deferred - Exam Exam: NORMAL INSPECTION - Extremities Exam Extremities Exam: Normal Inspection - Back Exam Back Exam: NORMAL INSPECTION - Neurological Exam Neurological Exam: Alert, Awake Additional comments: Confused. - Psychiatric Exam Additional comments: Confused. Assessment and Plan (1) Change in mental status Status: Acute (2) Severe anemia Status: Resolved (3) Pneumonia Status: Resolved (4) Hematuria Status: Acute (5) Gastric mass Assessment & Plan: Gastric adenocarcinoma invading the esophagus, Patient is NPO with jejunostomy tube feeding. Status: Acute (6) Bilateral pleural effusion Status: Resolved
--- NOTE | 2018-11-11 15:50 | CP.PCM.PN ---
Subjective - Date & Time of Evaluation Date of Evaluation: 11/11/18 Time of Evaluation: 15:48 - Subjective Subjective: GI Progress Note for Dr. Mckeon Patient seen and examined at bedside this afternoon. Patient said "You have a string" and jumbled incomprehensible words. Patient was awake and alert, but not oriented to person, place, or time. Per clinical assistant paralegal watching the patients in the room, patient has been calm and watching TV. Due to patient condition ROS unable to be obtained. Objective - Vital Signs/Intake and Output Vital Signs (last 24 hours): Temp Pulse Resp BP Pulse Ox 97.6 F 68 20 126/69 94 L 11/11/18 07:50 11/11/18 07:50 11/11/18 07:50 11/11/18 07:50 11/11/18 07:50 Intake and Output: 11/11/18 11/11/18 06:59 18:59 Intake Total 1060 Output Total 400 Balance 660 - Medications Medications: Current Medications Lorazepam (Ativan) 1 mg IVP Q4 PRN PRN Reason: Agitation Lorazepam (Ativan) 1 mg JT DAILY [facility] Last Admin: 11/11/18 09:26 Dose: 1 mg Pantoprazole Sodium (Protonix Inj) 40 mg IVP BID [facility] Last Admin: 11/11/18 09:26 Dose: 40 mg - Labs Labs: 11/10/18 08:28 11/10/18 08:28 PT 12.1 SECONDS (9.7-12.2) 10/29/18 11:05 INR 1.1 10/29/18 11:05 APTT 30 SECONDS (21-34) D 10/29/18 11:05 - Constitutional Appears: Well, Non-toxic - Head Exam Head Exam: ATRAUMATIC, NORMAL INSPECTION - Eye Exam Eye Exam: EOMI, Normal appearance - Neck Exam Neck Exam: Normal Inspection - Respiratory Exam Respiratory Exam: Clear to Ausculation Bilateral, NORMAL BREATHING PATTERN - Cardiovascular Exam Cardiovascular Exam: REGULAR RHYTHM - GI/Abdominal Exam GI & Abdominal Exam: Soft, Normal Bowel Sounds (Patient did not want me to touch his abdomen after palpation - unable to assess for true tenderness) - Neurological Exam Neurological Exam: Alert, Awake. absent: Oriented x3 - Skin Skin Exam: Dry, Intact, Normal Color, Warm Assessment and Plan - Assessment and Plan (Free Text) Assessment: 78 y/o male with PMHx of HTN and HLD admitted 10/12 found outside on zoroastrianism steps with altered mental status and hypothermia. Later found to have dysphagia. EGD with esophageal mass. gastric adenocarcinoma invading esophagus s/p jejunostomy tube insertion patient DNR/DNI pending placement - per RN patient is to go to home hospice, however, pt's sister has not responded to discharge planning no aggressive GI work up at this time case discussed with Dr. Mike Haro PGY1
--- NOTE | 2018-11-11 17:08 | PN ---
DATE: 11/11/2018 SUBJECTIVE: The patient is calm, but still very confused. Today, the patient is trying to bite his mittens and wants to get out of bed. I spoke with case fitter. The patient's sister still wants to take the patient home and wants hospice care. However, the patient's sister has no advance directives and no POA and may need to apply for guardianship, so the patient's sister can access the patient's asset to be used for the patient if the patient is discharged to home. The patient's sister wants the patient to go for home hospice. The patient still needs 24-hour monitoring. PHYSICAL EXAMINATION: VITAL SIGNS: Temperature 97.6, pulse 68, blood pressure 126/69, respirations 20, and oxygen saturation is 94%. REVIEW OF RECENT LABS: WBC is 14.3, glucose is 112, creatinine is 0.6, BUN is 37. The patient is now receiving feeding through the jejunostomy tube. REVIEW OF SYSTEMS: GENERAL: Alert, but confused, oriented x1. SKIN: No diaphoresis. HEENT: No headache. No dizziness. NECK: Supple. RESPIRATORY: No dyspnea. CARDIOVASCULAR: No chest pain. GASTROINTESTINAL: Has feeding through the jejunostomy tube. No abdominal pain. EXTREMITIES: The patient is bed-bound, MUSCULOSKELETAL: Feels weak. NEUROLOGIC: Alert, but very confused and oriented x 1. MENTAL STATUS EXAMINATION: A cachectic looking male who looks stated age, oriented x1 only to person. Speech is slow. Affect is restricted. Mood is dysphoric. Thought process, confused. Thought content, no overt psychosis. No suicidal or homicidal ideation. The patient does not know where he is. Attention and memory seem to be impaired. Insight and judgement impaired. Impulse control is guarded at this time. MEDICATIONS: The patient has been given Ativan 1 mg daily via the jejunostomy tube. IMPRESSION: 1. 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 2. Mood disorder. PLAN AND RECOMMENDATION: The patient was seen. Meds reviewed. Continue present management. The patient is for possible hospice care as per case fitter. The patient's sister wants to apply for emergency guardianship, so she can touch his assets to be used for home when the patient's will be discharged for home hospice. Naveed Cooper MD MTDJose
--- NOTE | 2018-11-11 20:55 | CP.PCM.PN ---
Subjective - Date & Time of Evaluation Date of Evaluation: 11/11/18 Time of Evaluation: 20:53 - Subjective Subjective: Patient alert, in no respiratory distress, confused, afebrile. Awaiting placement. Tube feeding increased to 60 ml/hr. Objective - Vital Signs/Intake and Output Vital Signs (last 24 hours): Temp Pulse Resp BP Pulse Ox 97.6 F 72 18 131/71 95 11/11/18 17:18 11/11/18 17:18 11/11/18 17:18 11/11/18 17:18 11/11/18 17:18 Intake and Output: 11/11/18 11/12/18 18:59 06:59 Intake Total 1060 Output Total 400 Balance 660 - Medications Medications: Current Medications Lorazepam (Ativan) 1 mg IVP Q4 PRN PRN Reason: Agitation Lorazepam (Ativan) 1 mg JT DAILY [facility] Last Admin: 11/11/18 09:26 Dose: 1 mg Pantoprazole Sodium (Protonix Inj) 40 mg IVP BID [facility] Last Admin: 11/11/18 17:22 Dose: 40 mg - Labs Labs: 11/10/18 08:28 11/10/18 08:28 PT 12.1 SECONDS (9.7-12.2) 10/29/18 11:05 INR 1.1 10/29/18 11:05 APTT 30 SECONDS (21-34) D 10/29/18 11:05 - Constitutional Appears: No Acute Distress, Cachectic, Chronically Ill - Head Exam Head Exam: NORMAL INSPECTION, NORMOCEPHALIC - Eye Exam Eye Exam: Normal appearance - ENT Exam ENT Exam: Normal Exam - Neck Exam Neck Exam: Normal Inspection - Respiratory Exam Respiratory Exam: Rhonchi - Cardiovascular Exam Cardiovascular Exam: REGULAR RHYTHM - GI/Abdominal Exam GI & Abdominal Exam: Soft, Normal Bowel Sounds - Rectal Exam Rectal Exam: Deferred - Extremities Exam Extremities Exam: Normal Inspection - Back Exam Back Exam: NORMAL INSPECTION - Neurological Exam Neurological Exam: Alert, Awake Additional comments: Confused. - Psychiatric Exam Psychiatric exam: Flat Affect - Skin Skin Exam: Dry, Intact, Normal Color, Warm Assessment and Plan (1) Change in mental status Status: Acute (2) Severe anemia Status: Resolved (3) Pneumonia Status: Resolved (4) Hematuria Status: Acute (5) Gastric mass Status: Acute (6) Bilateral pleural effusion Status: Resolved
--- NOTE | 2018-11-11 22:53 | PCM.URO ---
Urology Progress Note - Subjective Abdominal Pain: No Flank Pain: No Voiding Well: No (indwelling yousif cath) Hematuria: No Dsypnea: No Chest Pain: No Fever & Chills: No - Objective Lab Results Last 24 Hours: Laboratory Results - last 24 hr 11/11/18 11/11/18 11/11/18 06:45 11:19 16:45 POC Glucose (mg/dL) 116 H 112 H 97 Intake & Output: Intake & Output 11/11/18 11/11/18 11/12/18 06:59 18:59 06:59 Intake Total 1060 400 Output Total 400 500 Balance 660 -100 Intake: Intake, IV Amount 10 Left Forearm 10 Tube Feeding 800 400 Other 250 Output: Urine 400 500 Urethral (Yousif) 400 500 Other: # Voids Urethral (Yousif) 400 Vital Signs: Vital Signs - 24 hr 11/10/18 11/11/18 11/11/18 23:53 07:50 17:18 Temperature 97.8 F 97.6 F 97.6 F Pulse Rate 71 68 72 Respiratory 18 20 18 Rate Blood Pressure 122/61 126/69 131/71 O2 Sat by Pulse 96 94 L 95 Oximetry - Physical Exam Abdominal Exam: Soft (Mild lethargy), Non-Tender, Non-Distended Dressing: Dry Genitalia: Without Inflammation Urinary Catheter Draining Well: Yes Urine Color: Clear, Yellow - Plan Catheter Care: Yes Intake & Output: Yes Additional Information: IMP: gastric ca. Now with indewwling jejunostomy feeding tube. Indwelling yousif cath - Date & Time of Note Date: 11/11/18 Time: 20:50
--- NOTE | 2018-11-12 15:32 | PN ---
DATE: 11/12/2018 LOCATION: 559, Bed A. SUBJECTIVE: This 78-year-old male was seen and examined early in rounds in a state of DNR and DNI, somewhat aphasic. All the information obtained from the medical record and medical staff, tolerating jejunostomy tube feeding without reported active bleeding. The entire chart is reviewed including the most recent lab result with today's blood glucose level of 122; rest of the lab results is still pending. PHYSICAL EXAMINATION: GENERAL: A 78-year-old male, afebrile without reported significant complaint of shortness of breath, chills or fever. No reported chest pain or palpitation. VITAL SIGNS: Heart rate of 70, respiratory rate of 20 to 22 and blood pressure of 124/68. HEENT: Showed pale dry oral mucoid membrane. Nonicteric sclerae. LUNGS: Few scattered crepitation. Decreased air entry at bases. HEART: Positive S1 and S2. ABDOMEN: Soft with mild generalized tenderness. No mass or organomegaly. No rebound tenderness or guarding. EXTREMITIES: Mild lower extremity edematous changes. No clubbing or cyanosis. NEUROLOGIC: No reported new neurological deficits, sensory or motor. No reported new focal deficits. IMPRESSION: 1. Gastroesophageal adenocarcinoma. 2. Malnutrition, hypoalbuminemia,and dysphagia status post jejunostomy tube insertion. 3. Re-exacerbation of peptic ulcer disease. 4. Anemia most likely secondary to above. 5. Reported recent history of bilateral pleural effusion with pneumonia. 6. Electrolyte imbalance. SUGGESTIONS : 1. Continue current management. 2. Subsequent increase of feeding tube . 3. Further recommendation and workup to follow. However, if there is subsequent drop of hemoglobin and hematocrit, then blood transfusion to be kept in mind. Flynn Avina MD
--- NOTE | 2018-11-12 18:16 | CP.PCM.PN ---
Subjective - Date & Time of Evaluation Date of Evaluation: 11/12/18 Time of Evaluation: 18:14 - Subjective Subjective: Patient alert, confused, in no respiratory distress. Objective - Vital Signs/Intake and Output Vital Signs (last 24 hours): Temp Pulse Resp BP Pulse Ox 97.8 F 89 20 119/73 96 11/12/18 15:00 11/12/18 15:00 11/12/18 15:00 11/12/18 15:00 11/12/18 15:00 Intake and Output: 11/12/18 11/12/18 06:59 18:59 Intake Total 1050 410 Output Total 950 400 Balance 100 10 - Medications Medications: Current Medications Lorazepam (Ativan) 1 mg IVP Q4 PRN PRN Reason: Agitation Lorazepam (Ativan) 1 mg JT DAILY [facility] Last Admin: 11/12/18 09:19 Dose: 1 mg Pantoprazole Sodium (Protonix Inj) 40 mg IVP BID [facility] Last Admin: 11/12/18 09:19 Dose: 40 mg - Labs Labs: 11/10/18 08:28 11/10/18 08:28 PT 12.1 SECONDS (9.7-12.2) 10/29/18 11:05 INR 1.1 10/29/18 11:05 APTT 30 SECONDS (21-34) D 10/29/18 11:05 - Constitutional Appears: No Acute Distress, Cachectic, Chronically Ill - Head Exam Head Exam: NORMAL INSPECTION - Eye Exam Eye Exam: Normal appearance - ENT Exam ENT Exam: Normal Exam - Neck Exam Neck Exam: Normal Inspection - Respiratory Exam Respiratory Exam: Rhonchi - Cardiovascular Exam Cardiovascular Exam: REGULAR RHYTHM - GI/Abdominal Exam GI & Abdominal Exam: Soft, Normal Bowel Sounds - Rectal Exam Rectal Exam: Deferred - Exam Exam: NORMAL INSPECTION - Extremities Exam Extremities Exam: Normal Inspection - Back Exam Back Exam: NORMAL INSPECTION - Neurological Exam Neurological Exam: Alert, Awake Additional comments: Confused. - Psychiatric Exam Additional comments: Confused. - Skin Skin Exam: Dry, Intact, Normal Color Assessment and Plan (1) Change in mental status Status: Acute (2) Severe anemia Status: Resolved (3) Pneumonia Status: Resolved (4) Hematuria Status: Acute (5) Gastric mass Status: Acute (6) Bilateral pleural effusion Status: Resolved
--- NOTE | 2018-11-12 21:43 | CP.PCM.PN ---
Subjective - Date & Time of Evaluation Date of Evaluation: 11/12/18 Time of Evaluation: 12:00 - Subjective Subjective: Appears comfortable, confused. Objective - Vital Signs/Intake and Output Vital Signs (last 24 hours): Temp Pulse Resp BP Pulse Ox 97.8 F 89 20 119/73 96 11/12/18 15:00 11/12/18 15:00 11/12/18 15:00 11/12/18 15:00 11/12/18 15:00 Intake and Output: 11/12/18 11/13/18 18:59 06:59 Intake Total 410 Output Total 400 Balance 10 - Medications Medications: Current Medications Lorazepam (Ativan) 1 mg IVP Q4 PRN PRN Reason: Agitation Lorazepam (Ativan) 1 mg JT DAILY [facility] Last Admin: 11/12/18 09:19 Dose: 1 mg Pantoprazole Sodium (Protonix Inj) 40 mg IVP BID [facility] Last Admin: 11/12/18 18:43 Dose: 40 mg - Labs Labs: 11/10/18 08:28 11/10/18 08:28 PT 12.1 SECONDS (9.7-12.2) 10/29/18 11:05 INR 1.1 10/29/18 11:05 APTT 30 SECONDS (21-34) D 10/29/18 11:05 - Head Exam Head Exam: ATRAUMATIC - Eye Exam Eye Exam: Normal appearance - ENT Exam ENT Exam: Mucous Membranes Dry - Respiratory Exam Respiratory Exam: NORMAL BREATHING PATTERN - Cardiovascular Exam Cardiovascular Exam: +S1, +S2 - GI/Abdominal Exam GI & Abdominal Exam: Normal Bowel Sounds Assessment and Plan (1) Anemia Assessment & Plan: iron deficiency 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
--- NOTE | 2018-11-12 22:10 | PN ---
DATE: 11/12/2018 SUBJECTIVE: The patient is still alert, but confused, seen in the observation room according to the nurse. The patient's sister has agreed for patient to go to [facility] [place]. The patient still, however, has mittens and still trying to bite them. The patient is receiving feeding through the GT-tube. PHYSICAL EXAMINATION: VITAL SIGNS: Temperature 97.8, pulse 89, blood pressure 119/78, respirations 20, oxygen saturation 96%. GENERAL: The patient is alert, but confused, seen in his room with hand mittens. SKIN: No diaphoresis. HEENT: No headache. No dizziness. NECK: Supple. RESPIRATORY: No dyspnea. CARDIOVASCULAR: No chest pain. GASTROINTESTINAL: The patient has J-tube feeding. No abdominal pain. EXTREMITIES: Still has hand mittens. MUSCULOSKELETAL: Feels weak. NEUROLOGIC: Alert, but confused. Not agitated. The patient is able to follow instructions from time, but still disoriented, does not know where he is. MENTAL STATUS EXAMINATION: Cachectic-looking male who looks stated age; oriented x1, only to person. Speech is slow. Affect restricted. Mood is dysphoric. Thought process confused. Thought content, no overt psychosis. No suicidal or homicidal ideation. Attention and memory impaired. Insight and judgement impaired. Impulse control is guarded. IMPRESSION: 1. 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 2. Mood disorder. PLAN AND RECOMMENDATIONS: The patient is seen, meds reviewed. The patient has possible transfer to [facility] [place], also known as [facility] for subacute. Continue present psych medications as ordered. Continue feeding through the GT-tube. Also, the patient may need his mittens as he will try to pull his GT-tube if the mittens are released. Naveed Cooper MD
--- NOTE | 2018-11-13 19:22 | PN ---
DATE: 11/13/2018 SUBJECTIVE: The patient is seen. The patient is somewhat confused, still oriented x1. We spoke with adoption social worker. chip loft worker reports the patient was refused by [facility], but the patient has a lot of substantial amount of money and his sister is trying to access it. So the money can be used for him for care at home. The patient is very confused with terminal stage delirium and sister may eventually need to apply for emergency guardianship to access her brother's fund. PHYSICAL EXAMINATION: VITAL SIGNS: Temperature 97.3, pulse 68, blood pressure 136/71, respirations 20, oxygen saturation is 98%. REVIEW OF SYSTEMS: GENERAL: Alert, but confused. Seen in his room still with hand mittens and still trying to bite them. The patient is tolerating feeding through the GT-tube. The patient still needs 24-hour monitoring as he tried to risk his life. SKIN: No diaphoresis. HEENT: No headache. No dizziness. NECK: Supple. RESPIRATORY: No dyspnea. CARDIOVASCULAR: No chest pain. GASTROINTESTINAL: Has GT-tube feeding, abdominal pain. EXTREMITIES: Still has hand mittens. MUSCULOSKELETAL: Feels weak. NEUROLOGIC: Alert, but globally confused, oriented x1. GENITOURINARY: No urinary problems. MENTAL STATUS EXAMINATION: Cachectic-looking male who looks stated age, oriented x1. Speech is slow. Affect is restricted. Mood is dysphoric. Thought process confused. Thought content, no overt psychosis. No suicidal or homicidal ideation. Attention and memory seem to be impaired. Insight and judgment is impaired. Impulse control is guarded at this time. The patient still needs 24-hour monitoring. 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 PLAN AND RECOMMENDATIONS: The patient seen. Meds reviewed. The patient to continue present psych medicine Ativan 1 mg p.o. via GT daily and p.r.n. The patient will benefit from palliative and hospice care. If the sister wants to take him home, the patient may benefit from home hospice, but his sister needs to access his assets so they can be used for him at home. The patient's sister may need to apply possibly for emergency guardianship. Naveed Cooper MD [facility] # [id number]
--- NOTE | 2018-11-13 20:54 | CP.PCM.PN ---
Subjective - Date & Time of Evaluation Date of Evaluation: 11/13/18 Time of Evaluation: 20:51 - Subjective Subjective: Patient alert, confused, in no respiratory distress, afebrile. Objective - Vital Signs/Intake and Output Vital Signs (last 24 hours): Temp Pulse Resp BP Pulse Ox 97.9 F 83 20 129/68 95 11/13/18 16:00 11/13/18 16:00 11/13/18 16:00 11/13/18 16:00 11/13/18 16:00 Intake and Output: 11/13/18 11/14/18 18:59 06:59 Intake Total 410 Output Total 300 Balance 110 - Medications Medications: Current Medications Lorazepam (Ativan) 1 mg IVP Q4 PRN PRN Reason: Agitation Lorazepam (Ativan) 1 mg JT DAILY [facility] Last Admin: 11/13/18 09:59 Dose: 1 mg - Labs Labs: 11/10/18 08:28 11/10/18 08:28 PT 12.1 SECONDS (9.7-12.2) 10/29/18 11:05 INR 1.1 10/29/18 11:05 APTT 30 SECONDS (21-34) D 10/29/18 11:05 - Constitutional Appears: No Acute Distress, Cachectic, Chronically Ill - Head Exam Head Exam: NORMOCEPHALIC - Eye Exam Eye Exam: Normal appearance - ENT Exam ENT Exam: Normal Exam - Neck Exam Neck Exam: Normal Inspection - Respiratory Exam Respiratory Exam: Rhonchi - Cardiovascular Exam Cardiovascular Exam: REGULAR RHYTHM - GI/Abdominal Exam GI & Abdominal Exam: Soft, Normal Bowel Sounds - Rectal Exam Rectal Exam: Deferred - Exam Exam: NORMAL INSPECTION - Extremities Exam Extremities Exam: Normal Inspection - Back Exam Back Exam: NORMAL INSPECTION - Neurological Exam Neurological Exam: Alert, Awake Additional comments: Confused. - Skin Skin Exam: Dry, Intact, Normal Color, Warm Assessment and Plan (1) Change in mental status Status: Acute (2) Severe anemia Status: Resolved (3) Pneumonia Status: Resolved (4) Hematuria Status: Acute (5) Gastric mass Status: Acute (6) Bilateral pleural effusion Status: Resolved
--- NOTE | 2018-11-14 15:10 | PN ---
DATE: 11/14/2018 LOCATION: 559, bed A. SUBJECTIVE: This 78-year-old male seen and examined in rounds, still in a status post DNR and DNI, without any significant clinical changes, tolerating tube feeding of jejunostomy tube. The entire chart is reviewed including but not limited to the most recent lab and radiology study results, current and the previous medication list, current and the previous medical events. Case discussed with the staff at length and today's blood glucose level is 135. Rest of lab results still pending. PHYSICAL EXAMINATION: GENERAL: A 78-year-old male with dysphagia. VITAL SIGNS: Afebrile with pulse of 82, respiratory rate 20 to 22, blood pressure 120/64. HEENT: Showed mildly pale dry oral mucoid membrane. Nonicteric sclerae. LUNGS: Few scattered crepitation. Decreased air entry at bases. HEART: Positive S1 and S2. ABDOMEN: Soft with mild generalized tenderness. No mass or organomegaly. No rebound tenderness or guarding. Jejunostomy tube is in place. EXTREMITIES: With lower extremities mild edematous changes, no clubbing or cyanosis. NEUROLOGIC: No reported new neurological deficits, sensory or motor. The patient appeared to be somewhat confused. IMPRESSION: 1. Gastroesophageal adenocarcinoma. 2. Re-exacerbation of peptic ulcer disease. 3. Recent history of melena, secondary to above. 4. Anemia, secondary to above. 5. Malnutrition, hypoalbuminemia, hypoproteinemia with status post jejunostomy tube insertion, done surgically. 6. Known history of bilateral pleural effusion with pneumonia. 7. Electrolyte imbalance with poorly controlled hyperglycemia. SUGGESTIONS: 1. Continue current management. 2. Subsequent increase of the rate of PEG feeding. 3. Further recommendation to follow. Flynn Avina MD
--- NOTE | 2018-11-14 22:07 | PN ---
DATE: 11/14/2018 SUBJECTIVE: The patient has no significant change noted. Still on one-to-one watch, alert, but very confused with hand mittens. According to the staff, the patient's sister wants to take the patient home, but wants to have access of the patient's assets. The patient is very confused to give power of workers compensation attorney. The patient's sister needs to file for guardianship. PHYSICAL EXAMINATION: VITAL SIGNS: Temperature 97.5, pulse 79, blood pressure 111/61, respirations 20, and oxygen saturation is 99%. REVIEW OF SYSTEMS: GENERAL: The patient is alert, but confused. Seen in the 4-bedded room, still with hand mittens. SKIN: No diaphoresis. HEENT: No headache. No dizziness. NECK: Supple. RESPIRATORY: No dyspnea. CARDIOVASCULAR: No chest pain. GASTROINTESTINAL: No nausea or vomiting. EXTREMITIES: As stated, with hand mittens, the patient is trying to bite it. The patient still tolerating PEG tube feeding. NEUROLOGIC: Alert, but confused, oriented only to person. GENITOURINARY: No urinary problems. MENTAL STATUS EXAMINATION: Cachectic-looking male who looks stated age, oriented x1, only to person. Speech is slow. Affect is restricted. Mood is dysphoric. Thought process confused. Thought content, no psychosis. No suicidal or homicidal ideation. Attention and memory seem to be limited. Insight and judgment is limited. Impulse control is fair at this time. 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 PLAN AND RECOMMENDATIONS: The patient seen. Meds reviewed. Continue psych meds as ordered. If the sister wants to access the patient's asset, the patient's sister needs to apply for guardianship as the patient cannot give any power or workers compensation attorney at this time due to his profound confusion. Naveed Cooper MD MTDD
--- NOTE | 2018-11-14 23:57 | CP.PCM.PN ---
Subjective - Date & Time of Evaluation Date of Evaluation: 11/14/18 Time of Evaluation: 19:00 - Subjective Subjective: Patient has no complaint. Alert, in no respiratory distress, confused, afebrile. Objective - Vital Signs/Intake and Output Vital Signs (last 24 hours): Temp Pulse Resp BP Pulse Ox 97.5 F L 79 20 111/61 99 11/14/18 08:00 11/14/18 08:00 11/14/18 08:00 11/14/18 08:00 11/14/18 08:00 Intake and Output: 11/14/18 11/15/18 18:59 06:59 Intake Total 550 Output Total 300 Balance 250 - Medications Medications: Current Medications Lorazepam (Ativan) 1 mg IVP Q4 PRN PRN Reason: Agitation Lorazepam (Ativan) 1 mg JT DAILY [facility] Last Admin: 11/14/18 10:41 Dose: 1 mg - Labs Labs: 11/10/18 08:28 11/10/18 08:28 PT 12.1 SECONDS (9.7-12.2) 10/29/18 11:05 INR 1.1 10/29/18 11:05 APTT 30 SECONDS (21-34) D 10/29/18 11:05 - Constitutional Appears: No Acute Distress, Cachectic, Chronically Ill - Head Exam Head Exam: NORMOCEPHALIC - Eye Exam Eye Exam: Normal appearance - ENT Exam ENT Exam: Normal Exam - Neck Exam Neck Exam: Normal Inspection - Respiratory Exam Respiratory Exam: Rhonchi - Cardiovascular Exam Cardiovascular Exam: REGULAR RHYTHM - GI/Abdominal Exam GI & Abdominal Exam: Soft, Normal Bowel Sounds - Rectal Exam Rectal Exam: Deferred - Extremities Exam Extremities Exam: Normal Inspection - Back Exam Back Exam: NORMAL INSPECTION - Neurological Exam Neurological Exam: Alert, Awake Additional comments: Confused. - Psychiatric Exam Additional comments: Confused. - Skin Skin Exam: Dry, Intact, Normal Color Assessment and Plan (1) Change in mental status Status: Acute (2) Severe anemia Status: Resolved (3) Pneumonia Status: Resolved (4) Hematuria Status: Acute (5) Gastric mass Assessment & Plan: On jejunostomy tube feeding. Status: Acute (6) Bilateral pleural effusion Status: Resolved
--- NOTE | 2018-11-15 21:18 | PN ---
DATE: 11/15/2018 SUBJECTIVE: The patient is seen. No significant changes noted. Alert but confused. Spoke with the patient's sister, Albert, at length. The patient's sister states she cannot take care of him at home but wants him to go first to the intermediate. I did tell her that the patient will need 24-hour monitoring and the patient's sister will provide private help while the patient is in the intermediate. The patient wants her brother to go to [facility] and will discuss with Ben about the patient going there and getting 24-hour help to monitor. The patient needs to be monitored as the patient will try to rip his GT tube as well as still has been biting on his mittens. He is still very confused and needs monitoring. The patient also is at risk for fall without close supervision. PHYSICAL EXAMINATION: VITAL SIGNS: Temperature 98.5, pulse 75, blood pressure 112/68, respirations 20, oxygen saturation 96%. REVIEW OF SYSTEMS: GENERAL: Alert, oriented x1 only to person. Still in the four-bedded room and observation with one-to-one. Oriented only to person. SKIN: No diaphoresis. HEENT: No headache. No dizziness. NECK: Supple. RESPIRATORY: No dyspnea. CARDIOVASCULAR: No chest pain. GASTROINTESTINAL: Has GT feeding in place with no abdominal pain. EXTREMITIES: The patient has mittens, trying to bite them. The patient is trying to pull his line. NEUROLOGIC: Alert but confused, oriented x1. GENITOURINARY: No urinary problems, no incontinence. MENTAL STATUS EXAMINATION: Elderly male, was cachectic, oriented x1. Speech is slow. Affect is restricted. Mood is dysphoric. Thought process confused. Thought content, no psychosis. No suicidal or homicidal ideation. Attention and memory still impaired. Insight and judgment impaired. Impulse control is guarded at this time. 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 PLAN AND RECOMMENDATIONS: The patient seen. Meds reviewed. I discussed with the patient's sister. The patient's sister does not want to do guardianship which I initially recommended. She is stating that she has access to the patient's assets and does not need to go for guardianship. The patient's sister, however, wants the patient to go to [facility] and will provide 24-hour private help. We will continue same medications. I will follow up with the patient at [facility] as needed, but the patient if going to [facility] will need 24-hour care. The patient has enough means to support him with 24-hour care while in [facility] for subacute and possible long-term care. The patient's sister cannot take care of him at home as she is also an elderly with some medical issues. Naveed Cooper MD
--- NOTE | 2018-11-15 22:42 | CP.PCM.PN ---
Subjective - Date & Time of Evaluation Date of Evaluation: 11/15/18 Time of Evaluation: 18:30 - Subjective Subjective: Patient awake, confused, in no respiratory distress, afebrile. Objective - Vital Signs/Intake and Output Vital Signs (last 24 hours): Temp Pulse Resp BP Pulse Ox 98 F 74 20 126/79 96 11/15/18 16:00 11/15/18 16:00 11/15/18 16:00 11/15/18 16:00 11/15/18 16:00 Intake and Output: 11/15/18 11/16/18 18:59 06:59 Intake Total 400 Output Total 50 Balance 350 - Medications Medications: Current Medications Lorazepam (Ativan) 1 mg IVP Q4 PRN PRN Reason: Agitation Lorazepam (Ativan) 1 mg JT DAILY KESHAWN Last Admin: 11/15/18 10:53 Dose: 1 mg - Labs Labs: 11/10/18 08:28 11/10/18 08:28 PT 12.1 SECONDS (9.7-12.2) 10/29/18 11:05 INR 1.1 10/29/18 11:05 APTT 30 SECONDS (21-34) D 10/29/18 11:05 - Constitutional Appears: No Acute Distress, Cachectic, Chronically Ill - Head Exam Head Exam: NORMAL INSPECTION - Eye Exam Eye Exam: Normal appearance - ENT Exam ENT Exam: Normal Exam - Neck Exam Neck Exam: Normal Inspection - Respiratory Exam Respiratory Exam: Rhonchi - Cardiovascular Exam Cardiovascular Exam: REGULAR RHYTHM - GI/Abdominal Exam GI & Abdominal Exam: Soft - Rectal Exam Rectal Exam: Deferred - Extremities Exam Extremities Exam: Normal Inspection - Back Exam Back Exam: NORMAL INSPECTION - Neurological Exam Neurological Exam: Alert, Awake, Oriented x3 - Psychiatric Exam Psychiatric exam: Anxious - Skin Skin Exam: Dry, Intact Assessment and Plan (1) Change in mental status Status: Acute (2) Severe anemia Status: Resolved (3) Pneumonia Status: Resolved (4) Hematuria Status: Acute (5) Gastric mass Status: Acute (6) Bilateral pleural effusion Status: Resolved
--- NOTE | 2018-11-15 23:47 | CON ---
DATE: 11/06/2018 UROLOGY CONSULTATION CONSULT REQUESTED BY: Sylvester Jacinto MD CONSULT FILLED BY: Aishwarya Quiroz MD REASON FOR CONSULTATION: Hematuria. Elevated serum PSA. HISTORY OF PRESENT ILLNESS: The patient is a 78-year-old male. The patient was admitted several weeks ago with altered mental status. The patient was found to be lying on the floor and was confused. The patient presented to the emergency room. He was found to have leukocytosis. He was admitted for sepsis. The patient was also found to have anemia. Subsequent evaluation in the hospital revealed an elevated PSA. The patient also was noted to have hematuria. Further evaluation revealed the presence of a gastric mass. The patient had biopsy of the mass which revealed moderately differentiated adenocarcinoma. The patient underwent feeding jejunostomy on 11/02/2018. I attempted to see him earlier during this admission, but he was not in his room. The patient has history of insulin-dependent diabetes mellitus as well. The chart is reviewed. Lab data and x-rays were reviewed as well. PHYSICAL EXAMINATION: GENERAL: The patient is a thin elderly male. The patient is lethargic. ABDOMEN: Soft, nondistended, nontender. The site of the feeding jejunostomy was dry and intact. The patient has a Gutierrez catheter in place. GENITALIA: Without inflammation. Urine is clear via the Gtuierrez catheter. LABORATORY DATA: Hematocrit 28. The patient had received previous transfusion. White blood count 9100. BUN 24, creatinine 0.6. Serum PSA is 11. IMPRESSION: History of hematuria. History of elevated serum prostate-specific antigen. Gastric carcinoma with extension to esophagus, now with feeding jejunostomy tube. Serum prostate-specific antigen. Elevated serum prostate-specific antigen may be due to inflammatory disease, infection, benign prostatic hypertrophy, and/or prostate carcinoma. The hematuria has resolved. The patient has a Gutierrez catheter in place. PLAN/RECOMMENDATIONS: I will discuss with the attending physician regarding further management. In view of overall frail status of the patient and his overall prognosis, further urologic intervention may need to be performed or withheld. Consider repeat serum PSA including total and percent-free PSA. Hematuria maybe due to inflammatory disease, infection, neoplasia, and/or urolithiasis. The review of the CAT scan revealed gastric carcinoma. Bilateral pleural effusions. Gutierrez catheter in place. Prostatic enlargement, and cardiomegaly. For now, monitoring the patient appears appropriate in view of recent jejunostomy tube placement surgery. Further therapy to follow according to the patient's clinical course as well as results of above. Thank you for recommending the patient for urology consultation. Aishwarya Quiroz MD cc: Sylvester Jacinto MD
--- NOTE | 2018-11-16 21:13 | CP.PCM.PN ---
Subjective - Date & Time of Evaluation Date of Evaluation: 11/16/18 Time of Evaluation: 21:10 - Subjective Subjective: Patient alert, confused, afebrile, in no respiratory distress, on jejunostomy feeding, awaiting placement. Objective - Vital Signs/Intake and Output Vital Signs (last 24 hours): Temp Pulse Resp BP Pulse Ox 97.9 F 89 20 122/69 96 11/16/18 15:10 11/16/18 15:10 11/16/18 15:10 11/16/18 15:10 11/16/18 15:10 Intake and Output: 11/16/18 11/17/18 18:59 06:59 Intake Total 350 Output Total 300 Balance 50 - Medications Medications: Current Medications Lorazepam (Ativan) 1 mg IVP Q4 PRN PRN Reason: Agitation Lorazepam (Ativan) 1 mg JT DAILY KESHAWN Last Admin: 11/16/18 10:04 Dose: 1 mg - Labs Labs: 11/10/18 08:28 11/10/18 08:28 PT 12.1 SECONDS (9.7-12.2) 10/29/18 11:05 INR 1.1 10/29/18 11:05 APTT 30 SECONDS (21-34) D 10/29/18 11:05 - Constitutional Appears: No Acute Distress, Cachectic, Chronically Ill - Head Exam Head Exam: NORMAL INSPECTION - Eye Exam Eye Exam: Normal appearance - ENT Exam ENT Exam: Normal Exam - Respiratory Exam Respiratory Exam: Rhonchi - Cardiovascular Exam Cardiovascular Exam: REGULAR RHYTHM - GI/Abdominal Exam GI & Abdominal Exam: Soft, Normal Bowel Sounds - Rectal Exam Rectal Exam: Deferred - Exam Exam: NORMAL INSPECTION - Extremities Exam Extremities Exam: Normal Inspection - Back Exam Back Exam: NORMAL INSPECTION - Neurological Exam Neurological Exam: Alert, Awake Additional comments: Confused. - Psychiatric Exam Psychiatric exam: Flat Affect - Skin Skin Exam: Dry, Intact, Normal Color, Warm Assessment and Plan (1) Change in mental status Status: Acute (2) Severe anemia Status: Resolved (3) Pneumonia Status: Resolved (4) Hematuria Status: Acute (5) Gastric mass Assessment & Plan: Gastric adenocarcinoma invading the lower esophagus.. Patient is NPO, receiving feeding via jejunostomy tube. Status: Acute (6) Bilateral pleural effusion Status: Resolved
--- NOTE | 2018-11-16 23:06 | CP.PCM.PN ---
Subjective - Date & Time of Evaluation Date of Evaluation: 11/16/18 Time of Evaluation: 18:00 - Subjective Subjective: Confused Objective - Vital Signs/Intake and Output Vital Signs (last 24 hours): Temp Pulse Resp BP Pulse Ox 97.9 F 89 20 122/69 96 11/16/18 15:10 11/16/18 15:10 11/16/18 15:10 11/16/18 15:10 11/16/18 15:10 Intake and Output: 11/16/18 11/17/18 18:59 06:59 Intake Total 350 Output Total 300 Balance 50 - Medications Medications: Current Medications Lorazepam (Ativan) 1 mg IVP Q4 PRN PRN Reason: Agitation Lorazepam (Ativan) 1 mg JT DAILY KESHAWN Last Admin: 11/16/18 10:04 Dose: 1 mg - Labs Labs: 11/10/18 08:28 11/10/18 08:28 PT 12.1 SECONDS (9.7-12.2) 10/29/18 11:05 INR 1.1 10/29/18 11:05 APTT 30 SECONDS (21-34) D 10/29/18 11:05 - Head Exam Head Exam: ATRAUMATIC - Eye Exam Eye Exam: Normal appearance - ENT Exam ENT Exam: Mucous Membranes Dry - Respiratory Exam Respiratory Exam: NORMAL BREATHING PATTERN - Cardiovascular Exam Cardiovascular Exam: +S1, +S2 - GI/Abdominal Exam GI & Abdominal Exam: Normal Bowel Sounds Assessment and Plan (1) Anemia Assessment & Plan: iron deficiency 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
--- NOTE | 2018-11-17 06:10 | PN ---
DATE: 11/16/2018 SUBJECTIVE: The patient is seen. The patient is still alert, but confused, states he is in [place]. The patient is very oriented, he is in the hospital. The patient still needs 24-hour care and he is admitted to our supervision. Discussed with case advocate that the sister is willing to provide private health if the patient is going to just long-term and the patient's sister states that she can access the patient asset. PHYSICAL EXAMINATION: VITAL SIGNS: Temperature 97.9, heart rate 86, blood pressure 115/60, respirations 20, and oxygen saturation 95%. REVIEW OF SYSTEMS: GENERAL: Alert, but confused, oriented x1 only to person, SKIN: No diaphoresis. HEENT: No headache. No dizziness. NECK: Supple. RESPIRATORY: No dyspnea. CARDIOVASCULAR: No chest pain. GASTROINTESTINAL: Tolerating G tube feedings. No abdominal pain, nausea, or vomiting. EXTREMITIES: He still has hand mittens. The patient still biting his mittens. MUSCULOSKELETAL: Feels weak. NEUROLOGIC: Alert, but confused, and oriented x 1, only to person. MENTAL STATUS EXAMINATION: An elderly cachectic male, who looks stated age, oriented x 1. The patient is only oriented to person, disoriented to time and place. He thinks he is in [place], [place]. Speech is slow. Affect is restricted. Mood is dysphoric. Thought process, confused. Thought content, No overt hallucinations. No suicidal or homicidal ideation. Attention and memory seemed to be limited. Insight and judgment are limited. Impulse control is fair at this time. IMPRESSION: Terminal stage delirium with metastatic adenocarcinoma of the stomach and mets to the esophagus as well as mood disorder. PLAN AND RECOMMENDATIONS: The patient is seen, meds reviewed. Continue G-tube feedings. Continue 24-hour monitoring and also continue the Ativan 1 mg via G-tube daily as well as the p.r.n. food [employer] drink factory workers and director social service will try to arrange the patient to go to [facility] with 24-hour private care to monitor him while he is there. Naveed Cooper MD MTDD
--- NOTE | 2018-11-17 23:22 | CP.PCM.PN ---
Subjective - Date & Time of Evaluation Date of Evaluation: 11/17/18 Time of Evaluation: 19:00 - Subjective Subjective: Patient confused, in no respiratory distress, receiving jejunostomy tube feeding. Awaiting NH placement. Objective - Vital Signs/Intake and Output Vital Signs (last 24 hours): Temp Pulse Resp BP Pulse Ox 97.9 F 111 H 18 111/78 96 11/17/18 16:00 11/17/18 16:00 11/17/18 16:00 11/17/18 16:00 11/17/18 16:00 Intake and Output: 11/17/18 11/18/18 18:59 06:59 Intake Total 400 400 Output Total 250 200 Balance 150 200 - Medications Medications: Current Medications Lorazepam (Ativan) 1 mg IVP Q4 PRN PRN Reason: Agitation Lorazepam (Ativan) 1 mg JT DAILY KESHAWN Last Admin: 11/17/18 09:49 Dose: 1 mg - Labs Labs: 11/10/18 08:28 11/10/18 08:28 PT 12.1 SECONDS (9.7-12.2) 10/29/18 11:05 INR 1.1 10/29/18 11:05 APTT 30 SECONDS (21-34) D 10/29/18 11:05 - Constitutional Appears: No Acute Distress, Cachectic, Chronically Ill - Head Exam Head Exam: NORMOCEPHALIC - Eye Exam Eye Exam: Normal appearance - ENT Exam ENT Exam: Normal Exam - Neck Exam Neck Exam: Normal Inspection - Respiratory Exam Respiratory Exam: Rhonchi - Cardiovascular Exam Cardiovascular Exam: REGULAR RHYTHM - GI/Abdominal Exam GI & Abdominal Exam: Soft, Normal Bowel Sounds - Rectal Exam Rectal Exam: Deferred - Extremities Exam Extremities Exam: Normal Inspection - Back Exam Back Exam: NORMAL INSPECTION - Neurological Exam Neurological Exam: Alert, Awake Additional comments: Confused. - Psychiatric Exam Psychiatric exam: Flat Affect - Skin Skin Exam: Dry, Intact, Normal Color, Warm Assessment and Plan (1) Change in mental status Status: Acute (2) Severe anemia Status: Resolved (3) Pneumonia Status: Resolved (4) Hematuria Status: Acute (5) Gastric mass Status: Acute (6) Bilateral pleural effusion Status: Resolved
[2018-11-18 08:51] LABS: BASO # 0.1 K/uL (0.0-0.2); EOS # 0.3 K/uL (0.0-0.7); EOS % 2.6 % (0.0-4.0); LYMPH # 1.1 K/uL (1.0-4.3); MEAN CORPUSCULAR HEMOGLOBIN 29.1 pg (27.0-31.0); MEAN CORPUSCULAR HGB CONC 32.3 g/dL (33.0-37.0); MEAN PLATELET VOLUME 10.5 fL (7.2-11.7); MONO # 0.7 K/uL (0.0-0.8); MONO % 5.7 % (0.0-10.0); NEUT # 9.8 K/uL (1.8-7.0); NEUT % 81.7 % (50.0-75.0); NRBC % 0.1 % (0.0-2.0); PLATELET COUNT 342 K/uL (130-400); RBC 2.47 Mil/uL (4.40-5.90); RED CELL DISTRIBUTION WIDTH 23.8 % (11.5-14.5)
[2018-11-18 09:00] LABS: HEMOGLOBIN 7.2 g/dL (12.0-18.0); MEAN CELL VOLUME 90.3 fL (80.0-94.0)
[2018-11-18 09:06] LABS: ALB/GLOB RATIO 1.2 (1.0-2.1); ALBUMIN 2.7 g/dL (3.5-5.0); ALT/SGPT 28 U/L (21-72); AST/SGOT 25 U/L (17-59); BLOOD UREA NITROGEN 74 mg/dL (9-20); CALCIUM 8.2 mg/dl (8.6-10.4); GFR NON-AFRICAN AMERICAN > 60
--- NOTE | 2018-11-18 10:03 | PCM.URO ---
Urology Progress Note - General General: No Complaints - Subjective Abdominal Pain: No Flank Pain: No Voiding Well: No Hematuria: No Chest Pain: No Fever & Chills: No - Objective Lab Studies: Reviewed (anemia azotemia) Lab Results Last 24 Hours: Laboratory Results - last 24 hr 11/17/18 11/17/18 11/17/18 11:55 17:03 21:07 WBC RBC Hgb Hct MCV MCH MCHC RDW Plt Count MPV Neut % (Auto) Lymph % (Auto) Divide % (Auto) Eos % (Auto) Baso % (Auto) Neut # (Auto) Lymph # (Auto) Divide # (Auto) Eos # (Auto) Baso # (Auto) Sodium Potassium Chloride Carbon Dioxide Anion Gap BUN Creatinine Est GFR ( Amer) Est GFR (Non-Af Amer) POC Glucose (mg/dL) 142 H 130 H 141 H Random Glucose Calcium Phosphorus Magnesium Total Bilirubin AST ALT Alkaline Phosphatase Total Protein Albumin Globulin Albumin/Globulin Ratio 11/18/18 11/18/18 11/18/18 01:27 06:27 08:36 WBC RBC Hgb Hct MCV MCH MCHC RDW Plt Count MPV Neut % (Auto) Lymph % (Auto) Divide % (Auto) Eos % (Auto) Baso % (Auto) Neut # (Auto) Lymph # (Auto) Divide # (Auto) Eos # (Auto) Baso # (Auto) Sodium 144 Potassium 4.0 Chloride 109 H Carbon Dioxide 32 H Anion Gap 7 L BUN 74 H Creatinine 0.7 L Est GFR ( Amer) > 60 Est GFR (Non-Af Amer) > 60 POC Glucose (mg/dL) 137 H 143 H Random Glucose 120 H Calcium 8.2 L Phosphorus 4.5 Magnesium 2.3 Total Bilirubin < 0.1 L AST 25 ALT 28 Alkaline Phosphatase 66 Total Protein 5.0 L Albumin 2.7 L Globulin 2.3 Albumin/Globulin Ratio 1.2 11/18/18 08:36 WBC 12.0 H RBC 2.47 L Hgb 7.2 L D Hct 22.3 L MCV 90.3 D MCH 29.1 MCHC 32.3 L RDW 23.8 H Plt Count 342 MPV 10.5 Neut % (Auto) 81.7 H Lymph % (Auto) 9.0 L Divide % (Auto) 5.7 Eos % (Auto) 2.6 Baso % (Auto) 1.0 Neut # (Auto) 9.8 H Lymph # (Auto) 1.1 Divide # (Auto) 0.7 Eos # (Auto) 0.3 Baso # (Auto) 0.1 Sodium Potassium Chloride Carbon Dioxide Anion Gap BUN Creatinine Est GFR ( Amer) Est GFR (Non-Af Amer) POC Glucose (mg/dL) Random Glucose Calcium Phosphorus Magnesium Total Bilirubin AST ALT Alkaline Phosphatase Total Protein Albumin Globulin Albumin/Globulin Ratio Intake & Output: Intake & Output 11/17/18 11/18/18 11/18/18 18:59 06:59 18:59 Intake Total 400 1000 Output Total 250 400 Balance 150 600 Intake: Tube Feeding 400 750 Other 250 Output: Urine 250 400 Urethral (Gutierrez) 250 400 Other: # Bowel Movements 1 Vital Signs: Vital Signs - 24 hr 11/17/18 11/17/18 11/17/18 16:00 23:18 23:25 Temperature 97.9 F 98.0 F 98 F Pulse Rate 111 H 103 H 103 H Respiratory 18 18 18 Rate Blood Pressure 111/78 102/62 102/62 O2 Sat by Pulse 96 99 Oximetry 11/18/18 07:20 Temperature 98.0 F Pulse Rate 99 H Respiratory 20 Rate Blood Pressure 116/70 O2 Sat by Pulse 97 Oximetry - Physical Exam Abdominal Exam: Soft, Non-Distended Back: No CVA Tenderness Genitalia: Without Inflammation Urinary Catheter Draining Well: Yes Urine Color: Clear - Male Phallus: Normal - Plan Catheter Care: Yes Intake & Output: Yes Additional Information: Imp: urologically stable, with catheter in place. gastric ca. Fraility. P: Will discuss. Consider trial of voiding - Date & Time of Note Date: 11/18/18 Time: 10:03
[2018-11-18 11:46] LABS: BASOPHIL 1 % (0-2); EOSINOPHIL 2 % (0-4); LYMPHOCYTE 6 % (20-40); MONOCYTE 5 % (0-10); NEUTROPHIL 86 % (50-75); PLATELET ESTIMATE NORMAL (NORMAL); TOTAL CELLS COUNTED 100
[2018-11-18 11:47] LABS: ANISOCYTOSIS SLIGHT; HYPOCHROMIC MODERATE; MICROCYTOSIS SLIGHT; OVALOCYTES SLIGHT; POIKILOCYTOSIS SLIGHT; TARGET CELLS SLIGHT
[2018-11-18 14:12] LABS: MEAN CELL VOLUME 90.4 fL (80.0-94.0)
[2018-11-18 14:19] LABS: MEAN CORPUSCULAR HEMOGLOBIN 28.2 pg (27.0-31.0); MEAN CORPUSCULAR HGB CONC 31.2 g/dL (33.0-37.0); RBC 2.47 Mil/uL (4.40-5.90); RED CELL DISTRIBUTION WIDTH 23.8 % (11.5-14.5); WHITE BLOOD COUNT 14.9 K/uL (4.8-10.8)
--- NOTE | 2018-11-18 17:27 | PN ---
DATE: 11/18/2018 SUBJECTIVE: The patient is seen, remains confused, but is redirectable. According to the nurse on duty, the patient's hemoglobin dropped. According to the foster care case manager and the social services coordinator, the sister could not make up her mind what she wanted to do with her brother. She does not want guardianship. She does not want also for him to go to hospice care. The patient is currently in the hospital awaiting the decision of his sister. The sister does not want to take the patient home without 24-hour care. The patient may continue Ativan and the sister needs to make up her mind what she is going to do for her brother considering the discharge planning. LABORATORY DATA: As stated, her last hemoglobin was 7.2 which dropped from before which was 9.8. PHYSICAL EXAMINATION: VITAL SIGNS: Temperature is 98, pulse 99, blood pressure 160/72, respirations 20, oxygen saturation is 97%. REVIEW OF SYSTEMS: GENERAL: The patient looks pale. The patient is alert, but confused. He is alert and oriented to person. Uses hand mittens. HEENT: No headache, no dizziness. RESPIRATORY: No dyspnea. CARDIOVASCULAR: no chest pain or palpitations GASTROINTESTINAL: No abdominal pain. The patient is n.p.o. Currently in G-tube feeding. No bleeding. EXTREMITIES: Has hand mittens. NEUROLOGICAL: Still alert, but confused. GENITOURINARY: No urinary complaints. The patient still needs 24-hour monitoring. MENTAL STATUS EXAMINATION: A cachectic male, who looks stated age, looks very pale, oriented x1 only to person. Speaks in a very soft voice. Mood is dysphoric. Affect is restricted. Thought process, confused. Thought content no psychosis, no suicidal ideation. When asked, the patient still does not know where he is and the patient is mumbling. He is talking about trying to go home. No psychosis. No suicidal ideation. The patient states he wants to go home but if the patient is discharged to home, he will need 24-hour care. Attention and memory seem to be limited. Insight and judgment limited. Impulse control is fair at this time. 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 PLAN AND RECOMMENDATIONS: The patient is seen, meds reviewed. Continue present treatment plan. The sister needs to make a decision on what she wanted to do with her brother concerning whether to send him to the rehab or whether to take him home. If the patient goes to the rehab, he will need 24-hour private help. The patient also might benefit from inpatient hospice. The patient's sister is unsure whether if she wants guardianship of the patient. Continue Ativan as ordered for now. This doctor will sign out for now. If there is any need, please recall me for reevaluation of the patient. For now, I will recommend to keep the patient on Ativan and the patient will really benefit from palliative care but the sister cannot make up her mind at this time. Naveed Cooper MD MTDD
--- NOTE | 2018-11-18 19:44 | CP.PCM.PN ---
Subjective - Date & Time of Evaluation Date of Evaluation: 11/18/18 Time of Evaluation: 19:42 - Subjective Subjective: Patient awake, in no acute distress, confused, afebrile, on jejunostomy tube feeding. Hgb: 7.0 . Will transfuse one unit of PRC, check serum ferritin, serum iron . Objective - Vital Signs/Intake and Output Vital Signs (last 24 hours): Temp Pulse Resp BP Pulse Ox 97.8 F 111 H 20 105/62 95 11/18/18 16:21 11/18/18 16:21 11/18/18 16:21 11/18/18 16:21 11/18/18 16:21 Intake and Output: 11/18/18 11/19/18 18:59 06:59 Intake Total 300 Output Total 400 Balance -100 - Medications Medications: Current Medications Lorazepam (Ativan) 1 mg IVP Q4 PRN PRN Reason: Agitation Lorazepam (Ativan) 1 mg JT DAILY KESHAWN Last Admin: 11/18/18 09:58 Dose: 1 mg - Labs Labs: 11/18/18 14:01 11/18/18 08:36 PT 12.1 SECONDS (9.7-12.2) 10/29/18 11:05 INR 1.1 10/29/18 11:05 APTT 30 SECONDS (21-34) D 10/29/18 11:05 - Constitutional Appears: No Acute Distress, Cachectic, Chronically Ill - Head Exam Head Exam: NORMAL INSPECTION - Eye Exam Eye Exam: Normal appearance - ENT Exam ENT Exam: Normal Exam - Neck Exam Neck Exam: Normal Inspection - Respiratory Exam Respiratory Exam: Rhonchi - Cardiovascular Exam Cardiovascular Exam: REGULAR RHYTHM - GI/Abdominal Exam GI & Abdominal Exam: Soft, Normal Bowel Sounds - Extremities Exam Extremities Exam: Full ROM - Back Exam Back Exam: NORMAL INSPECTION - Neurological Exam Neurological Exam: Alert, Awake Additional comments: Confused. - Psychiatric Exam Psychiatric exam: Flat Affect - Skin Skin Exam: Dry, Normal Color, Warm Assessment and Plan (1) Change in mental status Status: Acute (2) Severe anemia Assessment & Plan: Probably bleeding from the stomach cancer. Will transfuse one unit of PRC and check serum ferritin level. Status: Acute (3) Pneumonia Status: Resolved (4) Hematuria Status: Acute (5) Gastric mass Status: Acute (6) Bilateral pleural effusion Status: Resolved
--- NOTE | 2018-11-18 22:47 | CP.PCM.PN ---
Subjective - Date & Time of Evaluation Date of Evaluation: 11/18/18 Time of Evaluation: 18:00 - Subjective Subjective: Confused, comfortable Objective - Vital Signs/Intake and Output Vital Signs (last 24 hours): Temp Pulse Resp BP Pulse Ox 98 F 103 H 20 114/71 95 11/18/18 21:40 11/18/18 21:40 11/18/18 21:40 11/18/18 21:40 11/18/18 16:21 Intake and Output: 11/18/18 11/19/18 18:59 06:59 Intake Total 300 0 Output Total 400 Balance -100 0 - Medications Medications: Current Medications Lorazepam (Ativan) 1 mg IVP Q4 PRN PRN Reason: Agitation Lorazepam (Ativan) 1 mg JT DAILY KESHAWN Last Admin: 11/18/18 09:58 Dose: 1 mg - Labs Labs: 11/18/18 14:01 11/18/18 08:36 PT 12.1 SECONDS (9.7-12.2) 10/29/18 11:05 INR 1.1 10/29/18 11:05 APTT 30 SECONDS (21-34) D 10/29/18 11:05 - Head Exam Head Exam: ATRAUMATIC - Eye Exam Eye Exam: Normal appearance - ENT Exam ENT Exam: Mucous Membranes Dry - Respiratory Exam Respiratory Exam: NORMAL BREATHING PATTERN - Cardiovascular Exam Cardiovascular Exam: +S1, +S2 - GI/Abdominal Exam GI & Abdominal Exam: Normal Bowel Sounds Assessment and Plan (1) Anemia Assessment & Plan: prior iron deficiency s/p IV iron 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
[2018-11-19 09:12] LABS: BASO # 0.1 K/uL (0.0-0.2); BASO % 0.7 % (0.0-2.0); EOS # 0.2 K/uL (0.0-0.7); EOS % 2.1 % (0.0-4.0); HEMOGLOBIN 8.2 g/dL (12.0-18.0); LYMPH # 1.2 K/uL (1.0-4.3); LYMPH % 10.1 % (20.0-40.0); MEAN CELL VOLUME 90.2 fL (80.0-94.0); MEAN CORPUSCULAR HEMOGLOBIN 29.3 pg (27.0-31.0); MEAN CORPUSCULAR HGB CONC 32.5 g/dL (33.0-37.0); MONO # 0.8 K/uL (0.0-0.8); MONO % 6.7 % (0.0-10.0); NEUT # 9.4 K/uL (1.8-7.0); NEUT % 80.4 % (50.0-75.0); RBC 2.78 Mil/uL (4.40-5.90); RED CELL DISTRIBUTION WIDTH 21.1 % (11.5-14.5); WHITE BLOOD COUNT 11.7 K/uL (4.8-10.8)
[2018-11-19 09:38] LABS: IRON 55 ug/dL (49-181)
[2018-11-19 09:39] LABS: ALB/GLOB RATIO 1.1 (1.0-2.1); ALBUMIN 2.7 g/dL (3.5-5.0); ALT/SGPT 25 U/L (21-72); AST/SGOT 29 U/L (17-59); BLOOD UREA NITROGEN 69 mg/dL (9-20); CALCIUM 8.3 mg/dl (8.6-10.4); GFR NON-AFRICAN AMERICAN > 60
[2018-11-19 09:48] LABS: % IRON SATURATION 24 (20-55); TOTAL IRON BINDING CAPACITY 230 ug/dL (250-450)
[2018-11-19 10:28] LABS: FOLATE 17.5 ng/mL
--- NOTE | 2018-11-19 16:50 | CP.PCM.PN ---
Subjective - Date & Time of Evaluation Date of Evaluation: 11/19/18 Time of Evaluation: 16:47 - Subjective Subjective: Patient alert, confused, in no respiratory distress. Hgb: 8.2 after one unit of PRC. Serum ferritin and iron, serum vit B 12, folate are normal. ? Anemia of chronic disease Objective - Vital Signs/Intake and Output Vital Signs (last 24 hours): Temp Pulse Resp BP Pulse Ox 98.4 F 99 H 20 104/64 97 11/19/18 08:30 11/19/18 08:30 11/19/18 08:30 11/19/18 08:30 11/19/18 08:30 Intake and Output: 11/19/18 11/19/18 06:59 18:59 Intake Total 325 400 Output Total 275 400 Balance 50 0 - Medications Medications: Current Medications Lorazepam (Ativan) 1 mg IVP Q4 PRN PRN Reason: Agitation Lorazepam (Ativan) 1 mg JT DAILY KESHAWN Last Admin: 11/19/18 09:50 Dose: 1 mg - Labs Labs: 11/19/18 09:00 11/19/18 09:00 PT 12.1 SECONDS (9.7-12.2) 10/29/18 11:05 INR 1.1 10/29/18 11:05 APTT 30 SECONDS (21-34) D 10/29/18 11:05 - Constitutional Appears: Cachectic, Chronically Ill - Head Exam Head Exam: NORMOCEPHALIC - Eye Exam Eye Exam: Normal appearance - ENT Exam ENT Exam: Normal Exam - Neck Exam Neck Exam: Normal Inspection - Respiratory Exam Respiratory Exam: Rhonchi - Cardiovascular Exam Cardiovascular Exam: REGULAR RHYTHM - GI/Abdominal Exam GI & Abdominal Exam: Soft, Normal Bowel Sounds - Rectal Exam Rectal Exam: Deferred - Extremities Exam Extremities Exam: Normal Inspection - Back Exam Back Exam: NORMAL INSPECTION - Neurological Exam Neurological Exam: Alert, Awake Additional comments: Confused. - Skin Skin Exam: Dry, Intact, Normal Color, Warm Assessment and Plan (1) Change in mental status Status: Acute (2) Severe anemia Assessment & Plan: Check stools for OB, and retic's count. Status: Acute (3) Pneumonia Status: Resolved (4) Hematuria Status: Acute (5) Gastric mass Assessment & Plan: Still NPO with jejunostomy tube feeding. Status: Acute (6) Bilateral pleural effusion Status: Resolved
[2018-11-20 08:50] LABS: BASO # 0.1 K/uL (0.0-0.2); BASO % 0.6 % (0.0-2.0); EOS # 0.2 K/uL (0.0-0.7); EOS % 1.8 % (0.0-4.0); HEMOGLOBIN 7.7 g/dL (12.0-18.0); LYMPH # 1.3 K/uL (1.0-4.3); LYMPH % 9.8 % (20.0-40.0); MEAN CELL VOLUME 92.1 fL (80.0-94.0); MEAN CORPUSCULAR HEMOGLOBIN 29.2 pg (27.0-31.0); MEAN CORPUSCULAR HGB CONC 31.6 g/dL (33.0-37.0); MEAN PLATELET VOLUME 10.1 fL (7.2-11.7); MONO % 7.1 % (0.0-10.0); NEUT # 11.1 K/uL (1.8-7.0); NEUT % 80.7 % (50.0-75.0); NRBC % 0.2 % (0.0-2.0); PLATELET COUNT 357 K/uL (130-400); RBC 2.66 Mil/uL (4.40-5.90); RED CELL DISTRIBUTION WIDTH 22.2 % (11.5-14.5); WHITE BLOOD COUNT 13.7 K/uL (4.8-10.8)
[2018-11-20 10:21] LABS: EOSINOPHIL 1 % (0-4); MONOCYTE 10 % (0-10); TOTAL CELLS COUNTED 100
[2018-11-20 10:22] LABS: ANISOCYTOSIS SLIGHT; HYPOCHROMIC MODERATE; LYMPHOCYTE 10 % (20-40); MICROCYTOSIS SLIGHT; NEUTROPHIL 79 % (50-75); PLATELET ESTIMATE NORMAL (NORMAL); POIKILOCYTOSIS SLIGHT; POLYCHROMIC SLIGHT
[2018-11-20 10:23] LABS: OVALOCYTES SLIGHT; TARGET CELLS MODERATE; TEARDROP CELLS SLIGHT
--- NOTE | 2018-11-20 19:56 | CP.PCM.PN ---
Subjective - Date & Time of Evaluation Date of Evaluation: 11/20/18 Time of Evaluation: 19:53 - Subjective Subjective: Patient awake, in no acute respiratory distress, afebrile with sacral decubitus ulcer. Hb.7 retic's count elevated. Objective - Vital Signs/Intake and Output Vital Signs (last 24 hours): Temp Pulse Resp BP Pulse Ox 97.8 F 114 H 18 101/64 99 11/20/18 15:00 11/20/18 15:00 11/20/18 15:00 11/20/18 15:00 11/20/18 15:00 - Medications Medications: Current Medications Lorazepam (Ativan) 1 mg IVP Q4 PRN PRN Reason: Agitation Lorazepam (Ativan) 1 mg JT DAILY KESHAWN Last Admin: 11/20/18 10:55 Dose: 1 mg - Labs Labs: 11/20/18 08:23 11/19/18 09:00 PT 12.1 SECONDS (9.7-12.2) 10/29/18 11:05 INR 1.1 10/29/18 11:05 APTT 30 SECONDS (21-34) D 10/29/18 11:05 - Constitutional Appears: No Acute Distress, Cachectic, Chronically Ill - Head Exam Head Exam: NORMAL INSPECTION - Eye Exam Eye Exam: Normal appearance - ENT Exam ENT Exam: Normal Exam - Neck Exam Neck Exam: Normal Inspection - Respiratory Exam Respiratory Exam: Rhonchi - Cardiovascular Exam Cardiovascular Exam: REGULAR RHYTHM - GI/Abdominal Exam GI & Abdominal Exam: Soft, Normal Bowel Sounds - Rectal Exam Rectal Exam: Deferred - Exam Exam: NORMAL INSPECTION - Extremities Exam Extremities Exam: Normal Inspection - Back Exam Back Exam: NORMAL INSPECTION - Neurological Exam Neurological Exam: Alert, Awake Additional comments: Confused. - Psychiatric Exam Psychiatric exam: Flat Affect - Skin Skin Exam: Dry, Normal Color Additional comments: Sacral decubitus ulcer. 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 Patient in NPO with jejunostomy feeding tube. Status: Acute (6) Bilateral pleural effusion Status: Resolved
--- NOTE | 2018-11-20 23:55 | PN ---
DATE: 11/20/2018 LOCATION: 559, bed A. SUBJECTIVE: This 78-year-old male seen and examined in rounds, as requested by the admitting medical staff, still in a status of DNR and DNI, with status post jejunostomy tube for feeding purposes, if the patient has persistent dysphagia. The entire chart is reviewed including, but not limited to, the most recent lab and radiology study results, current and the previous medication list. Today's lab result showed white blood cells of 13.7, hemoglobin 7.7, hematocrit 24.5 with normal platelet count. Blood glucose level is 139 with recent albumin of 2.7. PHYSICAL EXAMINATION: GENERAL: A 78-year-old male. VITAL SIGNS: Afebrile with pulse of 110, respiratory rate 20-22, and blood pressure 120/66. HEENT: Showed pale dry oral mucous membrane. Nonicteric sclerae. LUNGS: Few scattered crepitation. Decreased air entry at bases. HEART: Positive S1 and S2 with increased rate. ABDOMEN: Soft with mild generalized tenderness. No mass or organomegaly. No rebound tenderness or guarding. NEUROLOGIC: No reported new neurological deficits. The patient is still with periods of confusion and disorientation. EXTREMITIES: Lower extremities with edematous changes. IMPRESSION: 1. Gastroesophageal adenocarcinoma with dysphagia. 2. Malnutrition, hypoalbuminemia, hypoproteinemia. 3. Status post jejunostomy tube insertion. 4. Pneumonia by recent history. 5. Severe anemia secondary to above and then episode of gastrointestinal blood loss and melena, and the patient is status post blood transfusion recently. 6. Change of mental status most likely secondary to above. 7. Bilateral pleural effusion with pneumonia. SUGGESTIONS: 1. Continue current management. 2. Adjust any electrolyte imbalance. 3. Antireflux measure. 4. The patient may need increased rate of feeding as tolerated with albumin IV. Flynn Avina MD
[2018-11-22 00:51] VITALS: BP 56/40; PULSE 203; RESP 21; TEMP 99.1; O2SAT 72
[2018-11-22] MEDS ORDERED: Sodium Chloride 0.9% 1,000 ML IV SCH (01:15)
[2018-11-22 03:49] LABS: BASO # 0.1 K/uL (0.0-0.2); BASO % 0.3 % (0.0-2.0); LYMPH # 1.2 K/uL (1.0-4.3); LYMPH % 4.6 % (20.0-40.0); MEAN CORPUSCULAR HEMOGLOBIN 30.3 pg (27.0-31.0); MEAN CORPUSCULAR HGB CONC 28.7 g/dL (33.0-37.0); MEAN PLATELET VOLUME 10.1 fL (7.2-11.7); MONO # 2.1 K/uL (0.0-0.8); MONO % 8.3 % (0.0-10.0); NEUT # 22.3 K/uL (1.8-7.0); NEUT % 86.8 % (50.0-75.0); NRBC % 5.5 % (0.0-2.0); PLATELET COUNT 297 K/uL (130-400); RBC 1.89 Mil/uL (4.40-5.90); RED CELL DISTRIBUTION WIDTH 28.8 % (11.5-14.5)
[2018-11-22 03:55] LABS: MEAN CELL VOLUME 105.8 fL (80.0-94.0); WHITE BLOOD COUNT 25.7 K/uL (4.8-10.8)
[2018-11-22 03:58] LABS: HEMOGLOBIN 5.7 g/dL (12.0-18.0)
[2018-11-22 04:01] LABS: CALCIUM 6.6 mg/dl (8.6-10.4)
--- NOTE | 2018-11-22 04:34 | CP.PCM.PRO ---
Pronouncement of Note - Clinical Findings Physical Exam: No Response Verbal/Painful Stimuli, Absent Peripheral Puls es{Carotid & Femoral}, Absent Heart & Breath Sounds, No Pupillary Light Reflex, No Corneal Reflex, Pupils Fixed & Dilated, Absence of Vital Signs - Pronouncement Time Time of Pronouncement of : 04:26 - Notifications Cathead Worker Notified: No - Autopsy Autopsy Requested: No
[2018-11-22 05:20] LABS: ANISOCYTOSIS SLIGHT; BANDS 3 % (0-2); LYMPHOCYTE 7 % (20-40); MICROCYTOSIS SLIGHT; MONOCYTE 5 % (0-10); NEUTROPHIL 84 % (50-75); NUCLEATED RED BLOOD CELL 4 % (0-0); PLATELET ESTIMATE NORMAL (NORMAL); POIKILOCYTOSIS SLIGHT; REACTIVE LYMPHOCYTES 1 % (0-0); TOTAL CELLS COUNTED 100
[2018-11-22 05:21] LABS: POLYCHROMIC SLIGHT
--- NOTE | 2018-11-23 01:24 | CP.PCM.DIS ---
Provider - Provider Date of Admission: 10/12/18 11:16 Attending physician: Sylvester Jacinto MD Primary care physician: Sylvester Jacinto M.D. Consults: 10/13/18 07:53 Infectious Disease Consult Routine Comment: Consulting Provider: Collin Ag Consulting Physician: Collin Ag Reason for Consult: elevated wbc 10/13/18 14:19 Gastroenterology Consult Routine Comment: Consulting Provider: Flynn Mckeon Consulting Physician: Flynn Mckeon Reason for Consult: POSS GI BLEED 10/14/18 19:24 Physician Consult Routine Comment: Consulting Provider: Khurram Cardoso Consulting Physician: Khurram Cardoso Reason for Consult: Altered mental status. pneumonia 10/14/18 19:25 Physician Consult Routine Comment: Consulting Provider: Naveed Becker Consulting Physician: Naveed Becker Reason for Consult: Confusion, pneumonia 10/15/18 20:05 Physician Consult Routine Comment: Consulting Provider: Francisco Macias Consulting Physician: Francisco Macias Reason for Consult: Esophageal mass. 10/15/18 20:07 Physician Consult Routine Comment: Consulting Provider: Endy Mathews Consulting Physician: Endy Mathews Reason for Consult: esophageal mass 10/20/18 01:55 Urology Consult Routine Comment: Consulting Provider: Aishwarya Quiroz Consulting Physician: Aishwarya Quiroz Reason for Consult: Elevated PSA and hematuria 10/21/18 09:51 Palliative Care Consult Routine Comment: Consulting Provider: Sheryl Morgan Physician Instructions: Reason For Exam: esophageal mass 10/28/18 11:18 Physician Consult Routine Comment: JEJUNOSTOMY TUBE AND THORACENTSIS Consulting Provider: Endy Mathews Consulting Physician: Endy Mathews Reason for Consult: JEJUNOSTOMY TUBE AND THORACENTSIS 10/29/18 16:59 Critical Care Consult Stat Comment: Consulting Provider: Odilon Bella Consulting Physician: Odilon Bella Reason for Consult: hypotension, hx CA w/ mets, possible bleed 11/14/18 06:30 Wound Care [Nursing Referral for Wound Care] Routine Comment: Physician Instructions: Reason For Exam: sacral redness 10/12/18 08:22 Critical Care Consult Stat Comment: Consulting Provider: Brenda Wells Consulting Physician: Brenda Wells Reason for Consult: hypothermia, ams 12/31/18 17:03 Nursing Referral for Palliative Care Routine Comment: Physician Instructions: Reason For Exam: AMS Social Work Referral Routine Comment: discharge planning Physician Instructions: Reason For Exam: AMS, found outside 10/12/18 17:17 Case Management Referral Routine Comment: Physician Instructions: Reason For Exam: Reason for Referral: Discharge Planning Time Spent in preparation of Discharge (in minutes): 60 Diagnosis - Discharge Diagnosis (1) Change in mental status Status: Acute (2) Severe anemia Status: Acute (3) Pneumonia Status: Resolved (4) Hematuria Status: Acute (5) Gastric mass Status: Acute (6) Bilateral pleural effusion Status: Resolved Hospital Course - Lab Results Lab Results: Micro Results 10/29/18 16:15 Blood Blood Culture - Final NO GROWTH AFTER 5 DAYS 10/29/18 16:15 Blood Gram Stain - Final TEST NOT PERFORMED 10/29/18 16:00 Blood Blood Culture - Final NO GROWTH AFTER 5 DAYS 10/29/18 16:00 Blood Gram Stain - Final TEST NOT PERFORMED 10/29/18 14:30 Blood-Venous Blood Culture - Final NO GROWTH AFTER 5 DAYS 10/29/18 14:30 Blood-Venous Gram Stain - Final TEST NOT PERFORMED 10/29/18 13:58 Blood-Venous Blood Culture - Final NO GROWTH AFTER 5 DAYS 10/29/18 13:58 Blood-Venous Gram Stain - Final TEST NOT PERFORMED 10/12/18 08:02 Blood Blood Culture - Final NO GROWTH AFTER 5 DAYS 10/12/18 08:02 Blood Gram Stain - Final TEST NOT PERFORMED 10/12/18 07:49 Blood Blood Culture - Final NO GROWTH AFTER 5 DAYS 10/12/18 07:49 Blood Gram Stain - Final TEST NOT PERFORMED 10/12/18 08:53 Urine,Catheterized Urine Culture - Final No Growth (<1,000 CFU/ML) Most Recent Lab Values WBC 25.7 K/uL (4.8-10.8) H D 11/22/18 03:43 RBC 1.89 Mil/uL (4.40-5.90) L 11/22/18 03:43 Hgb 5.7 g/dL (12.0-18.0) L* D 11/22/18 03:43 Hct 20.0 % (35.0-51.0) L 11/22/18 03:43 MCV 105.8 fL (80.0-94.0) H D 11/22/18 03:43 MCH 30.3 pg (27.0-31.0) 11/22/18 03:43 MCHC 28.7 g/dL (33.0-37.0) L 11/22/18 03:43 RDW 28.8 % (11.5-14.5) H 11/22/18 03:43 Plt Count 297 K/uL (130-400) 11/22/18 03:43 MPV 10.1 fL (7.2-11.7) 11/22/18 03:43 Neut % (Auto) 86.8 % (50.0-75.0) H 11/22/18 03:43 Lymph % (Auto) 4.6 % (20.0-40.0) L 11/22/18 03:43 Henderson % (Auto) 8.3 % (0.0-10.0) 11/22/18 03:43 Eos % (Auto) 0.0 % (0.0-4.0) 11/22/18 03:43 Baso % (Auto) 0.3 % (0.0-2.0) 11/22/18 03:43 Neut # (Auto) 22.3 K/uL (1.8-7.0) H 11/22/18 03:43 Lymph # (Auto) 1.2 K/uL (1.0-4.3) 11/22/18 03:43 Henderson # (Auto) 2.1 K/uL (0.0-0.8) H 11/22/18 03:43 Eos # (Auto) 0.0 K/uL (0.0-0.7) 11/22/18 03:43 Baso # (Auto) 0.1 K/uL (0.0-0.2) 11/22/18 03:43 Neutrophils % (Manual) 84 % (50-75) H 11/22/18 03:43 Band Neutrophils % 3 % (0-2) H 11/22/18 03:43 Lymphocytes % (Manual) 7 % (20-40) L 11/22/18 03:43 Reactive Lymphs % 1 % (0-0) H 11/22/18 03:43 Monocytes % (Manual) 5 % (0-10) 11/22/18 03:43 Eosinophils % (Manual) 1 % (0-4) 11/20/18 08:23 Basophils % (Manual) 1 % (0-2) 11/18/18 08:36 Nucleated RBC % 4 % (0-0) H 11/22/18 03:43 Toxic Granulation Present 11/01/18 07:56 Platelet Estimate Normal (NORMAL) 11/22/18 03:43 Large Platelets Present 11/02/18 06:59 Giant Platelets Present 10/28/18 14:05 Polychromasia Slight 11/22/18 03:43 Hypochromasia (manual) Moderate 11/20/18 08:23 Poikilocytosis (manual Slight 11/22/18 03:43 Anisocytosis (manual) Slight 11/22/18 03:43 Microcytosis (manual) Slight 11/22/18 03:43 Macrocytosis (manual) Slight 11/22/18 03:43 Target Cells Moderate 11/20/18 08:23 Tear Drop Cells Slight 11/20/18 08:23 Ovalocytes Slight 11/20/18 08:23 Emerson Cells Slight 11/10/18 08:28 Acanthocytes (Spur) Slight 10/31/18 07:30 Schistocytes Slight 11/01/18 07:56 Retic Count 6.4 % (0.5-1.5) H D 11/20/18 08:23 PT 12.1 SECONDS (9.7-12.2) 10/29/18 11:05 INR 1.1 10/29/18 11:05 APTT 30 SECONDS (21-34) D 10/29/18 11:05 Puncture Site Lr 10/30/18 09:37 pCO2 21 mm/Hg (35-45) L 10/30/18 09:37 pO2 206 mm/Hg (80-100) H 10/29/18 16:37 HCO3 22.0 mmol/L (21-28) 10/29/18 16:37 ABG pH 7.51 (7.35-7.45) H 10/30/18 09:37 ABG Total CO2 17.4 mmol/L (22-28) L 10/30/18 09:37 ABG O2 Saturation 100.3 % (95-98) H 10/30/18 09:37 ABG Base Excess -4.1 mmol/L (-2.0-3.0) L 10/30/18 09:37 Shashi Test Pos 10/30/18 09:37 ABG Potassium 3.0 mmol/L (3.6-5.2) L 10/30/18 09:37 VBG pH 7.37 (7.32-7.43) 10/12/18 12:42 VBG pCO2 39 mmHg (40-60) L 10/12/18 12:42 VBG HCO3 21.1 mmol/L 10/12/18 12:42 VBG Total CO2 23.7 mmol/L (22-28) 10/12/18 12:42 VBG O2 Sat (Calc) 25.3 % (40-65) L 10/12/18 12:42 VBG Base Excess -2.5 mmol/L (0.0-2.0) L 10/12/18 12:42 VBG Potassium 3.7 mmol/L (3.6-5.2) 10/12/18 12:42 A-a O2 Difference 473.0 mm/Hg 10/29/18 16:37 Respiratory Index 2.3 10/29/18 16:37 Sodium 143.0 mmol/l (132-148) 10/30/18 09:37 Chloride 114.0 mmol/L (98-107) H 10/30/18 09:37 Glucose 86 mg/dl (75-110) 10/30/18 09:37 Lactate 0.8 mmol/L (0.7-2.1) 10/30/18 09:37 Liter Flow 15.0 10/30/18 09:37 FiO2 100.0 % 10/29/18 16:37 Sodium 155 mmol/L (132-148) H 11/22/18 03:43 Potassium 3.3 mmol/L (3.6-5.2) L 11/22/18 03:43 Chloride 127 mmol/L (98-107) H 11/22/18 03:43 Carbon Dioxide 13 mmol/L (22-30) L 11/22/18 03:43 Anion Gap 18 (10-20) 11/22/18 03:43 BUN 87 mg/dL (9-20) H 11/22/18 03:43 Creatinine 1.7 mg/dL (0.8-1.5) H 11/22/18 03:43 Est GFR ( Amer) 48 11/22/18 03:43 Est GFR (Non-Af Amer) 39 11/22/18 03:43 POC Glucose (mg/dL) 167 mg/dL (65-110) H 11/21/18 21:18 Random Glucose 93 mg/dL (75-110) D 11/22/18 03:43 Lactic Acid 1.4 mmol/L (0.7-2.1) 10/29/18 16:15 Calcium 6.6 mg/dl (8.6-10.4) L 11/22/18 03:43 Phosphorus 4.5 mg/dL (2.5-4.5) 11/18/18 08:36 Magnesium 2.3 mg/dL (1.6-2.3) 11/19/18 09:00 Iron 55 ug/dL (49-181) 11/19/18 09:00 TIBC 230 ug/dL (250-450) L 11/19/18 09:00 % Saturation 24 (20-55) 11/19/18 09:00 Ferritin 195.0 ng/mL 11/19/18 09:00 Total Bilirubin 0.3 mg/dL (0.2-1.3) 11/22/18 03:43 AST 77 U/L (17-59) H D 11/22/18 03:43 ALT 32 U/L (21-72) 11/22/18 03:43 Alkaline Phosphatase 98 U/L (38-126) 11/22/18 03:43 Ammonia < 9 umol/L (9-33) L 10/14/18 08:24 Total Creatine Kinase 63 U/L (55-170) 10/29/18 16:00 CK-MB (Mass) 0.45 ng/mL (0.0-3.38) 10/29/18 16:00 Troponin I < 0.0120 ng/mL (0.00-0.120) 10/29/18 16:00 NT-Pro-B Natriuret Pep 1780 pg/mL (0-900) H 10/12/18 08:13 Total Protein 3.9 g/dL (6.3-8.3) L 11/22/18 03:43 Albumin 2.0 g/dL (3.5-5.0) L D 11/22/18 03:43 Globulin 1.9 gm/dL (2.2-3.9) L 11/22/18 03:43 Albumin/Globulin Ratio 1.0 (1.0-2.1) 11/22/18 03:43 Alpha Fetoprotein 3.4 ng/mL (0.0-7.5) 10/14/18 08:24 Carcinoembryonic Ag 1.6 ng/mL (0-3.0) 10/14/18 08:24 CA 19-9 Antigen 1.9 U/mL (0-37) 10/14/18 08:24 Prostate Specific Ag 11.0 ng/mL (0.00-4.0) H 10/16/18 07:07 Vitamin B12 494 pg/mL (239-931) 11/19/18 09:00 Folate 17.5 ng/mL 11/19/18 09:00 Procalcitonin 13.86 NG/ML (0.19-0.49) H 11/01/18 07:56 TSH 3rd Generation 3.08 mIU/L (0.46-4.68) 10/14/18 08:24 Arterial Blood Potassium 3.0 mmol/L (3.6-5.2) L 10/30/18 09:37 Venous Blood Potassium 3.7 mmol/L (3.6-5.2) 10/12/18 12:42 Urine Color Yellow (YELLOW) 10/12/18 08:53 Urine Clarity Clear (Clear) 10/12/18 08:53 Urine pH 5.0 (5.0-8.0) 10/12/18 08:53 Ur Specific [place] 1.021 (1.003-1.030) 10/12/18 08:53 Urine Protein Negative mg/dL (NEGATIVE) 10/12/18 08:53 Urine Glucose (UA) Normal mg/dL (Normal) 10/12/18 08:53 Urine Ketones 1+ mg/dL (NEGATIVE) H 10/12/18 08:53 Urine Blood 2+ (NEGATIVE) H 10/12/18 08:53 Urine Nitrate Negative (NEGATIVE) 10/12/18 08:53 Urine Bilirubin Negative (NEGATIVE) 10/12/18 08:53 Urine Urobilinogen Normal mg/dL (0.2-1.0) 10/12/18 08:53 Ur Leukocyte Esterase Neg Marissa/uL (Negative) 10/12/18 08:53 Urine WBC (Auto) 2 /hpf (0-5) 10/12/18 08:53 Urine RBC (Auto) 22 /hpf (0-3) H 10/12/18 08:53 Ur Squamous Epith Cells < 1 /hpf (0-5) 10/12/18 08:53 Stool Occult Blood Positive (NEGATIVE) H 11/22/18 03:43 Ur Opiates (GC/MS) Negative 300 (Negative) 10/13/18 07:18 Ur Methadone, Qual Negative 300 (Negative) 10/13/18 07:18 Urine Propoxyphene Negative 300 (Negative) 10/13/18 07:18 Methaqualone Negative 300 (Negative) 10/13/18 07:18 Ur Barbiturates, Qual Negative 300 (Negative) 10/13/18 07:18 Ur Phencyclidine (PCP) Negative 25 (Negative) 10/13/18 07:18 Ur Amphetamines Screen Negative 1000 (Negative) 10/13/18 07:18 U Benzodiazepines Qual Negative 300 (Negative) 10/13/18 07:18 Urine Cocaine Negative 300 (Negative) 10/13/18 07:18 U Marijuana (THC) Screen Negative 50 (Negative) 10/13/18 07:18 Drugs of Abuse Note See note 10/13/18 07:18 RPR Nonreactive (NONREACTIVE) 10/31/18 07:30 C. difficile Ag & Toxin Negative (NEGATIVE) 10/29/18 14:30 Hepatitis A IgM Ab Negative (NEGATIVE) 10/29/18 16:00 Hep Bs Antigen Negative (NEGATIVE) 10/29/18 16:00 Hep B Core IgM Ab Negative (NEGATIVE) 10/29/18 16:00 Hepatitis C Antibody Negative (NEGATIVE) 10/29/18 16:00 HIV 1&2 Antibody Screen Negative (NEGATIVE) 10/30/18 07:54 Influenza Typ A,B (EIA) Negative for flu a/b (NEGATIVE) 10/13/18 18:18 H.influenzae Type B Ag Negative (NEGATIVE) 10/14/18 07:03 N.meningitidis ACY/W135 Negative (NEGATIVE) 10/14/18 07:03 N.meningi B/E.coli K1 Ag Negative (NEGATIVE) 01/02/19 07:03 Group B Strep Antigen Negative (NEGATIVE) 10/14/18 07:03 S. pneumoniae Antigen Negative (NEGATIVE) 10/14/18 07:03 Blood Type A POSITIVE 11/18/18 14:01 Blood Type Confirm A POSITIVE 10/13/18 13:32 Antibody Screen Negative 11/18/18 14:01 - Hospital Course Hospital Course: 78 yo male was brought by EMS to the ED at [facility] because he was found confused and hypothermic lying on a voodoo steps for an unknown amount of time. In the ED, his rectal temperature was 90.5 F, WBC: 19.7 hb.6 Plt: 568,000 Na+: 134 K+: 4.4 BUN: 37 creatinine: 0.8 CXR: Normal Head CT: ischemic change, Abdomen and pelvis CT: Bibasilar lung infiltrates and hepatic cyst. The patient was given IV Maxipime and IVF. Patient also received one unit of PRC. He underwent an EGD on 10/14/[address] Mckeon which revealed a large mass of the lower third of the esophagus, partially obstructing the lumen, and a gastric mass, oozing blood. A second EGD was performed on 10/16/2018 for more tumor biopsy. The biopsy revealed a moderately differentiated adenocarcinoma. The biopsy findings were discussed with the patient's sister who declined any invasive procedure, and wanted the patient to be DNI and DNR. However, she did not want the patient to be placed in Hospice. The patient received PPN. A jejunostomy feeding tube was placed on 11/02/[address] Mathews and tube feeding was started. PPN was discontinued. A CT scan of the chest on 10/28/2018 revealed resolved bilateral effusion. The patient received occasional PRC transfusion because of severe anemia and was waiting for [facility] placement. On 11/22/2018, rapid response was called because of hypotension and black tarry stools. The patient received a Bolus of NS and IV NS at 200 ml/ hr, but the BP remained low, and the patient's mental status remained altered. He on 11/22/2018 at 4: 26 AM. - Date & Time of H&P Date of H&P: 10/15/18 Discharge Exam - Head Exam Head Exam: NORMAL INSPECTION Discharge Plan - Follow Up Plan Condition: Disposition: WITH WITHOUT AUTOPSY Instructions: Pneumonia, Adult (DC), Altered Mental Status (DC), Normocytic Normochromic Anemia (DC) Referrals: Francisco Macias MD [Staff Provider] - Naveed Becker MD [Staff Provider] - Flynn Mckeon [Staff Provider] - Khurram Cardoso MD [Staff Provider] - Collin Ag MD [Staff Provider] - Brenda Wells MD [Staff Provider] - Sylvester Jacinto MD [Staff Provider] -
== END 2018-11-22 05:06 | DRG 329 ==
LOC: C.ER 07:22 → C.9E 11:16 → C.5S 14:21
PROVIDERS: ADMIT Internal Medicine Cardiovascular Disease; ATTEND Internal Medicine Cardiovascular Disease
PROC: 30233N1 Transfusion of Nonautologous Red Blood Cells into Peripheral Vein, Percutaneous Approach (ICD-10-PCS; 2018-10-13)
PROC: 0DB78ZX Excision of Stomach, Pylorus, Via Natural or Artificial Opening Endoscopic, Diagnostic (ICD-10-PCS; 2018-10-14)
PROC: 3E0336Z Introduction of Nutritional Substance into Peripheral Vein, Percutaneous Approach (ICD-10-PCS; 2018-10-16)
PROC: 0DB68ZX Excision of Stomach, Via Natural or Artificial Opening Endoscopic, Diagnostic (ICD-10-PCS; 2018-10-16)
PROC: 0D1A0Z4 Bypass Jejunum to Cutaneous, Open Approach (ICD-10-PCS; principal; 2018-11-02 11:00)
PROC: 3E0G76Z Introduction of Nutritional Substance into Upper GI, Via Natural or Artificial Opening (ICD-10-PCS; 2018-11-03)
PROC: 30233N1 Transfusion of Nonautologous Red Blood Cells into Peripheral Vein, Percutaneous Approach (ICD-10-PCS; 2018-11-18)
DX: C16.0 Malignant neoplasm of cardia (principal); J69.0 Pneumonitis due to inhalation of food and vomit; C78.89 Secondary malignant neoplasm of other digestive organs; T68.XXXA Hypothermia, initial encounter; F05 Delirium due to known physiological condition; J91.8 Pleural effusion in other conditions classified elsewhere; E46 Unspecified protein-calorie malnutrition; K92.2 Gastrointestinal hemorrhage, unspecified; E86.0 Dehydration; D50.0 Iron deficiency anemia secondary to blood loss (chronic); D63.0 Anemia in neoplastic disease; K92.0 Hematemesis; K92.1 Melena; E11.65 Type 2 diabetes mellitus with hyperglycemia; K29.70 Gastritis, unspecified, without bleeding; F03.90 Unspecified dementia, unspecified severity, without behavioral disturbance, psychotic disturbance, mood disturbance, and anxiety; F39 Unspecified mood [affective] disorder; I11.9 Hypertensive heart disease without heart failure; I51.7 Cardiomegaly; J32.4 Chronic pansinusitis; C61 Malignant neoplasm of prostate; E77.8 Other disorders of glycoprotein metabolism; R47.01 Aphasia; K27.9 Peptic ulcer, site unspecified, unspecified as acute or chronic, without hemorrhage or perforation; R13.10 Dysphagia, unspecified; D72.825 Bandemia; Z66 Do not resuscitate; Z51.5 Encounter for palliative care; L89.159 Pressure ulcer of sacral region, unspecified stage; I95.9 Hypotension, unspecified; E78.5 Hyperlipidemia, unspecified; E78.00 Pure hypercholesterolemia, unspecified; K76.89 Other specified diseases of liver; N40.0 Benign prostatic hyperplasia without lower urinary tract symptoms; X31.XXXA Exposure to excessive natural cold, initial encounter; Z91.81 History of falling; Z79.4 Long term (current) use of insulin